=== PATIENT | male | born 1945 | race Caucasian/White ===

== ENCOUNTER 2019-12-03 20:48 | Inpatient (IN) | payer MEDICARE, OTHER, SELFPAY ==
--- NOTE | ~2019-12-03 | XR_ITS ---
EXAMINATION: XR chest 2V EXAM DATE: 12/03/2019 21:16 INDICATION: Shortness of breath, history of COPD. Productive cough. TECHNIQUE: Frontal and lateral projections of the chest obtained and reviewed. Comparison is made to prior examination from 09/10/2019. FINDINGS: Development of cardiomegaly, congestion and probably mild pulmonary edema given the indist inct reticulation. There are also small pleural effusions. No confluent consolidation or pneumothorax . Sternotomy wires are present without findings to suggest sternal dehiscence. There is a dual lead p acemaker/AICD seen with leads projecting over the expected locations of the right atrial appendage an d right ventricle. Cervical fusion hardware. Cardiac valve replacement. There is aortic arterial scle rosis. There are mild bony degenerative changes. IMPRESSION: 1. Findings consistent with developing CHF exacerbation. Reviewed, dictated and finalized at location A. [facility] [employer] AND [employer] PRESS TENDER
--- NOTE | 2019-12-03 20:56 | ECG_ITS ---
Measurements Intervals [place] Rate: 104 P: 79 OR: 189 QRS: -9 QRSD: 174 T: 133 QT: 371 QTc: 490 Interpretive Statements SINUS TACHYCARDIA LEFT BUNDLE BRANCH BLOCK BASELINE ARTIFACT- I, II, III, AVR, AVL, AVF, V5-V6 ABNORMAL ECG Electronically Signed On 12-04-2019 7:29:51 G[employer]RA[employer]ER by Shai Lima D.O.
[2019-12-03 20:57] VITALS: BP 195/103; PULSE 104; RESP 28; TEMP 36.8; O2SAT 87
[2019-12-03 21:12] LABS: Basophils Percent Auto 0.1 % (0.2-1.2); Hematocrit 35.3 % (42.0-52.0); Hemoglobin 12.2 g/dL (14.0-18.0); Immature Granulocyte Absolute 0.06 K/mm3 (0.00-0.031); Immature Granulocyte Percent A 0.4 % (0-0.5); Lymphocytes Absolute Auto 1.35 K/mm3 (0.9-3.2); Lymphocytes Percent Auto 9.9 % (18.3-44.2); Mean Corpuscular HGB Conc 34.6 g/dl (32-36); Mean Corpuscular Hemoglobin 28.5 pg (26-34); Mean Corpuscular Volume 82.5 fl (80-100); Mean Platelet Volume 10.5 fl (7.4-10.4); Monocytes Absolute Auto 0.6 K/mm3 (0.1-0.6); Monocytes Percent Auto 4.6 % (2.6-8.5); Neutrophils Absolute Auto 11.6 K/mm3 (1.3-6.7); Platelet Count Result 278 k/mm3 (150-375); Red Blood Count 4.28 M/mm3 (4.6-6.20); Red Cell Distribution Width 14.2 % (11.5-14.5); White Blood Count 13.6 K/mm3 (4.5-10.0)
--- NOTE | 2019-12-03 21:18 | ED.SOB ---
HPI - SOB/Dyspnea General Chief Complaint: Shortness of Breath/Dyspnea Stated Complaint: SOB Time Seen by Provider: 12/03/19 21:13 Source: patient, family ( at bedside) and RN notes reviewed Mode of arrival: ambulatory Limitations: no limitations History of Present Illness HPI Narrative: Pt is a 74 y/o male presenting to the ED c/o SOB. Pt reports he has been experiencing SOB for 1 week. Pt states he has a Hx of COPD and was recently prescribed Azithromycin and Prednisone. 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 Pt notes he has supplemental oxygen at night due to sleep apnea but is not on it during the day. Pt denies fever. Pt states he currently has a Pacemaker in place. Pertinent past history: COPD Onset (ago): week(s) (1) Associated symptoms: denies other symptoms Related Data Home Medications Medication Instructions Recorded Confirmed Ex-Lax (sennosides) 15 mg PO HS PRN 07/29/19 09/01/19 atorvastatin 20 mg PO DAILY 07/29/19 09/01/19 carvedilol [Coreg] 12.5 mg PO Q12H 07/29/19 09/01/19 clopidogrel 75 mg PO DAILY 07/29/19 09/01/19 ferrous sulfate 324 mg PO DAILY 07/29/19 09/01/19 hydrocodone-acetaminophen 1 tablet PO HS PRN 07/29/19 09/01/19 insulin lispro See Rx Instructions .ROUTE .COMPLEX 07/29/19 09/01/19 isosorbide mononitrate 60 mg PO DAILY 07/29/19 09/01/19 meclizine 25 mg PO TID PRN 07/29/19 09/01/19 nitroglycerin [Nitrostat] 0.4 mg SUBLINGUAL PRN PRN 07/29/19 09/01/19 ranolazine 1,000 mg PO Q12H 07/29/19 09/01/19 tiotropium bromide 1 cap INHALATION DAILY 07/29/19 09/01/19 linaclotide 72 mcg capsule See Rx Instructions .ROUTE .COMPLEX 08/11/19 09/01/19 Allergies Allergy/AdvReac Type Severity Reaction Status Date / Time Cephalosporins Allergy Mild VASCULAR TECHNICIAN Verified 12/03/19 21:06 HIVES bee venom protein (honey bee) Allergy Unknown unknown Verified 12/03/19 21:06 Penicillins Allergy Unknown unknown Verified 12/03/19 21:06 Review of Systems Review of Systems: All systems reviewed & are unremarkable except as noted in HPI and below Constitutional: Constitutional: Denies fever(s) Respiratory: Respiratory: Reports dyspnea PMFSH Past Medical History Medical History (Updated 12/03/19 @ 22:51 by Leonard Alvarez MD) CAD (coronary artery disease) CHF (congestive heart failure) CKD (chronic kidney disease) stage 3, GFR 30-59 ml/min COPD (chronic obstructive pulmonary disease) Pacemaker Paroxysmal atrial fibrillation Pneumonia Surgical History Surgical History History of aortic valve replacement with bioprosthetic valve Family History Family History Father Hypertension Family history of malignant neoplasm Family history of heart disease in male family member before age 55, Onset Age: 67 Acute myocardial infarction Malignant neoplasm of prostate Family history of congestive heart failure Mother Family history of kidney disease Sibling Family history of malignant neoplasm of breast in first degree relative Social History Social History Social History: pt stated has not smoked in 21 years. Smoking status: Former smoker Smoking end date: 09/29/95 Additional smoking assessment comments: [id number] Alcohol intake: current Last use: fadfa Additional living arrangements comments: ffffffff Additional occupation/education comments: [id number] Gender identity (if verbalized by the patient): Male Additional gender identity comments: [id number] Spiritual care concerns: No Exam Narrative: Exam Narrative: GENERAL: Well-appearing, well-nourished, and in no acute distress. HEAD: Normocephalic, atraumatic. EYES: PERRLA and EOMI. ENT: Nares clear, Mucous membranes moist. NECK: Supple. CHEST: No respiratory distress. has bilateral whee
[2019-12-03 21:38] LABS: Blood Urea Nitrogen 37 mg/dL (9-20); Calcium 8.8 mg/dL (8.4-10.2); Carbon Dioxide 22 mmol/L (22-30); Chloride 99 mmol/L (98-107); Estimated Glomerular Filt Rate > 60; Glucose 176 mg/dL (75-110); Potassium 4.7 mmol/L (3.4-5.0); Sodium 133 mmol/L (137-145)
[2019-12-03 22:03] VITALS: BP 166/73; PULSE 74; RESP 20; O2SAT 98
[2019-12-03] MEDS: IPRATROPIUM BR 0.02% INH SOLN 0.5 MG/2.5 ML VIAL INHALATION (22:07)
[2019-12-03 22:08] VITALS: PULSE 74; RESP 26
[2019-12-03] MEDS: ALBUTEROL SULFATE NEB 2.5 MG/0.5 ML INH 5 MG INHALATION (22:08)
[2019-12-03 22:17] VITALS: PULSE 80; RESP 26
[2019-12-03] MEDS: methylPREDNISolone SOD SUCC 125 MG VIAL 80 MG IV PUSH (23:25)
[2019-12-03 23:26] VITALS: BP 161/72; PULSE 73; RESP 20; O2SAT 97
[2019-12-03] MEDS: FUROSEMIDE INJ 40 MG/4 ML VIAL IV PUSH (23:26)
[2019-12-03 23:29] LABS: NT Pro B Type Natriuretic Pept 2670 PG/ML (5-100)
[2019-12-04] VITALS (28 sets, daily range): BP systolic 128–186; BP diastolic 49–86; PULSE 60–125; RESP 18–20; TEMP 36.3–36.8; O2SAT 94–99; BMI 33.2
--- NOTE | 2019-12-04 01:09 | ADMGEN ---
This patient, Ron Manuel, was admitted to 2 Medical Room 244-. Patient/family oriented to hospital policies and general routines including ID bracelet, bed and alarms, visiting hours, pain management, procedures, bathroom and other care routines, personal items, smoking policy, room service/diet, and visiting hours. Valuables list has been completed. Information on how to activate the Rapid Response Team has been discussed. Patient/Family are encouraged to report perceived risks to care and to ask questions if they do not understand what they are told or what they should do.
[2019-12-04] MEDS: methylPREDNISolone SOD SUCC 125 MG VIAL 60 MG IV PUSH ×4 (02:10→20:24)
[2019-12-04 02:36] LABS: Troponin I 0.106 ng/mL (0.000-0.034)
[2019-12-04] MEDS: IPRATROPIUM BR 0.02% INH SOLN 0.5 MG/2.5 ML VIAL INHALATION ×4 (02:38→19:13)
[2019-12-04] MEDS: ALBUTEROL SULFATE NEB 2.5 MG/0.5 ML INH 5 MG INHALATION ×4 (03:08→19:13)
[2019-12-04] MEDS: carvediloL 12.5 MG TABLET PO ×3 (03:15→20:23)
--- NOTE | 2019-12-04 04:26 | PM.IMHP ---
H&P: HPI History of Present Illness Chief complaint: Shortness of breath Narrative: oRn Manuel is a 74 year old male with a complex past medical history including COPD, diastolic congestive heart failure, chronic kidney disease stage 3, and type 2 diabetes mellitus who presented to the ER for 1 week. Patient evidently went to his primary care physician on November 30 due to increasing shortness of breath with sent home on prednisone and azithromycin after receiving a nebulizer treatment in the office. The patient reports that despite the steroids and antibiotics he became even more short of breath on the . He has had increased cough over the course of the week as occasionally productive. He denies any fevers or chills. He has been having increasing orthopnea but denies any increased lower extremity swelling. He has chronic right lower extremity swelling ever since he had a fem pop bypass several years ago. He did have a recent stent placed in the right lower extremity about a month ago. He denies any recent ill contacts. He has not been having any fevers or chills. He has noticed increased wheezing. He denies any chest pain or palpitations. However, just before I went into the patient's room he had an episode of a wide complex tachycardia with a heart rate of around 125 that lasted 2 minutes. He denied any symptoms of this at the time. [facility]. He has been having variable glucoses with his glucoses at home ranging anywhere from the 100s up to the upper 300s. He reports he has been taking his medications as directed. However he has not been using his home Spiriva and has been using his nebulizer. He denies any recent dysuria. He has had approximately 1.5 L of urine output since he received Lasix in the ER. He reports that his shortness of breath has improved. He has been compliant with his CPAP and uses it religiously. He reports that his feet always feel like there sleep due to his neuropathy. He does have issues with constipation but since he stopped his oral iron supplements and started taking MiraLax b.i.d. he has had more regular bowel movements. He denies any hematochezia or melena. Review of Systems Review of Systems: Narrative: Except as documented in the HPI, all other systems were reviewed and are negative. [facility] Past Medical History Medical History (Updated 12/04/19 @ 05:48 by Qian Tillman DO) Bacteremia Streptococcus bovis bacteremia June 2019. Transesophageal echocardiogram negative for vegetation July 2019 Bilateral carotid artery disease CAD (coronary artery disease) Status post stents and CABG. CHF (congestive heart failure) Echo October 05, 2018 demonstrated EF of 55% but difficult study prior echos had demonstrated mildly decreased left ventricular systolic function with hypokinetic segment of left ventricle including apical mid in peers septum apical septum and mid anterior septum, diastolic dysfunction noted on prior echoes CKD (chronic kidney disease) stage 3, GFR 30-59 ml/min COPD (chronic obstructive pulmonary disease) PFTs November 2017 demonstrated mild obstructive ventilatory defect with severe small airway disease with bronchodilator response moderately decreased DLCO Diabetic peripheral neuropathy GERD (gastroesophageal reflux disease) Hiatal hernia History of BPH Hyponatremia with decreased serum osmolality Obstructive sleep apnea on CPAP Polysomnogram June 2018 recommended CPAP with 19 cm of water Pacemaker Paroxysmal atrial fibrillation Peripheral artery disease With multiple bilateral lower extremity stents June 2019 Pneumonia Severe pulmonary arterial systolic hypertension Noted on echocardiogram from June 2017 with RVSP of 76 Type 2 diabetes mellitus treated with insulin Hemoglobin A1c 8.30 June 2019 Vertigo Surgical History Surgical History (Updated 12/04/19 @ 04:56 by Qian Tillman DO) H/O cervical spine surgery History of ao
[2019-12-04 05:37] LABS: Basophils Percent Auto 0.1 % (0.2-1.2); Hematocrit 33.5 % (42.0-52.0); Immature Granulocyte Absolute 0.02 K/mm3 (0.00-0.031); Immature Granulocyte Percent A 0.3 % (0-0.5); Lymphocytes Absolute Auto 0.75 K/mm3 (0.9-3.2); Lymphocytes Percent Auto 10.3 % (18.3-44.2); Mean Corpuscular HGB Conc 32.8 g/dl (32-36); Mean Corpuscular Hemoglobin 27.5 pg (26-34); Mean Corpuscular Volume 83.8 fl (80-100); Mean Platelet Volume 9.5 fl (7.4-10.4); Monocytes Absolute Auto 0.1 K/mm3 (0.1-0.6); Monocytes Percent Auto 1.5 % (2.6-8.5); Neutrophils Absolute Auto 6.4 K/mm3 (1.3-6.7); Neutrophils Percent Auto 87.8 % (45.5-73.1); Platelet Count Result 193 k/mm3 (150-375); Red Cell Distribution Width 13.9 % (11.5-14.5); White Blood Count 7.3 K/mm3 (4.5-10.0)
[2019-12-04 05:44] LABS: Blood Urea Nitrogen 39 mg/dL (9-20); Calcium 8.9 mg/dL (8.4-10.2); Carbon Dioxide 26 mmol/L (22-30); Chloride 99 mmol/L (98-107); Estimated CRCL calculation 52 ml/min; Estimated Glomerular Filt Rate 59; Glucose 304 mg/dL (75-110); Potassium 4.6 mmol/L (3.4-5.0); Sodium 133 mmol/L (137-145)
[2019-12-04 05:58] LABS: Magnesium 2.2 mg/dL (1.6-2.3)
[2019-12-04 06:00] LABS: Troponin I 0.094 ng/mL (0.000-0.034)
[2019-12-04] MEDS: polyethylene glycoL 3350 17 GM POWD.PACK PO ×2 (08:46→17:32)
[2019-12-04] MEDS: FUROSEMIDE INJ 40 MG/4 ML VIAL IV PUSH ×2 (08:47→20:23)
[2019-12-04] MEDS: ENOXAPARIN 40 MG/0.4 ML SYRINGE SUB-Q (08:47)
[2019-12-04] MEDS: lisinopriL 2.5 MG TABLET PO (08:48)
[2019-12-04] MEDS: ISOSORBIDE MONONITRATE 60 MG TAB.ER.24H PO (08:49)
[2019-12-04] MEDS: RANOLAZINE 500 MG TAB.ER.12H 1000 MG PO ×2 (08:49→20:24)
[2019-12-04] MEDS: CLOPIDOGREL BISULFATE 75 MG TABLET PO (08:49)
[2019-12-04] MEDS: FLUOXETINE HCL 20 MG CAP PO (08:49)
[2019-12-04] MEDS: ATORVASTATIN 20 MG TABLET PO (08:49)
[2019-12-04] MEDS: PANTOPRAZOLE 40 MG TABLET PO (08:50)
[2019-12-04] MEDS: INSULIN GLARGINE (*BKC) 100 UNITS/ML 38 UNITS SUB-Q ×2 (08:50→20:26)
[2019-12-04] MEDS: INSULIN ASPART (*BKC) 100 UNITS/ML SUB-Q ×3 (08:51→17:29)
[2019-12-04] MEDS: INSULIN ASPART (*BKC) 100 UNITS/ML 20 UNITS SUB-Q ×3 (08:52→17:31)
[2019-12-04 09:08] LABS: Glucose Point of Care 315 (65-105)
[2019-12-04 11:57] LABS: Glucose Point of Care 316 (65-105)
--- NOTE | 2019-12-04 13:47 | P.PNIM_ITS ---
Progress Note: A&P Assessment and Plan (1) Acute exacerbation of chronic obstructive airways disease: Code(s): J44.1 - Chronic obstructive pulmonary disease with (acute) exacerbation Status: Acute Assessment and Plan: * Continue steroids, bronchodilators (2) CHF exacerbation: Qualifiers: Heart failure type: diastolic Qualified Code(s): I50.33 - Acute on chronic diastolic (congestive) heart failure Code(s): I50.9 - Heart failure, unspecified Status: Acute Assessment and Plan: * Continue diuresis with IV furosemide (3) Elevated troponin: Code(s): R79.89 - Other specified abnormal findings of blood chemistry Status: Acute Assessment and Plan: * Chronic * No ACS (4) Tachyarrhythmia: Code(s): R00.0 - Tachycardia, unspecified Status: Acute Assessment and Plan: * Pacemaker mediated tachycardia * D/w Dr. Patterson * Interrogate pacer * F/u with Dr. Yo's office as outpatient (5) Type 2 diabetes mellitus treated with insulin: Code(s): E11.9 - Type 2 diabetes mellitus without complications; Z79.4 - [facility] (current) use of insulin Status: Acute Assessment and Plan: * Continue basal and premeal insulin * SSI added due to steroid induced hyperglycemia (6) Paroxysmal atrial fibrillation: Code(s): I48.0 - Paroxysmal atrial fibrillation Status: Acute Assessment and Plan: * This is in his hx but patient is not anticoagulated * He sees cardiology (7) CAD (coronary artery disease): Qualifiers: Coronary Disease-Associated Artery/Lesion type: [place] artery [place] vs. transplanted heart: [place] heart Associated angina: without angina Qualified Code(s): I25.10 - Atherosclerotic heart disease of [place] coronary artery without angina pectoris Code(s): I25.10 - Atherosclerotic heart disease of [place] coronary artery without angina pectoris Status: Acute Assessment and Plan: * Currently without sx's Subjective Date/time seen: 12/04/19 13:47 Interval history: Admitted 3/ with one week of gradually increasing CERVANTES and orthopnea. 3/6 had chest pressure and was unable to catch his breath. Doing much better 3/7 after diuresis, steroids, bronchodilators. Tolerating diet. Denied pain. Review of Systems Review of Systems: All systems reviewed & are unremarkable except as noted in HPI and below Exam Narrative: Exam Narrative: HEENT: EOMI, PERRL, pharyngeal mucosa pink and intact NECK: No JVD CHEST: Few bibasilar crackles and expiratory wheezes HEART: NL S1/S2, regular, no murmur ABDOMEN: BS+, soft, nontender, no mass, no bruits EXTREMITIES: Trace ankle edema on right NEUROLOGIC: CN intact and symmetric to inspection. MUSCULOSKELETAL: Tone and strength symmetric. PSYCH: Alert. Oriented to person, place, and time. Objective Data Vital Signs Vital Signs: Vital Signs - 24 hr 12/03/19 20:57 12/03/19 22:03 12/03/19 22:08 Temperature 98.3 F Pulse Rate 104 H 74 74 Respiratory Rate 28 H 20 26 H Blood Pressure 195/103 H 166/73 H Pulse Oximetry 87 L 98 12/03/19 22:17 12/03/19 23:26 12/04/19 00:29 Temperature Pulse Rate 80 73 72 Respiratory Rate 26 H 20 20 Blood Pressure 161/72 H 161/75 H Pulse Oximetry 97 99 12/04/19 00:45
--- NOTE | 2019-12-04 13:47 | PM.IMPN ---
Progress Note: A&P Assessment and Plan (1) Acute exacerbation of chronic obstructive airways disease: Code(s): J44.1 - Chronic obstructive pulmonary disease with (acute) exacerbation Status: Acute Assessment and Plan: Continue steroids, bronchodilators (2) CHF exacerbation: Qualifiers: Heart failure type: diastolic Qualified Code(s): I50.33 - Acute on chronic diastolic (congestive) heart failure Code(s): I50.9 - Heart failure, unspecified Status: Acute Assessment and Plan: Continue diuresis with IV furosemide (3) Elevated troponin: Code(s): R79.89 - Other specified abnormal findings of blood chemistry Status: Acute Assessment and Plan: Chronic No ACS (4) Tachyarrhythmia: Code(s): R00.0 - Tachycardia, unspecified Status: Acute Assessment and Plan: Pacemaker mediated tachycardia D/w Dr. Patterson Interrogate pacer F/u with Dr. Yo's office as outpatient (5) Type 2 diabetes mellitus treated with insulin: Code(s): E11.9 - Type 2 diabetes mellitus without complications; Z79.4 - director long term care (current) use of insulin Status: Acute Assessment and Plan: Continue basal and premeal insulin SSI added due to steroid induced hyperglycemia (6) Paroxysmal atrial fibrillation: Code(s): I48.0 - Paroxysmal atrial fibrillation Status: Acute Assessment and Plan: This is in his hx but patient is not anticoagulated He sees cardiology (7) CAD (coronary artery disease): Qualifiers: Coronary Disease-Associated Artery/Lesion type: [place] artery [place] vs. transplanted heart: [place] heart Associated angina: without angina Qualified Code(s): I25.10 - Atherosclerotic heart disease of [place] coronary artery without angina pectoris Code(s): I25.10 - Atherosclerotic heart disease of [place] coronary artery without angina pectoris Status: Acute Assessment and Plan: Currently without sx's Subjective Date/time seen: 12/04/19 13:47 Interval history: Admitted 3/6 with one week of gradually increasing CERVANTES and orthopnea. 3/6 had chest pressure and was unable to catch his breath. Doing much better 3/7 after diuresis, steroids, bronchodilators. Tolerating diet. Denied pain. Review of Systems Review of Systems: All systems reviewed & are unremarkable except as noted in HPI and below Exam Narrative: Exam Narrative: HEENT: EOMI, PERRL, pharyngeal mucosa pink and intact NECK: No JVD CHEST: Few bibasilar crackles and expiratory wheezes HEART: NL S1/S2, regular, no murmur ABDOMEN: BS+, soft, nontender, no mass, no bruits EXTREMITIES: Trace ankle edema on right NEUROLOGIC: CN intact and symmetric to inspection. MUSCULOSKELETAL: Tone and strength symmetric. PSYCH: Alert. Oriented to person, place, and time. Objective Data Vital Signs Vital Signs: Vital Signs - 24 hr 12/03/19 20:57 12/03/19 22:03 12/03/19 22:08 Temperature 98.3 F Pulse Rate 104 H 74 74 Respiratory Rate 28 H 20 26 H Blood Pressure 195/103 H 166/73 H Pulse Oximetry 87 L 98 12/03/19 22:17 12/03/19 23:26 12/04/19 00:29 Temperature Pulse Rate 80 73 72 Respiratory Rate 26 H 20 20 Blood Pressure 161/72 H 161/75 H Pulse Oximetry 97 99 12/04/19 00:45 12/04/19 00:57 12/04/19 02:35 Temperature 97.6 F Pulse Rate 73 72 Respiratory Rate 20 Blood Pressure 186/86 H Pulse Oximetry 99 98 12/04/19 02:38 12/04/19 02:48 12/04/19 02:50 Temperature Pulse Rate 70 75 75 Respiratory Rate 20 20 Blood Pressure Pulse Oximetry 98 12/04/19 03:15 12/04/19 04:00 12/04/19 05:16 Temperature 97.3 F L Pulse Rate 80 62 125 H Respiratory Rate 20 Blood Pressure 142/49 H Pulse Oximetry 98 12/04/19 08:00 12/04/19 08:19 12/04/19 08:27 Temperature Pulse Rate 76 66 68 Respiratory Rate 18 18 18 Blood Pressure Pulse Oximetry 98 97 12/04/19 09:14
[2019-12-04 17:09] LABS: Glucose Point of Care 208 (65-105)
[2019-12-04 20:37] LABS: Glucose Point of Care 249 (65-105)
[2019-12-05] VITALS (24 sets, daily range): BP systolic 120–151; BP diastolic 41–84; PULSE 60–78; RESP 16–20; TEMP 36.2–37.1; O2SAT 90–98
[2019-12-05] MEDS: ALBUTEROL SULFATE NEB 2.5 MG/0.5 ML INH 5 MG INHALATION ×4 (01:08→20:11)
[2019-12-05] MEDS: IPRATROPIUM BR 0.02% INH SOLN 0.5 MG/2.5 ML VIAL INHALATION ×4 (01:08→20:11)
[2019-12-05] MEDS: methylPREDNISolone SOD SUCC 125 MG VIAL 60 MG IV PUSH ×3 (05:35→21:35)
[2019-12-05 05:44] LABS: Hematocrit 33.4 % (42.0-52.0); Hemoglobin 11.2 g/dL (14.0-18.0); Mean Corpuscular HGB Conc 33.5 g/dl (32-36); Mean Corpuscular Hemoglobin 28.1 pg (26-34); Mean Corpuscular Volume 83.7 fl (80-100); Mean Platelet Volume 9.2 fl (7.4-10.4); Platelet Count Result 192 k/mm3 (150-375); Red Blood Count 3.99 M/mm3 (4.6-6.20); White Blood Count 7.9 K/mm3 (4.5-10.0)
[2019-12-05 06:00] LABS: Blood Urea Nitrogen 41 mg/dL (9-20); Calcium 8.7 mg/dL (8.4-10.2); Carbon Dioxide 27 mmol/L (22-30); Chloride 100 mmol/L (98-107); Estimated CRCL calculation 38 ml/min; Estimated Glomerular Filt Rate 50; Glucose 267 mg/dL (75-110); Potassium 4.1 mmol/L (3.4-5.0); Sodium 136 mmol/L (137-145)
[2019-12-05 08:26] LABS: Glucose Point of Care 283 (65-105)
[2019-12-05] MEDS: polyethylene glycoL 3350 17 GM POWD.PACK PO ×2 (09:38→18:11)
[2019-12-05] MEDS: FLUOXETINE HCL 20 MG CAP PO (09:39)
[2019-12-05] MEDS: BUMETANIDE 1 MG TABLET PO ×2 (09:39→18:12)
[2019-12-05] MEDS: PANTOPRAZOLE 40 MG TABLET PO (09:39)
[2019-12-05] MEDS: CLOPIDOGREL BISULFATE 75 MG TABLET PO (09:39)
[2019-12-05] MEDS: ISOSORBIDE MONONITRATE 60 MG TAB.ER.24H PO (09:39)
[2019-12-05] MEDS: ATORVASTATIN 20 MG TABLET PO (09:39)
[2019-12-05] MEDS: carvediloL 12.5 MG TABLET PO ×2 (09:39→21:34)
[2019-12-05] MEDS: RANOLAZINE 500 MG TAB.ER.12H 1000 MG PO ×2 (09:39→21:34)
[2019-12-05] MEDS: lisinopriL 2.5 MG TABLET PO (09:39)
[2019-12-05] MEDS: INSULIN GLARGINE (*BKC) 100 UNITS/ML 38 UNITS SUB-Q ×2 (09:42→21:34)
[2019-12-05] MEDS: INSULIN ASPART (*BKC) 100 UNITS/ML SUB-Q ×2 (09:43→12:57)
[2019-12-05] MEDS: INSULIN ASPART (*BKC) 100 UNITS/ML 20 UNITS SUB-Q ×2 (09:44→12:59)
[2019-12-05] MEDS: ENOXAPARIN 40 MG/0.4 ML SYRINGE SUB-Q (09:45)
[2019-12-05 13:20] LABS: Glucose Point of Care 237 (65-105)
--- NOTE | 2019-12-05 16:06 | P.PNIM_ITS ---
Progress Note: A&P Assessment and Plan (1) Acute exacerbation of chronic obstructive airways disease: Code(s): J44.1 - Chronic obstructive pulmonary disease with (acute) exacerbation Status: Acute Assessment and Plan: * Continue steroids, bronchodilators * Add expectorant (2) CHF exacerbation: Qualifiers: Heart failure type: diastolic Qualified Code(s): I50.33 - Acute on chronic diastolic (congestive) heart failure Code(s): I50.9 - Heart failure, unspecified Status: Acute Assessment and Plan: * PO Bumetanide (3) Elevated troponin: Code(s): R79.89 - Other specified abnormal findings of blood chemistry Status: Acute Assessment and Plan: * Chronic * No ACS (4) Tachyarrhythmia: Code(s): R00.0 - Tachycardia, unspecified Status: Acute Assessment and Plan: * Pacemaker mediated tachycardia * D/w Dr. Patterson * Interrogate pacer * F/u with Dr. Yo's office as outpatient (5) Type 2 diabetes mellitus treated with insulin: Code(s): E11.9 - Type 2 diabetes mellitus without complications; Z79.4 - [facility] (current) use of insulin Status: Acute Assessment and Plan: * Continue basal and premeal insulin * SSI added due to steroid induced hyperglycemia (6) Paroxysmal atrial fibrillation: Code(s): I48.0 - Paroxysmal atrial fibrillation Status: Acute Assessment and Plan: * This is in his hx but patient is not anticoagulated * He sees cardiology (7) CAD (coronary artery disease): Qualifiers: Coronary Disease-Associated Artery/Lesion type: [place] artery [place] vs. transplanted heart: [place] heart Associated angina: without angina Qualified Code(s): I25.10 - Atherosclerotic heart disease of [place] coronary artery without angina pectoris Code(s): I25.10 - Atherosclerotic heart disease of [place] coronary artery without angina pectoris Status: Acute Assessment and Plan: * Currently without sx's Subjective Date/time seen: 12/05/19 16:06 Interval history: Admitted 12/02 with one week of gradually increasing CERVANTES and orthopnea. 3/6 had chest pressure and was unable to catch his breath. Doing much better 3/7 after diuresis, steroids, bronchodilators. Tolerating diet. Denied pain. Still having cough, wheeze, thick white sputum. Slight pressure on right chest. Review of Systems Review of Systems: All systems reviewed & are unremarkable except as noted in HPI and below Exam Narrative: Exam Narrative: HEENT: EOMI, PERRL, pharyngeal mucosa pink and intact NECK: No JVD CHEST: Scattered rhonchi and expiratory wheezes HEART: NL S1/S2, regular, no murmur ABDOMEN: BS+, soft, nontender, no mass, no bruits EXTREMITIES: Trace ankle edema on right NEUROLOGIC: CN intact and symmetric to inspection. MUSCULOSKELETAL: Tone and strength symmetric. PSYCH: Alert. Oriented to person, place, and time. Objective Data Vital Signs Vital Signs: Vital Signs - 24 hr 12/04/19 16:00 12/04/19 18:00 12/04/19 19:13 Temperature 98.3 F Pulse Rate 70 76 76 Respiratory Rate 18 18 Blood Pressure 145/76 H Pulse Oximetry 97 12/04/19 19:17 12/04/19 19:20 12/04/19 20:00 Temperature Pulse Rate 78 79 Respiratory Rate 18 Blood Pressure Pulse Oximetry 94
--- NOTE | 2019-12-05 16:06 | PM.IMPN ---
Progress Note: A&P Assessment and Plan (1) Acute exacerbation of chronic obstructive airways disease: Code(s): J44.1 - Chronic obstructive pulmonary disease with (acute) exacerbation Status: Acute Assessment and Plan: Continue steroids, bronchodilators Add expectorant (2) CHF exacerbation: Qualifiers: Heart failure type: diastolic Qualified Code(s): I50.33 - Acute on chronic diastolic (congestive) heart failure Code(s): I50.9 - Heart failure, unspecified Status: Acute Assessment and Plan: PO Bumetanide (3) Elevated troponin: Code(s): R79.89 - Other specified abnormal findings of blood chemistry Status: Acute Assessment and Plan: Chronic No ACS (4) Tachyarrhythmia: Code(s): R00.0 - Tachycardia, unspecified Status: Acute Assessment and Plan: Pacemaker mediated tachycardia D/w Dr. Patterson Interrogate pacer F/u with Dr. Yo's office as outpatient (5) Type 2 diabetes mellitus treated with insulin: Code(s): E11.9 - Type 2 diabetes mellitus without complications; Z79.4 - custodial (current) use of insulin Status: Acute Assessment and Plan: Continue basal and premeal insulin SSI added due to steroid induced hyperglycemia (6) Paroxysmal atrial fibrillation: Code(s): I48.0 - Paroxysmal atrial fibrillation Status: Acute Assessment and Plan: This is in his hx but patient is not anticoagulated He sees cardiology (7) CAD (coronary artery disease): Qualifiers: Coronary Disease-Associated Artery/Lesion type: [place] artery [place] vs. transplanted heart: [place] heart Associated angina: without angina Qualified Code(s): I25.10 - Atherosclerotic heart disease of [place] coronary artery without angina pectoris Code(s): I25.10 - Atherosclerotic heart disease of [place] coronary artery without angina pectoris Status: Acute Assessment and Plan: Currently without sx's Subjective Date/time seen: 12/05/19 16:06 Interval history: Admitted 3/ with one week of gradually increasing CERVANTES and orthopnea. 3/6 had chest pressure and was unable to catch his breath. Doing much better 3/7 after diuresis, steroids, bronchodilators. Tolerating diet. Denied pain. Still having cough, wheeze, thick white sputum. Slight pressure on right chest. Review of Systems Review of Systems: All systems reviewed & are unremarkable except as noted in HPI and below Exam Narrative: Exam Narrative: HEENT: EOMI, PERRL, pharyngeal mucosa pink and intact NECK: No JVD CHEST: Scattered rhonchi and expiratory wheezes HEART: NL S1/S2, regular, no murmur ABDOMEN: BS+, soft, nontender, no mass, no bruits EXTREMITIES: Trace ankle edema on right NEUROLOGIC: CN intact and symmetric to inspection. MUSCULOSKELETAL: Tone and strength symmetric. PSYCH: Alert. Oriented to person, place, and time. Objective Data Vital Signs Vital Signs: Vital Signs - 24 hr 12/04/19 16:00 12/04/19 18:00 12/04/19 19:13 Temperature 98.3 F Pulse Rate 70 76 76 Respiratory Rate 18 18 Blood Pressure 145/76 H Pulse Oximetry 97 12/04/19 19:17 12/04/19 19:20 12/04/19 20:00 Temperature Pulse Rate 78 79 Respiratory Rate 18 Blood Pressure Pulse Oximetry 94 12/04/19 20:23 12/04/19 21:30 12/04/19 22:00 Temperature 97.7 F Pulse Rate 80 66 68 Respiratory Rate 20 Blood Pressure 128/51 L Pulse Oximetry 94 95 12/05/19 00:00 12/05/19 01:08 12/05/19 01:12 Temperature Pulse Rate 63 60 68 Respiratory Rate 16 Blood Pressure Pulse Oximetry 94 12/05/19 01:15 12/05/19 03:00 12/05/19 04:00 Temperature 97.1 F L Pulse Rate 64 61 62 Respiratory Rate 16 20 Blood Pressure 130/50 L Pulse Oximetry 96 12/05/19 05:29 12/05/19 08:00 12/05/19 09:36 Temperature 97.7 F Pulse Rate 60 78 66 Respiratory Rate 20 18 18 Blood Pressure 145/84 H Pulse Oximet
[2019-12-05 17:11] LABS: Glucose Point of Care 76 (65-105)
[2019-12-05] MEDS: GUAIFENESIN 200 MG/10 ML UDC PO ×2 (18:12→21:34)
[2019-12-05] MEDS: TAMSULOSIN HCL 0.4 MG CAPSULE PO (21:35)
[2019-12-05 22:56] LABS: Glucose Point of Care 233 (65-105)
[2019-12-06] VITALS (14 sets, daily range): BP systolic 118–164; BP diastolic 55–90; PULSE 60–70; RESP 16–18; TEMP 35.9–36.5; O2SAT 92–98
[2019-12-06] MEDS: IPRATROPIUM BR 0.02% INH SOLN 0.5 MG/2.5 ML VIAL INHALATION ×3 (02:34→14:26)
[2019-12-06] MEDS: ALBUTEROL SULFATE NEB 2.5 MG/0.5 ML INH 5 MG INHALATION ×3 (02:34→14:26)
[2019-12-06 06:20] LABS: Blood Urea Nitrogen 41 mg/dL (9-20); Calcium 8.4 mg/dL (8.4-10.2); Carbon Dioxide 32 mmol/L (22-30); Chloride 98 mmol/L (98-107); Estimated CRCL calculation 47 ml/min; Estimated Glomerular Filt Rate > 60; Glucose 164 mg/dL (75-110); Potassium 3.9 mmol/L (3.4-5.0); Sodium 137 mmol/L (137-145)
[2019-12-06] MEDS: SODIUM CHLOR 3% 15 ML NEB (RESPIRATORY THERAPY) 6 ML INHALATION (06:25)
--- NOTE | 2019-12-06 06:35 | PCRCNOTE ---
pt was unable to submit a sputum sample at this time; hypertonic saline was given to no avail
[2019-12-06] MEDS: methylPREDNISolone SOD SUCC 125 MG VIAL 60 MG IV PUSH (06:49)
[2019-12-06] MEDS: PANTOPRAZOLE 40 MG TABLET PO (08:15)
[2019-12-06] MEDS: RANOLAZINE 500 MG TAB.ER.12H 1000 MG PO (08:15)
[2019-12-06] MEDS: CLOPIDOGREL BISULFATE 75 MG TABLET PO (08:16)
[2019-12-06] MEDS: carvediloL 12.5 MG TABLET PO (08:16)
[2019-12-06] MEDS: ATORVASTATIN 20 MG TABLET PO (08:16)
[2019-12-06] MEDS: BUMETANIDE 1 MG TABLET PO (08:16)
[2019-12-06] MEDS: FLUOXETINE HCL 20 MG CAP PO (08:16)
[2019-12-06] MEDS: lisinopriL 2.5 MG TABLET PO (08:16)
[2019-12-06] MEDS: ISOSORBIDE MONONITRATE 60 MG TAB.ER.24H PO (08:16)
[2019-12-06] MEDS: GUAIFENESIN 200 MG/10 ML UDC PO ×2 (08:18→12:17)
[2019-12-06] MEDS: polyethylene glycoL 3350 17 GM POWD.PACK PO (08:19)
[2019-12-06] MEDS: ENOXAPARIN 40 MG/0.4 ML SYRINGE SUB-Q (08:19)
[2019-12-06] MEDS: INSULIN GLARGINE (*BKC) 100 UNITS/ML 38 UNITS SUB-Q (08:22)
[2019-12-06] MEDS: INSULIN ASPART (*BKC) 100 UNITS/ML 20 UNITS SUB-Q (08:25)
--- NOTE | 2019-12-06 09:13 | PCRCNOTE ---
Sputum induction done this AM, pt had strong productive cough. Sputum collected and sent to lab.
[2019-12-06 10:13] LABS: Glucose Point of Care 119 (65-105)
[2019-12-06] MEDS: GLUCOSE ORAL GEL 15 GM OF GLUCSE IN 37.5 GM TUBE PO (12:14)
[2019-12-06 12:48] LABS: Glucose Point of Care 140 (65-105)
[2019-12-06 12:52] LABS: Glucose Point of Care 52 (65-105)
--- NOTE | 2019-12-06 13:29 | P.DS_ITS ---
DS: Diagnosis Admitting Diagnosis Admitting Diagnosis: Chronic obstructive pulmonary disease with (acute) exacerba tion Discharge Diagnosis (1) Acute exacerbation of chronic obstructive airways disease: Code(s): J44.1 - Chronic obstructive pulmonary disease with (acute) exacerbation Status: Acute Assessment and Plan: * Continue steroids, bronchodilators * Added expectorant (2) CHF exacerbation: Qualifiers: Heart failure type: diastolic Qualified Code(s): I50.33 - Acute on chronic diastolic (congestive) heart failure Code(s): I50.9 - Heart failure, unspecified Status: Acute Assessment and Plan: * PO Bumetanide (3) Elevated troponin: Code(s): R79.89 - Other specified abnormal findings of blood chemistry Status: Acute Assessment and Plan: * Chronic * No ACS (4) Tachyarrhythmia: Code(s): R00.0 - Tachycardia, unspecified Status: Acute Assessment and Plan: * Pacemaker mediated tachycardia * D/w Dr. Patterson * Interrogate pacer * F/u with Dr. Yo's office as outpatient (5) Type 2 diabetes mellitus treated with insulin: Code(s): E11.9 - Type 2 diabetes mellitus without complications; Z79.4 - assisted (cu rrent) use of insulin Status: Acute Assessment and Plan: * Continue basal and premeal insulin * SSI added due to steroid induced hyperglycemia (6) Paroxysmal atrial fibrillation: Code(s): I48.0 - Paroxysmal atrial fibrillation Status: Acute Assessment and Plan: * This is in his hx but patient is not anticoagulated * He sees cardiology (7) CAD (coronary artery disease): Qualifiers: Coronary Disease-Associated Artery/Lesion type: [place] artery [place] vs. transplanted heart: [place] heart Associated angina: without angina Qualified Code(s): I25.10 - Atherosclerotic heart disease of [place] coronary artery without angina pectoris Code(s): I25.10 - Atherosclerotic heart disease of [place] coronary artery without angina pectoris Status: Acute Assessment and Plan: * Currently without sx's DS: Summary Hospital Course Reason for hospitalization: Dyspnea Hospital Course: Patient presented with cough dyspnea. Imaging was consistent with congestive heart failure. He was wheezing with rhonchi and tachypnea. He responded well to steroids bronchodilators oxygen and diuresis with IV furose mide. Creatinine bumped temporarily to 1.4 with reduction of high retic improved back to baseline 1.1. By day of discharge he was up about in his room without difficulty. He was tolerating diet. Alert oriented person place and time. Rated home. Prior discharge reviewed his insulin dosing and reviewed notes from his business account leader. They will resume his home regimen upon discharge. He did experience an episode of face May Lisa mediated tachycardia early in his admission. This was asymptomatic and did not recur. Time Spent with Patient Time attestation: Total time spent providing and/or coordinating discharge services: Exam Narrative: Exam Narrative: HEENT: EOMI, PERRL, pharyngeal mucosa pink and intact NECK: No JVD CHEST: incr apd, diminished and coarse BS HEART: NL S1/S2, regular, no murmur ABDOMEN: BS+, soft, nontender, no mass, no bruits EXTREMITIES: Trace ankle edema on right NEUROLOGIC: CN intact and symmetric to inspection. MUSCULOSKELETAL: Tone and strength symmetric. PSYCH: Alert. Oriented to person, place, and time. DS: Data Data Completed and Pendin
--- NOTE | 2019-12-06 13:29 | PM.DS ---
DS: Diagnosis Admitting Diagnosis Admitting Diagnosis: Chronic obstructive pulmonary disease with (acute) exacerbation Discharge Diagnosis (1) Acute exacerbation of chronic obstructive airways disease: Code(s): J44.1 - Chronic obstructive pulmonary disease with (acute) exacerbation Status: Acute Assessment and Plan: Continue steroids, bronchodilators Added expectorant (2) CHF exacerbation: Qualifiers: Heart failure type: diastolic Qualified Code(s): I50.33 - Acute on chronic diastolic (congestive) heart failure Code(s): I50.9 - Heart failure, unspecified Status: Acute Assessment and Plan: PO Bumetanide (3) Elevated troponin: Code(s): R79.89 - Other specified abnormal findings of blood chemistry Status: Acute Assessment and Plan: Chronic No ACS (4) Tachyarrhythmia: Code(s): R00.0 - Tachycardia, unspecified Status: Acute Assessment and Plan: Pacemaker mediated tachycardia D/w Dr. Patterson Interrogate pacer F/u with Dr. Yo's office as outpatient (5) Type 2 diabetes mellitus treated with insulin: Code(s): E11.9 - Type 2 diabetes mellitus without complications; Z79.4 - shelter (current) use of insulin Status: Acute Assessment and Plan: Continue basal and premeal insulin SSI added due to steroid induced hyperglycemia (6) Paroxysmal atrial fibrillation: Code(s): I48.0 - Paroxysmal atrial fibrillation Status: Acute Assessment and Plan: This is in his hx but patient is not anticoagulated He sees cardiology (7) CAD (coronary artery disease): Qualifiers: Coronary Disease-Associated Artery/Lesion type: [place] artery [place] vs. transplanted heart: [place] heart Associated angina: without angina Qualified Code(s): I25.10 - Atherosclerotic heart disease of [place] coronary artery without angina pectoris Code(s): I25.10 - Atherosclerotic heart disease of [place] coronary artery without angina pectoris Status: Acute Assessment and Plan: Currently without sx's DS: Summary Hospital Course Reason for hospitalization: Dyspnea Hospital Course: Patient presented with cough dyspnea. Imaging was consistent with congestive heart failure. He was wheezing with rhonchi and tachypnea. He responded well to steroids bronchodilators oxygen and diuresis with IV furosemide. Creatinine bumped temporarily to 1.4 with reduction of high retic improved back to baseline 1.1. By day of discharge he was up about in his room without difficulty. He was tolerating diet. Alert oriented person place and time. Rated home. Prior discharge reviewed his insulin dosing and reviewed notes from his communication engineer. They will resume his home regimen upon discharge. He did experience an episode of face May Lisa mediated tachycardia early in his admission. This was asymptomatic and did not recur. Time Spent with Patient Time attestation: Total time spent providing and/or coordinating discharge services: Exam Narrative: Exam Narrative: HEENT: EOMI, PERRL, pharyngeal mucosa pink and intact NECK: No JVD CHEST: incr apd, diminished and coarse BS HEART: NL S1/S2, regular, no murmur ABDOMEN: BS+, soft, nontender, no mass, no bruits EXTREMITIES: Trace ankle edema on right NEUROLOGIC: CN intact and symmetric to inspection. MUSCULOSKELETAL: Tone and strength symmetric. PSYCH: Alert. Oriented to person, place, and time. DS: Data Data Completed and Pending Labs on day of discharge: Labs from last 24 hours 12/06/19 12/06/19 12/06/19 12:43 12:07 07:57 Sodium Potassium Chloride Carbon Dioxide BUN Creatinine Estim Creat Clear Calc Estimated GFR Glucose POC Capillary Glucose 140 H 52 L* 119 H Calcium 12/06/19 12/05/19 12/05/19 05:17 21:32 16:44 Sodium 137 Potassium 3.9 Chloride 98 Carbon Dioxide 32 H BUN 41 H Cr
== END 2019-12-06 15:06 | disposition home or self-care (01) | DRG 190 ==
LOC: ANHED 22:57 → ANH2MED 12-04 00:21
PROVIDERS: Emergency Medicine; Admitting Provider Internal Medicine; Emergency Provider Family Medicine; PCP Emergency Medicine; Visit Provider Internal Medicine
DX: J44.1 Chronic obstructive pulmonary disease with (acute) exacerbation (principal); I50.33 Acute on chronic diastolic (congestive) heart failure; N18.3 Chronic kidney disease, stage 3 (moderate); E11.22 Type 2 diabetes mellitus with diabetic chronic kidney disease; Z95.820 Peripheral vascular angioplasty status with implants and grafts; E11.42 Type 2 diabetes mellitus with diabetic polyneuropathy; Z87.891 Personal history of nicotine dependence; I25.10 Atherosclerotic heart disease of native coronary artery without angina pectoris; K21.9 Gastro-esophageal reflux disease without esophagitis; K44.9 Diaphragmatic hernia without obstruction or gangrene; G47.33 Obstructive sleep apnea (adult) (pediatric); Z95.0 Presence of cardiac pacemaker; I48.0 Paroxysmal atrial fibrillation; E11.51 Type 2 diabetes mellitus with diabetic peripheral angiopathy without gangrene; I27.21 Secondary pulmonary arterial hypertension; E66.9 Obesity, unspecified; R00.0 Tachycardia, unspecified; Z79.4 Long term (current) use of insulin; E11.65 Type 2 diabetes mellitus with hyperglycemia; T38.0X5A Adverse effect of glucocorticoids and synthetic analogues, initial encounter; Z68.31 Body mass index [BMI] 31.0-31.9, adult
CPT/HCPCS: 36415; 71046; 80048; 83735; 83880; 84484; 85025; 85027; 85055; 93005; 94640; 96374; 96375; 96376; 99285; A9270; G0378; J1650; J1815; J1940; J2930

== ENCOUNTER 2020-02-21 17:46 | Emergency (ER) | payer MEDICARE, OTHER, SELFPAY ==
--- NOTE | ~2020-02-21 | XR_ITS ---
EXAMINATION: XR foot LT min 3V DATE: 02/21/2020 19:13 INDICATION: Swelling and wound of the plantar aspect of the foot TECHNIQUE: Dorsoplantar, lateral, and 2 oblique views of the left foot were obtained. COMPARISON: None. FINDINGS: There is no fracture, dislocation, or subluxation. Mild osteoarthritis is noted in the firs t metatarsophalangeal joint. Dorsal and plantar calcaneal enthesophytes are noted. There is plantar s oft tissue swelling of the foot without associated osseous abnormality. Calcified atherosclerosis is noted. IMPRESSION: 1. Plantar soft tissue swelling of the foot without acute osseous abnormality. Reviewed, dictated and finalized at location A.
[2020-02-21 18:02] VITALS: BP 126/48; PULSE 65; RESP 18; TEMP 36.7; O2SAT 97
[2020-02-21 20:24] LABS: Basophils Absolute Auto 0.1 K/mm3 (0.0-0.1); Basophils Percent Auto 0.6 % (0.2-1.2); Eosinophils Absolute Auto 0.3 K/mm3 (0-0.3); Eosinophils Percent Auto 3.3 % (0-4.4); Hemoglobin 12.2 g/dL (14.0-18.0); Immature Granulocyte Absolute 0.03 K/mm3 (0.00-0.031); Immature Granulocyte Percent A 0.4 % (0-0.5); Lymphocytes Absolute Auto 2.34 K/mm3 (0.9-3.2); Lymphocytes Percent Auto 28.7 % (18.3-44.2); Mean Corpuscular HGB Conc 33.9 g/dl (32-36); Mean Corpuscular Hemoglobin 28.2 pg (26-34); Mean Corpuscular Volume 83.1 fl (80-100); Mean Platelet Volume 8.8 fl (7.4-10.4); Monocytes Absolute Auto 0.8 K/mm3 (0.1-0.6); Monocytes Percent Auto 9.5 % (2.6-8.5); Neutrophils Absolute Auto 4.7 K/mm3 (1.3-6.7); Neutrophils Percent Auto 57.5 % (45.5-73.1); Platelet Count Result 163 k/mm3 (150-375); Red Blood Count 4.33 M/mm3 (4.6-6.20); Red Cell Distribution Width 13.2 % (11.5-14.5); White Blood Count 8.1 K/mm3 (4.5-10.0)
--- NOTE | 2020-02-21 20:32 | PC.NURSE ---
Blood sugar was 61 at 20:32
[2020-02-21 20:35] LABS: Glucose Point of Care 61 (65-105)
[2020-02-21 20:40] LABS: Blood Urea Nitrogen 24 mg/dL (9-20); CRP 1.6 mg/dL (<1.0); Calcium 8.8 mg/dL (8.4-10.2); Carbon Dioxide 29 mmol/L (22-30); Chloride 101 mmol/L (98-107); Estimated CRCL calculation 55 ml/min; Estimated Glomerular Filt Rate > 60; Glucose 62 mg/dL (75-110); Potassium 3.7 mmol/L (3.4-5.0); Sodium 138 mmol/L (137-145)
[2020-02-21 20:47] LABS: Erythrocyte Sedimentation Rate 43 mm/hr (0-20)
--- NOTE | 2020-02-21 21:42 | ED.LOWEXIN ---
HPI - Extremity Injury (Lower) General Chief Complaint: Extremity Injury, Lower Stated Complaint: left foot wound Time Seen by Provider: 02/21/20 18:55 Source: patient Mode of arrival: ambulatory Limitations: no limitations History of Present Illness HPI Narrative: This is a 74 year old male that presents to the ER for left foot wound. Reports it was noted 3 days ago. Reports has become increasingly red and swollen since onset. Reports is now draining. Denies fever. Related Data Home Medications Medication Instructions Recorded Confirmed Ex-Lax (sennosides) 15 mg PO HS PRN 07/29/19 12/04/19 atorvastatin 40 mg PO DAILY 07/29/19 12/04/19 carvedilol [Coreg] 12.5 mg PO Q12H 07/29/19 12/04/19 clopidogrel 75 mg PO DAILY 07/29/19 12/04/19 ferrous sulfate 324 mg PO DAILY 07/29/19 12/04/19 isosorbide mononitrate 60 mg PO DAILY 07/29/19 12/04/19 meclizine 25 mg PO TID PRN 07/29/19 12/04/19 nitroglycerin [Nitrostat] 0.4 mg SUBLINGUAL PRN PRN 07/29/19 12/04/19 ranolazine 1,000 mg PO Q12H 07/29/19 12/04/19 Lantus U-100 Insulin 38 units SUBCUT Q12HR 12/04/19 12/04/19 insulin lispro [Humalog U-100 20 unit SUBCUT TID 12/04/19 12/04/19 Insulin] polyethylene glycol 3350 [Miralax] 17 g PO BID 12/04/19 12/04/19 tamsulosin 0.4 mg PO HS 12/04/19 12/04/19 Allergies Allergy/AdvReac Type Severity Reaction Status Date / Time Cephalosporins Allergy Mild DOCUMENT PREPARER MICROFILMING Verified 12/03/19 21:06 HIVES bee venom protein (honey bee) Allergy Unknown unknown Verified 12/03/19 21:06 Penicillins Allergy Unknown unknown Verified 12/03/19 21:06 Review of Systems Review of Systems: Narrative: CONSTITUTIONAL: Denies fever SKIN: Reports erythema and edema All systems reviewed & are unremarkable except as noted in HPI and below PMFSH Past Medical History Medical History (Updated 02/21/20 @ 23:25 by Mariana Madrid PA-C) Bacteremia Streptococcus bovis bacteremia June 2019. Transesophageal echocardiogram negative for vegetation July 2019 Bilateral carotid artery disease CAD (coronary artery disease) Status post stents and CABG. CHF (congestive heart failure) Echo October 05, 2018 demonstrated EF of 55% but difficult study prior echos had demonstrated mildly decreased left ventricular systolic function with hypokinetic segment of left ventricle including apical mid in peers septum apical septum and mid anterior septum, diastolic dysfunction noted on prior echoes CKD (chronic kidney disease) stage 3, GFR 30-59 ml/min COPD (chronic obstructive pulmonary disease) PFTs November 2017 demonstrated mild obstructive ventilatory defect with severe small airway disease with bronchodilator response moderately decreased DLCO Diabetic peripheral neuropathy GERD (gastroesophageal reflux disease) Hiatal hernia History of BPH Hyponatremia with decreased serum osmolality Obstructive sleep apnea on CPAP Polysomnogram June 2018 recommended CPAP with 19 cm of water Pacemaker Paroxysmal atrial fibrillation Peripheral artery disease With multiple bilateral lower extremity stents June 2019 Pneumonia Severe pulmonary arterial systolic hypertension Noted on echocardiogram from June 2017 with RVSP of 76 Type 2 diabetes mellitus treated with insulin Hemoglobin A1c 8.30 June 2019 Vertigo Surgical History Surgical History (Updated 12/04/19 @ 04:56 by Qian Tillman DO) H/O cervical spine surgery History of aortic valve replacement with bioprosthetic valve History of appendectomy Due to perforated appendix when he was young History of bilateral carpal tunnel release History of bilateral cataract extraction History of repair of right rotator cuff Hx of CABG 3 vessel CABG Status post femoral-popliteal bypass surgery Right femoral bypass Social History Social History Social History: Primary care physician: Dr. Arjun Smith Code status: Full code Smoking status: Former smoker [employer]
[2020-02-21 22:30] VITALS: BP 142/76; PULSE 120; RESP 16; TEMP 36.9; O2SAT 99
[2020-02-21] MEDS: TETANUS,DIPHTHERIA,AC PERTUSSIS ADULT (0.5 ML) BOOSTRIX IM (22:57)
[2020-02-21 23:07] LABS: Hemoglobin A1C 8.9 % (<5.7)
--- NOTE | 2020-02-21 23:55 | PC.NURSE ---
Report given to Getachew CASAS
[2020-02-22 01:17] VITALS: BP 133/97; PULSE 80; RESP 19; TEMP 37.2; O2SAT 100
== END 2020-02-22 01:18 | disposition home or self-care (01) ==
PROVIDERS: Physician Assistant; Emergency Provider Emergency Medicine; PCP Emergency Medicine
DX: E11.621 Type 2 diabetes mellitus with foot ulcer (principal); L97.521 Non-pressure chronic ulcer of other part of left foot limited to breakdown of skin; L03.116 Cellulitis of left lower limb; I25.10 Atherosclerotic heart disease of native coronary artery without angina pectoris; Z95.5 Presence of coronary angioplasty implant and graft; Z95.1 Presence of aortocoronary bypass graft; I50.9 Heart failure, unspecified; J44.9 Chronic obstructive pulmonary disease, unspecified; E11.42 Type 2 diabetes mellitus with diabetic polyneuropathy; E11.22 Type 2 diabetes mellitus with diabetic chronic kidney disease; N18.3 Chronic kidney disease, stage 3 (moderate); Z79.4 Long term (current) use of insulin; N40.0 Benign prostatic hyperplasia without lower urinary tract symptoms; G47.33 Obstructive sleep apnea (adult) (pediatric); I48.0 Paroxysmal atrial fibrillation; E11.51 Type 2 diabetes mellitus with diabetic peripheral angiopathy without gangrene; Z87.891 Personal history of nicotine dependence; Z23 Encounter for immunization
CPT/HCPCS: 10060; 36415; 73630; 80048; 82948; 83036; 85025; 85652; 86140; 87040; 87070; 87077; 87147; 87186; 87205; 90471; 90715; 96365; 96375; 99284; J0743; J3370

== ENCOUNTER 2020-06-28 08:17 | Outpatient (CLI) | payer MEDICARE, OTHER, SELFPAY ==
[2020-06-28 09:21] LABS: Alanine Aminotransferase 28 U/L (4-50); Anion Gap 10 mmol/L (8-16); Aspartate Amino Transferase 31 U/L (17-59); Bilirubin,Total 0.8 mg/dL (0.2-1.3); Blood Urea Nitrogen 31 mg/dL (9-20); Calcium 9.4 mg/dL (8.4-10.2); Carbon Dioxide 28 mmol/L (22-30); Chloride 100 mmol/L (98-107); Estimated Glomerular Filt Rate 46; Glucose 268 mg/dL (75-110); Potassium 4.8 mmol/L (3.4-5.0); Sodium 138 mmol/L (137-145)
[2020-06-28 09:22] LABS: Albumin Level 4.2 g/dL (3.5-5.1); Alkaline Phosphatase 75 U/L (38-126); Cholesterol 125 mg/dL (0-200); HDL Direct 40 mg/dL; Triglycerides 80 mg/dL (<150)
[2020-06-28 09:32] LABS: LDL Cholesterol Direct 63 mg/dL
[2020-06-28 11:55] LABS: Hemoglobin A1C 8.1 % (<5.7)
== END 2020-06-28 08:18 | disposition home or self-care (01) ==
PROVIDERS: PCP Emergency Medicine; Visit Provider Emergency Medicine
DX: E78.5 Hyperlipidemia, unspecified (principal); E11.9 Type 2 diabetes mellitus without complications
CPT/HCPCS: 36415; 80053; 80061; 83036

== ENCOUNTER 2020-06-28 17:06 | Outpatient (CLI) | payer MEDICARE, OTHER, SELFPAY ==
--- NOTE | ~2020-06-28 | CT_ITS ---
EXAMINATION:CT chest wo con DATE: 06/28/2020 17:58 INDICATION: Solitary pulmonary nodule. TECHNIQUE: Computed tomography (CT) of the chest was performed without intravenous contrast. Automate d exposure control and iterative reconstruction technique were employed. The dose-length product (DLP ) was 184.05 mGy-cm. COMPARISON: Chest CT 05/03/2019 FINDINGS: There is mild atelectasis bilaterally. In the right lower lobe, there is a 15 mm part-solid nodule with 5 mm central solid component. There are small pleural effusions. The heart size is tory l. There are coronary artery calcifications. There are changes of heart valve replacement. There is a left chest wall pacer with leads in the right atrium and right ventricle. There are gallstones in th e gallbladder, which is normal in size. Partially visualized is a 4 mm stone in left kidney. Calcific ations in the liver and spleen are consistent with old granulomatous disease. There are old healed le ft rib fractures. There is mild thoracic spondylosis. IMPRESSION: 1. New 15 mm part-solid nodule with 5 mm solid component in right lung lower lobe suspicious for prim ivonne bronchogenic carcinoma. Noncontrast, low-dose chest CT is recommended in 3 months. 2. Small pleural effusions. Reviewed, dictated and finalized at location A. IMPRESSION: 1. New 15 mm part-solid nodule with 5 mm solid component in right lung lower lo be suspicious for primary bronchogenic carcinoma. Noncontrast, low-dose chest C T is recommended in 3 months. 2. Small pleural effusions.
== END 2020-06-28 17:07 | disposition home or self-care (01) ==
PROVIDERS: PCP Emergency Medicine; Visit Provider Emergency Medicine
DX: R91.1 Solitary pulmonary nodule (principal)
CPT/HCPCS: 36415; 71250; 80053; 80061; 83036

== ENCOUNTER 2020-08-03 15:41 | Inpatient (IN) | payer MEDICARE, OTHER, SELFPAY ==
[2020-08-03] VITALS (28 sets, daily range): BP systolic 115–174; BP diastolic 69–129; PULSE 87–155; RESP 16–39; TEMP 36.1–36.7; O2SAT 94–100; BMI 34.4
--- NOTE | ~2020-08-03 | XR_ITS ---
EXAMINATION: XR chest 1V portable EXAM DATE: 08/07/2020 06:25 INDICATION: Pneumonia. CHF. TECHNIQUE: Portable AP frontal chest x-ray was obtained. Comparison is made to prior examination from 08/03/2020. FINDINGS: Sternotomy wires are present without findings to suggest sternal dehiscence. There is a rosy l lead pacemaker/AICD seen with leads projecting over the expected locations of the right atrial appe ndage and right ventricle. Cervical fusion hardware. The cardiac silhouette is enlarged. There is pul monary vascular congestion. There is indistinct reticulation with a bibasal predominance which may in dicate pulmonary edema. Small pleural effusions. No pneumothorax. There is aortic arteriosclerosis. Cervical fusion hardware. IMPRESSION: 1. Cardiomegaly, congestion and probably pulmonary edema. Consider CHF. 2. Small pleural effusions. 3. Pneumonia not excludable. Reviewed, dictated and finalized at location A. UCTION CONTROL CLERK
--- NOTE | ~2020-08-03 | XR_ITS ---
EXAMINATION: XR chest 1V portable EXAM DATE: 08/03/2020 16:08 INDICATION: Shortness of breath. Generalized chest pain. TECHNIQUE: Portable AP frontal chest x-ray was obtained. Comparison is made to prior examination from 12/03/2019. FINDINGS: There is a dual lead pacemaker/AICD seen with leads projecting over the expected locations of the right atrial appendage and right ventricle. Sternotomy wires are present without findings to s uggest sternal dehiscence. Aortic valve replacement. Mild cardiomegaly and pulmonary vascular congest ion. Small bilateral pleural effusions. There is indistinct reticulation with a bibasal predominance which may indicate pulmonary edema. More confluent left basilar atelectasis or pneumonia. There is ao rtic arteriosclerosis. There are bony degenerative changes. IMPRESSION: 1. Findings consistent with CHF exacerbation. Small pleural effusions. 2. Segmental retrocardiac atelectasis or pneumonia. Reviewed, dictated and finalized at location [facility]. [facility]
--- NOTE | 2020-08-03 15:43 | ECG_ITS ---
Measurements Intervals [place] Rate: 122 P: 264 OK: 139 QRS: 8 QRSD: 161 T: 167 QT: 361 QTc: 515 Interpretive Statements ATRIAL FLUTTER/TACHYCARDIA WITH RAPID VENTRICULAR RESPONSE LEFT BUNDLE BRANCH BLOCK BASELINE ARTIFACT- II, III, AVL, AVF, V4-V5 ABNORMAL ECG Electronically Signed On 08-03-2020 18:51:39 PROFESSIONAL NURSING ASSISTANT by Shai Lima D.O.
[2020-08-03] MEDS: NITROGLYCERIN OINTMENT 1 INCH DOSE TRANSDERM ×2 (16:06→22:18)
[2020-08-03] MEDS: FUROSEMIDE INJ 40 MG/4 ML VIAL IV PUSH (16:06)
[2020-08-03] MEDS: MORPHINE SULFATE (*CRX) 4 MG/ML INJ 2 MG IV PUSH (16:06)
[2020-08-03 16:33] LABS: Alveolar/Arterial O2 Gradient 134.3 mmHg; Base Excess ABG -3.5 mEq/l (+/-2.0); Carboxyhemoglobin 0.8 % THb (0-2.0); Fractional Inspired Oxygen 50 %; HCO3 ABG 21.7 mEq/l (22.0-26.0); Methemoglobin ABG 0.5 %THb (0-1.5); Oxygen Content ABG 19.9 %vol (16.0-22.0); Oxygen Saturation ABG 99.2 % (95.0-100.0); Oxyhemoglobin 97.5 % THb (90.0-100.0); PCO2 ABG 39.7 mmHg (35.0-45.0); PO2 ABG 177.5 mmHg (80.0-100.0); PO2 FiO2 Ratio Arterial Blood 3.55 %; Reduced Hemoglobin 1.2 %THb (0-5.0); Site Drawn RIGHT BRACHIAL; Total Hemoglobin 14.3 g/dL (12.0-18.0); pH ABG 7.356 (7.350-7.450)
[2020-08-03 16:34] LABS: Device NON-INVASIVE VENT; Non-Invasive Expiratory Pressure 5 CMH2O; Non-Invasive Inspiratory Pressure 12 CMH2O; Non-Invasive Vent Rate 12 /MIN
[2020-08-03 16:40] LABS: Basophils Percent Auto 0.2 % (0.2-1.2); Hematocrit 41.5 % (42.0-52.0); Hemoglobin 13.7 g/dL (14.0-18.0); Immature Granulocyte Absolute 0.03 K/mm3 (0.00-0.031); Immature Granulocyte Percent A 0.3 % (0-0.5); Lymphocytes Absolute Auto 0.66 K/mm3 (0.9-3.2); Lymphocytes Percent Auto 6.5 % (18.3-44.2); Mean Corpuscular Hemoglobin 28.5 pg (26-34); Mean Corpuscular Volume 86.5 fl (80-100); Mean Platelet Volume 9.1 fl (7.4-10.4); Monocytes Absolute Auto 0.2 K/mm3 (0.1-0.6); Monocytes Percent Auto 1.9 % (2.6-8.5); Neutrophils Absolute Auto 9.3 K/mm3 (1.3-6.7); Neutrophils Percent Auto 91.1 % (45.5-73.1); Platelet Count Result 190 k/mm3 (150-375); Red Cell Distribution Width 14.3 % (11.5-14.5); White Blood Count 10.2 K/mm3 (4.5-10.0)
[2020-08-03] MEDS: METOPROLOL TARTRATE INJ 5 MG/5 ML VIAL (16:45)
[2020-08-03 16:52] LABS: Alanine Aminotransferase 66 U/L (4-50); Albumin Level 4.3 g/dL (3.5-5.1); Alkaline Phosphatase 72 U/L (38-126); Anion Gap 14 mmol/L (8-16); Aspartate Amino Transferase 75 U/L (17-59); Bilirubin,Total 0.6 mg/dL (0.2-1.3); Blood Urea Nitrogen 40 mg/dL (9-20); Calcium 9.3 mg/dL (8.4-10.2); Carbon Dioxide 23 mmol/L (22-30); Chloride 99 mmol/L (98-107); Estimated CRCL calculation 45 ml/min; Estimated Glomerular Filt Rate 46; Glucose 271 mg/dL (75-110); Potassium 5.2 mmol/L (3.4-5.0); Sodium 136 mmol/L (137-145)
[2020-08-03 17:09] LABS: NT Pro B Type Natriuretic Pept 3990 PG/ML (5-100); Troponin I 0.044 ng/mL (0.000-0.034)
--- NOTE | 2020-08-03 17:13 | ED.CHESTPAIN ---
HPI - Chest Pain General Chief Complaint: Chest Pain Stated Complaint: SOB/CP Source: patient and EMS Mode of arrival: EMS Limitations: clinical condition History of Present Illness HPI narrative: 74-year-old with a history of CAD, valvular heart disease, paroxysmal atrial fibrillation ,complete heart block, s/p pacemaker, aortic valve replacement here with complaints of chest pain started few hours ago. Patient states that he took 3 nitro with no relief. He also complains of shortness of breath which is progressively getting worse for past few days however worse this morning. He denies any fever or chills. Denies any Covid exposure. MD complaint: chest pain Pertinent past history: coronary artery disease, prior [place] and CABG Onset (ago): hour(s) (2) Timing of current episode: constant Onset: during rest Pain location: substernal Pain radiation: left arm and left shoulder Severity: severe Quality: tightness Relieving factors: nitroglycerin Exacerbating factors: nothing Associated symptoms: diaphoresis Risk Factors Coronary artery disease risk factors: hyperlipidemia and hypertension Thoracic aortic dissection risk factors: acortic valve defect (bicuspid aortic valve) Related Data Home Medications Medication Instructions Recorded Confirmed atorvastatin 40 mg PO DAILY 07/29/19 05/03/20 carvedilol [Coreg] 12.5 mg PO Q12H 07/29/19 05/03/20 clopidogrel 75 mg PO DAILY 07/29/19 05/03/20 isosorbide mononitrate 60 mg PO DAILY 07/29/19 05/03/20 nitroglycerin [Nitrostat] 0.4 mg SUBLINGUAL PRN PRN 07/29/19 05/03/20 ranolazine 1,000 mg PO Q12H 07/29/19 05/03/20 Lantus U-100 Insulin 38 units SUBCUT Q12HR 12/04/19 05/03/20 insulin lispro [Humalog U-100 20 unit SUBCUT TID 12/04/19 05/03/20 Insulin] polyethylene glycol 3350 [Miralax] 17 g PO BID 12/04/19 05/03/20 tamsulosin 0.4 mg PO HS 12/04/19 05/03/20 Allergies Allergy/AdvReac Type Severity Reaction Status Date / Time Cephalosporins Allergy Mild OFFICE SYSTEM ANALYST Verified 12/03/19 21:06 HIVES bee venom protein (honey bee) Allergy Unknown unknown Verified 12/03/19 21:06 Penicillins Allergy Unknown unknown Verified 12/03/19 21:06 Review of Systems Review of Systems: All systems reviewed & are unremarkable except as noted in HPI and below Constitutional: Constitutional: Reports no additional constitutional complaints Eyes: Eyes: Reports no additional eye complaints Cardiovascular: Cardiovascular: Reports no additional cardiovascular complaints Respiratory: Respiratory: Reports as per HPI Gastrointestinal: Gastrointestinal: Reports no additional gastrointestinal complaints Neurologic: Reports as per HPI Endocrine: Endocrine: Reports no additional endocrine complaints Allergic/Immunologic: Allergic/Immunologic: Reports no additional allergic/immunologic complaints [facility] Past Medical History Medical History (Updated 08/03/20 @ 17:30 by Leonard Alvarez MD) Acute exacerbation of chronic obstructive airways disease Bacteremia Streptococcus bovis bacteremia June 2019. Transesophageal echocardiogram negative for vegetation July 2019 Bilateral carotid artery disease CAD (coronary artery disease) Status post stents and CABG. CHF (congestive heart failure) Echo October 05, 2018 demonstrated EF of 55% but difficult study prior echos had demonstrated mildly decreased left ventricular systolic function with hypokinetic segment of left ventricle including apical mid in peers septum apical septum and mid anterior septum, diastolic dysfunction noted on prior echoes CKD (chronic kidney disease) stage 3, GFR 30-59 ml/min COPD (chronic obstructive pulmonary disease) PFTs November 2017 demonstrated mild obstructive ventilatory defect with severe small airway disease with bronchodilator response moderately decreased DLCO Diabetic peripheral neuropathy GERD (gastroesophageal reflux disease) Hiatal hernia History of BPH Hyponatremia with decreased serum osmolality Obstructive sleep apnea on CPA
--- NOTE | 2020-08-03 18:56 | PC.NURSE ---
This patient, Ron Manuel, was admitted to IMU Room 207-01. Patient/family oriented to hospital policies and general routines including ID bracelet, bed and alarms, visiting hours, pain management, procedures, bathroom and other care routines, personal items, smoking policy, room service/diet, and visiting hours. Information on how to activate the Rapid Response Team has been discussed. Patient/Family are encouraged to report perceived risks to care and to ask questions if they do not understand what they are told or what they should do.
[2020-08-03 21:24] LABS: Troponin I 0.255 ng/mL (0.000-0.034)
--- NOTE | 2020-08-03 23:17 | PM.IMHP ---
H&P: HPI History of Present Illness Date/Time: 08/03/20 23:17 Chief complaint: CHF Narrative: Ron Manuel is a 74 year old male who has a history of coronary artery disease and congestive heart failure. CPAP machine. His last admission was 12/04/2019 with chest pain and shortness of breath. Well as congestive heart failure. The patient stated that he takes Bumex at home and Lasix no longer works for him. The patient had elevated troponin back in November as well. Who is felt to be chronic elevated troponin and was not related to acute coronary syndrome. The patient started to have chest pain today that occurred just a few hours prior to coming to the emergency room. He took 3 nitro without any relief. He is also complaining of shortness of breath that has gotten worse over the last few days. He is taking his routine medication as prescribed. IV morphine, IV Lasix, nitro ointment, Lopressor and Lasix in the emergency room. The patient is currently on a BiPAP machine. Heart failure exacerbation segmental retrocardiac atelectasis or pneumonia.CT the chest back on 06/29/2020 he had a new 15 mm part solid nodule 5 mm solid component in the right lung lower base suspicious for primary bronchogenic carcinoma recommend a low-dose chest CT in 3 months. Small pleural effusions. Patient was admitted inpatient for chest pain CHF exacerbation and elevated troponins. flutter tachycardia with rapid ventricular response. Review of Systems Review of Systems: All systems reviewed & are unremarkable except as noted in HPI and below Constitutional: Constitutional: Reports as per HPI and Reports no additional constitutional complaints Eyes: Eyes: Reports as per HPI and Reports no additional eye complaints ENT: Reports system reviewed and no additional complaints, except as documented and Reports Normal hearing present Cardiovascular: Cardiovascular: Reports no additional cardiovascular complaints Respiratory: Respiratory: Reports no additional respiratory complaints and Reports no additional respiratory complaints Gastrointestinal: Gastrointestinal: Reports as per HPI and Reports no additional gastrointestinal complaints Musculoskeletal: Musculoskeletal: Reports no additional musculoskeletal complaints Integumentary/Breasts: Skin/Breast: Reports system reviewed and no additional complaints, except as docu and Reports as per HPI Neurologic: Reports system reviewed and no additional complaints, except as documented, Reports as per HPI and Reports Normal hearing present Psychiatric: Psychiatric: Reports no additional psychiatric complaints and Reports as per HPI Endocrine: Endocrine: Reports no additional endocrine complaints Hematologic/Lymphatic: Hematologic/Lymphatic: Reports no additional hematologic/lymphatic complaints Allergic/Immunologic: Allergic/Immunologic: Reports no additional allergic/immunologic complaints [facility] Past Medical History Medical History (Updated 08/04/20 @ 00:02 by Theodora Villagran NP) Acute exacerbation of chronic obstructive airways disease Bacteremia Streptococcus bovis bacteremia June 2019. Transesophageal echocardiogram negative for vegetation July 2019 Bilateral carotid artery disease BPH (benign prostatic hyperplasia) CAD (coronary artery disease) Status post stents and CABG. CHF (congestive heart failure) Echo October 05, 2018 demonstrated EF of 55% but difficult study prior echos had demonstrated mildly decreased left ventricular systolic function with hypokinetic segment of left ventricle including apical mid in peers septum apical septum and mid anterior septum, diastolic dysfunction noted on prior echoes CKD (chronic kidney disease) stage 3, GFR 30-59 ml/min COPD (chronic obstructive pulmonary disease) PFTs November 2017 demonstrated mild obstructive ventilatory defect with severe small airway disease with bronchodilator response moderately decreased DLCO Depression with anxiety Diabetic periphera
[2020-08-04] VITALS (28 sets, daily range): BP systolic 92–134; BP diastolic 57–72; PULSE 70–99; RESP 16–25; TEMP 35.9–36.5; O2SAT 96–100
--- NOTE | 2020-08-04 | ECHO_ITS ---
Patient Info Name: Ron Manuel Age: 74 years : 1945 Gender: Male Ht: 66 in Wt: 213 lbs BSA: 2.16 m2 HR: 79 bpm BP: 123 / 69 mmHg Heart Rhythm: Paced Technical Quality: Good Exam Date: 08/04/2020 10:50 AM Exam Location: [facility] Patient Status: Inpatient Admit Date: 08/03/2020 Staff Ordering Physician: Theodora Villagran NP [facility] Hospitalist: Aniceto Earl RDCS, RT Attending Provider: Douglas Fitzgerald MD Referring Physician: Sparkle GARG; Exam Type: CA echo doppler color flow Study Info Indications I50.9 - Heart failure, unspecified Complete two-dimensional, color flow and Doppler transthoracic echocardiogram is performed with contrast to opacify the left ventricle and to improve the deliniation of the left ventricle endocardial borders. Strain analysis performed. Summary 1. Left ventricular chamber dimension is mildly enlarged. 2. There is moderately increased left ventricular wall thickness. 3. Left ventricular systolic function is severely reduced, estimated at 25-30%. 4. Left ventricular septal wall motion is abnormal with septal motion related to pacing. 5. The left ventricular diastolic function is abnormal. 6. Global longitudinal strain is abnormal at -4 %. 7. Right ventricular chamber dimension is mildly enlarged. 8. Right ventricular systolic function is reduced. 9. Left atrial chamber dimension is mildly enlarged. 10. There is mild regurgitation of the bioprosthetic aortic valve. 11. 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 12. There is moderate to severe mitral valve regurgitation. 13. There is moderate to severe tricuspid valve regurgitation. 14. Moderate pulmonary hypertension, estimated pulmonary arterial systolic pressure is 49 mmHg. 15. There is mild pulmonic regurgitation. Left Ventricle Left ventricular chamber dimension is mildly enlarged. Left ventricular systolic function is severely reduced, estimated at 25-30%. There is moderately increased left ventricular wall thickness. Left ventricular septal wall motion is abnormal with septal motion related to pacing. The left ventricular diastolic function is abnormal. Global longitudinal strain is abnormal at -4 %. Right Ventricle Right ventricular chamber dimension is mildly enlarged. Right ventricular systolic function is reduced. Left Atria Left atrial chamber dimension is mildly enlarged. Right Atria Right atrial chamber dimension is normal. Atrial Septum Intact interatrial septum visualized by color flow imaging. 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 There is mild regurgitation of the bioprosthetic aortic valve. Pulmonic Valve The pulmonic valve is normal. There is no pulmonic valve stenosis. There is mild pulmonic regurgitation. Mitral Valve The mitral valve has thickened leaflets and calcified annulus. There is no mitral valve stenosis. There is moderate to severe mitral valve regurgitation. Tricuspid Valve The tricuspid valve leaflets are normal. There is no significant tricuspid valve stenosis. There is moderate to severe tricuspid valve regurgitation. Moderate pulmonary hypertension, estimated pulmonary arterial systolic pressure is 49 mmHg. Pericardium/Pleural The pericardium appears normal. There is no pericardial e
[2020-08-04 00:28] LABS: Troponin I 0.389 ng/mL (0.000-0.034)
[2020-08-04] MEDS: RANOLAZINE 500 MG TAB.ER.12H 1000 MG PO ×3 (00:30→20:40)
[2020-08-04] MEDS: polyethylene glycoL 3350 17 GM POWD.PACK PO ×2 (00:31→20:41)
[2020-08-04] MEDS: TAMSULOSIN HCL 0.4 MG CAPSULE PO ×2 (00:31→20:40)
[2020-08-04] MEDS: carvediloL 12.5 MG TABLET PO ×3 (00:31→20:40)
[2020-08-04] MEDS: TEMAZEPAM (*CRX) 15 MG CAPSULE PO (00:32)
[2020-08-04] MEDS: INSULIN GLARGINE (*BKC) 100 UNITS/ML 38 UNITS SUB-Q ×2 (00:35→20:41)
[2020-08-04 00:43] LABS: Glucose Point of Care 144 (65-105)
[2020-08-04] MEDS: LEVALBUTEROL NEB 1.25 MG/3 ML 0.63 MG INHALATION ×4 (02:04→20:25)
[2020-08-04] MEDS: IPRATROPIUM BR 0.02% INH SOLN 0.5 MG/2.5 ML VIAL INHALATION ×4 (02:04→20:25)
[2020-08-04] MEDS: NITROGLYCERIN OINTMENT 1 INCH DOSE TRANSDERM (04:41)
[2020-08-04 05:41] LABS: Alanine Aminotransferase 60 U/L (4-50); Albumin Level 3.8 g/dL (3.5-5.1); Alkaline Phosphatase 60 U/L (38-126); Anion Gap 7 mmol/L (8-16); Aspartate Amino Transferase 48 U/L (17-59); Bilirubin,Total 0.8 mg/dL (0.2-1.3); Blood Urea Nitrogen 41 mg/dL (9-20); CRP 0.6 mg/dL (<1.0); Calcium 9.3 mg/dL (8.4-10.2); Carbon Dioxide 29 mmol/L (22-30); Chloride 101 mmol/L (98-107); Estimated CRCL calculation 44 ml/min; Estimated Glomerular Filt Rate 50; Glucose 99 mg/dL (75-110); Magnesium 2.4 mg/dL (1.6-2.3); Potassium 4.2 mmol/L (3.4-5.0); Sodium 137 mmol/L (137-145)
--- NOTE | 2020-08-04 06:00 | ECG_ITS ---
Measurements Intervals [place] Rate: 82 P: ME: 0 QRS: 2 QRSD: 173 T: 145 QT: 453 QTc: 531 Interpretive Statements ATRIAL FLUTTER LEFT BUNDLE BRANCH BLOCK ABNORMAL ECG Electronically Signed On 08-04-2020 10:15:05 [employer] by Shai Lima D.O.
[2020-08-04 06:46] LABS: Thyroid Stimulating Hormone Reflex 0.962 uIU/mL (0.465-4.68)
[2020-08-04] MEDS: BUMETANIDE INJ 1 MG/4 ML VIAL IV PUSH ×2 (08:25→17:57)
[2020-08-04] MEDS: ENOXAPARIN 40 MG/0.4 ML SYRINGE SUB-Q (08:25)
[2020-08-04] MEDS: PANTOPRAZOLE 40 MG TABLET PO (08:25)
[2020-08-04] MEDS: predniSONE 10 MG TABLET PO (08:25)
[2020-08-04] MEDS: FLUoxetine HCL 20 MG CAPSULE 40 MG PO (08:25)
[2020-08-04] MEDS: lisinopriL 2.5 MG TABLET PO (08:25)
[2020-08-04] MEDS: CLOPIDOGREL BISULFATE 75 MG TABLET PO (08:25)
[2020-08-04] MEDS: ISOSORBIDE MONONITRATE 30 MG TAB.ER.24H 60 MG PO (08:25)
[2020-08-04] MEDS: ATORVASTATIN 40 MG TABLET PO (08:25)
[2020-08-04 08:43] LABS: Glucose Point of Care 56 (65-105)
[2020-08-04 08:55] LABS: Glucose Point of Care 96 (65-105)
[2020-08-04] MEDS: PERFLUTREN LIPID MICROSPHERES 1.5 ML VIAL DILUTED TO 10 ML TOTAL VOLUME IV PUSH (11:36)
[2020-08-04 12:20] LABS: Glucose Point of Care 100 (65-105)
--- NOTE | 2020-08-04 14:15 | PM.CNCAR ---
Assessment and Plan Additional Plan episode of decompensated congestive heart failure as well as some ischemic chest pain in this 74-year-old man unfortunately known to have multivessel coronary disease with really no reasonable opportunity for further revascularization. I did review his films again from 2017 this afternoon and I can't see any significant argument to bring this patient back to the cardiac catheterization lab. He is on appropriate medical regimen given the situation and there probably is not much else to add in the way of medication. He should be diuresed until his chest is free of pulmonary rales and I would imagine the next 48 hours or so if he stabilized he can be once again discharged to home. I do not believe he had an acute myocardial infarction his troponins are slightly elevated but they are flat and not indicative of an acute the closed vessel. I will try adding low-dose Xarelto to the regimen Arjun Yo MD [facility] History of Present Illness History of Present Illness Consult date/time: date of service:08/04/20 14:15 Consult reason: chest pain and shortness of breath Reason For Visit: CHF Narrative: This 74-year-old man with well known diffuse multivessel coronary artery disease being seen today at the request of the hospitalist after he was admitted last evening through the emergency department. The patient was in his usual state of health when about 5 or 6 days ago he began to notice gradual worsening of shortness of breath. He did really have any accumulating extremity edema and there was not much sustained weight gain. He yesterday then became severely short of breath along with some chest pain as well described as a retrosternal pressure-like sensation. He was significantly struggling to breathe and 911 was called an ambulance with came to the scene and brought him to the hospital. On route they actually declared STEMI because of ECG abnormalities. The patient is known to have a chronic left bundle branch block and the ECG in my opinion look no different than the patient's baseline. The patient appeared to be in acute pulmonary edema on arrival in the emergency room he was treated with IV diuretics and feels substantially better this afternoon. Troponin levels are very slightly elevated but are not consistent with significant acute NC. In this setting he is being seen in consultation. The patient had history of complex coronary artery and valvular heart disease dating back to 2015. The patient prior to that was found to have complete heart block and actually received a Biotronik dual-chamber pacemaker. In 2016 was found to have multivessel coronary disease as well as aortic valve stenosis and was referred for surgical revascularization and valve replacement which occurred over at [facility]. The patient had surgery consisting of FIGUEROA graft to the LAD and a saphenous vein graft to the RPDA with a sequential limb to the circumflex OM 2. He did have significant problems with ischemic chest pain postoperatively and had a follow-up coronary angiogram in June of 2017. I did review that study personally again before seeing him today. The patient is known to have extensive severely diffusely diseased arteries. His left anterior descending is totally closed after a small proximal segment and the FIGUEROA graft fills that LAD down to the apex fairly well but it is a very small diffusely attenuated vessel. His [place] circumflex consists of a small AV groove trunk portion of the circumflex with no significant patent marginal branches and severe diffuse disease as well. With a saphenous vein graft that is grafted to the distal RCA. That graft fills a very small diffusely diseased distal right coronary artery the limb that was grafted to the 2nd marginal is known to be totally closed. It was my opinion at that time that the patient really does not have any further opportunity to provide mechanical revasculariza
--- NOTE | 2020-08-04 14:49 | PM.IMPN ---
Progress Note: A&P Assessment and Plan (1) Chest pain: Code(s): R07.9 - Chest pain, unspecified Status: Acute Assessment and Plan: Trop raise likely secondary to CHF excerbation, Pt seen by cardiology today. Continue with iv diuresis in hospital. Also from admission history pt has history of having a 3 vessel CABG as well as 1 cardiac stent. The patient is also had a valve replacement which is bioprosthetic and is not on any anticoagulation. (2) Elevated troponin: Code(s): R79.89 - Other specified abnormal findings of blood chemistry Status: Acute Assessment and Plan: Could be related to his CHF. (3) CHF exacerbation: Qualifiers: Heart failure type: diastolic Qualified Code(s): I50.33 - Acute on chronic diastolic (congestive) heart failure Code(s): I50.9 - Heart failure, unspecified Status: Acute Assessment and Plan: continue to diuresis with iv bumex. continue with coreg. continue with lisinopril. continue with isosorbide. echo shows - Left ventricular systolic function is severely reduced, estimated at 25-30%. 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 last a1c 8.1 . Continue with long-acting insulin (5) COPD (chronic obstructive pulmonary disease): Qualifiers: COPD type: emphysema Emphysema type: panlobular Qualified Code(s): J43.1 - Panlobular emphysema Code(s): J44.9 - Chronic obstructive pulmonary disease, unspecified Status: Acute Assessment and Plan: Continue with prednisone and inhalers and nebulizers (6) Obstructive sleep apnea on CPAP: Code(s): G47.33 - Obstructive sleep apnea (adult) (pediatric); Z99.89 - Dependence on other enabling machines and devices Status: Acute Assessment and Plan: Pt is on CPAP with his home settings. (7) Depression with anxiety: Code(s): F41.8 - Other specified anxiety disorders Status: Chronic Assessment and Plan: Continue with fluoxetine. (8) BPH (benign prostatic hyperplasia): Code(s): N40.0 - Benign prostatic hyperplasia without lower urinary tract symptoms Status: Chronic Assessment and Plan: Continue with Flomax Subjective Date/time seen: 08/04/20 14:49 Interval history: 74 year old male who has a history of coronary artery disease and congestive heart failure. CPAP machine. His last admission was 12/04/2019 with chest pain and shortness of breath. Well as congestive heart failure. Pt is feeling better today less SOB today. Pt is known to Cardiology team here. Doing well on iv diuresis continue to diuresis in the hospital. Review of Systems Review of Systems: All systems reviewed & are unremarkable except as noted in HPI and below Exam Const: General: cooperative and healthy appearing; No in distress Nutritional Appearance: overweight Orientation/consciousness: oriented to person HENMT: Head: normal to inspection Resp: Effort & Inspection: no respiratory distress Auscultation: crackles Cardio: Rate: regular rate Rhythm: regular rhythm GI: Inspection: normal to inspection GI Palp: No abdominal tenderness, No Guarding due to palpation present (GI) and No Hepatomegaly present Auscultation: normal bowel sounds Neuro: General: oriented to person Objective Data Vital Signs Vital Signs: Vital Signs - 24 hr 08/03/20 15:39 08/03/20 15:53 08/03/20 15:55 Temperature 36.7 C Pulse Rate 145 H 155 H 123 H Respiratory Rate 39 H 28 H Blood Pressure 174/129 H Pulse Oximetry 96 99 08/03/20 16:25 08/03/20 16:29 08/03/20 16:30 Temperature Pulse Rate Respiratory Rate Blood Pressure Pulse Oximetry 98 96 99 08/03/20 16:31 08/03/20 16:45 08/03/20 16:46 Temperature Pulse Rate
[2020-08-04 16:35] LABS: Glucose Point of Care 194 (65-105)
[2020-08-04 20:21] LABS: Glucose Point of Care 309 (65-105)
[2020-08-04] MEDS: RIVAROXABAN 2.5 MG TABLET PO (20:40)
[2020-08-05] VITALS (23 sets, daily range): BP systolic 99–125; BP diastolic 65–82; PULSE 81–112; RESP 16–22; TEMP 36.1–36.9; O2SAT 90–97
[2020-08-05] MEDS: IPRATROPIUM BR 0.02% INH SOLN 0.5 MG/2.5 ML VIAL INHALATION ×4 (02:47→22:28)
[2020-08-05] MEDS: LEVALBUTEROL NEB 1.25 MG/3 ML 0.63 MG INHALATION ×4 (02:47→22:29)
[2020-08-05 07:44] LABS: Glucose Point of Care 83 (65-105)
[2020-08-05 08:19] LABS: Anion Gap 9 mmol/L (8-16); Blood Urea Nitrogen 43 mg/dL (9-20); Carbon Dioxide 30 mmol/L (22-30); Chloride 96 mmol/L (98-107); Estimated CRCL calculation 42 ml/min; Estimated Glomerular Filt Rate 46; Glucose 87 mg/dL (75-110); Potassium 4.6 mmol/L (3.4-5.0); Sodium 135 mmol/L (137-145)
[2020-08-05] MEDS: lisinopriL 2.5 MG TABLET PO (08:32)
[2020-08-05] MEDS: RANOLAZINE 500 MG TAB.ER.12H 1000 MG PO ×2 (08:32→21:19)
[2020-08-05] MEDS: FLUoxetine HCL 20 MG CAPSULE 40 MG PO (08:32)
[2020-08-05] MEDS: ISOSORBIDE MONONITRATE 30 MG TAB.ER.24H 60 MG PO (08:33)
[2020-08-05] MEDS: predniSONE 10 MG TABLET PO (08:33)
[2020-08-05] MEDS: carvediloL 12.5 MG TABLET PO ×2 (08:33→21:18)
[2020-08-05] MEDS: RIVAROXABAN 2.5 MG TABLET PO ×2 (08:33→21:19)
[2020-08-05] MEDS: ATORVASTATIN 40 MG TABLET PO (08:33)
[2020-08-05] MEDS: PANTOPRAZOLE 40 MG TABLET PO (08:33)
[2020-08-05] MEDS: BUMETANIDE INJ 1 MG/4 ML VIAL IV PUSH ×2 (08:34→18:12)
--- NOTE | 2020-08-05 11:02 | PM.PNCARD ---
Progress Note: A&P Assessment and Plan (1) CAD (coronary artery disease): Qualifiers: Associated angina: without angina Coronary Disease-Associated Artery/Lesion type: [place] artery [place] vs. transplanted heart: [place] heart Qualified Code(s): I25.10 - Atherosclerotic heart disease of [place] coronary artery without angina pectoris Code(s): I25.10 - Atherosclerotic heart disease of [place] coronary artery without angina pectoris Status: Acute Assessment and Plan: Intermittent chest pain not necessarily associated activity. Dr. Yo evaluated anatomy severe, diffuse and not amenable to intervention. Optimization of medical therapy, antianginals as tolerated. Heart failure management. Limited options. (2) CHF exacerbation: Qualifiers: Heart failure type: diastolic Qualified Code(s): I50.33 - Acute on chronic diastolic (congestive) heart failure Code(s): I50.9 - Heart failure, unspecified Status: Acute Assessment and Plan: Increase Bumex to 2 mg in a.m. 1 mg in afternoon. Monitor urine output, BP, renal function, and electrolytes closely. (3) Cardiomyopathy: Code(s): I42.9 - Cardiomyopathy, unspecified Status: Acute Assessment and Plan: Severe LV dysfunction EF 25-30% by echo. Optimize medical therapy. Discussed Entresto as well as Jardiance. Will need washout of ZACH-inhibitor. Discontinued but last dose this morning. Begin Entresto Friday morning 24/26 mg b.i.d.. Jardiance would be favorable as well. (4) Paroxysmal atrial fibrillation: Code(s): I48.0 - Paroxysmal atrial fibrillation Status: Acute Assessment and Plan: On EKG 08/04/2020. LBBB systemic anticoagulation Xarelto 2.5 [address] initiated by Dr. Yo last night unsure of dosing rationale. (5) Type 2 diabetes mellitus treated with insulin: Code(s): E11.9 - Type 2 diabetes mellitus without complications; Z79.4 - group home (current) use of insulin Status: Chronic Assessment and Plan: Per primary service. Subjective Date/time seen: Date of service: 08/05/20 11:02 Follow-up for CHF, cardiomyopathy, CAD Patient complains of intermittent chest pressure at rest no clear association with activity. States he feels much better since admission but still notes exertional dyspnea, orthopnea and fatigue. Denies significant edema, abdomen less full but still rather tight. No nausea or vomiting. Review of Systems Constitutional: Constitutional: Reports lethargy Eyes: Eyes: Reports no additional eye complaints ENT: Reports system reviewed and no additional complaints, except as documented Cardiovascular: Cardiovascular: Reports as per HPI Respiratory: Respiratory: Reports as per HPI Gastrointestinal: Gastrointestinal: Reports no additional gastrointestinal complaints Musculoskeletal: Musculoskeletal: Reports arthralgias and Reports stiffness Integumentary/Breasts: Skin/Breast: Reports system reviewed and no additional complaints, except as docu Neurologic: Reports system reviewed and no additional complaints, except as documented Endocrine: Endocrine: Reports no additional endocrine complaints Hematologic/Lymphatic: Hematologic/Lymphatic: Reports no additional hematologic/lymphatic complaints Allergic/Immunologic: Allergic/Immunologic: Reports no additional allergic/immunologic complaints Exam Const: Other: Pleasant elderly obese white male appears to be comfortable this afternoon in no significant distress Eyes: Sclera: sclerae normal Pupils: Equal, round and reactive pupils present Neck: Thyroid: thyroid normal Carotids: normal carotid upstroke Other: no audible carotid bruits Resp: Effort & Inspection: normal respiratory effort Auscultation: rales ( bibasilar rales audible) and bronchovesicular breath sounds Cardio: Jugular venous distension: no JVD Rate: regular rate Rhythm: regular rhythm Other: PMI is difficult
[2020-08-05 11:42] LABS: Glucose Point of Care 182 (65-105)
--- NOTE | 2020-08-05 14:36 | PM.IMPN ---
Progress Note: A&P Assessment and Plan (1) Chest pain: Code(s): R07.9 - Chest pain, unspecified Status: Acute Assessment and Plan: Trop raise likely secondary to CHF excerbation, Pt seen by cardiology today. Continue with iv diuresis in hospital. change to 1 mg bumex Also from admission history pt has history of having a 3 vessel CABG as well as 1 cardiac stent. The patient is also had a valve replacement which is bioprosthetic and is not on any anticoagulation. (2) Elevated troponin: Code(s): R79.89 - Other specified abnormal findings of blood chemistry Status: Acute Assessment and Plan: Could be related to his CHF. (3) CHF exacerbation: Qualifiers: Heart failure type: diastolic Qualified Code(s): I50.33 - Acute on chronic diastolic (congestive) heart failure Code(s): I50.9 - Heart failure, unspecified Status: Acute Assessment and Plan: continue to diuresis with iv bumex. continue with coreg. continue with lisinopril. continue with isosorbide. echo shows - Left ventricular systolic function is severely reduced, estimated at 25-30%. 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 last a1c 8.1 . Continue with long-acting insulin (5) COPD (chronic obstructive pulmonary disease): Qualifiers: COPD type: emphysema Emphysema type: panlobular Qualified Code(s): J43.1 - Panlobular emphysema Code(s): J44.9 - Chronic obstructive pulmonary disease, unspecified Status: Acute Assessment and Plan: Continue with prednisone and inhalers and nebulizers (6) Obstructive sleep apnea on CPAP: Code(s): G47.33 - Obstructive sleep apnea (adult) (pediatric); Z99.89 - Dependence on other enabling machines and devices Status: Acute Assessment and Plan: Pt is on CPAP with his home settings. (7) Depression with anxiety: Code(s): F41.8 - Other specified anxiety disorders Status: Chronic Assessment and Plan: Continue with fluoxetine. (8) BPH (benign prostatic hyperplasia): Code(s): N40.0 - Benign prostatic hyperplasia without lower urinary tract symptoms Status: Chronic Assessment and Plan: Continue with Flomax Subjective Date/time seen: 08/05/20 14:36 Interval history: 74 year old male who has a history of coronary artery disease and congestive heart failure. CPAP machine. His last admission was 12/04/2019 with chest pain and shortness of breath. Well as congestive heart failure. Pt is feeling better today less SOB today. Pt is known to Cardiology team here. Doing well on iv diuresis continue to diuresis in the hospital with bumex, heart rate slightly high tele showing paced rhythm with lbbb Review of Systems Review of Systems: All systems reviewed & are unremarkable except as noted in HPI and below Exam Const: General: no acute distress, alert, awake and Physically active Orientation/consciousness: oriented to person, oriented to place, oriented to time and patient oriented x3 HENMT: Ears: hearing grossly impaired Resp: Effort & Inspection: no respiratory distress Auscultation: crackles Cardio: Palpation: normal PMI Rate: regular rate and tachycardic Rhythm: regular rhythm Heart sounds: S1 normal heart sound present and S2 normal heart sound present GI: Inspection: normal to inspection Auscultation: normal bowel sounds Skin: Hair: normal Nails: normal Neuro: General: oriented to person, oriented to place, oriented to time and patient oriented x3 Cranial nerves: Yes Equal, round and reactive pupils present and Yes hard of hearing Cognition (Neuro): normal cognition Speech: normal speech Sensory Exam: normal sensation Extrem: General: normal to inspection Right upper extremity
[2020-08-05 17:04] LABS: Glucose Point of Care 189 (65-105)
[2020-08-05 20:40] LABS: Glucose Point of Care 376 (65-105)
[2020-08-05] MEDS: INSULIN GLARGINE (*BKC) 100 UNITS/ML 38 UNITS SUB-Q (21:18)
[2020-08-05] MEDS: polyethylene glycoL 3350 17 GM POWD.PACK PO (21:19)
[2020-08-05] MEDS: TAMSULOSIN HCL 0.4 MG CAPSULE PO (21:20)
[2020-08-06] VITALS (26 sets, daily range): BP systolic 101–140; BP diastolic 58–73; PULSE 82–105; RESP 18–21; TEMP 36.3–37; O2SAT 91–96
--- NOTE | 2020-08-06 05:44 | PCRCNOTE ---
Window of time for administration has passed. See next scheduled administration.
[2020-08-06 05:56] LABS: Anion Gap 10 mmol/L (8-16); Blood Urea Nitrogen 45 mg/dL (9-20); Calcium 8.7 mg/dL (8.4-10.2); Carbon Dioxide 29 mmol/L (22-30); Chloride 95 mmol/L (98-107); Estimated CRCL calculation 39 ml/min; Estimated Glomerular Filt Rate 42; Glucose 119 mg/dL (75-110); Magnesium 2.1 mg/dL (1.6-2.3); Sodium 134 mmol/L (137-145)
[2020-08-06 07:54] LABS: Glucose Point of Care 106 (65-105)
--- NOTE | 2020-08-06 08:05 | PM.IMPN ---
Progress Note: A&P Assessment and Plan (1) Chest pain: Code(s): R07.9 - Chest pain, unspecified Status: Acute Assessment and Plan: Trop raise likely secondary to CHF excerbation, Pt seen by cardiology. Continue with iv diuresis in hospital. change to 1 mg bumex Pt with multivessel disease not amenable to further revascularization, patient was started on low dose rivaroxaban for cardiovascular event risk reduction. Continue medical treatment, on ranolazine and isosorbide mononitrate, patient denies chest pain this morning. (2) Elevated troponin: Code(s): R79.89 - Other specified abnormal findings of blood chemistry Status: Acute Assessment and Plan: Could be related to his CHF. (3) CHF exacerbation: Qualifiers: Heart failure type: diastolic Qualified Code(s): I50.33 - Acute on chronic diastolic (congestive) heart failure Code(s): I50.9 - Heart failure, unspecified Status: Acute Assessment and Plan: Continue to diuresis with iv bumex. continue with coreg, cardiology planning to switch to Entresto tomorrow and also considering Jardiance. Echo shows - Left ventricular systolic function is severely reduced, estimated at 25-30%. Repeat chest x ray tomorrow. 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 last a1c 8.1 . Continue with long-acting insulin, monitor for hypoglycemia and adjust dose if needed. (5) COPD (chronic obstructive pulmonary disease): Qualifiers: COPD type: emphysema Emphysema type: panlobular Qualified Code(s): J43.1 - Panlobular emphysema Code(s): J44.9 - Chronic obstructive pulmonary disease, unspecified Status: Acute Assessment and Plan: I don't think he has a COPD exacerbation at this time. Stop prednisone as it may worsen the CHF. (6) Obstructive sleep apnea on CPAP: Code(s): G47.33 - Obstructive sleep apnea (adult) (pediatric); Z99.89 - Dependence on other enabling machines and devices Status: Acute Assessment and Plan: Pt is on CPAP with his home settings. (7) Depression with anxiety: Code(s): F41.8 - Other specified anxiety disorders Status: Chronic Assessment and Plan: Continue with fluoxetine. (8) BPH (benign prostatic hyperplasia): Code(s): N40.0 - Benign prostatic hyperplasia without lower urinary tract symptoms Status: Chronic Assessment and Plan: Continue with Flomax Subjective Date/time seen: Pt states that he feels better but still having some orthopnea, this morning he was sitting at the edge of the bed with no signs of respiratory distress. 08/06/20 08:05 Review of Systems Review of Systems: All systems reviewed & are unremarkable except as noted in HPI and below Exam Const: General: cooperative, alert and awake Neck: Neck: supple and no JVD Resp: Effort & Inspection: able to speak in complete sentences Auscultation: rales and diminished lung sounds Other: Mild rales at the bases, no wheezing. Cardio: Rate: regular rate Rhythm: regular rhythm Heart sounds: S1 normal heart sound present and S2 normal heart sound present GI: GI Palp: Yes Soft to palpation Auscultation: normal bowel sounds Other: Non tender, non distended. Skin: General skin exam: no rashes or lesions noted Neuro: General: patient oriented x3, moves all extremities and no focal motor deficits Extrem: Other: Trace edema mor on the left lower extremity, no cyanosis. Objective Data Vital Signs Vital Signs: Vital Signs - 24 hr 08/05/20 08:33 08/05/20 10:00 08/05/20 12:00 Temperature 97.1 F L Pulse Rate 103 H 102 H 102 H Respiratory Rate 18 Blood Pressure 114/66 Pulse Oximetry 93
[2020-08-06] MEDS: LEVALBUTEROL NEB 1.25 MG/3 ML 0.63 MG INHALATION ×2 (09:26→21:36)
[2020-08-06] MEDS: IPRATROPIUM BR 0.02% INH SOLN 0.5 MG/2.5 ML VIAL INHALATION ×2 (09:26→21:37)
[2020-08-06] MEDS: FLUoxetine HCL 20 MG CAPSULE 40 MG PO (09:54)
[2020-08-06] MEDS: PANTOPRAZOLE 40 MG TABLET PO (09:54)
[2020-08-06] MEDS: RIVAROXABAN 2.5 MG TABLET PO ×2 (09:54→20:42)
[2020-08-06] MEDS: carvediloL 12.5 MG TABLET PO ×2 (09:54→20:41)
[2020-08-06] MEDS: ISOSORBIDE MONONITRATE 30 MG TAB.ER.24H 60 MG PO (09:54)
[2020-08-06] MEDS: ATORVASTATIN 40 MG TABLET PO (09:55)
[2020-08-06] MEDS: RANOLAZINE 500 MG TAB.ER.12H 1000 MG PO ×2 (09:55→20:42)
[2020-08-06 10:06] LABS: Anion Gap 8 mmol/L (8-16); Blood Urea Nitrogen 47 mg/dL (9-20); Calcium 8.7 mg/dL (8.4-10.2); Carbon Dioxide 30 mmol/L (22-30); Chloride 93 mmol/L (98-107); Estimated CRCL calculation 39 ml/min; Estimated Glomerular Filt Rate 42; Glucose 192 mg/dL (75-110); Potassium 4.1 mmol/L (3.4-5.0); Sodium 131 mmol/L (137-145)
[2020-08-06] MEDS: BUMETANIDE INJ 2.5 MG/10 ML VIAL 2 MG IV PUSH (10:36)
[2020-08-06 11:59] LABS: Glucose Point of Care 170 (65-105)
--- NOTE | 2020-08-06 13:17 | PM.PNCARD ---
Progress Note: A&P Assessment and Plan (1) CAD (coronary artery disease): Qualifiers: Associated angina: without angina Coronary Disease-Associated Artery/Lesion type: [place] artery [place] vs. transplanted heart: [place] heart Qualified Code(s): I25.10 - Atherosclerotic heart disease of [place] coronary artery without angina pectoris Code(s): I25.10 - Atherosclerotic heart disease of [place] coronary artery without angina pectoris Status: Acute Assessment and Plan: Chest pain resolved. Flat indeterminate elevated troponin. Intermittent chest pain not necessarily associated activity. Dr. Yo evaluated anatomy severe, diffuse and not amenable to intervention. Optimization of medical therapy, antianginals as tolerated. Heart failure management. Limited options. (2) CHF exacerbation: Qualifiers: Heart failure type: diastolic Qualified Code(s): I50.33 - Acute on chronic diastolic (congestive) heart failure Code(s): I50.9 - Heart failure, unspecified Status: Acute Assessment and Plan: Increased Bumex to 2 mg in a.m. 1 mg in afternoon. Monitor urine output, BP, renal function, and electrolytes closely. Will observe response. (3) Cardiomyopathy: Code(s): I42.9 - Cardiomyopathy, unspecified Status: Acute Assessment and Plan: Severe LV dysfunction EF 25-30% by echo. Optimize medical therapy. Entresto as well as Jardiance to optimize therapy. Will need washout of ZACH-inhibitor. Begin Entresto Friday morning 24/26 mg b.i.d.. if renal function permits. Jardiance would be favorable as well. Discuss with Dr. Yo with whom he follows routinely (4) Paroxysmal atrial fibrillation: Code(s): I48.0 - Paroxysmal atrial fibrillation Status: Acute Assessment and Plan: On EKG 08/04/2020. LBBB systemic anticoagulation Xarelto 2.5 mg b.i.d. initiated by Dr. Yo last night unsure of dosing rationale. (5) Type 2 diabetes mellitus treated with insulin: Code(s): E11.9 - Type 2 diabetes mellitus without complications; Z79.4 - [facility] (current) use of insulin Status: Chronic Assessment and Plan: Per primary service. Subjective Date/time seen: date of service:08/06/20 13:17 Follow-up for CHF, CAD, atrial fibrillation states he feels a little better this morning. More wheezy, coughing at times. Nebulizers cause him to cough occasionally productive. No fevers, chills. Chest pain resolved without recurrence overnight. Review of Systems Constitutional: Constitutional: Reports lethargy Eyes: Eyes: Reports no additional eye complaints ENT: Reports system reviewed and no additional complaints, except as documented Cardiovascular: Cardiovascular: Reports as per HPI Respiratory: Respiratory: Reports as per HPI Gastrointestinal: Gastrointestinal: Reports no additional gastrointestinal complaints Musculoskeletal: Musculoskeletal: Reports arthralgias and Reports stiffness Integumentary/Breasts: Skin/Breast: Reports system reviewed and no additional complaints, except as docu Neurologic: Reports system reviewed and no additional complaints, except as documented Endocrine: Endocrine: Reports no additional endocrine complaints Hematologic/Lymphatic: Hematologic/Lymphatic: Reports no additional hematologic/lymphatic complaints Allergic/Immunologic: Allergic/Immunologic: Reports no additional allergic/immunologic complaints Exam Const: Other: Pleasant elderly obese white male appears to be comfortable in no significant distress, but intermittently coughing Eyes: Sclera: sclerae normal Pupils: Equal, round and reactive pupils present Neck: Thyroid: thyroid normal Carotids: normal carotid upstroke Other: no audible carotid bruits Resp: Effort & Inspection: abnormal respiratory effort Auscultation: rales ( bibasilar rales ), wheezes, diminished lung sounds and bronchovesicular breath sounds Cardio:
[2020-08-06 16:36] LABS: Glucose Point of Care 275 (65-105)
[2020-08-06] MEDS: INSULIN ASPART (*BKC) 100 UNITS/ML SUB-Q (17:08)
[2020-08-06] MEDS: BUMETANIDE INJ 1 MG/4 ML VIAL IV PUSH (17:09)
[2020-08-06 19:58] LABS: Glucose Point of Care 288 (65-105)
[2020-08-06] MEDS: polyethylene glycoL 3350 17 GM POWD.PACK PO (20:41)
[2020-08-06] MEDS: INSULIN GLARGINE (*BKC) 100 UNITS/ML 38 UNITS SUB-Q (20:42)
[2020-08-06] MEDS: TAMSULOSIN HCL 0.4 MG CAPSULE PO (20:42)
[2020-08-07] VITALS (22 sets, daily range): BP systolic 107–152; BP diastolic 74–87; PULSE 82–109; RESP 14–24; TEMP 35.9–36.6; O2SAT 91–97
[2020-08-07] MEDS: LEVALBUTEROL NEB 1.25 MG/3 ML 0.63 MG INHALATION ×4 (02:30→21:47)
[2020-08-07] MEDS: IPRATROPIUM BR 0.02% INH SOLN 0.5 MG/2.5 ML VIAL INHALATION ×4 (02:30→21:48)
[2020-08-07 07:19] LABS: Anion Gap 9 mmol/L (8-16); Blood Urea Nitrogen 45 mg/dL (9-20); Calcium 8.7 mg/dL (8.4-10.2); Carbon Dioxide 30 mmol/L (22-30); Chloride 94 mmol/L (98-107); Estimated CRCL calculation 37 ml/min; Estimated Glomerular Filt Rate 40; Glucose 114 mg/dL (75-110); Potassium 4.1 mmol/L (3.4-5.0); Sodium 133 mmol/L (137-145)
[2020-08-07 07:29] LABS: Glucose Point of Care 126 (65-105)
[2020-08-07 09:43] LABS: Hematocrit 40.1 % (42.0-52.0); Hemoglobin 13.4 g/dL (14.0-18.0)
[2020-08-07] MEDS: FLUoxetine HCL 20 MG CAPSULE 40 MG PO (10:04)
[2020-08-07] MEDS: BUMETANIDE INJ 2.5 MG/10 ML VIAL 2 MG IV PUSH (10:04)
[2020-08-07] MEDS: RIVAROXABAN 2.5 MG TABLET PO ×2 (10:04→21:27)
[2020-08-07] MEDS: ATORVASTATIN 40 MG TABLET PO (10:04)
[2020-08-07] MEDS: ISOSORBIDE MONONITRATE 30 MG TAB.ER.24H 60 MG PO (10:04)
[2020-08-07] MEDS: PANTOPRAZOLE 40 MG TABLET PO (10:05)
[2020-08-07] MEDS: RANOLAZINE 500 MG TAB.ER.12H 1000 MG PO ×2 (10:05→21:27)
[2020-08-07] MEDS: carvediloL 12.5 MG TABLET PO ×2 (10:05→21:27)
[2020-08-07] MEDS: BENZOCAINE/MENTHOL (*BKC) 18 EA LOZENGE 1 LOZENGE PO ×2 (11:04→18:07)
[2020-08-07] MEDS: predniSONE 20 MG TABLET 40 MG PO (11:05)
[2020-08-07] MEDS: guaiFENesin 12 HR 600 MG TABCR PO ×2 (11:06→21:27)
[2020-08-07 11:39] LABS: Glucose Point of Care 308 (65-105)
[2020-08-07] MEDS: INSULIN ASPART (*BKC) 100 UNITS/ML SUB-Q (12:15)
--- NOTE | 2020-08-07 12:48 | PM.PNCARD ---
Progress Note: A&P Additional Plan follow-up visit in this 74-year-old man with severe ischemic cardiomyopathy, severe diffuse coronary artery disease no longer amenable to revascularization. Patient's ejection fraction has further declined because of this to the vicinity of 25%. He will be started on Entresto today in place of lisinopril. I would keep the IV Bumex going for at least another day or so and then tomorrow shift him back over to an oral regimen for that. Had a long discussion with the patient about the echocardiographic findings which he understands well Arjun Yo MD [facility] Subjective Date/time seen: date of service:08/07/20 12:48 Interval history: 74 year old male who has a history of coronary artery disease and congestive heart failure. CPAP machine. His last admission was 12/04/2019 with chest pain and shortness of breath. Well as congestive heart failure. Pt is feeling better today less SOB today. Pt is known to Cardiology team here. Doing well on iv diuresis continue to diuresis in the hospital with bumex, heart rate slightly high tele showing paced rhythm with lbbb Patient is relatively comfortable seated in the chair watching television states he is no longer significantly short of breath Exam Const: Other: Pleasant elderly obese white male appears to be comfortable in no significant distress, but intermittently coughing Eyes: Sclera: sclerae normal Pupils: Equal, round and reactive pupils present Neck: Thyroid: thyroid normal Carotids: normal carotid upstroke Other: no audible carotid bruits Resp: Effort & Inspection: abnormal respiratory effort Auscultation: rales ( bibasilar rales ), wheezes, diminished lung sounds and bronchovesicular breath sounds Cardio: Jugular venous distension: no JVD Rate: regular rate Rhythm: regular rhythm Other: periodic S4, soft systolic murmur GI: Inspection: distended Auscultation: normal bowel sounds Neuro: Cranial nerves: Yes Equal, round and reactive pupils present Cognition (Neuro): normal cognition Extrem: Other: no significant peripheral edema distal pulses are diminished and both lower extremities Objective Data Vital Signs Vital Signs: Vital Signs - 24 hr 08/06/20 14:00 08/06/20 15:55 08/06/20 16:00 Temperature 36.9 C Pulse Rate 89 91 89 Respiratory Rate 18 Blood Pressure 126/69 Pulse Oximetry 93 08/06/20 18:00 08/06/20 19:27 08/06/20 20:00 Temperature 36.8 C Pulse Rate 97 99 93 Respiratory Rate 20 Blood Pressure 129/58 L Pulse Oximetry 94 08/06/20 20:41 08/06/20 21:39 08/06/20 21:41 Temperature Pulse Rate 97 101 H Respiratory Rate 18 Blood Pressure Pulse Oximetry 91 08/06/20 21:53 08/06/20 21:54 08/06/20 22:00 Temperature Pulse Rate 99 99 91 Respiratory Rate 18 21 H Blood Pressure Pulse Oximetry 91 08/06/20 23:54 08/07/20 00:00 08/07/20 02:00 Temperature 36.3 C L Pulse Rate 92 86 86 Respiratory Rate 20 Blood Pressure 114/73 Pulse Oximetry 96 08/07/20 02:34 08/07/20 02:35 08/07/20 04:00 Temperature 36.2 C L Pulse Rate 82 82 88 Respiratory Rate 19 19 18 Blood Pressure 115/75 Pulse Oximetry 91 97 08/07/20 06:00 08/07/20 08:00 08/07/20 08:04 Temperature 36.6 C Pulse Rate 92 89 92 Respiratory Rate 20 Blood Pressure 107/85 Pulse Oximetry 97 08/07/20 09:05 08/07/20 09:18 08/07/20 10:05 Temperature Pulse Rate 103 H 92 99 Respiratory Rate 22 H 20 Blood Pressure Pulse Oximetry 95 08/07/20 11:53 08/07/20 12:00 Temperature 35.9 C L Pulse Rate 97 103 H Respiratory Rate 21 H Blood Pressure 136/79 Pulse Oximetry 96 Intake/Output Intake/Output: Intake & Output 08/04/20 08/05/20 08/06/20 08/07/20 23:59 23:59 23:59 23:59 Intake Total 1480 2420 1620 540 Output Total 1630 1015 4642 830 [facility] -150 1405 -[phone] -340 Meds/Results Medications: Active Medications Generic Name Dose Route Start La
--- NOTE | 2020-08-07 12:49 | P.PNIM_ITS ---
Progress Note: A&P Assessment and Plan (1) Chest pain: Code(s): R07.9 - Chest pain, unspecified Status: Acute Assessment and Plan: * Trop raise likely secondary to CHF excerbation, Pt seen by cardiology. Continu e with iv diuresis in hospital. * Pt with multivessel disease not amenable to further revascularization, patient was started on low dose rivaroxaban for cardiovascular event risk reduction. * Continue medical treatment, on ranolazine and isosorbide mononitrate, patient denies chest pain this morning. (2) CHF exacerbation: Qualifiers: Heart failure type: diastolic Qualified Code(s): I50.33 - Acute on chronic diastolic (congestive) heart failure Code(s): I50.9 - Heart failure, unspecified Status: Acute Assessment and Plan: * Continue to diuresis with iv Bumex. continue with Coreg, cardiology planning to switch from ZACH inhibitor to Entresto and also considering Jardiance. * Monitor renal function, creatinine is slowly going up, he probably has some underlying CKD. * Echo shows - Left ventricular systolic function is severely reduced, estimated at 25-30%. * Chest x ray shows pulmonary edema and a possible infiltrate. (3) COPD (chronic obstructive pulmonary disease): Qualifiers: COPD type: emphysema Emphysema type: panlobular Qualified Code(s): J43.1 - Panlobular emphysema Code(s): J44.9 - Chronic obstructive pulmonary disease, unspecified Status: Acute Assessment and Plan: * He is wheezing today and having increase amount of sputum. * We will start ceftriaxone and doxycycline and resume steroids since he seems to be going into an exacerbation of COPD. * Avoid levofloxacin given prolonged Qtc on EKG. (4) Elevated troponin: Code(s): R79.89 - Other specified abnormal findings of blood chemistry Status: Acute Assessment and Plan: * Could be related to his CHF exacerbation. (5) Type 2 diabetes mellitus treated with insulin: Code(s): E11.9 - Type 2 diabetes mellitus without complications; Z79.4 - halfway (current) use of insulin Status: Chronic Assessment and Plan: * Last a1c 8.1 . * Having episodes of hypoglycemia we will change his Lantus dose from 38 units BID to 38 units daily. (6) Obstructive sleep apnea on CPAP: Code(s): G47.33 - Obstructive sleep apnea (adult) (pediatric); Z99.89 - Dependence on other enabling machines and devices Status: Acute Assessment and Plan: * Pt is on CPAP with his home settings. (7) Depression with anxiety: Code(s): F41.8 - Other specified anxiety disorders Status: Chronic Assessment and Plan: * Continue with fluoxetine. (8) BPH (benign prostatic hyperplasia): Code(s): N40.0 - Benign prostatic hyperplasia without lower urinary tract symptoms Status: Chronic Assessment and Plan: * Continue with Flomax Subjective Date/time seen: Complaining of worsening cough with sputum production, he states he saw blood on the sputum, when asked about the amount it seems that might be only a small amount. 08/07/20 12:49 Review of Systems Review of Systems: All systems reviewed & are unremarkable except as noted in HPI and below Exam Const: General: cooperative, alert and awake Orientation/consciousness: patient oriented x3 Neck: Neck: supple and no JVD Resp: Effort & Inspec
--- NOTE | 2020-08-07 12:49 | PM.IMPN ---
Progress Note: A&P Assessment and Plan (1) Chest pain: Code(s): R07.9 - Chest pain, unspecified Status: Acute Assessment and Plan: Trop raise likely secondary to CHF excerbation, Pt seen by cardiology. Continue with iv diuresis in hospital. Pt with multivessel disease not amenable to further revascularization, patient was started on low dose rivaroxaban for cardiovascular event risk reduction. Continue medical treatment, on ranolazine and isosorbide mononitrate, patient denies chest pain this morning. (2) CHF exacerbation: Qualifiers: Heart failure type: diastolic Qualified Code(s): I50.33 - Acute on chronic diastolic (congestive) heart failure Code(s): I50.9 - Heart failure, unspecified Status: Acute Assessment and Plan: Continue to diuresis with iv Bumex. continue with Coreg, cardiology planning to switch from ZACH inhibitor to Entresto and also considering Jardiance. Monitor renal function, creatinine is slowly going up, he probably has some underlying CKD. Echo shows - Left ventricular systolic function is severely reduced, estimated at 25-30%. Chest x ray shows pulmonary edema and a possible infiltrate. (3) COPD (chronic obstructive pulmonary disease): Qualifiers: COPD type: emphysema Emphysema type: panlobular Qualified Code(s): J43.1 - Panlobular emphysema Code(s): J44.9 - Chronic obstructive pulmonary disease, unspecified Status: Acute Assessment and Plan: He is wheezing today and having increase amount of sputum. We will start ceftriaxone and doxycycline and resume steroids since he seems to be going into an exacerbation of COPD. Avoid levofloxacin given prolonged Qtc on EKG. (4) Elevated troponin: Code(s): R79.89 - Other specified abnormal findings of blood chemistry Status: Acute Assessment and Plan: Could be related to his CHF exacerbation. 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 Having episodes of hypoglycemia we will change his Lantus dose from 38 units BID to 38 units daily. (6) Obstructive sleep apnea on CPAP: Code(s): G47.33 - Obstructive sleep apnea (adult) (pediatric); Z99.89 - Dependence on other enabling machines and devices Status: Acute Assessment and Plan: Pt is on CPAP with his home settings. (7) Depression with anxiety: Code(s): F41.8 - Other specified anxiety disorders Status: Chronic Assessment and Plan: Continue with fluoxetine. (8) BPH (benign prostatic hyperplasia): Code(s): N40.0 - Benign prostatic hyperplasia without lower urinary tract symptoms Status: Chronic Assessment and Plan: Continue with Flomax Subjective Date/time seen: Complaining of worsening cough with sputum production, he states he saw blood on the sputum, when asked about the amount it seems that might be only a small amount. 08/07/20 12:49 Review of Systems Review of Systems: All systems reviewed & are unremarkable except as noted in HPI and below Exam Const: General: cooperative, alert and awake Orientation/consciousness: patient oriented x3 Neck: Neck: supple and no JVD Resp: Effort & Inspection: able to speak in complete sentences Auscultation: diminished lung sounds Other: Diffuse wheezing and rhonchi bilaterally. Cardio: Rate: regular rate Rhythm: regular rhythm Heart sounds: S1 normal heart sound present and S2 normal heart sound present GI: Auscultation: normal bowel sounds Other: Non tender, non distended. Skin: General skin exam: no rashes or lesions noted Neuro: General: patient oriented x3, moves all extremities and no focal motor deficits Extrem: Other: Trace edema mor on the left
--- NOTE | 2020-08-07 14:18 | PC.NURSE ---
This patient, Ron Manuel, was transferred to [facility] on 08/07/20 at 1415. Personal belongings sent with patient. Report given to Eliza CASAS. Appropriate documentation sent with patient.
--- NOTE | 2020-08-07 14:25 | PC.NURSE ---
Transfer patient received from IMU per wheelchair. Report received from YESSENIA Ward.
[2020-08-07 16:45] LABS: Glucose Point of Care 192 (65-105)
[2020-08-07] MEDS: BUMETANIDE INJ 1 MG/4 ML VIAL IV PUSH (18:07)
[2020-08-07] MEDS: SACUBITRIL/VALSARTAN 24-26 MG TABLET 1 TAB PO (21:27)
[2020-08-07] MEDS: TAMSULOSIN HCL 0.4 MG CAPSULE PO (21:27)
[2020-08-07] MEDS: polyethylene glycoL 3350 17 GM POWD.PACK PO (21:28)
[2020-08-07] MEDS: INSULIN GLARGINE (*BKC) 100 UNITS/ML 38 UNITS SUB-Q (21:33)
[2020-08-07] MEDS: TEMAZEPAM (*CRX) 15 MG CAPSULE PO (21:39)
[2020-08-07 22:02] LABS: Glucose Point of Care 317 (65-105)
[2020-08-08] VITALS (18 sets, daily range): BP systolic 104–134; BP diastolic 62–71; PULSE 60–99; RESP 14–24; TEMP 35.5–36.3; O2SAT 90–97
[2020-08-08] MEDS: LEVALBUTEROL NEB 1.25 MG/3 ML 0.63 MG INHALATION ×4 (03:20→19:56)
[2020-08-08] MEDS: IPRATROPIUM BR 0.02% INH SOLN 0.5 MG/2.5 ML VIAL INHALATION ×4 (03:20→19:56)
[2020-08-08 05:54] LABS: Basophils Percent Auto 0.1 % (0.2-1.2); Eosinophils Percent Auto 0.1 % (0-4.4); Hematocrit 36.8 % (42.0-52.0); Hemoglobin 12.5 g/dL (14.0-18.0); Immature Granulocyte Absolute 0.03 K/mm3 (0.00-0.031); Immature Granulocyte Percent A 0.4 % (0-0.5); Lymphocytes Percent Auto 14.2 % (18.3-44.2); Mean Corpuscular Hemoglobin 28.2 pg (26-34); Mean Corpuscular Volume 82.9 fl (80-100); Mean Platelet Volume 9.1 fl (7.4-10.4); Monocytes Absolute Auto 0.5 K/mm3 (0.1-0.6); Monocytes Percent Auto 5.4 % (2.6-8.5); Neutrophils Absolute Auto 6.7 K/mm3 (1.3-6.7); Neutrophils Percent Auto 79.8 % (45.5-73.1); Platelet Count Result 156 k/mm3 (150-375); Red Blood Count 4.44 M/mm3 (4.6-6.20); Red Cell Distribution Width 13.6 % (11.5-14.5); White Blood Count 8.5 K/mm3 (4.5-10.0)
[2020-08-08 06:25] LABS: Anion Gap 7 mmol/L (8-16); Blood Urea Nitrogen 45 mg/dL (9-20); Calcium 8.7 mg/dL (8.4-10.2); Carbon Dioxide 29 mmol/L (22-30); Chloride 94 mmol/L (98-107); Estimated CRCL calculation 42 ml/min; Estimated Glomerular Filt Rate 46; Glucose 217 mg/dL (75-110); Potassium 4.4 mmol/L (3.4-5.0); Sodium 130 mmol/L (137-145)
--- NOTE | 2020-08-08 07:39 | PM.IMPN ---
Progress Note: A&P Assessment and Plan (1) Cardiomyopathy: Qualifiers: Cardiomyopathy type: ischemic Qualified Code(s): I25.5 - Ischemic cardiomyopathy Code(s): I42.9 - Cardiomyopathy, unspecified Status: Acute Assessment and Plan: -EF 20% to 30% , ischemic diffuse cardiac disease not amenable to intervention -appreciate cardiology input -started Entresto yesterday, continue Coreg - continue regimen of Bumex IV 2 mg a.m., 1 mg p.m., will switch to p.o. in a.m. - d/c telemetry - continue home atorvastatin (2) Depression with anxiety: Code(s): F41.8 - Other specified anxiety disorders Status: Chronic Assessment and Plan: continue home fluoxetine (3) Chest pain: Qualifiers: Chest pain type: unspecified Qualified Code(s): R07.9 - Chest pain, unspecified Code(s): R07.9 - Chest pain, unspecified Status: Acute Assessment and Plan: continue Ranexa and Imdur for angina. nitroglycerin and morphine for p.r.n. chest pain however chest pain has resolved with the diuresis. (4) BPH (benign prostatic hyperplasia): Qualifiers: Lower urinary tract symptom presence: symptoms absent Qualified Code(s): N40.0 - Benign prostatic hyperplasia without lower urinary tract symptoms Code(s): N40.0 - Benign prostatic hyperplasia without lower urinary tract symptoms Status: Chronic Assessment and Plan: continue home Flomax (5) Atrial fibrillation with rapid ventricular response: Code(s): I48.91 - Unspecified atrial fibrillation Status: Acute Assessment and Plan: continue anticoagulation with Xarelto and rate control with Coreg (6) Non-ST elevation DC (NSTEMI): Code(s): I21.4 - Non-ST elevation (NSTEMI) myocardial infarction Status: Acute (7) Acute respiratory distress: Code(s): R06.03 - Acute respiratory distress Status: Acute (8) CHF (congestive heart failure): Qualifiers: Heart failure type: systolic Heart failure chronicity: acute on chronic Qualified Code(s): I50.23 - Acute on chronic systolic (congestive) heart failure Code(s): I50.9 - Heart failure, unspecified Status: Acute Assessment and Plan: see above in cardiomyopathy (9) Obstructive sleep apnea on CPAP: Code(s): G47.33 - Obstructive sleep apnea (adult) (pediatric); Z99.89 - Dependence on other enabling machines and devices Status: Acute Assessment and Plan: continue home CPAP (10) COPD (chronic obstructive pulmonary disease): Qualifiers: COPD type: emphysema Emphysema type: panlobular Qualified Code(s): J43.1 - Panlobular emphysema Code(s): J44.9 - Chronic obstructive pulmonary disease, unspecified Status: Acute Assessment and Plan: For COPD exacerbation patient has been started on prednisone 40 mg daily, doxycycline, Rocephin, guaifenesin. breathing treatments with levalbuterol nebs q6hr (11) Type 2 diabetes mellitus treated with insulin: Code(s): E11.9 - Type 2 diabetes mellitus without complications; Z79.4 - USP (current) use of insulin Status: Chronic Assessment and Plan: continue glargine 38 units q.h.s., moderate dose sliding scale insulin aspart, hypoglycemia protocol Additional Plan Diet: Heart healthy DVTppx: on Xarelto Code status: Full code Disposition: Medical floor, home soon Subjective Date/time seen: 08/08/20 07:39 Patient examined bedside. He complains of new swelling in his wrists and feet even though the swelling is quite minimal. He otherwise feels well. He does not have any more chest pain/pressure feelings and is responding to the IV diuresis. Patient's CAD has severe anatomy with diffuse disease and not amenable to intervention. Entrestor has been started but goals from cardiology will be to optimize heart failure medical management. Plan will be to transition to PO bumex tomorrow. EF
[2020-08-08] MEDS: BUMETANIDE INJ 2.5 MG/10 ML VIAL 2 MG IV PUSH (08:07)
[2020-08-08] MEDS: ISOSORBIDE MONONITRATE 30 MG TAB.ER.24H 60 MG PO (08:08)
[2020-08-08] MEDS: RIVAROXABAN 2.5 MG TABLET PO ×2 (08:08→21:27)
[2020-08-08] MEDS: guaiFENesin 12 HR 600 MG TABCR PO ×2 (08:09→21:26)
[2020-08-08] MEDS: RANOLAZINE 500 MG TAB.ER.12H 1000 MG PO ×2 (08:09→21:27)
[2020-08-08] MEDS: FLUoxetine HCL 20 MG CAPSULE 40 MG PO (08:09)
[2020-08-08] MEDS: predniSONE 20 MG TABLET 40 MG PO (08:09)
[2020-08-08] MEDS: carvediloL 12.5 MG TABLET PO ×2 (08:09→21:25)
[2020-08-08] MEDS: PANTOPRAZOLE 40 MG TABLET PO (08:10)
[2020-08-08] MEDS: ATORVASTATIN 40 MG TABLET PO (08:10)
[2020-08-08] MEDS: SACUBITRIL/VALSARTAN 24-26 MG TABLET 1 TAB PO ×2 (08:11→21:27)
[2020-08-08] MEDS: INSULIN ASPART (*BKC) 100 UNITS/ML SUB-Q ×2 (11:55→16:25)
[2020-08-08 12:13] LABS: Glucose Point of Care 214 (65-105)
--- NOTE | 2020-08-08 12:45 | PM.PNCARD ---
Progress Note: A&P Assessment and Plan (1) CAD (coronary artery disease): Qualifiers: Associated angina: without angina Coronary Disease-Associated Artery/Lesion type: [place] artery [place] vs. transplanted heart: [place] heart Qualified Code(s): I25.10 - Atherosclerotic heart disease of [place] coronary artery without angina pectoris Code(s): I25.10 - Atherosclerotic heart disease of [place] coronary artery without angina pectoris Status: Acute Assessment and Plan: Chest pain resolved. Flat indeterminate elevated troponin. Intermittent chest pain not necessarily associated activity. Dr. Yo evaluated anatomy severe, diffuse and not amenable to intervention. Optimization of medical therapy, antianginals as tolerated. Heart failure management. Entresto has been started. (2) CHF exacerbation: Qualifiers: Heart failure type: diastolic Qualified Code(s): I50.33 - Acute on chronic diastolic (congestive) heart failure Code(s): I50.9 - Heart failure, unspecified Status: Acute Assessment and Plan: Transition to p.o. Bumex tomorrow. Clinically improved. (3) Cardiomyopathy: Code(s): I42.9 - Cardiomyopathy, unspecified Status: Acute Assessment and Plan: Severe LV dysfunction EF 25-30% by echo. Entresto has been started. Will continue to monitor renal function. (4) Paroxysmal atrial fibrillation: Code(s): I48.0 - Paroxysmal atrial fibrillation Status: Acute Assessment and Plan: On EKG 08/04/2020. LBBB systemic anticoagulation Xarelto 2.5 [address] b.i.d. initiated by Dr. Yo. 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 Additional Plan DC telemetry. Plan discussed with Dr Patterson [id number] 08/08/2020 Subjective Date/time seen: 08/08/20 12:45 Interval history: Follow-up for: coronary artery disease and congestive heart failure. Date of service: 08/08/2020 Subjective: Denied chest discomfort or shortness of breath. States slept well last night. No palpitations. Lightheaded if he gets up too quickly. Review of Systems Constitutional: Constitutional: Denies body ache(s), Denies chills and Denies difficulty sleeping Eyes: Eyes: Denies blind spots ENT: Reports dizziness ( If gets up quickly) and Reports hearing loss ( left ear better than right) Cardiovascular: Cardiovascular: Denies chest pain, Denies rapid heart rate, Reports pedal edema ( left), Denies palpitations, Denies orthopnea and Denies paroxysmal nocturnal dyspnea Respiratory: Respiratory: Denies chest congestion, Denies cough and Denies dyspnea Gastrointestinal: Gastrointestinal: Denies abdominal pain and Denies bloating Genitourinary: Genitourinary: Denies hematuria Musculoskeletal: Musculoskeletal: Reports arthralgias and Reports stiffness Integumentary/Breasts: Skin/Breast: Denies erythema and Denies rash Neurologic: Reports dizziness ( if gets up quickly) Psychiatric: Psychiatric: Denies anxiety and Denies depression Endocrine: Endocrine: Denies fatigue and Denies flushing Hematologic/Lymphatic: Hematologic/Lymphatic: Denies easy bleeding and Reports easy bruising Allergic/Immunologic: Allergic/Immunologic: Denies throat swelling and Denies tongue swelling Exam Const: Other: Sitting up in chair. Denied shortness of breath or chest discomfort. Eyes: Sclera: sclerae normal Pupils: Equal, round and reactive pupils present Neck: Neck: full ROM Resp: Effort & Inspection: normal respiratory effort and able to speak in complete sentences Auscultation: no wheezes, diminished lung sounds and bronchovesicular
[2020-08-08 16:24] LABS: Glucose Point of Care 341 (65-105)
[2020-08-08] MEDS: BUMETANIDE INJ 1 MG/4 ML VIAL IV PUSH (18:17)
[2020-08-08 21:22] LABS: Glucose Point of Care 186 (65-105)
[2020-08-08] MEDS: polyethylene glycoL 3350 17 GM POWD.PACK PO (21:26)
[2020-08-08] MEDS: TEMAZEPAM (*CRX) 15 MG CAPSULE PO (21:28)
[2020-08-08] MEDS: TAMSULOSIN HCL 0.4 MG CAPSULE PO (21:28)
[2020-08-08] MEDS: INSULIN GLARGINE (*BKC) 100 UNITS/ML 38 UNITS SUB-Q (21:31)
[2020-08-08 21:32] LABS: Glucose Point of Care 265 (65-105)
[2020-08-09] VITALS (7 sets, daily range): BP systolic 114–125; BP diastolic 61–65; PULSE 77–87; RESP 16–24; TEMP 36.9; O2SAT 92–96
[2020-08-09] MEDS: IPRATROPIUM BR 0.02% INH SOLN 0.5 MG/2.5 ML VIAL INHALATION ×2 (02:30→09:41)
[2020-08-09] MEDS: LEVALBUTEROL NEB 1.25 MG/3 ML 0.63 MG INHALATION ×2 (02:30→09:41)
[2020-08-09 06:23] LABS: Basophils Percent Auto 0.2 % (0.2-1.2); Eosinophils Percent Auto 0.3 % (0-4.4); Hematocrit 39.3 % (42.0-52.0); Hemoglobin 13.1 g/dL (14.0-18.0); Immature Granulocyte Absolute 0.06 K/mm3 (0.00-0.031); Immature Granulocyte Percent A 0.6 % (0-0.5); Lymphocytes Absolute Auto 1.95 K/mm3 (0.9-3.2); Lymphocytes Percent Auto 18.3 % (18.3-44.2); Mean Corpuscular HGB Conc 33.3 g/dl (32-36); Mean Corpuscular Hemoglobin 27.5 pg (26-34); Mean Corpuscular Volume 82.6 fl (80-100); Monocytes Absolute Auto 0.6 K/mm3 (0.1-0.6); Monocytes Percent Auto 5.2 % (2.6-8.5); Neutrophils Absolute Auto 8.1 K/mm3 (1.3-6.7); Neutrophils Percent Auto 75.4 % (45.5-73.1); Platelet Count Result 187 k/mm3 (150-375); Red Blood Count 4.76 M/mm3 (4.6-6.20); Red Cell Distribution Width 13.8 % (11.5-14.5); White Blood Count 10.7 K/mm3 (4.5-10.0)
[2020-08-09 06:44] LABS: Anion Gap 7 mmol/L (8-16); Blood Urea Nitrogen 42 mg/dL (9-20); Calcium 8.9 mg/dL (8.4-10.2); Carbon Dioxide 33 mmol/L (22-30); Chloride 95 mmol/L (98-107); Estimated CRCL calculation 45 ml/min; Estimated Glomerular Filt Rate 50; Glucose 141 mg/dL (75-110); Potassium 4.1 mmol/L (3.4-5.0); Sodium 135 mmol/L (137-145)
[2020-08-09 07:44] LABS: Glucose Point of Care 125 (65-105)
[2020-08-09] MEDS: RANOLAZINE 500 MG TAB.ER.12H 1000 MG PO (08:10)
[2020-08-09] MEDS: BUMETANIDE INJ 2.5 MG/10 ML VIAL 2 MG IV PUSH (08:10)
[2020-08-09] MEDS: ATORVASTATIN 40 MG TABLET PO (08:10)
[2020-08-09] MEDS: predniSONE 20 MG TABLET 40 MG PO (08:10)
[2020-08-09] MEDS: guaiFENesin 12 HR 600 MG TABCR PO (08:10)
[2020-08-09] MEDS: FLUoxetine HCL 20 MG CAPSULE 40 MG PO (08:10)
[2020-08-09] MEDS: SACUBITRIL/VALSARTAN 24-26 MG TABLET 1 TAB PO (08:12)
[2020-08-09] MEDS: carvediloL 12.5 MG TABLET PO (08:12)
[2020-08-09] MEDS: PANTOPRAZOLE 40 MG TABLET PO (08:12)
[2020-08-09] MEDS: ISOSORBIDE MONONITRATE 30 MG TAB.ER.24H 60 MG PO (08:12)
[2020-08-09] MEDS: RIVAROXABAN 2.5 MG TABLET PO (08:12)
--- NOTE | 2020-08-09 09:44 | PM.DS ---
DS: Admitting Diagnosis Admitting Diagnosis Admitting Diagnosis: CHF exacerbation, COPD DS: Discharge Diagnosis Discharge Diagnosis (1) Cardiomyopathy: Qualifiers: Cardiomyopathy type: ischemic Qualified Code(s): I25.5 - Ischemic cardiomyopathy Code(s): I42.9 - Cardiomyopathy, unspecified Status: Acute Assessment and Plan: - EF 20% to 30% , ischemic diffuse cardiac disease not amenable to intervention - continue Entresto yesterday, continue Coreg, stopped lisinopril - will continue bumex PO 2mg AM and 1 mg PM - continue home atorvastatin - Xarelto started and plavix stopped as per cardiology (2) Depression with anxiety: Code(s): F41.8 - Other specified anxiety disorders Status: Chronic Assessment and Plan: continue home fluoxetine (3) Chest pain: Qualifiers: Chest pain type: unspecified Qualified Code(s): R07.9 - Chest pain, unspecified Code(s): R07.9 - Chest pain, unspecified Status: Acute Assessment and Plan: continue Ranexa and Imdur for angina. nitroglycerin and morphine for p.r.n. chest pain however chest pain has resolved with the diuresis. (4) BPH (benign prostatic hyperplasia): Qualifiers: Lower urinary tract symptom presence: symptoms absent Qualified Code(s): N40.0 - Benign prostatic hyperplasia without lower urinary tract symptoms Code(s): N40.0 - Benign prostatic hyperplasia without lower urinary tract symptoms Status: Chronic Assessment and Plan: continue home Flomax (5) Atrial fibrillation with rapid ventricular response: Code(s): I48.91 - Unspecified atrial fibrillation Status: Acute Assessment and Plan: continue anticoagulation with Xarelto and rate control with Coreg (6) Acute respiratory distress: Code(s): R06.03 - Acute respiratory distress Status: Acute (7) CHF (congestive heart failure): Qualifiers: Heart failure chronicity: acute on chronic Heart failure type: systolic Qualified Code(s): I50.23 - Acute on chronic systolic (congestive) heart failure Code(s): I50.9 - Heart failure, unspecified Status: Acute Assessment and Plan: see above in cardiomyopathy (8) Obstructive sleep apnea on CPAP: Code(s): G47.33 - Obstructive sleep apnea (adult) (pediatric); Z99.89 - Dependence on other enabling machines and devices Status: Acute Assessment and Plan: continue home CPAP (9) COPD (chronic obstructive pulmonary disease): Qualifiers: COPD type: emphysema Emphysema type: panlobular Qualified Code(s): J43.1 - Panlobular emphysema Code(s): J44.9 - Chronic obstructive pulmonary disease, unspecified Status: Acute Assessment and Plan: I do not believe he had a COPD Exacerbation. His dyspnea is likely secondary to his fluid overload congestive heart failure. He likely has chronic wounds from his COPD history. He had no sputum production and no fevers no sign of acute infection. Stopping all antibiotics and steroids. 06/29/2020 CT chest he had a new 15 mm part solid nodule 5 mm solid component in the right lung lower base suspicious for primary bronchogenic carcinoma recommend a low-dose chest CT in 3 months, pt will need follow up CT scan in 2 months. 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 He was thought to be in COPD exacebation outpatient and was given azithromycin and prednisone. Once inpatient, he was given rocephin and azithromycin
--- NOTE | 2020-08-09 09:54 | PM.PNCARD ---
Progress Note: A&P Additional Plan relatively severe ischemic cardiomyopathy in this 74-year-old man with previous bypass surgery also with complete heart block and normally functioning dual-chamber pacemaker. He has been diuresed in transition from ZACH-inhibitor therapy to Entresto. Seems to be benefiting from advancement in his medications and appears to be a reasonable candidate for discharge at this time. he is still receiving intravenous antibiotics according to what I see in the orders. The patient does not require any additional medication adjustments at this time for his CHF. He has follow-up scheduled with me in the office next month. Subjective Date/time seen: Date of service:08/09/20 09:54 Interval history: Follow-up visit in this 74-year-old man with ischemic heart disease and advanced ischemic cardiomyopathy. Patient has diffuse multivessel coronary disease that is no longer amenable to revascularization. CHF exacerbation upon admission which is doing better now with advancement in his medical regimen and appears to be clinically euvolemic. Patient is feeling relatively well now denies any dyspnea is on room air. Exam Const: General: comfortable and no acute distress HENMT: Mouth: Yes moist mucous membranes Eyes: Sclera: sclerae normal Pupils: Equal, round and reactive pupils present Neck: Neck: supple and no JVD Thyroid: thyroid normal Resp: Effort & Inspection: normal respiratory effort Other: Scant basilar crackles noted good aeration bilaterally no wheezes no rhonchi Cardio: Rate: regular rate Rhythm: regular rhythm Other: PMI difficult to palpate. GI: GI Palp: Yes Soft to palpation Auscultation: normal bowel sounds Skin: General skin exam: normal color Neuro: Cognition (Neuro): normal cognition Extrem: General: normal to inspection Other: No peripheral edema adequate arterial perfusion Objective Data Vital Signs Vital Signs: Vital Signs - 24 hr 08/08/20 10:19 08/08/20 10:27 08/08/20 12:00 Temperature 35.8 C L Pulse Rate 78 84 87 Respiratory Rate 18 18 16 Blood Pressure 109/64 Pulse Oximetry 94 96 08/08/20 14:42 08/08/20 15:07 08/08/20 15:15 Temperature 35.6 C L Pulse Rate 83 76 80 Respiratory Rate 16 18 18 Blood Pressure 104/66 Pulse Oximetry 95 08/08/20 19:57 08/08/20 20:08 08/08/20 20:21 Temperature 36.3 C L Pulse Rate 76 77 87 Respiratory Rate 18 18 16 Blood Pressure 134/71 Pulse Oximetry 97 08/08/20 21:25 08/09/20 02:31 08/09/20 02:32 Temperature Pulse Rate 96 87 87 Respiratory Rate 24 H 24 H Blood Pressure Pulse Oximetry 92 08/09/20 02:39 08/09/20 06:10 08/09/20 08:07 Temperature 36.9 C Pulse Rate 82 83 Respiratory Rate 20 18 Blood Pressure 114/65 125/61 Pulse Oximetry 96 08/09/20 08:12 08/09/20 09:42 Temperature Pulse Rate 78 77 Respiratory Rate 16 Blood Pressure Pulse Oximetry Intake/Output Intake/Output: Intake & Output 08/06/20 08/07/20 08/08/20 08/09/20 23:59 23:59 23:59 23:59 Intake Total 1620 1270 1820 1100 Output Total 3375 2460 3310 3000 Balance -1305 -1190 -1490 -1900 Meds/Results Medications: Active Medications Generic Name Dose Route Start Last Admin Trade Name Freq PRN Reason Stop Dose Admin Acetaminophen 650 mg 08/03/20 17:31 Acetaminophen 325 Mg Tablet PO Q4H PRN Mild Pain (1-3) or Fever Atorvastatin Calcium 40 mg 08/04/20 09:00 08/09/20 08:10 Atorvastatin 40 Mg Tablet PO 40 mg DAILY [facility] Administration Benzocaine 1 lozenge 08/07/20 10:15 08/07/20 18:07 Benzocaine/Menthol (*Bkc) 18 Ea Lozenge PO 1 lozenge PRN PRN Administration Sore Throat Bumetanide 1 mg 08/09/20 17:00 Bumetanide 1 Mg Tablet PO DAILY@1700 [facility] Bumetanide 2 mg 08/10/20 09:00 Bumetanide 1 Mg Tablet PO DAILY [facility] Carvedilol 12.5 mg 08/03/20 23:40 08/09/20 08:12 Carvedilol 12.5 Mg Tablet PO 12.5 mg Q12HR [facility]
[2020-08-09 11:40] LABS: Glucose Point of Care 166 (65-105)
== END 2020-08-09 15:30 | disposition home or self-care (01) | DRG 293 ==
LOC: ANHED 17:38 → ANHIMU 21:44 → ANH3MED 08-07 23:52 → ANHIMU 08-15 17:59
PROVIDERS: Family Medicine; Hospitalist; Nurse Practitioner; Admitting Provider Internal Medicine; Emergency Provider Family Medicine; PCP Emergency Medicine; Visit Provider Student in an Organized Health Care Education/Training Program
DX: I50.43 Acute on chronic combined systolic (congestive) and diastolic (congestive) heart failure (principal); I25.5 Ischemic cardiomyopathy; F41.8 Other specified anxiety disorders; N40.0 Benign prostatic hyperplasia without lower urinary tract symptoms; G47.33 Obstructive sleep apnea (adult) (pediatric); E11.22 Type 2 diabetes mellitus with diabetic chronic kidney disease; N18.30 Chronic kidney disease, stage 3 unspecified; I48.0 Paroxysmal atrial fibrillation; J44.9 Chronic obstructive pulmonary disease, unspecified; E11.42 Type 2 diabetes mellitus with diabetic polyneuropathy; E11.9 Type 2 diabetes mellitus without complications; K44.9 Diaphragmatic hernia without obstruction or gangrene; R06.03 Acute respiratory distress; I25.10 Atherosclerotic heart disease of native coronary artery without angina pectoris; K21.9 Gastro-esophageal reflux disease without esophagitis; E11.51 Type 2 diabetes mellitus with diabetic peripheral angiopathy without gangrene; Z79.4 Long term (current) use of insulin; Z95.5 Presence of coronary angioplasty implant and graft; Z95.1 Presence of aortocoronary bypass graft; Z95.2 Presence of prosthetic heart valve; Z95.0 Presence of cardiac pacemaker; Z98.41 Cataract extraction status, right eye; Z98.42 Cataract extraction status, left eye; Z87.891 Personal history of nicotine dependence; I25.2 Old myocardial infarction
CPT/HCPCS: 36415; 36600; 71045; 80048; 80053; 82375; 82805; 83050; 83735; 83880; 84443; 84484; 85014; 85018; 85025; 86140; 87040; 93005; 93306; 94002; 94640; 96374; 96375; 97110; 97161; 97165; 99291; A9270; J0696; J1650; J1815; J1940; J2270; J7512; Q9957

== ENCOUNTER 2020-08-18 09:37 | Outpatient (CLI) | payer MEDICARE, OTHER, SELFPAY ==
[2020-08-18 09:52] LABS: Hematocrit 41.5 % (42.0-52.0); Hemoglobin 13.5 g/dL (14.0-18.0); Mean Corpuscular HGB Conc 32.5 g/dl (32-36); Mean Corpuscular Hemoglobin 27.7 pg (26-34); Mean Platelet Volume 8.6 fl (7.4-10.4); Platelet Count Result 135 k/mm3 (150-375); Red Blood Count 4.88 M/mm3 (4.6-6.20); White Blood Count 5.7 K/mm3 (4.5-10.0)
== END 2020-08-18 09:38 | disposition home or self-care (01) ==
LOC: ANHLAB 09:39
PROVIDERS: PCP Emergency Medicine; Visit Provider Nurse Practitioner Adult Health
DX: N18.30 Chronic kidney disease, stage 3 unspecified (principal); I25.10 Atherosclerotic heart disease of native coronary artery without angina pectoris; I42.9 Cardiomyopathy, unspecified
CPT/HCPCS: 36415; 83735; 85027

== ENCOUNTER 2020-08-28 09:36 | Outpatient (CLI) | payer MEDICARE, OTHER, SELFPAY ==
[2020-08-28 10:44] LABS: Anion Gap 9 mmol/L (8-16); Blood Urea Nitrogen 64 mg/dL (9-20); Calcium 9.8 mg/dL (8.4-10.2); Carbon Dioxide 37 mmol/L (22-30); Chloride 86 mmol/L (98-107); Estimated Glomerular Filt Rate 25; Glucose 143 mg/dL (75-110); Potassium 3.9 mmol/L (3.4-5.0); Sodium 132 mmol/L (137-145)
== END 2020-08-28 09:37 | disposition home or self-care (01) ==
LOC: ANHLAB 09:40
PROVIDERS: PCP Emergency Medicine; Visit Provider Internal Medicine Cardiovascular Disease
DX: I50.9 Heart failure, unspecified (principal)
CPT/HCPCS: 36415; 80048

== ENCOUNTER 2020-09-07 12:19 | Outpatient (CLI) | payer MEDICARE, OTHER, SELFPAY ==
[2020-09-07 12:49] LABS: Hematocrit 43.9 % (42.0-52.0); Hemoglobin 15.6 g/dL (14.0-18.0); Mean Corpuscular HGB Conc 35.5 g/dl (32-36); Mean Corpuscular Hemoglobin 28.5 pg (26-34); Mean Corpuscular Volume 80.1 fl (80-100); Mean Platelet Volume 9.1 fl (7.4-10.4); Platelet Count Result 163 k/mm3 (150-375); Red Blood Count 5.48 M/mm3 (4.6-6.20); Red Cell Distribution Width 13.5 % (11.5-14.5)
[2020-09-07 13:02] LABS: Anion Gap 8 mmol/L (8-16); Blood Urea Nitrogen 85 mg/dL (9-20); Calcium 9.2 mg/dL (8.4-10.2); Carbon Dioxide 39 mmol/L (22-30); Chloride 80 mmol/L (98-107); Estimated Glomerular Filt Rate 39; Glucose 333 mg/dL (75-110); Potassium 3.1 mmol/L (3.4-5.0); Sodium 127 mmol/L (137-145)
== END 2020-09-07 12:20 | disposition home or self-care (01) ==
PROVIDERS: PCP Emergency Medicine; Visit Provider Nurse Practitioner Adult Health
DX: I50.22 Chronic systolic (congestive) heart failure (principal)
CPT/HCPCS: 36415; 80048; 85027

== ENCOUNTER 2020-09-14 08:16 | Outpatient (CLI) | payer MEDICARE, OTHER, SELFPAY ==
[2020-09-14 09:02] LABS: Anion Gap 7 mmol/L (8-16); Blood Urea Nitrogen 60 mg/dL (9-20); Carbon Dioxide 38 mmol/L (22-30); Chloride 88 mmol/L (98-107); Estimated Glomerular Filt Rate 37; Glucose 129 mg/dL (75-110); Potassium 3.6 mmol/L (3.4-5.0); Sodium 133 mmol/L (137-145)
== END 2020-09-14 08:17 | disposition home or self-care (01) ==
PROVIDERS: PCP Emergency Medicine; Visit Provider Specialist
DX: E87.6 Hypokalemia (principal)
CPT/HCPCS: 36415; 80048

== ENCOUNTER 2020-11-22 10:42 | Outpatient (CLI) | payer MEDICARE, OTHER, SELFPAY ==
--- NOTE | ~2020-11-22 | CT_ITS ---
EXAMINATION: CT diagnostic chest wo con DATE: 11/22/2020 11:00 INDICATION: Solitary pulmonary nodule TECHNIQUE: Computed tomography (CT) of the chest was performed without intravenous contrast. Automate d exposure control and iterative reconstruction technique were employed. Exam dose: 189.23 mGy-cm to osmin exam DLP. COMPARISON: 08/07/[address] diagnostic chest FINDINGS: There is interval complete resolution of previously reported 15 mm port-solid nodule with 5 mm solid component in right lower lobe noted on 06/28/2020 CT thorax examination. Stable part solid nodule in the left upper lobe (series 4 image 48), stable since 06/28/2020. There is mild early dependent bilateral lower lobe atelectasis and/or infiltrate. There are small dominik ateral pleural effusions. Status post sternotomy and aortic valve replacement. Extensive coronary artery calcification. Left-sided pacemaker device with leads in right atrium and right ventricle. There is thoracic aortic and great vessel calcification. No thoracic aortic aneurysm. Small sliding hiatal hernia. Cholelithiasis At least 2 nonobstructing small upper pole left renal calculi are noted. There is extensive calcifica tion of the celiac, splenic and hepatic as well as superior mesenteric arteries in addition to the ab dominal aorta. No adrenal mass lesion. Status post lower anterior cervical spine surgical fusion. Diffuse idiopathic skeletal hyperostosis of the thoracic spine.. IMPRESSION: Complete resolution of 15 mm part solid nodule of right lower lobe since 06/28/2020 Stable 8 mm part solid nodule of left upper lobe Bilateral dependent lower lobe infiltrate and/atelectasis and small bilateral pleural effusions Cardiomegaly; status post aortic valve replacement Cholelithiasis Small sliding hiatal hernia Left nephrolithiasis Reviewed, dictated and finalized at [facility]. Reviewed, dictated and finalized at [facility]. E GRINDER IMPRESSION: Complete resolution of 15 mm part solid nodule of right lower lobe since 06/28/2020 Stable 8 mm part solid nodule of left upper lobe Bilateral dependent lower lobe infiltrate and/atelectasis and small bilateral p leural effusions Cardiomegaly; status post aortic valve replacement Cholelithiasis Small sliding hiatal hernia Left nephrolithiasis
== END 2020-11-22 10:43 | disposition home or self-care (01) ==
PROVIDERS: PCP Emergency Medicine; Visit Provider Internal Medicine Pulmonary Disease
DX: J44.9 Chronic obstructive pulmonary disease, unspecified (principal); K44.9 Diaphragmatic hernia without obstruction or gangrene; R91.1 Solitary pulmonary nodule; N20.0 Calculus of kidney; M48.14 Ankylosing hyperostosis [Forestier], thoracic region; I35.1 Nonrheumatic aortic (valve) insufficiency; I25.10 Atherosclerotic heart disease of native coronary artery without angina pectoris; I51.7 Cardiomegaly; K80.20 Calculus of gallbladder without cholecystitis without obstruction
CPT/HCPCS: 71250

== ENCOUNTER 2020-12-05 11:00 | Inpatient (IN) | payer MEDICARE, OTHER, SELFPAY ==
[2020-12-05] VITALS (60 sets, daily range): BP systolic 93–133; BP diastolic 41–105; PULSE 96–126; RESP 17–41; TEMP 36.3–36.4; O2SAT 92–100
--- NOTE | ~2020-12-05 | US_ITS ---
EXAMINATION: US arterial duplex LE EXAM DATE: 12/05/2020 13:54 INDICATION: decreased peripheral pulse, swelling. Left-sided Stent placed 11/30/2020. Right-sided femor al popliteal bypass. TECHNIQUE: Multiple grayscale and Doppler images of the left lower extremity arteries were obtained ( by a technologist who performed the scan) and subsequently reviewed. There is no prior study for roberta acevedo. FINDINGS: There is scattered arterial sclerosis demonstrated. Left lower extremity velocities are reported in centimeters per second. Common femoral artery: 57 Profunda: 17 Superficial femoral proximally: 96 Mid aspect: 69 Distal aspect: 75 Popliteal: 81 Popliteal distally: 54 Posterior tibial: 53, 65 Peroneal: 33, 19, 26 Anterior tibial: 38 Dorsalis pedis: 68 IMPRESSION: 1. Patent left lower extremity arteries with velocities reported above in cm/s. Reviewed, dictated and finalized at location [facility]. 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 Patent left lower extremity arteries with velocities reported above in cm/s .
--- NOTE | ~2020-12-05 | XR_ITS ---
EXAMINATION: XR chest 1V portable EXAM DATE: 12/06/2020 08:25 INDICATION: CHF. TECHNIQUE: Portable AP frontal chest x-ray was obtained. Comparison is made to prior examination from 12/05/2020. FINDINGS: Sternotomy wires are present without findings to suggest sternal dehiscence. There is a rosy l lead pacemaker/AICD seen with leads projecting over the expected locations of the right atrial appe ndage and right ventricle. There is cardiomegaly and pulmonary vascular congestion. Lower cervical fusion hardware. There is bee n progression in diffuse abnormal basilar reticulation, appearance most consistent with pulmonary gabbie ma. There are small pleural effusions. No confluent consolidation or pneumothorax. IMPRESSION: Findings consistent with developing CHF exacerbation. Reviewed, dictated and finalized at location [facility]. WASHER
--- NOTE | ~2020-12-05 | US_ITS ---
EXAMINATION:US venous doppler LE BI INDICATION:Located d-dimer TECHNIQUE: Multiple grayscale, color flow and Doppler images of the bilateral lower extremity deep ve nous systems were obtained and reviewed. COMPARISON:No prior studies for comparison. FINDINGS: The common femoral, superficial femoral and popliteal veins demonstrate normal respiratory variation, augmentation and compressibility. Color flow is also seen within the posterior tibial, pe roneal, greater saphenous and profunda veins. IMPRESSION: 1: No lower extremity deep venous thrombosis. Reviewed, dictated and finalized at location [facility]. SORTER
--- NOTE | ~2020-12-05 | XR_ITS ---
EXAMINATION: XR chest 2V EXAM DATE: 12/05/2020 11:56 INDICATION: Shortness of breath, heart failure. TECHNIQUE: Frontal and lateral projections of the chest obtained and reviewed. Comparison is made to prior examination from 08/07/2020. FINDINGS: Sternotomy wires are present without findings to suggest sternal dehiscence. There is a du al lead pacemaker/AICD seen with leads projecting over the expected locations of the right atrial milagros endage and right ventricle. Aortic valve replacement. Lower cervical hardware. No confluent consolidation or pneumothorax suspected. There is aortic arteriosclerosis. There are bon y degenerative changes. IMPRESSION: Small bilateral pleural effusions. Reviewed, dictated and finalized at location [facility]. 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
--- NOTE | 2020-12-05 11:33 | ECG_ITS ---
Measurements Intervals [place] Rate: 115 P: CA: 0 QRS: 14 QRSD: 156 T: 142 QT: 363 QTc: 503 Interpretive Statements ATRIAL FIBRILLATION WITH RAPID VENTRICULAR RESPONSE LEFT BUNDLE BRANCH BLOCK BASELINE ARTIFACT- I, II, III, AVR, AVL, AVF, V4-V5 ABNORMAL ECG Electronically Signed On 12-05-2020 12:02:26 RIPENING ROOM ATTENDANT by Shai Lima D.O.
[2020-12-05 11:55] LABS: Basophils Percent Auto 0.5 % (0.2-1.2); Eosinophils Absolute Auto 0.2 K/mm3 (0-0.3); Eosinophils Percent Auto 2.1 % (0-4.4); Hematocrit 37.8 % (42.0-52.0); Hemoglobin 12.2 g/dL (14.0-18.0); Immature Granulocyte Absolute 0.03 K/mm3 (0.00-0.031); Immature Granulocyte Percent A 0.4 % (0-0.5); Lymphocytes Percent Auto 13.7 % (18.3-44.2); Mean Corpuscular HGB Conc 32.3 g/dl (32-36); Mean Corpuscular Hemoglobin 26.7 pg (26-34); Mean Corpuscular Volume 82.7 fl (80-100); Mean Platelet Volume 8.8 fl (7.4-10.4); Monocytes Absolute Auto 0.6 K/mm3 (0.1-0.6); Monocytes Percent Auto 8.6 % (2.6-8.5); Neutrophils Absolute Auto 5.4 K/mm3 (1.3-6.7); Neutrophils Percent Auto 74.7 % (45.5-73.1); Platelet Count Result 218 k/mm3 (150-375); Red Blood Count 4.57 M/mm3 (4.6-6.20); Red Cell Distribution Width 15.5 % (11.5-14.5); White Blood Count 7.3 K/mm3 (4.5-10.0)
[2020-12-05 12:06] LABS: Anion Gap 9 mmol/L (8-16); Blood Urea Nitrogen 58 mg/dL (9-20); Calcium 8.6 mg/dL (8.4-10.2); Carbon Dioxide 29 mmol/L (22-30); Chloride 96 mmol/L (98-107); Estimated CRCL calculation 26 ml/min; Estimated Glomerular Filt Rate 27; Glucose 91 mg/dL (75-110); Potassium 4.2 mmol/L (3.4-5.0); Sodium 134 mmol/L (137-145)
--- NOTE | 2020-12-05 12:09 | PC.NURSE ---
THELMA Peña at bedside.
[2020-12-05 12:22] LABS: Alveolar/Arterial O2 Gradient 65.8 mmHg; Base Excess ABG 0.6 mEq/l (+/-2.0); Carboxyhemoglobin 0.8 % THb (0-2.0); Fractional Inspired Oxygen 21 %; Methemoglobin ABG 0.2 %THb (0-1.5); Oxygen Content ABG 12.3 %vol (16.0-22.0); Oxyhemoglobin 67.6 % THb (90.0-100.0); PCO2 ABG 39.3 mmHg (35.0-45.0); PO2 FiO2 Ratio Arterial Blood 1.76 %; Reduced Hemoglobin 31.4 %THb (0-5.0); pH ABG 7.421 (7.350-7.450)
--- NOTE | 2020-12-05 12:32 | ED.SOB ---
HPI - SOB/Dyspnea General Chief Complaint: Shortness of Breath/Dyspnea <Mariana Madrid PA-C - Last Filed: 12/05/20 17:31> Stated Complaint: sob/cp <Mariana Madrid PA-C - Last Filed: 12/05/20 17:31> Time Seen by Provider: 12/05/20 12:04 <Mariana Madrid PA-C - Last Filed: 12/05/20 17:31> Source: patient <YVES Garzon Last Filed: 12/05/20 17:31> Mode of arrival: wheelchair <YVES Garzon Last Filed: 12/05/20 17:31> Limitations: no limitations <Mariana Madrid PA-C - Last Filed: 12/05/20 17:31> History of Present Illness HPI Narrative: This is a 75 year old male that presents to the ER for shortness of breath. Reports worsening over the last couple of weeks. Reports history of CHF and COPD. Reports he did have an episode of chest pain this morning as well. Reports he had been walking around the house and started to feel short of breath. Reports he had a substernal chest pressure that lasted about 5 minutes. Was relieved with rest. He did not take any medications for this. Does report a mild cough. No concerning sputum production. Reports he had an arterial stent in the left leg about a week ago. Reports he has had swelling in the leg since. No pain, warmth or redness. Denies fever. <Mariana Madrid PA-C - Last Filed: 12/05/20 17:31> Related Data Home Medications: Home Medications Medication Instructions Recorded Confirmed atorvastatin 40 mg PO DAILY 07/29/19 08/03/20 carvedilol [Coreg] 12.5 mg PO Q12H 07/29/19 08/03/20 isosorbide mononitrate 60 mg PO DAILY 07/29/19 08/03/20 nitroglycerin [Nitrostat] 0.4 mg SUBLINGUAL Q5MIN PRN 07/29/19 08/03/20 ranolazine 1,000 mg PO Q12H 07/29/19 08/03/20 Lantus U-100 Insulin 38 units SUBCUT Q12HR 12/04/19 08/03/20 insulin lispro [Humalog U-100 See Rx Instructions .ROUTE .COMPLEX 12/04/19 08/03/20 Insulin] polyethylene glycol 3350 [Miralax] 17 g PO HS 12/04/19 08/03/20 tamsulosin 0.4 mg PO HS 12/04/19 08/03/20 ipratropium bromide 2.5 ml INHALATION QID 08/03/20 08/03/20 levalbuterol HCl 0.63 mg INHALATION Q6H 08/03/20 08/03/20 pantoprazole 40 mg PO DAILY 08/03/20 08/03/20 rivaroxaban 2.5 mg tablet 2.5 mg PO .12hr tablet 11/08/20 <Mariana Madrid PA-C - Last Filed: 12/05/20 17:31> Allergies/Adverse Reactions: Allergies Allergy/AdvReac Type Severity Reaction Status Date / Time Cephalosporins Allergy Mild EPIC 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 RESPIRATORY: Reports cough and dyspnea. <Mariana Mdarid PA-C - Last Filed: 12/05/20 17:31> All systems reviewed & are unremarkable except as noted in HPI and below <Mariana Madrid PA-C - Last Filed: 12/05/20 17:31> [facility] Past Medical History Medical History: Medical History Acute exacerbation of chronic obstructive airways disease Bacteremia Streptococcus bovis bacteremia June 2019. Transesophageal echocardiogram negative for vegetation July 2019 Bilateral carotid artery disease BPH (benign prostatic hyperplasia) CAD (coronary artery disease) Status post stents and CABG. CHF (congestive heart failure) Echo October 05, 2018 demonstrated EF of 55% but difficult study prior echos had demonstrated mildly decreased left ventricular systolic function with hypokinetic segment of left ventricle including apical mid in peers septum apical septum and mid anterior septum, diastolic dysfunction noted on prior echoes CKD (chronic kidney disease) stage 3, GFR 30-59 ml/min COPD (chronic obstructive pulmonary disease) PFTs November 2017 demonstrated mild obstructive ventilatory defect with s
[2020-12-05] MEDS: IPRATROPIUM BR 0.02% INH SOLN 0.5 MG/2.5 ML VIAL INHALATION ×3 (12:37→21:48)
[2020-12-05 12:38] LABS: NT Pro B Type Natriuretic Pept 4770 PG/ML (5-100)
[2020-12-05 12:45] LABS: Glucose Point of Care 59 (65-105)
--- NOTE | 2020-12-05 12:45 | PC.NURSE ---
Pt noting bs to be low on his home monitor, poc glucose shows glucose 59, pa ramila informed verbal order given for 1 am dextrose 50% ivp stat.
[2020-12-05] MEDS: BUMETANIDE INJ 1 MG/4 ML VIAL IV PUSH (12:49)
[2020-12-05] MEDS: DEXTROSE 50% 25 GM/50 ML SYRINGE IV PUSH (12:50)
[2020-12-05 12:54] LABS: INR 1.6; Prothrombin Time 19.4 Seconds (11.1-14.7)
[2020-12-05 12:54] LABS: Oxygen Saturation ABG 71.7 % (95.0-100.0); PO2 ABG 36.9 mmHg (80.0-100.0)
[2020-12-05 12:55] LABS: Partial Thromboplastin Time 41.8 SECONDS (22.3-36.8)
[2020-12-05 12:56] LABS: Device ROOM AIR; Modified Allen's Test Pass; Site Drawn LEFT RADIAL
[2020-12-05 13:03] LABS: Troponin I 0.108 ng/mL (0.000-0.034)
--- NOTE | 2020-12-05 13:19 | PC.NURSE ---
Pt in ultrasound at this time.
--- NOTE | 2020-12-05 13:40 | PC.NURSE ---
Pt still in ultrasound at this time.
[2020-12-05 13:52] LABS: Glucose Point of Care 84 (65-105)
--- NOTE | 2020-12-05 14:00 | PC.NURSE ---
Pt blood glucose noted to be 89, pt given soda and pretzels, currently eating.
[2020-12-05 14:33] LABS: D Dimer 0.68 ug/mL (<0.48)
[2020-12-05] MEDS: METOPROLOL TARTRATE INJ 5 MG/5 ML VIAL IV PUSH (14:45)
[2020-12-05] MEDS: methylPREDNISolone SOD SUCC 125 MG VIAL IV PUSH (14:45)
--- NOTE | 2020-12-05 15:01 | PC.NURSE ---
nick mcgrath at bedside.
--- NOTE | 2020-12-05 15:41 | PC.NURSE ---
Ultrasound at bedside.
[2020-12-05 15:57] LABS: Troponin I 0.109 ng/mL (0.000-0.034)
[2020-12-05] MEDS: levoFLOXacin 500 MG/D5W 100 ML 500 MG/100 ML BAG 100 MG IVPB (16:31)
--- NOTE | 2020-12-05 17:09 | PC.NURSE ---
blood glucose was 215 at 1709
[2020-12-05 17:10] LABS: Glucose Point of Care 215 (65-105)
[2020-12-05] MEDS: carvediloL 12.5 MG TABLET PO (18:40)
--- NOTE | 2020-12-05 19:00 | PM.IMHP ---
H&P: HPI History of Present Illness Date/Time: 12/05/20 19:00 Chief Complaint: Shortness of breath and chest pain. Narrative: This is a pleasant 75-year-old male with multiple medical problems including coronary artery disease, congestive heart failure, chronic kidney disease, pulmonary hypertension, COPD, type 2 diabetes mellitus, sleep apnea, and several other comorbidities who presented to the emergency department earlier today with complaints of shortness of breath and chest pain. Over the past 2 weeks he has had progressive dyspnea on lesser and lesser exertion to the point where his nebulizers have not provided him with lasting benefit. It is now to the point where he has to stop and rest for maybe 4 to 5 minutes when walking from the bedroom to the kitchen, although he admits that he has very poor exercise tolerance at baseline and does get somewhat short of breath when walking about the home but nothing to this extent. Today he had feelings of racing heart and had an episode of substernal chest pressure and fleeting sharp chest pain that lasted approximately 5 minutes without intervention. He had nausea and dry heaves the day before but that has since resolved. With further questioning he does mention a mild cough that is occasionally productive of clear sputum however that is not unusual for him. He has also been wheezing quite a bit and has had sinus congestion but it sounds as though that is also a chronic thing for him.No known exposure to those positive for COVID-19 and he denies sick contacts. No fever, chills, or sweats. He denies anosmia and dysgeusia. He is not currently having any chest pain. He has mild swelling in his legs, a little bit more on the left but does mention having a recent stent to his left lower extremity within the past 1 week. Of note, he was off of his anticoagulation for couple of days before that surgery. Review of Systems Review of Systems: Narrative: Twelve systems were reviewed with pertinent positives and negatives as per HPI. No fever, chills, or sweats. Reports mild orthopnea. No calf pain or tenderness. He believes that his diabetes is reasonably well controlled. No blurry vision, polydipsia, or polyuria. States compliance with home medication. Except as documented, all other systems were reviewed and are negative. [facility] Past Medical History Medical History (Updated 12/05/20 @ 23:15 by Iesha Mcdonnell PA-C) Bacteremia (~06/2019) Streptococcus bovis bacteremia June 2019. Transesophageal echocardiogram negative for vegetation July 2019. Benign prostatic hyperplasia Bilateral carotid artery disease Chronic kidney disease Chronic obstructive pulmonary disease PFTs in November of 2017 demonstrated mild obstructive ventilatory defect with severe small airway disease with bronchodilator response moderately decreased DLCO. Complete heart block Status post dual chamber pacemaker. Congestive heart failure Echo in 09/2018 demonstrated EF of 55% but difficult study prior echos had demonstrated mildly decreased left ventricular systolic function with hypokinetic segment of left ventricle including apical mid in peers septum apical septum and mid anterior septum, diastolic dysfunction noted on prior echoes. Coronary artery disease Status post stents and CABG. Patient of Dr. Arjun Yo. Depression with anxiety Diabetic peripheral neuropathy Gastroesophageal reflux disease Hiatal hernia History of pacemaker Hyponatremia with decreased serum osmolality Obstructive sleep apnea on CPAP Polysomnogram June 2018 recommended CPAP with 19 cm of water. Paroxysmal atrial fibrillation Peripheral artery disease With multiple bilateral lower extremity stents June 2019. 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 Smoked 100 pack years. Pneumonia Severe pulmonary arterial systolic hypertension Noted on echocardiogram from June 2017 with RVSP of 76. Type 2 diabete
--- NOTE | 2020-12-05 19:14 | PC.NURSE ---
Pt report given to YESSENIA powers he has assumed pt care.
[2020-12-05 19:30] LABS: Troponin I 0.077 ng/mL (0.000-0.034)
--- NOTE | 2020-12-05 19:54 | PC.NURSE ---
This patient, Ron Manuel, was admitted to IMU Room 214-01. Patient/family oriented to hospital policies and general routines including ID bracelet, bed and alarms, visiting hours, pain management, procedures, bathroom and other care routines, personal items, smoking policy, room service/diet, and visiting hours. Information on how to activate the Rapid Response Team has been discussed. Patient/Family are encouraged to report perceived risks to care and to ask questions if they do not understand what they are told or what they should do.
[2020-12-05 21:19] LABS: Glucose Point of Care 402 (65-105)
[2020-12-06] VITALS (24 sets, daily range): BP systolic 100–122; BP diastolic 53–70; PULSE 80–111; RESP 12–24; TEMP 35.7–36.8; O2SAT 93–96
[2020-12-06] MEDS: INSULIN GLARGINE (*BKC) 100 UNITS/ML 28 UNITS SUB-Q ×2 (00:37→20:20)
[2020-12-06] MEDS: RANOLAZINE 500 MG TAB.ER.12H 1000 MG PO ×3 (00:38→20:20)
[2020-12-06] MEDS: SACUBITRIL/VALSARTAN 24-26 MG TABLET 1 TAB PO ×2 (00:38→08:59)
[2020-12-06] MEDS: methylPREDNISolone SOD SUCC 40 MG VIAL IV PUSH ×2 (00:39→05:03)
[2020-12-06 01:48] LABS: SARS-CoV-2 RNA PCR Negative
[2020-12-06] MEDS: IPRATROPIUM BR 0.02% INH SOLN 0.5 MG/2.5 ML VIAL INHALATION ×4 (02:26→20:51)
[2020-12-06] MEDS: RIVAROXABAN 2.5 MG TABLET PO ×3 (05:02→20:19)
[2020-12-06] MEDS: TAMSULOSIN HCL 0.4 MG CAPSULE PO ×2 (05:03→20:20)
[2020-12-06 07:56] LABS: Glucose Point of Care 303 (65-105)
[2020-12-06 08:01] LABS: Hematocrit 37.1 % (42.0-52.0); Hemoglobin 12.1 g/dL (14.0-18.0); Immature Granulocyte Absolute 0.01 K/mm3 (0.00-0.031); Immature Granulocyte Percent A 0.2 % (0-0.5); Lymphocytes Absolute Auto 0.49 K/mm3 (0.9-3.2); Lymphocytes Percent Auto 10.3 % (18.3-44.2); Mean Corpuscular HGB Conc 32.6 g/dl (32-36); Mean Corpuscular Hemoglobin 26.9 pg (26-34); Mean Corpuscular Volume 82.6 fl (80-100); Mean Platelet Volume 8.9 fl (7.4-10.4); Monocytes Absolute Auto 0.1 K/mm3 (0.1-0.6); Monocytes Percent Auto 1.7 % (2.6-8.5); Neutrophils Absolute Auto 4.2 K/mm3 (1.3-6.7); Neutrophils Percent Auto 87.8 % (45.5-73.1); Platelet Count Result 218 k/mm3 (150-375); Red Blood Count 4.49 M/mm3 (4.6-6.20); Red Cell Distribution Width 15.4 % (11.5-14.5); White Blood Count 4.7 K/mm3 (4.5-10.0)
[2020-12-06 08:13] LABS: Alanine Aminotransferase 31 U/L (4-50); Albumin Level 3.7 g/dL (3.5-5.1); Alkaline Phosphatase 72 U/L (38-126); Anion Gap 11 mmol/L (8-16); Aspartate Amino Transferase 29 U/L (17-59); Bilirubin,Total 0.6 mg/dL (0.2-1.3); Blood Urea Nitrogen 60 mg/dL (9-20); Carbon Dioxide 23 mmol/L (22-30); Chloride 100 mmol/L (98-107); Estimated CRCL calculation 28 ml/min; Estimated Glomerular Filt Rate 29; Glucose 315 mg/dL (75-110); Magnesium 2.1 mg/dL (1.6-2.3); Potassium 4.5 mmol/L (3.4-5.0); Sodium 134 mmol/L (137-145)
[2020-12-06] MEDS: ATORVASTATIN 40 MG TABLET PO (08:59)
[2020-12-06] MEDS: PANTOPRAZOLE 40 MG TABLET PO (08:59)
[2020-12-06] MEDS: ISOSORBIDE MONONITRATE 60 MG TAB.ER.24H PO (08:59)
[2020-12-06] MEDS: carvediloL 12.5 MG TABLET PO ×2 (08:59→16:46)
[2020-12-06] MEDS: BUMETANIDE INJ 1 MG/4 ML VIAL IV PUSH ×2 (08:59→16:45)
[2020-12-06] MEDS: FLUoxetine HCL 20 MG CAPSULE 40 MG PO (08:59)
[2020-12-06] MEDS: INSULIN ASPART (*BKC) 100 UNITS/ML SUB-Q ×3 (09:00→16:47)
[2020-12-06 09:42] LABS: Influenza Control Positive
--- NOTE | 2020-12-06 09:55 | PM.CNPUL ---
Assessment and Plan Assessment and plan (1) COPD exacerbation: Code(s): J44.1 - Chronic obstructive pulmonary disease with (acute) exacerbation Status: Acute Assessment and Plan: Patient with worsening shortness of breath, dyspnea on exertion with an elevated BNP weight gain and peripheral edema. Patient also has wheezing but no change in phlegm production. Patient may have a COPD exacerbation. Patient is SARS-CoV-2 negative and flu swab negative. Patient has a positive D-dimer with negative lower extremity Dopplers and he is on xarelto for his AFib. he has an elevated creatinine and I will not pursue a CT angiogram of the chest at this point. I will continue treatment with ipratropium and leave albuterol nebulizers Q 6 hours, I will change his Solu-Medrol to prednisone 50 p.o. q.day, I will continue empiric treatment of a tracheal bronchitis with Levaquin 750 mg p.o. q.day. (2) Acute exacerbation of CHF (congestive heart failure): Qualifiers: Heart failure type: unspecified Qualified Code(s): I50.9 - Heart failure, unspecified Code(s): I50.9 - Heart failure, unspecified Status: Acute Assessment and Plan: Patient with increased swelling, weight gain, dyspnea on exertion with an elevated BNP. Suspect patient has an acute exacerbation of his CHF and he is receiving diuresis per the hospitalist team and Cardiology as tolerated by his renal function. (3) Obstructive sleep apnea on CPAP: Code(s): G47.33 - Obstructive sleep apnea (adult) (pediatric); Z99.89 - Dependence on other enabling machines and devices Status: Acute Assessment and Plan: Patient had a download exam and on his CPAP 19 and his compliance was 75.6 with AHI of 5.2 and [place] of 12. Duncan stated that VAuto mode was not working for him last night and will place on CPAP 19 tonight if he can brong in his home machine will use that. Spoke with hospitalist. Will follow with you. History of Present Illness History of Present Illness Consult date: 12/06/20 Requesting physician: Iesha Mcdonnell PA-C Reason for consult: COPD Chief complaint: COPD exacerbation, CHF exacerbation, afib with RVR Narrative: This is a 75-year-old man with a history of COPD, obstructive sleep apnea on CPAP 19 who is followed in our clinic in last seen on 11/08/2020, Afib on xarelto and CHF. At that time patient was stable on his nebulized ipratropium and leave albuterol twice a day. 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 Patient had a download exam and on his CPAP 19 and his compliance was 75.6 with a HI of 5.2 and [place] of 12. Patient had a CT scan on 06/28/2020 which demonstrated a new 15 mm part solid nodule in the right lower lobe and and patient had a repeat CT scan on 11/22/2020 with complete resolution of this right lower lobe nodule and a stable 8 mm part solid nodule in the left upper lobe. Patient states that over the last 2 weeks he has gained approximately 11 lb with swelling in his hands legs and belly. He also has worsening dyspnea on exertion so that now he can only walk 10 ft. Patient presented to the emergency room on 12/05 with dyspnea on exertion, intermittent chest pain, wheezing. Patient denied any fever, chills, shakes, phlegm production, or hemoptysis. In the emergency room patient was found to be in AFib RVR. patient was found to have a creatinine of 2.4, a BNP of 4770, a D-dimer of 0.68 and a room air blood gas of 7.42/39/37, when I spoke to the ER team they thought this was a mixed sample. Patient was treated for his AFib RVR with a beta-eleuterio, given a diuretic for his fluid overload and treated for a COPD exacerbation with Solu-Medrol 40 Q 6 Levaquin 750 p.o. q.day Xopenex and ipratropium nebs q.6. 12/06 Patient wore a hospital auto PAP overnight but said that this machine was not providing him enough air. Patient states that he has 20% better an
--- NOTE | 2020-12-06 10:33 | ECG_ITS ---
Measurements Intervals [place] Rate: 106 P: -8 SC: 270 QRS: -22 QRSD: 181 T: 142 QT: 394 QTc: 524 Interpretive Statements ATRIAL FLUTTER/TACHYCARDIA WITH RAPID VENTRICULAR RESPONSE LEFT BUNDLE BRANCH BLOCK BASELINE ARTIFACT- I, II, III, AVR, AVL, AVF, V5-V6 ABNORMAL ECG Electronically Signed On 12-06-2020 12:01:03 LABEL REMOVER by Shai Lima D.O.
[2020-12-06 11:35] LABS: Glucose Point of Care 363 (65-105)
--- NOTE | 2020-12-06 11:45 | P.PNIM_ITS ---
Progress Note: A&P Assessment and Plan (1) Atrial fibrillation with rapid ventricular response: Code(s): I48.91 - Unspecified atrial fibrillation Status: Acute Assessment and Plan: * Management per cardiology - appreciate recommendations. * He has dual-chamber pacemaker since 2016 and remains on oral carvedilol. (2) Chest pain: Qualifiers: Chest pain type: unspecified Qualified Code(s): R07.9 - Chest pain, unspecified Code(s): R07.9 - Chest pain, unspecified Status: Acute Assessment and Plan: * Somewhat atypical chest pain with mildly elevated troponins. 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 * No further chest pain today. He remains on his home isosorbid and Ranexa.e (3) Elevated troponin: Code(s): R77.8 - Other specified abnormalities of plasma proteins Status: Acute Assessment and Plan: * See above. (4) Congestive heart failure: Code(s): I50.9 - Heart failure, unspecified Status: Chronic Assessment and Plan: * Patient is known to have advanced ischemic cardiomyopathy, presents with wo rsening SOB with minimal exertion, weight gain. * Today he remains on IV bumex and Entresto. Noted Dr Yo's recommendations to continue IV bumex and increase Entresto. * Monitor I&O, daily weights. (5) COPD exacerbation: Code(s): J44.1 - Chronic obstructive pulmonary disease with (acute) exacerbation Status: Acute Assessment and Plan: * Discussed case with pulmonology, Dr Ho, who recently saw patient in clinic late October. Noted his plan to transition from IV solu-medrol to oral prednisone and continue nebulized bronchodilator therapy, Levoquin. We suspect his shortness of breath is multifactorial and A fib, CHF are likely contributing to his symptoms. (6) Type 2 diabetes mellitus treated with insulin: Code(s): E11.9 - Type 2 diabetes mellitus without complications; Z79.4 - long-term (current) use of insulin Status: Chronic Assessment and Plan: * Continue his basal-bolus insulin regimen. Continue to monitor with accu-cheks and adjust treatment as needed, cover with SSI. * Added scheduled mealtime Novolog, will increase this due to hyperglycemia today in 300s to low 400s. (7) Person under investigation for COVID-19: Code(s): Z20.822 - Contact with and (suspected) exposure to COVID-19 Status: Ruled-out Assessment and Plan: * Ruled out by negative PCR. (8) Obstructive sleep apnea on CPAP: Code(s): G47.33 - Obstructive sleep apnea (adult) (pediatric); Z99.89 - Dependence on other enabling machines and devices Status: Chronic Assessment and Plan: * CPAP at night. (9) Chronic kidney disease: Code(s): N18.9 - Chronic kidney disease, unspecified Status: Chronic Assessment and Plan: * Creatinine fluctuates 1.7 to 2.5 over the last 1 year. * Cr 2.2 today. Monitor renal function and avoid nephrotoxic agents when possible, monitor urine output. Subjective Date/time seen: 12/06/20 11:15 Interval history: Mr. Manuel is a 75yo M with multi
--- NOTE | 2020-12-06 11:45 | PM.IMPN ---
Progress Note: A&P Assessment and Plan (1) Atrial fibrillation with rapid ventricular response: Code(s): I48.91 - Unspecified atrial fibrillation Status: Acute Assessment and Plan: Management per cardiology - appreciate recommendations. He has dual-chamber pacemaker since 2016 and remains on oral carvedilol. (2) Chest pain: Qualifiers: Chest pain type: unspecified Qualified Code(s): R07.9 - Chest pain, unspecified Code(s): R07.9 - Chest pain, unspecified Status: Acute Assessment and Plan: Somewhat atypical chest pain with mildly elevated troponins. 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 No further chest pain today. He remains on his home isosorbid and Ranexa.e (3) Elevated troponin: Code(s): R77.8 - Other specified abnormalities of plasma proteins Status: Acute Assessment and Plan: See above. (4) Congestive heart failure: Code(s): I50.9 - Heart failure, unspecified Status: Chronic Assessment and Plan: Patient is known to have advanced ischemic cardiomyopathy, presents with worsening SOB with minimal exertion, weight gain. Today he remains on IV bumex and Entresto. Noted Dr Yo's recommendations to continue IV bumex and increase Entresto. Monitor I&O, daily weights. (5) COPD exacerbation: Code(s): J44.1 - Chronic obstructive pulmonary disease with (acute) exacerbation Status: Acute Assessment and Plan: Discussed case with pulmonology, Dr Ho, who recently saw patient in clinic late October. Noted his plan to transition from IV solu-medrol to oral prednisone and continue nebulized bronchodilator therapy, Levoquin. We suspect his shortness of breath is multifactorial and A fib, CHF are likely contributing to his symptoms. (6) Type 2 diabetes mellitus treated with insulin: Code(s): E11.9 - Type 2 diabetes mellitus without complications; Z79.4 - jail (current) use of insulin Status: Chronic Assessment and Plan: Continue his basal-bolus insulin regimen. Continue to monitor with accu-cheks and adjust treatment as needed, cover with SSI. Added scheduled mealtime Novolog, will increase this due to hyperglycemia today in 300s to low 400s. (7) Person under investigation for COVID-19: Code(s): Z20.822 - Contact with and (suspected) exposure to COVID-19 Status: Ruled-out Assessment and Plan: Ruled out by negative PCR. (8) Obstructive sleep apnea on CPAP: Code(s): G47.33 - Obstructive sleep apnea (adult) (pediatric); Z99.89 - Dependence on other enabling machines and devices Status: Chronic Assessment and Plan: CPAP at night. (9) Chronic kidney disease: Code(s): N18.9 - Chronic kidney disease, unspecified Status: Chronic Assessment and Plan: Creatinine fluctuates 1.7 to 2.5 over the last 1 year. Cr 2.2 today. Monitor renal function and avoid nephrotoxic agents when possible, monitor urine output. Subjective Date/time seen: 12/06/20 11:15 Interval history: Mr. Manuel is a 75yo M with multiple comorbidities admitted for increased shortness of breath and chest pain. He described chest pain occurred last evening, resolved and has not recurred since. He describes chronic SOB but he has noted in the last several days progressive SOB with lesser and lesser exertion, acutely worsening overnight. Denies nausea, vomiting or abdominal pain. He tells me he feels better this morning over
[2020-12-06] MEDS: predniSONE 40 MG, predniSONE 10 MG 50 MG PO (12:09)
[2020-12-06] MEDS: INSULIN ASPART (*BKC) 100 UNITS/ML 6 UNITS SUB-Q ×2 (12:09→16:46)
--- NOTE | 2020-12-06 12:41 | PM.CNCAR ---
Assessment and Plan Additional Plan 75-year-old man with advanced ischemic cardiomyopathy coming in the hospital with some weight gain and increasing shortness of breath from his baseline. His chest x-ray in my opinion does not look particularly congested but he is a little bit volume overloaded peripherally. He also we must remember has significant chronic lung disease with previous 100 pack year history of smoking. I have going to recommend continuing his IV Bumex at least for another 24 hours. I will advance the dose of his Entresto to 49/51 mg as he is not hypotensive. I will review his pacemaker checks when I get down to the office. Thank you again for asking me to see this man in consultation and participate in this challenging case Arjun Yo MD [facility] History of Present Illness History of Present Illness Consult date/time: 12/06/20 12:41 Consult reason: congestive heart failure Reason For Visit: COPD exacerbation, CHF exacerbation, afib with RVR Narrative: This is a very pleasant 75-year-old man who is well known to me with a long history of coronary artery disease who now has a severe ischemic cardiomyopathy and is admitted to the hospital yesterday with increasing exertional shortness of breath with minimal activity. The patient states that his in his usual state of health at home and over the last 1-2 weeks has noticed that [id number] exertional shortness of breath has slowly become more severe with activity such is as simple as walking across while 1 room in the house. He had some intermittent chest pain off and on but nothing regarded as particularly severe. He has not had any orthopnea he has noticed some increasing lower extremity edema over the same period of time. In the emergency room yesterday he was found to have a relatively clear looking chest x-ray the radiologist interpreted as very small pleural effusions. I do not really see much in the way of pulmonary congestion. He was given some intravenous bumetanide instead of his oral Bumex and in that setting am seeing him in consultation. This man is well known to have severe coronary artery disease with previous bypass grafting, multivessel disease and a history of bioprosthetic aortic valve replacement in 2016 at the same time of his as his operation. Unfortunately after this he developed relatively advanced LV systolic dysfunction and catheterization did not show any evidence of any opportunity to provide any further revascularization. I just reviewed those films a couple of months ago when this man was last in the hospital. In addition to all this he has a history of complete heart block and has a dual-chamber Biotronik pacemaker device that was placed in 2016. He states his pacemaker device was just checked recently in the office as an outpatient. His current medical regimen consists of atorvastatin, Bumex, carvedilol, clopidogrel, isosorbide, Ranexa and Bumex. He was placed on low-dose Xarelto the last time he was in the hospital as well. The patient has electrocardiograms that demonstrate sinus tachycardia with a sensing and V pacing at times there are some tracings that look consistent with atrial flutter. Review of Systems Constitutional: Constitutional: Reports fatigue and Reports lethargy Eyes: Eyes: Reports no additional eye complaints ENT: Reports system reviewed and no additional complaints, except as documented Cardiovascular: Cardiovascular: Reports as per HPI Respiratory: Respiratory: Reports dyspnea and Reports dyspnea on exertion Gastrointestinal: Gastrointestinal: Reports no additional gastrointestinal complaints Musculoskeletal: Musculoskeletal: Reports stiffness Integumentary/Breasts: Skin/Breast: Reports system reviewed and no additional complaints, except as docu Neurologic: Reports system reviewed and no additional complaints, except as documented Endocrine: Endocrine: Reports no additional endocrine complaints Hematologic/Lym
[2020-12-06 15:53] LABS: Glucose Point of Care 333 (65-105)
[2020-12-06] MEDS: SACUBITRIL/VALSARTAN 49-51 MG TABLET 1 TABLET PO (20:19)
[2020-12-06] MEDS: polyethylene glycoL 3350 17 GM POWD.PACK PO (20:20)
[2020-12-06 20:23] LABS: Glucose Point of Care 411 (65-105)
[2020-12-07] VITALS (24 sets, daily range): BP systolic 106–121; BP diastolic 45–77; PULSE 77–111; RESP 18–20; TEMP 35.8–36.7; O2SAT 94–99
[2020-12-07] MEDS: IPRATROPIUM BR 0.02% INH SOLN 0.5 MG/2.5 ML VIAL INHALATION ×4 (02:53→21:27)
[2020-12-07 04:51] LABS: Basophils Percent Auto 0.1 % (0.2-1.2); Hematocrit 34.1 % (42.0-52.0); Immature Granulocyte Absolute 0.06 K/mm3 (0.00-0.031); Immature Granulocyte Percent A 0.5 % (0-0.5); Lymphocytes Absolute Auto 0.68 K/mm3 (0.9-3.2); Lymphocytes Percent Auto 5.6 % (18.3-44.2); Mean Corpuscular HGB Conc 32.3 g/dl (32-36); Mean Corpuscular Hemoglobin 26.5 pg (26-34); Mean Corpuscular Volume 82.2 fl (80-100); Mean Platelet Volume 9.2 fl (7.4-10.4); Monocytes Absolute Auto 0.4 K/mm3 (0.1-0.6); Monocytes Percent Auto 3.4 % (2.6-8.5); Neutrophils Percent Auto 90.4 % (45.5-73.1); Platelet Count Result 219 k/mm3 (150-375); Red Blood Count 4.15 M/mm3 (4.6-6.20); Red Cell Distribution Width 15.3 % (11.5-14.5); White Blood Count 12.1 K/mm3 (4.5-10.0)
[2020-12-07 05:11] LABS: Alanine Aminotransferase 25 U/L (4-50); Albumin Level 3.4 g/dL (3.5-5.1); Alkaline Phosphatase 57 U/L (38-126); Anion Gap 10 mmol/L (8-16); Aspartate Amino Transferase 24 U/L (17-59); Bilirubin,Total 0.6 mg/dL (0.2-1.3); Blood Urea Nitrogen 65 mg/dL (9-20); Calcium 9.1 mg/dL (8.4-10.2); Carbon Dioxide 25 mmol/L (22-30); Chloride 99 mmol/L (98-107); Estimated CRCL calculation 30 ml/min; Estimated Glomerular Filt Rate 31; Glucose 204 mg/dL (75-110); Magnesium 2.3 mg/dL (1.6-2.3); Potassium 4.9 mmol/L (3.4-5.0); Sodium 134 mmol/L (137-145)
--- NOTE | 2020-12-07 07:33 | P.CDI_ITS ---
CDI Query Clarification Request -CHF exacerbation has been documented -Documentation that echo from 08/04/20 with EF 25-30%, left ventricuular diastolic function is abnormal Please further clarify type of CHF that is exacerbated: * Systolic * Diastolic * Both systolic and diastolic * Unable to determine
[2020-12-07 08:57] LABS: Glucose Point of Care 200 (65-105)
[2020-12-07] MEDS: ATORVASTATIN 40 MG TABLET PO (09:28)
[2020-12-07] MEDS: carvediloL 12.5 MG TABLET PO ×2 (09:28→17:11)
[2020-12-07] MEDS: predniSONE 40 MG, predniSONE 10 MG 50 MG PO (09:28)
[2020-12-07] MEDS: PANTOPRAZOLE 40 MG TABLET PO (09:29)
[2020-12-07] MEDS: RIVAROXABAN 2.5 MG TABLET PO ×2 (09:29→19:53)
[2020-12-07] MEDS: RANOLAZINE 500 MG TAB.ER.12H 1000 MG PO ×2 (09:29→19:52)
[2020-12-07] MEDS: FLUoxetine HCL 20 MG CAPSULE 40 MG PO (09:29)
[2020-12-07] MEDS: BUMETANIDE INJ 1 MG/4 ML VIAL IV PUSH ×2 (09:29→17:11)
[2020-12-07] MEDS: ISOSORBIDE MONONITRATE 60 MG TAB.ER.24H PO (09:29)
[2020-12-07] MEDS: SACUBITRIL/VALSARTAN 49-51 MG TABLET 1 TABLET PO ×2 (09:29→19:53)
[2020-12-07] MEDS: INSULIN GLARGINE (*BKC) 100 UNITS/ML 28 UNITS SUB-Q ×2 (09:30→17:12)
[2020-12-07] MEDS: INSULIN ASPART (*BKC) 100 UNITS/ML 10 UNITS SUB-Q ×3 (09:30→17:13)
--- NOTE | 2020-12-07 09:38 | PM.PNPUL ---
Progress Note: A&P Assessment and Plan (1) COPD exacerbation: Code(s): J44.1 - Chronic obstructive pulmonary disease with (acute) exacerbation Status: Acute Assessment and Plan: 12/06 Patient with worsening shortness of breath, dyspnea on exertion with an elevated BNP weight gain and peripheral edema. Patient also has wheezing but no change in phlegm production. Patient may have a COPD exacerbation. Patient is SARS-CoV-2 negative and flu swab negative. Patient has a positive D-dimer with negative lower extremity Dopplers and he is on xarelto for his AFib. he has an elevated creatinine and I will not pursue a CT angiogram of the chest at this point. I will continue treatment with ipratropium and leave albuterol nebulizers Q 6 hours, I will change his Solu-Medrol to prednisone 50 p.o. q.day, I will continue empiric treatment of a tracheal bronchitis with Levaquin 750 mg IV q.day. 12/07 No wheezes, improved breathing. 50% normal. Continue ipratropium and levalbuterol nebulizers Q 6 hours, prednisone 50 p.o. q.day, Levaquin 750 mg IV. q.day (day 3). (2) Acute exacerbation of CHF (congestive heart failure): Qualifiers: Heart failure type: unspecified Qualified Code(s): I50.9 - Heart failure, unspecified Code(s): I50.9 - Heart failure, unspecified Status: Acute Assessment and Plan: 12/06 Patient with increased swelling, weight gain, dyspnea on exertion with an elevated BNP. AFIB/RVR. Suspect patient has an acute exacerbation of his CHF and he is receiving diuresis per the hospitalist team and Cardiology as tolerated by his renal function. Minus 750. 12/07 minus 750 since midnight. (3) Obstructive sleep apnea on CPAP: Code(s): G47.33 - Obstructive sleep apnea (adult) (pediatric); Z99.89 - Dependence on other enabling machines and devices Status: Chronic Assessment and Plan: 12/06 Patient had a download exam and on his CPAP 19 and his compliance was 75.6 with AHI of 5.2 and [place] of 12. Duncan stated that VAuto mode was not working for him last night and will place on CPAP 19 tonight if he can brong in his home machine will use that. 12/07 Patient wore home CPAP 19 on RA last night and per patient worked well. Sats 96% on home unit. Will check apnea link for overnight oximery tonight. Spoke with hospitalist. Will follow with you. Subjective Date/time seen: 12/07/20 09:38 Interval history: 12/06 Narrative: This is a 75-year-old man with a history of COPD, obstructive sleep apnea on CPAP 19 who is followed in our clinic in last seen on 11/08/2020, Afib on xarelto and CHF. At that time patient was stable on his nebulized ipratropium and leave albuterol twice a day. 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 Patient had a download exam and on his CPAP 19 and his compliance was 75.6 with a HI of 5.2 and [place] of 12. Patient had a CT scan on 06/28/2020 which demonstrated a new 15 mm part solid nodule in the right lower lobe and and patient had a repeat CT scan on 11/22/2020 with complete resolution of this right lower lobe nodule and a stable 8 mm part solid nodule in the left upper lobe. Patient states that over the last 2 weeks he has gained approximately 11 lb with swelling in his hands legs and belly. He also has worsening dyspnea on exertion so that now he can only walk 10 ft. Patient presented to the emergency room on 12/05 with dyspnea on exertion, intermittent chest pain, wheezing. Patient denied any fever, chills, shakes, phlegm production, or hemoptysis. In the emergency room patient was found to be in AFib RVR. patient was found to have a creatinine of 2.4, a BNP of 4770, a D-dimer of 0.68 and a room air blood gas of 7.42/39/37, when I spoke to the ER team they thought this was a mixed sample. Patient was treated for his AFib RVR with a beta-eleuterio, given a diuretic for his fluid overload and treated for a COPD ex
--- NOTE | 2020-12-07 10:30 | PM.IMPN ---
Progress Note: A&P Assessment and Plan (1) Atrial fibrillation with rapid ventricular response: Code(s): I48.91 - Unspecified atrial fibrillation Status: Acute Assessment and Plan: Management per cardiology - appreciate recommendations. He has dual-chamber pacemaker since 2016 and remains on oral carvedilol. HRs in 90s this morning. (2) Chest pain: Qualifiers: Chest pain type: unspecified Qualified Code(s): R07.9 - Chest pain, unspecified Code(s): R07.9 - Chest pain, unspecified Status: Acute Assessment and Plan: Somewhat atypical chest pain with mildly elevated troponins. 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 No further episdoes of chest pain. He remains on his home isosorbide and Ranexa. (3) Elevated troponin: Code(s): R77.8 - Other specified abnormalities of plasma proteins Status: Acute Assessment and Plan: See above. (4) Congestive heart failure: Qualifiers: Heart failure type: combined systolic and diastolic Heart failure chronicity: acute on chronic Qualified Code(s): I50.43 - Acute on chronic combined systolic (congestive) and diastolic (congestive) heart failure Code(s): I50.9 - Heart failure, unspecified Status: Chronic Assessment and Plan: Acute on chronic systolic and diastolic CHF. Patient is known to have advanced ischemic cardiomyopathy, presents with worsening SOB with minimal exertion, weight gain. Today he remains on IV bumex and Entresto. Noted Dr Yo's recommendations to increase Entresto. Monitor I&O, daily weights. (5) COPD exacerbation: Code(s): J44.1 - Chronic obstructive pulmonary disease with (acute) exacerbation Status: Acute Assessment and Plan: Discussed case with pulmonology, Dr Ho, who recently saw patient in clinic late October. Noted his plan to continue oral prednisone and continue nebulized bronchodilator therapy, Levaquin (day 3). We suspect his shortness of breath is multifactorial and A fib, CHF are likely contributing to his symptoms too. (6) Type 2 diabetes mellitus treated with insulin: Code(s): E11.9 - Type 2 diabetes mellitus without complications; Z79.4 - glass blower (current) use of insulin Status: Chronic Assessment and Plan: Continue his basal-bolus insulin regimen. Blood sugars are improved so far this morning with additional insulin. Continue to monitor with accu-cheks and adjust treatment as needed, cover with SSI. Can increase mealtime insulin if sugars continue to rise. Steroids may be contributing to hyperglycemia. (7) Obstructive sleep apnea on CPAP: Code(s): G47.33 - Obstructive sleep apnea (adult) (pediatric); Z99.89 - Dependence on other enabling machines and devices Status: Chronic Assessment and Plan: CPAP at night. (8) Chronic kidney disease: Qualifiers: Chronic kidney disease stage: unspecified stage Qualified Code(s): N18.9 - Chronic kidney disease, unspecified Code(s): N18.9 - Chronic kidney disease, unspecified Status: Chronic Assessment and Plan: Creatinine fluctuates 1.7 to 2.5 over the last 1 year. Cr 2.1 today. Monitor renal function and avoid nephrotoxic agents when possible, monitor urine output. Subjective Date/time seen: 12/07/20 10:30 Interval history: Mr. Manuel is a 75yo M with multiple comorbidities admitted for increased shortness of breath and chest pain. He has had no further chest pain after the initial episode on arrival.
[2020-12-07 12:26] LABS: Glucose Point of Care 208 (65-105)
--- NOTE | 2020-12-07 13:18 | PM.PNCARD ---
Progress Note: A&P Assessment and Plan (1) Cardiomyopathy: Qualifiers: Cardiomyopathy type: ischemic Qualified Code(s): I25.5 - Ischemic cardiomyopathy Code(s): I42.9 - Cardiomyopathy, unspecified Status: Acute Assessment and Plan: Continue current regimen including IV Bumex. Feeling better. Follow electrolytes (2) CAD (coronary artery disease): Qualifiers: Coronary Disease-Associated Artery/Lesion type: [place] artery [place] vs. transplanted heart: [place] heart Associated angina: without angina Qualified Code(s): I25.10 - Atherosclerotic heart disease of [place] coronary artery without angina pectoris Code(s): I25.10 - Atherosclerotic heart disease of [place] coronary artery without angina pectoris Status: Acute Assessment and Plan: Chest pain-free at this point (3) Elevated troponin: Code(s): R79.89 - Other specified abnormal findings of blood chemistry Status: Acute Assessment and Plan: Unlikely related to acute plaque rupture (4) PAF (paroxysmal atrial fibrillation): Code(s): I48.0 - Paroxysmal atrial fibrillation Status: Acute Assessment and Plan: Will repeat an EKG now Subjective Date/time seen: 12/07/20 13:18 Interval history: Mr. Manuel is a 75yo M with multiple comorbidities admitted for increased shortness of breath and chest pain. Date of service 12/07/2020: Feels much better. Less short of breath. No chest pain. Still has some swelling Review of Systems Constitutional: Constitutional: Reports fatigue and Reports lethargy Eyes: Eyes: Reports no additional eye complaints ENT: Reports system reviewed and no additional complaints, except as documented Cardiovascular: Cardiovascular: Reports as per HPI, Reports dyspnea and Reports dyspnea on exertion Respiratory: Respiratory: Reports dyspnea and Reports dyspnea on exertion Gastrointestinal: Gastrointestinal: Reports no additional gastrointestinal complaints Musculoskeletal: Musculoskeletal: Reports stiffness Integumentary/Breasts: Skin/Breast: Reports system reviewed and no additional complaints, except as docu Neurologic: Reports system reviewed and no additional complaints, except as documented Endocrine: Endocrine: Reports no additional endocrine complaints and Reports fatigue Hematologic/Lymphatic: Hematologic/Lymphatic: Reports no additional hematologic/lymphatic complaints Allergic/Immunologic: Allergic/Immunologic: Reports no additional allergic/immunologic complaints Exam Const: General: comfortable and no acute distress Other: Elderly white male appearing his stated age seated in the chair eating his lunch when I entered the room to see him says he feels less short of breath and when he was admitted yesterday although he is obviously not ambulating at this moment HENMT: Mouth: Yes dry mucous membranes Eyes: Sclera: sclerae normal Pupils: Equal, round and reactive pupils present Neck: Neck: supple Carotids: bruit Other: very difficult to assess JVD given his body habitus rather thick neck Resp: Effort & Inspection: normal respiratory effort Other: appears to have scant rales at the bases bilateral Cardio: Rate: regular rate Rhythm: regular rhythm Other: PMI not palpable GI: Auscultation: normal bowel sounds Skin: General skin exam: normal color Neuro: Cranial nerves: Yes Equal, round and reactive pupils present Cognition (Neuro): normal cognition Extrem: Other: patient has mild pitting edema in the lower extremities bilaterally Objective Data Vital Signs Vital Signs: Vital Signs - 24 hr 12/06/20 14:00 12/06/20 15:05 12/06/20 16:00 Temperature 36.6 C Pulse Rate 104 H 103 H 110 H Respiratory Rate 20 18 Blood Pressure 121/55 L Pulse Oximetry 93 12/06/20 16:46 12/06/20 18:00 12/06/20 18:50 Temperature 35.7 C L Pulse Rate 108 H 105 H 106 H Respiratory Rate 24 H Blood Pressure 100
--- NOTE | 2020-12-07 13:23 | ECG_ITS ---
Measurements Intervals [place] Rate: 94 P: [place]: 0 QRS: 1 QRSD: 178 T: 161 QT: 409 QTc: 513 Interpretive Statements ATRIAL FLUTTER/TACHYCARDIA LEFT BUNDLE BRANCH BLOCK ABNORMAL ECG Electronically Signed On 12-07-2020 14:26:29 NUTRITION SERVICES MANAGER by Shai Lima D.O.
[2020-12-07] MEDS: INSULIN ASPART (*BKC) 100 UNITS/ML SUB-Q (13:25)
--- NOTE | 2020-12-07 13:40 | PCOTNOTE ---
pt. receiving EKG at time of attempt. Will continue therapy frequency.
[2020-12-07 17:08] LABS: Glucose Point of Care 187 (65-105)
[2020-12-07] MEDS: polyethylene glycoL 3350 17 GM POWD.PACK PO (19:52)
[2020-12-07] MEDS: TAMSULOSIN HCL 0.4 MG CAPSULE PO (19:52)
[2020-12-07] MEDS: TEMAZEPAM (*CRX) 15 MG CAPSULE PO (19:54)
[2020-12-07 20:10] LABS: Glucose Point of Care 230 (65-105)
[2020-12-08] VITALS (21 sets, daily range): BP systolic 90–113; BP diastolic 52–64; PULSE 56–111; RESP 16–22; TEMP 33.8–36.6; O2SAT 95–99
--- NOTE | 2020-12-08 02:54 | PCRCNOTE ---
neb tx was omitted due to apnea study
[2020-12-08 06:22] LABS: Basophils Percent Auto 0.1 % (0.2-1.2); Hematocrit 33.1 % (42.0-52.0); Hemoglobin 10.6 g/dL (14.0-18.0); Immature Granulocyte Absolute 0.05 K/mm3 (0.00-0.031); Immature Granulocyte Percent A 0.4 % (0-0.5); Lymphocytes Percent Auto 7.6 % (18.3-44.2); Mean Corpuscular Hemoglobin 26.2 pg (26-34); Mean Corpuscular Volume 81.9 fl (80-100); Monocytes Absolute Auto 0.5 K/mm3 (0.1-0.6); Monocytes Percent Auto 4.4 % (2.6-8.5); Neutrophils Absolute Auto 10.4 K/mm3 (1.3-6.7); Neutrophils Percent Auto 87.5 % (45.5-73.1); Platelet Count Result 212 k/mm3 (150-375); Red Blood Count 4.04 M/mm3 (4.6-6.20); Red Cell Distribution Width 15.5 % (11.5-14.5); White Blood Count 11.9 K/mm3 (4.5-10.0)
[2020-12-08 06:38] LABS: Anion Gap 6 mmol/L (8-16); Blood Urea Nitrogen 68 mg/dL (9-20); Carbon Dioxide 28 mmol/L (22-30); Chloride 100 mmol/L (98-107); Estimated CRCL calculation 33 ml/min; Estimated Glomerular Filt Rate 35; Glucose 144 mg/dL (75-110); Magnesium 2.3 mg/dL (1.6-2.3); Potassium 4.5 mmol/L (3.4-5.0); Sodium 134 mmol/L (137-145)
[2020-12-08 07:47] LABS: Glucose Point of Care 149 (65-105)
[2020-12-08] MEDS: IPRATROPIUM BR 0.02% INH SOLN 0.5 MG/2.5 ML VIAL INHALATION ×3 (08:04→21:36)
[2020-12-08] MEDS: FLUoxetine HCL 20 MG CAPSULE 40 MG PO (08:53)
[2020-12-08] MEDS: ATORVASTATIN 40 MG TABLET PO (08:53)
[2020-12-08] MEDS: carvediloL 12.5 MG TABLET PO ×2 (08:53→17:01)
[2020-12-08] MEDS: predniSONE 40 MG, predniSONE 10 MG 50 MG PO (08:53)
[2020-12-08] MEDS: PANTOPRAZOLE 40 MG TABLET PO (08:54)
[2020-12-08] MEDS: RANOLAZINE 500 MG TAB.ER.12H 1000 MG PO ×2 (08:54→21:13)
[2020-12-08] MEDS: SACUBITRIL/VALSARTAN 49-51 MG TABLET 1 TABLET PO ×2 (08:54→21:13)
[2020-12-08] MEDS: BUMETANIDE INJ 1 MG/4 ML VIAL IV PUSH ×3 (08:54→17:06)
[2020-12-08] MEDS: RIVAROXABAN 2.5 MG TABLET PO ×2 (08:54→21:14)
[2020-12-08] MEDS: ISOSORBIDE MONONITRATE 60 MG TAB.ER.24H PO (08:54)
[2020-12-08] MEDS: INSULIN ASPART (*BKC) 100 UNITS/ML 10 UNITS SUB-Q ×2 (08:57→12:59)
[2020-12-08] MEDS: INSULIN GLARGINE (*BKC) 100 UNITS/ML 28 UNITS SUB-Q (08:57)
--- NOTE | 2020-12-08 11:20 | PM.IMPN ---
Progress Note: A&P Assessment and Plan (1) Atrial fibrillation with rapid ventricular response: Code(s): I48.91 - Unspecified atrial fibrillation Status: Acute Assessment and Plan: Management per cardiology - appreciate recommendations. He has dual-chamber pacemaker since 2016 and remains on oral carvedilol. HRs in 90s this morning. (2) Chest pain: Qualifiers: Chest pain type: unspecified Qualified Code(s): R07.9 - Chest pain, unspecified Code(s): R07.9 - Chest pain, unspecified Status: Acute Assessment and Plan: Somewhat atypical chest pain with mildly elevated troponins. 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 No further episdoes of chest pain. He remains on his home isosorbide and Ranexa. (3) Elevated troponin: Code(s): R77.8 - Other specified abnormalities of plasma proteins Status: Acute Assessment and Plan: See above. (4) Congestive heart failure: Qualifiers: Heart failure chronicity: acute on chronic Heart failure type: combined systolic and diastolic Qualified Code(s): I50.43 - Acute on chronic combined systolic (congestive) and diastolic (congestive) heart failure Code(s): I50.9 - Heart failure, unspecified Status: Chronic Assessment and Plan: Acute on chronic systolic and diastolic CHF. Patient is known to have advanced ischemic cardiomyopathy, presents with worsening SOB with minimal exertion, weight gain. Today he remains on IV bumex and Entresto. Cardiology increased Entresto; noted plan for additional dose of IV Bumex today. Monitor I&O, daily weights. (5) COPD exacerbation: Code(s): J44.1 - Chronic obstructive pulmonary disease with (acute) exacerbation Status: Acute Assessment and Plan: Pt follows with Dr Ho who recently saw patient in clinic late October. Noted his plan to continue oral prednisone and continue nebulized bronchodilator therapy, Levaquin (day 4). We suspect his shortness of breath is multifactorial and A fib, CHF are likely contributing to his symptoms too. His (6) Type 2 diabetes mellitus treated with insulin: Code(s): E11.9 - Type 2 diabetes mellitus without complications; Z79.4 - intermediate frame tender (current) use of insulin Status: Chronic Assessment and Plan: Continue his basal-bolus insulin regimen. Blood sugars are improved now with additional insulin. Continue to monitor with accu-cheks and adjust treatment as needed, cover with SSI. (7) Obstructive sleep apnea on CPAP: Code(s): G47.33 - Obstructive sleep apnea (adult) (pediatric); Z99.89 - Dependence on other enabling machines and devices Status: Chronic Assessment and Plan: CPAP at night. (8) Chronic kidney disease: Qualifiers: Chronic kidney disease stage: unspecified stage Qualified Code(s): N18.9 - Chronic kidney disease, unspecified Code(s): N18.9 - Chronic kidney disease, unspecified Status: Chronic Assessment and Plan: Creatinine fluctuates 1.7 to 2.5 over the last 1 year. Cr 1.9 today. Monitor renal function and avoid nephrotoxic agents when possible, monitor urine output. Subjective Date/time seen: 12/08/20 11:00 Interval history: Mr. Manuel is a 75yo M with multiple comorbidities admitted for increased shortness of breath and chest pain. He still has had no further chest pain after the initial episode on arrival. Doing a little better. Swelling improved. He has chronic shortness of breath. He has tolerated breakfa
--- NOTE | 2020-12-08 11:48 | PM.PNCARD ---
Progress Note: A&P Assessment and Plan (1) Cardiomyopathy: Qualifiers: Cardiomyopathy type: ischemic Qualified Code(s): I25.5 - Ischemic cardiomyopathy Code(s): I42.9 - Cardiomyopathy, unspecified Status: Acute Assessment and Plan: Continue current regimen including IV Bumex. Feeling better. Follow electrolytes (2) CAD (coronary artery disease): Qualifiers: Coronary Disease-Associated Artery/Lesion type: [place] artery [place] vs. transplanted heart: [place] heart Associated angina: without angina Qualified Code(s): I25.10 - Atherosclerotic heart disease of [place] coronary artery without angina pectoris Code(s): I25.10 - Atherosclerotic heart disease of [place] coronary artery without angina pectoris Status: Acute Assessment and Plan: Chest pain-free at this point (3) Elevated troponin: Code(s): R79.89 - Other specified abnormal findings of blood chemistry Status: Acute Assessment and Plan: Unlikely related to acute plaque rupture (4) PAF (paroxysmal atrial fibrillation): Code(s): I48.0 - Paroxysmal atrial fibrillation Status: Acute (5) Acute exacerbation of CHF (congestive heart failure): Qualifiers: Heart failure type: unspecified Qualified Code(s): I50.9 - Heart failure, unspecified Code(s): I50.9 - Heart failure, unspecified Status: Acute Assessment and Plan: Acute on chronic systolic congestive heart failure. Continue IV Bumex. Follow electrolytes. Will actually and additional 1 mg IV dose of Bumex today Subjective Date/time seen: 12/08/20 11:48 Interval history: Mr. Manuel is a 75yo M with multiple comorbidities admitted for increased shortness of breath and chest pain. Date of service 12/08/2020: Overall he feels better. He is less swollen but he is still short of breath. No chest pain Review of Systems Constitutional: Constitutional: Reports fatigue and Reports lethargy Eyes: Eyes: Reports no additional eye complaints ENT: Reports system reviewed and no additional complaints, except as documented Cardiovascular: Cardiovascular: Reports as per HPI, Reports dyspnea and Reports dyspnea on exertion Respiratory: Respiratory: Reports dyspnea and Reports dyspnea on exertion Gastrointestinal: Gastrointestinal: Reports no additional gastrointestinal complaints Musculoskeletal: Musculoskeletal: Reports stiffness Integumentary/Breasts: Skin/Breast: Reports system reviewed and no additional complaints, except as docu Neurologic: Reports system reviewed and no additional complaints, except as documented Endocrine: Endocrine: Reports no additional endocrine complaints and Reports fatigue Hematologic/Lymphatic: Hematologic/Lymphatic: Reports no additional hematologic/lymphatic complaints Allergic/Immunologic: Allergic/Immunologic: Reports no additional allergic/immunologic complaints Exam Const: General: comfortable and no acute distress Other: Elderly white male appearing his stated age seated in the chair eating his lunch when I entered the room to see him says he feels less short of breath and when he was admitted yesterday although he is obviously not ambulating at this moment HENMT: Mouth: Yes dry mucous membranes Eyes: Sclera: sclerae normal Pupils: Equal, round and reactive pupils present Neck: Neck: supple Carotids: bruit Other: very difficult to assess JVD given his body habitus rather thick neck Resp: Effort & Inspection: normal respiratory effort Other: appears to have scant rales at the bases bilateral Cardio: Rate: regular rate Rhythm: regular rhythm Other: PMI not palpable GI: Auscultation: normal bowel sounds Skin: General skin exam: normal color Neuro: Cranial nerves: Yes Equal, round and reactive pupils present Cognition (Neuro): normal cognition Extrem: Other: patient has mild pitting edema in the lower extremities bilaterally. Legs
[2020-12-08 12:19] LABS: Glucose Point of Care 113 (65-105)
--- NOTE | 2020-12-08 12:46 | PM.PNPUL ---
Progress Note: A&P Assessment and Plan (1) COPD exacerbation: Code(s): J44.1 - Chronic obstructive pulmonary disease with (acute) exacerbation Status: Acute Assessment and Plan: 12/06 Patient with worsening shortness of breath, dyspnea on exertion with an elevated BNP weight gain and peripheral edema. Patient also has wheezing but no change in phlegm production. Patient may have a COPD exacerbation. Patient is SARS-CoV-2 negative and flu swab negative. Patient has a positive D-dimer with negative lower extremity Dopplers and he is on xarelto for his AFib. he has an elevated creatinine and I will not pursue a CT angiogram of the chest at this point. I will continue treatment with ipratropium and leave albuterol nebulizers Q 6 hours, I will change his Solu-Medrol to prednisone 50 p.o. q.day, I will continue empiric treatment of a tracheal bronchitis with Levaquin 750 mg IV q.day. 12/07 No wheezes, improved breathing. 50% normal. Continue ipratropium and levalbuterol nebulizers Q 6 hours, prednisone 50 p.o. q.day, Levaquin 750 mg IV. q.day (day 3). 12/08 Improving, 55% normal today, Continue ipratropium and levalbuterol nebulizers Q 6 hours, prednisone 50 p.o. q.day, Levaquin 750 mg IV. q.day (day 4) (2) Acute exacerbation of CHF (congestive heart failure): Qualifiers: Heart failure type: unspecified Qualified Code(s): I50.9 - Heart failure, unspecified Code(s): I50.9 - Heart failure, unspecified Status: Acute Assessment and Plan: 12/06 Patient with increased swelling, weight gain, dyspnea on exertion with an elevated BNP. AFIB/RVR. Suspect patient has an acute exacerbation of his CHF and he is receiving diuresis per the hospitalist team and Cardiology as tolerated by his renal function. Minus 750. 12/07 minus 640. Cr 2.10 3.12 plus 210 since midnight, Cr 1.9 (3) Obstructive sleep apnea on CPAP: Code(s): G47.33 - Obstructive sleep apnea (adult) (pediatric); Z99.89 - Dependence on other enabling machines and devices Status: Chronic Assessment and Plan: 12/06 Patient had a download exam and on his CPAP 19 and his compliance was 75.6 with AHI of 5.2 and [place] of 12. Duncan stated that VAuto mode was not working for him last night and will place on CPAP 19 tonight if he can brong in his home machine will use that. 12/07 Patient wore home CPAP 19 on RA last night and per patient worked well. Sats 96% on home unit. Will check apnea link for overnight oximery tonight. 12/08 Continue home CPAP 19, Overnight oximetry on room air demonstrating an average saturation of 95%. Lowest saturation 81%. Time with saturations less than or equal to 88% was 5 minutes or 1% of the time. AHI was 4.2. In the desaturation events were very brief 6 different spikes adding up to 5 minutes. Will not need oxygen at night. Will follow with you. Subjective Date/time seen: 12/08/20 12:46 Interval history: 12/06 Narrative: This is a 75-year-old man with a history of COPD, obstructive sleep apnea on CPAP 19 who is followed in our clinic in last seen on 11/08/2020, Afib on xarelto and CHF. At that time patient was stable on his nebulized ipratropium and leave albuterol twice a day. He had had no recent exacerbations and his diuretics were managed by his senior project manager. Patient had a download exam and on his CPAP 19 and his compliance was 75.6 with a HI of 5.2 and [place] of 12. Patient had a CT scan on 06/28/2020 which demonstrated a new 15 mm part solid nodule in the right lower lobe and and patient had a repeat CT scan on 11/22/2020 with complete resolution of this right lower lobe nodule and a stable 8 mm part solid nodule in the left upper lobe. Patient states that over the last 2 weeks he has gained approximately 11 lb with swelling in his hands legs and belly. He also has worsening dyspnea on exertion so that now he can only walk 10 ft. Patient presented to the emergency room on 12/05 with
[2020-12-08 18:12] LABS: Glucose Point of Care 84 (65-105)
[2020-12-08 20:44] LABS: Glucose Point of Care 319 (65-105)
[2020-12-08] MEDS: INSULIN GLARGINE (*BKC) 100 UNITS/ML 10 UNITS SUB-Q (21:12)
[2020-12-08] MEDS: polyethylene glycoL 3350 17 GM POWD.PACK PO (21:12)
[2020-12-08] MEDS: TAMSULOSIN HCL 0.4 MG CAPSULE PO (21:14)
[2020-12-08] MEDS: TEMAZEPAM (*CRX) 15 MG CAPSULE PO (21:20)
[2020-12-09] VITALS (22 sets, daily range): BP systolic 100–125; BP diastolic 58–71; PULSE 67–107; RESP 16–22; TEMP 36–36.7; O2SAT 91–99
[2020-12-09] MEDS: IPRATROPIUM BR 0.02% INH SOLN 0.5 MG/2.5 ML VIAL INHALATION ×3 (02:40→19:38)
[2020-12-09 05:17] LABS: Basophils Percent Auto 0.1 % (0.2-1.2); Hematocrit 34.9 % (42.0-52.0); Hemoglobin 11.3 g/dL (14.0-18.0); Immature Granulocyte Absolute 0.06 K/mm3 (0.00-0.031); Immature Granulocyte Percent A 0.6 % (0-0.5); Lymphocytes Absolute Auto 1.08 K/mm3 (0.9-3.2); Lymphocytes Percent Auto 10.3 % (18.3-44.2); Mean Corpuscular HGB Conc 32.4 g/dl (32-36); Mean Corpuscular Hemoglobin 26.8 pg (26-34); Mean Corpuscular Volume 82.7 fl (80-100); Mean Platelet Volume 8.8 fl (7.4-10.4); Monocytes Absolute Auto 0.5 K/mm3 (0.1-0.6); Monocytes Percent Auto 5.1 % (2.6-8.5); Neutrophils Absolute Auto 8.8 K/mm3 (1.3-6.7); Neutrophils Percent Auto 83.9 % (45.5-73.1); Platelet Count Result 196 k/mm3 (150-375); Red Blood Count 4.22 M/mm3 (4.6-6.20); Red Cell Distribution Width 15.6 % (11.5-14.5); White Blood Count 10.5 K/mm3 (4.5-10.0)
[2020-12-09 05:30] LABS: Anion Gap 5 mmol/L (8-16); Blood Urea Nitrogen 64 mg/dL (9-20); Calcium 8.7 mg/dL (8.4-10.2); Carbon Dioxide 28 mmol/L (22-30); Chloride 98 mmol/L (98-107); Estimated CRCL calculation 35 ml/min; Estimated Glomerular Filt Rate 37; Glucose 146 mg/dL (75-110); Magnesium 2.1 mg/dL (1.6-2.3); Potassium 4.3 mmol/L (3.4-5.0); Sodium 131 mmol/L (137-145)
[2020-12-09 07:50] LABS: Glucose Point of Care 145 (65-105)
[2020-12-09] MEDS: ISOSORBIDE MONONITRATE 60 MG TAB.ER.24H PO (08:14)
[2020-12-09] MEDS: carvediloL 12.5 MG TABLET PO ×2 (08:14→17:02)
[2020-12-09] MEDS: predniSONE 40 MG, predniSONE 10 MG 50 MG PO (08:15)
[2020-12-09] MEDS: RANOLAZINE 500 MG TAB.ER.12H 1000 MG PO ×2 (08:15→20:24)
[2020-12-09] MEDS: PANTOPRAZOLE 40 MG TABLET PO (08:15)
[2020-12-09] MEDS: ATORVASTATIN 40 MG TABLET PO (08:15)
[2020-12-09] MEDS: FLUoxetine HCL 20 MG CAPSULE 40 MG PO (08:15)
[2020-12-09] MEDS: SACUBITRIL/VALSARTAN 49-51 MG TABLET 1 TABLET PO ×2 (08:15→20:24)
[2020-12-09] MEDS: BUMETANIDE INJ 1 MG/4 ML VIAL IV PUSH ×3 (08:16→17:02)
[2020-12-09] MEDS: RIVAROXABAN 2.5 MG TABLET PO ×2 (08:16→20:23)
[2020-12-09] MEDS: INSULIN ASPART (*BKC) 100 UNITS/ML 10 UNITS SUB-Q ×3 (08:24→17:05)
[2020-12-09] MEDS: INSULIN GLARGINE (*BKC) 100 UNITS/ML 10 UNITS SUB-Q ×2 (08:24→20:28)
--- NOTE | 2020-12-09 10:22 | PM.IMPN ---
Progress Note: A&P Assessment and Plan (1) Atrial fibrillation with rapid ventricular response: Code(s): I48.91 - Unspecified atrial fibrillation Status: Acute Assessment and Plan: He has dual-chamber pacemaker since 2016 and remains on oral carvedilol. HRs in 80s this morning. Had tachycardia on arrival and some tracings that looked consistent with a flutter per cardiology. (2) Chest pain: Qualifiers: Chest pain type: unspecified Qualified Code(s): R07.9 - Chest pain, unspecified Code(s): R07.9 - Chest pain, unspecified Status: Acute Assessment and Plan: Somewhat atypical chest pain with mildly elevated troponins. 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 No further episodes of chest pain. He remains on his home isosorbide and Ranexa. (3) Elevated troponin: Code(s): R77.8 - Other specified abnormalities of plasma proteins Status: Acute Assessment and Plan: See above. (4) Congestive heart failure: Qualifiers: Heart failure chronicity: acute on chronic Heart failure type: combined systolic and diastolic Qualified Code(s): I50.43 - Acute on chronic combined systolic (congestive) and diastolic (congestive) heart failure Code(s): I50.9 - Heart failure, unspecified Status: Chronic Assessment and Plan: Acute on chronic systolic and diastolic CHF. Patient is known to have advanced ischemic cardiomyopathy, presents with worsening SOB with minimal exertion, weight gain. Today he remains on IV bumex and Entresto. Cardiology increased Entresto. Monitor I&O, daily weights. (5) COPD exacerbation: Code(s): J44.1 - Chronic obstructive pulmonary disease with (acute) exacerbation Status: Acute Assessment and Plan: Pt follows with Dr Ho who recently saw patient in clinic late October. Noted his plan to continue oral prednisone and continue nebulized bronchodilator therapy, Levaquin (day 5). We suspect his shortness of breath is multifactorial and A fib, CHF are likely contributing to his symptoms too. (6) Type 2 diabetes mellitus treated with insulin: Code(s): E11.9 - Type 2 diabetes mellitus without complications; Z79.4 - medical terminologist (current) use of insulin Status: Chronic Assessment and Plan: Continue his basal-bolus insulin regimen. Blood sugars are improved now, down to 80s yesterday cut back on insulin, sugars appropriate this morning. Continue to monitor with accu-cheks and adjust treatment as needed, cover with SSI. (7) Obstructive sleep apnea on CPAP: Code(s): G47.33 - Obstructive sleep apnea (adult) (pediatric); Z99.89 - Dependence on other enabling machines and devices Status: Chronic Assessment and Plan: CPAP at night. (8) Chronic kidney disease: Qualifiers: Chronic kidney disease stage: unspecified stage Qualified Code(s): N18.9 - Chronic kidney disease, unspecified Code(s): N18.9 - Chronic kidney disease, unspecified Status: Chronic Assessment and Plan: Creatinine fluctuates 1.7 to 2.5 over the last 1 year. Cr 1.8 today. Monitor renal function and avoid nephrotoxic agents when possible, monitor urine output. Subjective Date/time seen: 12/09/20 0945 Interval history: Mr. Manuel is a 75yo M with multiple comorbidities admitted for increased shortness of breath and chest pain. He still has had no further chest pain after the initial episode on arrival. Doing a little better. Swelling improved. He has chronic shortn
[2020-12-09 11:44] LABS: Glucose Point of Care 170 (65-105)
--- NOTE | 2020-12-09 14:10 | PCRCNOTE ---
PT WAS WITH THERAPY AND EATING WAS UNAVAILABLE FOR BREATHING TREATMENT
--- NOTE | 2020-12-09 16:13 | PM.PNCARD ---
Progress Note: A&P Assessment and Plan (1) Cardiomyopathy: Qualifiers: Cardiomyopathy type: ischemic Qualified Code(s): I25.5 - Ischemic cardiomyopathy Code(s): I42.9 - Cardiomyopathy, unspecified Status: Acute Assessment and Plan: Continue IV Bumex b.i.d.. Follow electrolytes continue medical therapy. Accurate input and output, daily weight. Still decompensated and volume overloaded. (2) CAD (coronary artery disease): Qualifiers: Coronary Disease-Associated Artery/Lesion type: [place] artery [place] vs. transplanted heart: [place] heart Associated angina: without angina Qualified Code(s): I25.10 - Atherosclerotic heart disease of [place] coronary artery without angina pectoris Code(s): I25.10 - Atherosclerotic heart disease of [place] coronary artery without angina pectoris Status: Acute Assessment and Plan: Stable, no angina. Continue medical therapy. (3) Elevated troponin: Code(s): R79.89 - Other specified abnormal findings of blood chemistry Status: Acute Assessment and Plan: Unlikely related to acute plaque rupture type 2 infarct, not ACS. (4) PAF (paroxysmal atrial fibrillation): Code(s): I48.0 - Paroxysmal atrial fibrillation Status: Acute (5) Acute exacerbation of CHF (congestive heart failure): Qualifiers: Heart failure type: unspecified Qualified Code(s): I50.9 - Heart failure, unspecified Code(s): I50.9 - Heart failure, unspecified Status: Acute Assessment and Plan: Acute on chronic systolic congestive heart failure. Continue IV Bumex. Follow electrolytes. Give additional mg IV Bumex. Continue b.i.d.. Monitor renal function closely. Subjective Date/time seen: Date of service: 12/09/20 16:13 Interval history: Mr. Manuel is a 75yo M with multiple comorbidities admitted for increased shortness of breath and chest pain. Overall he feels better with states he is more short of breath this afternoon, more difficulty walking. He is less swollen but he is still short of breath. No chest pain Review of Systems Constitutional: Constitutional: Reports fatigue and Reports lethargy Eyes: Eyes: Reports no additional eye complaints ENT: Reports system reviewed and no additional complaints, except as documented Cardiovascular: Cardiovascular: Reports as per HPI, Reports dyspnea and Reports dyspnea on exertion Respiratory: Respiratory: Reports dyspnea and Reports dyspnea on exertion Gastrointestinal: Gastrointestinal: Reports no additional gastrointestinal complaints Musculoskeletal: Musculoskeletal: Reports stiffness Integumentary/Breasts: Skin/Breast: Reports system reviewed and no additional complaints, except as docu Neurologic: Reports system reviewed and no additional complaints, except as documented Endocrine: Endocrine: Reports no additional endocrine complaints and Reports fatigue Hematologic/Lymphatic: Hematologic/Lymphatic: Reports no additional hematologic/lymphatic complaints Allergic/Immunologic: Allergic/Immunologic: Reports no additional allergic/immunologic complaints Exam Const: General: comfortable and no acute distress Other: Elderly white male appearing his stated age seated in the chair eating his lunch when I entered the room to see him says he feels less short of breath and when he was admitted yesterday although he is obviously not ambulating at this moment HENMT: Mouth: Yes dry mucous membranes Eyes: Sclera: sclerae normal Pupils: Equal, round and reactive pupils present Neck: Neck: supple Carotids: bruit Other: very difficult to assess JVD given his body habitus rather thick neck Resp: Effort & Inspection: normal respiratory effort Other: appears to have scant rales at the bases bilateral Cardio: Rate: regular rate Rhythm: regular rhythm Other: PMI not palpable GI: Auscultation: normal bowel sounds Skin: General skin exam: tory
[2020-12-09 16:40] LABS: Glucose Point of Care 169 (65-105)
--- NOTE | 2020-12-09 17:35 | PC.NURSE ---
This patient, Ron Manuel, was transferred to [[facility] ] on 12/09/20 at 1725. Personal belongings sent with patient. Report given to [Casi ]. Appropriate documentation sent with patient.
--- NOTE | 2020-12-09 17:45 | PC.NURSE ---
This patient, Ron Manuel, was received from IMU on 12/09/20 at 1745. Patient/family oriented to unit policies and routines
--- NOTE | 2020-12-09 18:27 | PM.PNPUL ---
Progress Note: A&P Assessment and Plan (1) COPD exacerbation: Code(s): J44.1 - Chronic obstructive pulmonary disease with (acute) exacerbation Status: Acute Assessment and Plan: 12/06 Patient with worsening shortness of breath, dyspnea on exertion with an elevated BNP weight gain and peripheral edema. Patient also has wheezing but no change in phlegm production. Patient may have a COPD exacerbation. Patient is SARS-CoV-2 negative and flu swab negative. Patient has a positive D-dimer with negative lower extremity Dopplers and he is on xarelto for his AFib. he has an elevated creatinine and I will not pursue a CT angiogram of the chest at this point. I will continue treatment with ipratropium and leave albuterol nebulizers Q 6 hours, I will change his Solu-Medrol to prednisone 50 p.o. q.day, I will continue empiric treatment of a tracheal bronchitis with Levaquin 750 mg IV q.day. 12/07 No wheezes, improved breathing. 50% normal. Continue ipratropium and levalbuterol nebulizers Q 6 hours, prednisone 50 p.o. q.day, Levaquin 750 mg IV. q.day (day 3). 12/08 Improving, 55% normal today, Continue ipratropium and levalbuterol nebulizers Q 6 hours, prednisone 50 p.o. q.day, Levaquin 750 mg IV. q.day (day 4) 12/09 Better, some coughing with tenacious secretions; try Cornet valve (2) Acute exacerbation of CHF (congestive heart failure): Qualifiers: Heart failure type: unspecified Qualified Code(s): I50.9 - Heart failure, unspecified Code(s): I50.9 - Heart failure, unspecified Status: Acute Assessment and Plan: 12/06 Patient with increased swelling, weight gain, dyspnea on exertion with an elevated BNP. AFIB/RVR. Suspect patient has an acute exacerbation of his CHF and he is receiving diuresis per the hospitalist team and Cardiology as tolerated by his renal function. Minus 750. 12/07 minus 640. Cr 2.10 3.12 plus 210 since midnight, Cr 1.9 (3) Obstructive sleep apnea on CPAP: Code(s): G47.33 - Obstructive sleep apnea (adult) (pediatric); Z99.89 - Dependence on other enabling machines and devices Status: Chronic Assessment and Plan: 12/06 Patient had a download exam and on his CPAP 19 and his compliance was 75.6 with AHI of 5.2 and [place] of 12. Duncan stated that VAuto mode was not working for him last night and will place on CPAP 19 tonight if he can brong in his home machine will use that. 12/07 Patient wore home CPAP 19 on RA last night and per patient worked well. Sats 96% on home unit. Will check apnea link for overnight oximery tonight. 12/08 Continue home CPAP 19, Overnight oximetry on room air demonstrating an average saturation of 95%. Lowest saturation 81%. Time with saturations less than or equal to 88% was 5 minutes or 1% of the time. AHI was 4.2. In the desaturation events were very brief 6 different spikes adding up to 5 minutes. Will not need oxygen at night. Subjective Date/time seen: 12/09/20 18:27 Ron Manuel is 75, has a COPD exacerbation, is still short of breath today, with less edema. is at the bedside. He had an ApneaLink with adequate saturation without supplemental O2. He is coughing with a bit of difficulty getting secretions expectorated. Will offer Cornet Valve to help with secretion removal. He is on room air. Review of Systems Review of Systems: All systems reviewed & are unremarkable except as noted in HPI and below Eyes: Eyes: Reports no additional eye complaints ENT: Reports system reviewed and no additional complaints, except as documented and Reports sinus pressure Cardiovascular: Cardiovascular: Reports no additional cardiovascular complaints Respiratory: Respiratory: Reports no additional respiratory complaints Gastrointestinal:
[2020-12-09] MEDS: polyethylene glycoL 3350 17 GM POWD.PACK PO (20:23)
[2020-12-09] MEDS: TAMSULOSIN HCL 0.4 MG CAPSULE PO (20:23)
[2020-12-09 20:40] LABS: Glucose Point of Care 180 (65-105)
[2020-12-10] VITALS (16 sets, daily range): BP systolic 106–124; BP diastolic 66–71; PULSE 80–105; RESP 16–18; TEMP 36.1–36.7; O2SAT 93–98
[2020-12-10] MEDS: IPRATROPIUM BR 0.02% INH SOLN 0.5 MG/2.5 ML VIAL INHALATION ×4 (03:04→20:13)
--- NOTE | 2020-12-10 04:28 | PC.NURSE ---
Daylight Savings Time For Daylight Savings Time Ending in the Fall - Clocks are moved back. For Daylight Savings Time Beginning in the Spring - Clocks are moved ahead. For [facility], the time of change occurs at 0200 hrs. Time is taken from the beverage server. This entry on the patient's chart recognizes the change in time reflected during documentation. Example: 2 entries for vital signs may be charted for 0200 hrs.
[2020-12-10 06:29] LABS: Anion Gap 5 mmol/L (8-16); Blood Urea Nitrogen 61 mg/dL (9-20); Calcium 8.8 mg/dL (8.4-10.2); Carbon Dioxide 27 mmol/L (22-30); Chloride 99 mmol/L (98-107); Estimated CRCL calculation 31 ml/min; Estimated Glomerular Filt Rate 33; Glucose 124 mg/dL (75-110); Magnesium 2.2 mg/dL (1.6-2.3); Potassium 4.2 mmol/L (3.4-5.0); Sodium 131 mmol/L (137-145)
[2020-12-10 08:20] LABS: Glucose Point of Care 102 (65-105)
[2020-12-10] MEDS: ATORVASTATIN 40 MG TABLET PO (08:21)
[2020-12-10] MEDS: predniSONE 40 MG, predniSONE 10 MG 50 MG PO (08:21)
[2020-12-10] MEDS: RANOLAZINE 500 MG TAB.ER.12H 1000 MG PO ×2 (08:21→20:29)
[2020-12-10] MEDS: ISOSORBIDE MONONITRATE 60 MG TAB.ER.24H PO (08:21)
[2020-12-10] MEDS: PANTOPRAZOLE 40 MG TABLET PO (08:22)
[2020-12-10] MEDS: FLUoxetine HCL 20 MG CAPSULE 40 MG PO (08:22)
[2020-12-10] MEDS: RIVAROXABAN 2.5 MG TABLET PO ×2 (08:22→20:32)
[2020-12-10] MEDS: carvediloL 12.5 MG TABLET PO ×2 (08:22→17:55)
[2020-12-10] MEDS: SACUBITRIL/VALSARTAN 49-51 MG TABLET 1 TABLET PO ×2 (08:22→20:32)
[2020-12-10] MEDS: BUMETANIDE INJ 1 MG/4 ML VIAL IV PUSH ×2 (08:24→18:22)
[2020-12-10] MEDS: INSULIN GLARGINE (*BKC) 100 UNITS/ML 10 UNITS SUB-Q ×2 (08:50→20:42)
[2020-12-10] MEDS: INSULIN ASPART (*BKC) 100 UNITS/ML 10 UNITS SUB-Q (08:52)
[2020-12-10 12:16] LABS: Glucose Point of Care 76 (65-105)
--- NOTE | 2020-12-10 12:30 | PM.IMPN ---
Progress Note: A&P Assessment and Plan (1) Congestive heart failure: Qualifiers: Heart failure type: combined systolic and diastolic Heart failure chronicity: acute on chronic Qualified Code(s): I50.43 - Acute on chronic combined systolic (congestive) and diastolic (congestive) heart failure Code(s): I50.9 - Heart failure, unspecified Status: Chronic Assessment and Plan: Acute on chronic systolic and diastolic CHF. Patient is known to have advanced ischemic cardiomyopathy, presents with worsening SOB with minimal exertion, weight gain. Appreciate cardiology recommendations. Today he remains on IV bumex and Entresto. Cardiology increased Entresto. Monitor I&O, daily weights. (2) Chest pain: Qualifiers: Chest pain type: unspecified Qualified Code(s): R07.9 - Chest pain, unspecified Code(s): R07.9 - Chest pain, unspecified Status: Acute Assessment and Plan: Somewhat atypical chest pain with mildly elevated troponins. 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 No further episodes of chest pain. He remains on his home isosorbide and Ranexa. (3) Elevated troponin: Code(s): R77.8 - Other specified abnormalities of plasma proteins Status: Acute Assessment and Plan: See above. (4) COPD exacerbation: Code(s): J44.1 - Chronic obstructive pulmonary disease with (acute) exacerbation Status: Acute Assessment and Plan: Pt follows with Dr Ho who recently saw patient in clinic late October. Noted his plan to continue oral prednisone and continue nebulized bronchodilator therapy, Levaquin (day 6 of 7). We suspect his shortness of breath is multifactorial and A fib, CHF are likely contributing to his symptoms too. (5) Atrial fibrillation with rapid ventricular response: Code(s): I48.91 - Unspecified atrial fibrillation Status: Acute Assessment and Plan: He has dual-chamber pacemaker since 2016 and remains on oral carvedilol. HRs in 90s this morning. Had tachycardia on arrival and some tracings that looked consistent with a flutter per cardiology. (6) Type 2 diabetes mellitus treated with insulin: Code(s): E11.9 - Type 2 diabetes mellitus without complications; Z79.4 - FDC (current) use of insulin Status: Chronic Assessment and Plan: Continue his basal-bolus insulin regimen. Blood sugars are improved now. Sugars below 100 this afternoon will cut back insulin again. His diet is likely more restrictive here than at home. Continue to monitor with accu-cheks and adjust treatment as needed, cover with SSI. (7) Obstructive sleep apnea on CPAP: Code(s): G47.33 - Obstructive sleep apnea (adult) (pediatric); Z99.89 - Dependence on other enabling machines and devices Status: Chronic Assessment and Plan: CPAP at night. (8) Chronic kidney disease: Qualifiers: Chronic kidney disease stage: unspecified stage Qualified Code(s): N18.9 - Chronic kidney disease, unspecified Code(s): N18.9 - Chronic kidney disease, unspecified Status: Chronic Assessment and Plan: Creatinine fluctuates 1.7 to 2.5 over the last 1 year. Cr 2.0 today. Monitor renal function and avoid nephrotoxic agents when possible, monitor urine output. Subjective Date/time seen: 12/10/20 1145 Interval history: Mr. Manuel is a 75yo M with multiple comorbidities admitted for increased shortness of breath and chest pain. Still no further chest pain since the episode on arrival. His leg sw
--- NOTE | 2020-12-10 15:26 | PM.PNCARD ---
Progress Note: A&P Assessment and Plan (1) Acute exacerbation of CHF (congestive heart failure): Qualifiers: Heart failure type: unspecified Qualified Code(s): I50.9 - Heart failure, unspecified Code(s): I50.9 - Heart failure, unspecified Status: Acute Assessment and Plan: Acute on chronic systolic congestive heart failure. On room air, exertional dyspnea improved, able to lie fairly flat. Edema persists but slowly improving. Change to p.o. Bumex 1 mg b.i.d. but need to monitor volume status very closely. Monitor renal function closely. BUN and Creatinine starting to rise. Accurate input and output, daily weight. Still decompensated and volume overloaded. (2) Cardiomyopathy: Qualifiers: Cardiomyopathy type: ischemic Qualified Code(s): I25.5 - Ischemic cardiomyopathy Code(s): I42.9 - Cardiomyopathy, unspecified Status: Acute Assessment and Plan: Continue supportive medical therapy with carvedilol 12.5 mg twice daily, Entresto 49/51 mg q.12 hours. (3) CAD (coronary artery disease): Qualifiers: Coronary Disease-Associated Artery/Lesion type: [place] artery [place] vs. transplanted heart: [place] heart Associated angina: without angina Qualified Code(s): I25.10 - Atherosclerotic heart disease of [place] coronary artery without angina pectoris Code(s): I25.10 - Atherosclerotic heart disease of [place] coronary artery without angina pectoris Status: Acute Assessment and Plan: Stable, no angina. Continue medical therapy. beta-eleuterio, statin. (4) Elevated troponin: Code(s): R79.89 - Other specified abnormal findings of blood chemistry Status: Acute Assessment and Plan: Unlikely related to acute plaque rupture type 2 infarct, not ACS. (5) Chronic kidney disease: Qualifiers: Chronic kidney disease stage: unspecified stage Qualified Code(s): N18.9 - Chronic kidney disease, unspecified Code(s): N18.9 - Chronic kidney disease, unspecified Status: Chronic Assessment and Plan: Monitor renal function. BUN and creatinine rising. (6) PAF (paroxysmal atrial fibrillation): Code(s): I48.0 - Paroxysmal atrial fibrillation Status: Acute Assessment and Plan: Stable, underlying atrial flutter with controlled ventricular response. patient remains on low-dose Xarelto 2.5 mg twice daily he was taking at home. Subjective Date/time seen: date of service: 12/10/20 15:26 Interval history: Mr. Manuel is a 75yo M with multiple comorbidities admitted for increased shortness of breath and chest pain. Feels better today. Less short of breath. Sleeping flat on his side without difficulty when I arrived in his room. States he was able to walk around the unit without a lot of difficulty which is much better than he would have done yesterday. No chest pain, palpitations. Notes occasional dizziness upon standing resolved quickly. Edema persists but states a little better overall. Review of Systems Constitutional: Constitutional: Reports fatigue and Reports lethargy Eyes: Eyes: Reports no additional eye complaints ENT: Reports system reviewed and no additional complaints, except as documented Cardiovascular: Cardiovascular: Reports as per HPI, Reports dyspnea and Reports dyspnea on exertion Respiratory: Respiratory: Reports dyspnea and Reports dyspnea on exertion Gastrointestinal: Gastrointestinal: Reports no additional gastrointestinal complaints Musculoskeletal: Musculoskeletal: Reports stiffness Integumentary/Breasts: Skin/Breast: Reports system reviewed and no additional complaints, except as docu Neurologic: Reports system reviewed and no additional complaints, except as documented Endocrine: Endocrine: Reports no additional endocrine complaints and Reports fatigue Hematologic/Lymphatic: Hematologic/Lymphatic: Reports no additional hematologic/lymphatic
[2020-12-10 17:10] LABS: Glucose Point of Care 182 (65-105)
[2020-12-10] MEDS: TAMSULOSIN HCL 0.4 MG CAPSULE PO (20:34)
[2020-12-10 20:48] LABS: Glucose Point of Care 275 (65-105)
[2020-12-10] MEDS: TEMAZEPAM (*CRX) 15 MG CAPSULE PO (20:48)
[2020-12-11] VITALS (14 sets, daily range): BP systolic 112; BP diastolic 55; PULSE 70–110; RESP 16–18; TEMP 36.5–36.7; O2SAT 93–98
[2020-12-11] MEDS: IPRATROPIUM BR 0.02% INH SOLN 0.5 MG/2.5 ML VIAL INHALATION ×2 (01:17→08:28)
[2020-12-11 05:45] LABS: Basophils Percent Auto 0.1 % (0.2-1.2); Hematocrit 39.3 % (42.0-52.0); Hemoglobin 12.7 g/dL (14.0-18.0); Immature Granulocyte Absolute 0.09 K/mm3 (0.00-0.031); Immature Granulocyte Percent A 0.9 % (0-0.5); Lymphocytes Absolute Auto 1.54 K/mm3 (0.9-3.2); Lymphocytes Percent Auto 15.5 % (18.3-44.2); Mean Corpuscular HGB Conc 32.3 g/dl (32-36); Mean Corpuscular Hemoglobin 26.5 pg (26-34); Mean Corpuscular Volume 81.9 fl (80-100); Mean Platelet Volume 8.9 fl (7.4-10.4); Monocytes Absolute Auto 0.6 K/mm3 (0.1-0.6); Monocytes Percent Auto 6.4 % (2.6-8.5); Neutrophils Absolute Auto 7.7 K/mm3 (1.3-6.7); Neutrophils Percent Auto 77.1 % (45.5-73.1); Platelet Count Result 199 k/mm3 (150-375); Red Cell Distribution Width 15.6 % (11.5-14.5); White Blood Count 9.9 K/mm3 (4.5-10.0)
[2020-12-11 05:57] LABS: Anion Gap 5 mmol/L (8-16); Blood Urea Nitrogen 59 mg/dL (9-20); Calcium 8.7 mg/dL (8.4-10.2); Carbon Dioxide 28 mmol/L (22-30); Chloride 97 mmol/L (98-107); Estimated CRCL calculation 35 ml/min; Estimated Glomerular Filt Rate 37; Glucose 198 mg/dL (75-110); Magnesium 2.2 mg/dL (1.6-2.3); Potassium 4.4 mmol/L (3.4-5.0); Sodium 130 mmol/L (137-145)
[2020-12-11 08:01] LABS: Glucose Point of Care 187 (65-105)
[2020-12-11] MEDS: carvediloL 12.5 MG TABLET PO (08:49)
[2020-12-11] MEDS: predniSONE 40 MG, predniSONE 10 MG 50 MG PO (08:50)
[2020-12-11] MEDS: PANTOPRAZOLE 40 MG TABLET PO (08:51)
[2020-12-11] MEDS: RANOLAZINE 500 MG TAB.ER.12H 1000 MG PO (08:51)
[2020-12-11] MEDS: SACUBITRIL/VALSARTAN 49-51 MG TABLET 1 TABLET PO (08:51)
[2020-12-11] MEDS: FLUoxetine HCL 20 MG CAPSULE 40 MG PO (08:51)
[2020-12-11] MEDS: ISOSORBIDE MONONITRATE 60 MG TAB.ER.24H PO (08:51)
[2020-12-11] MEDS: ATORVASTATIN 40 MG TABLET PO (08:51)
[2020-12-11] MEDS: BUMETANIDE INJ 1 MG/4 ML VIAL IV PUSH (08:51)
[2020-12-11] MEDS: RIVAROXABAN 2.5 MG TABLET PO (08:51)
--- NOTE | 2020-12-11 10:41 | PM.PNPUL ---
Progress Note: A&P Assessment and Plan (1) COPD exacerbation: Code(s): J44.1 - Chronic obstructive pulmonary disease with (acute) exacerbation Status: Acute Assessment and Plan: 12/06 Patient with worsening shortness of breath, dyspnea on exertion with an elevated BNP weight gain and peripheral edema. Patient also has wheezing but no change in phlegm production. Patient may have a COPD exacerbation. Patient is SARS-CoV-2 negative and flu swab negative. Patient has a positive D-dimer with negative lower extremity Dopplers and he is on xarelto for his AFib. he has an elevated creatinine and I will not pursue a CT angiogram of the chest at this point. I will continue treatment with ipratropium and levalbuterol nebulizers Q 6 hours, I will change his Solu-Medrol to prednisone 50 p.o. q.day, I will continue empiric treatment of a tracheal bronchitis with Levaquin 750 mg IV q.day. 12/07 No wheezes, improved breathing. 50% normal. Continue ipratropium and levalbuterol nebulizers Q 6 hours, prednisone 50 p.o. q.day, Levaquin 750 mg IV. q.day (day 3). 12/08 Improving, 55% normal today, Continue ipratropium and levalbuterol nebulizers Q 6 hours, prednisone 50 p.o. q.day, Levaquin 750 mg IV. q 48 (day 4) 12/09 Better, some coughing with tenacious secretions; try Cornet valve. 12/11 Improving, no wheezes, will DC predniosne today (s/p 6 days steroids), Continue ipratropium and levalbuterol nebulizers Q 6 hours. Last day of levaquin. Will start p atient on trelegy 1 puff Q day and change levalbuterol to rescue PRN. If continues to imp[rove, stable for DC home in AM from pulmonary perspective. (2) Acute exacerbation of CHF (congestive heart failure): Qualifiers: Heart failure type: unspecified Qualified Code(s): I50.9 - Heart failure, unspecified Code(s): I50.9 - Heart failure, unspecified Status: Acute Assessment and Plan: 12/06 Patient with increased swelling, weight gain, dyspnea on exertion with an elevated BNP. AFIB/RVR. Suspect patient has an acute exacerbation of his CHF and he is receiving diuresis per the hospitalist team and Cardiology as tolerated by his renal function. Minus 750. 12/07 minus 640. Cr 2.10 3.12 plus 210 since midnight, Cr 1.9. 12/11 minus 470 yesterday, Cr 1.80, Cumulative minus 4015. (3) Obstructive sleep apnea on CPAP: Code(s): G47.33 - Obstructive sleep apnea (adult) (pediatric); Z99.89 - Dependence on other enabling machines and devices Status: Chronic Assessment and Plan: 12/06 Patient had a download exam and on his CPAP 19 and his compliance was 75.6 with AHI of 5.2 and [place] of 12. Duncan stated that VAuto mode was not working for him last night and will place on CPAP 19 tonight if he can brong in his home machine will use that. 12/07 Patient wore home CPAP 19 on RA last night and per patient worked well. Sats 96% on home unit. Will check apnea link for overnight oximery tonight. 12/08 Continue home CPAP 19, Overnight oximetry on room air demonstrating an average saturation of 95%. Lowest saturation 81%. Time with saturations less than or equal to 88% was 5 minutes or 1% of the time. AHI was 4.2. In the desaturation events were very brief 6 different spikes adding up to 5 minutes. Will not need oxygen at night. Subjective Date/time seen: 12/11/20 10:41 Interval history: 12/06 Narrative: This is a 75-year-old man with a history of COPD, obstructive sleep apnea on CPAP 19 who is followed in our clinic in last seen on 11/08/2020, Afib on xarelto and CHF. At that time patient was stable on his nebulized ipratropium and leave albuterol twice a day. He had had no recent exacerbations and his diuretics were managed by his water pump operator. Patient had a download exam and on his CPAP 19 and
[2020-12-11 12:28] LABS: Glucose Point of Care 244 (65-105)
--- NOTE | 2020-12-11 12:56 | PM.PNCARD ---
Progress Note: A&P Additional Plan 75-year-old man with: Multivessel coronary artery disease admitted with mild episode of decompensated heart failure last week. Patient is largely compensated at this time. His Entresto dosage was advanced and he was given intravenous furosemide for several days. He is now appears to be back at baseline in my opinion. I believe he is stable enough from my perspective for discharge. I am going to have him see electrophysiology at [place] to consider upgrading his dual-chamber pacemaker to a Bi V ICD given his complete heart block and low ejection fraction at this time. I will arrange for that to be done as an outpatient. Follow up in my office regarding his heart failure we be arranged here at this office. Arjun Yo MD [facility] Subjective Date/time seen: Date of service: 12/11/20 12:56 Interval history: Mr. Manuel is a 75yo M with multiple comorbidities admitted for increased shortness of breath and chest pain. Patient is sitting comfortably in the bedside chair eating lunch states that he is no longer significantly shortness of breath at all he is a on room air. Has not very mild/minimal persistent lower extremity edema. Back on his oral dose of Bumex and advanced dose of Entresto. Exam Const: General: comfortable and no acute distress Other: Elderly white male appearing his stated age lying supine in bed sleeping initially but easily arousable. And O x3, no apparent distress pleasant and cooperative. HENMT: Mouth: Yes dry mucous membranes Eyes: Sclera: sclerae normal Pupils: Equal, round and reactive pupils present Neck: Neck: supple Carotids: bruit Other: very difficult to assess JVD given his body habitus rather thick neck Resp: Effort & Inspection: normal respiratory effort Other: Diminished breath sounds diffusely no obvious rales or wheezes noted. Cardio: Rate: regular rate Rhythm: regular rhythm Other: PMI not palpable GI: Inspection: Abdominal wall edema ( Subcutaneous edema palpable; soft but distended abdomen) and distended Auscultation: normal bowel sounds Skin: General skin exam: normal color Neuro: Cranial nerves: Yes Equal, round and reactive pupils present Cognition (Neuro): normal cognition Extrem: Left upper extremity: edema Other: Modest lower extremity persists Objective Data Vital Signs Vital Signs: Vital Signs - 24 hr 12/10/20 13:46 12/10/20 14:00 12/10/20 17:55 Temperature 36.7 C Pulse Rate 86 81 92 Respiratory Rate 18 18 Blood Pressure 106/71 Pulse Oximetry 98 12/10/20 20:15 12/10/20 20:20 12/10/20 20:25 Temperature Pulse Rate 105 H 87 98 Respiratory Rate 18 18 Blood Pressure Pulse Oximetry 12/10/20 21:55 12/10/20 22:00 12/11/20 01:19 Temperature 36.1 C L Pulse Rate 89 89 82 Respiratory Rate 16 18 Blood Pressure 124/66 Pulse Oximetry 96 97 12/11/20 01:20 12/11/20 01:27 12/11/20 06:00 Temperature 36.5 C Pulse Rate 82 84 77 Respiratory Rate 18 16 Blood Pressure 112/55 L Pulse Oximetry 95 96 12/11/20 08:30 12/11/20 08:40 12/11/20 08:49 Temperature Pulse Rate 83 83 84 Respiratory Rate 18 18 Blood Pressure Pulse Oximetry Intake/Output Intake/Output: Intake & Output 12/08/20 12/09/20 12/10/20 12/11/20 22:59 22:59 23:59 23:59 Intake Total 620 Output Total 1800 Balance -1180 Meds/Results Medications: Active Medications Generic Name Dose Route Start Last Admin Trade Name Freq PRN Reason Stop Dose Admin Acetaminophen 650 mg 12/05/20 22:50 Acetaminophen 325 Mg Tablet PO Q4H PRN Mild Pain (1-3) Or Fever Atorvastatin Calcium 40 mg 12/06/20 09:00 12/11/20 08:51 Atorvastatin 40 Mg Tablet PO 40 mg DAILY [facility] Administration Bumetanide 1 mg 12/11/20 17:00 Bumetanide 1 Mg Tablet PO BID MILLIE Carvedilol 12.5 mg 12/06/20 08:00 12/11/20 08:49 Carvedilol 12.5 Mg Tablet PO 12.5 mg BIDWM MILLIE Adm
[2020-12-11] MEDS: INSULIN ASPART (*BKC) 100 UNITS/ML SUB-Q (12:59)
--- NOTE | 2020-12-11 15:46 | PCRCNOTE ---
Home Oxygen Evaluation RC: Home Oxygen (O2) Evaluation Start: 12/11/20 15:07 Freq: ONCE Status: Active Protocol: RPE Activity Type Activity Date Activity User E-Sign Co-Sign Detail Recorded Client Recorded Date Recorded By Document 12/11/20 15:30 [facility] [email or web address] 12/11/20 15:46 [facility] Document 12/11/20 15:31 [facility] [email or web address] 12/11/20 15:46 [facility] Document 12/11/20 15:33 [place] [email or web address] 12/11/20 15:46 [facility] Document 12/11/20 15:34 [place] [email or web address] 12/11/20 15:46 [facility] Document 12/11/20 15:35 [place] [email or web address] 12/11/20 15:46 [facility] Document 12/11/20 15:36 TN [email or web address] 12/11/20 15:46 [facility] 12/11/20 12/11/20 12/11/20 15:30 15:31 15:33 Home O2 Evaluation Test Phase Resting Exercise Exercise Oxygen Delivery Room Air Room Air Room Air Pulse Oximetry (90-100 %) 94 94 93 Pulse Rate (60-100 beats/min) 77 91 110 H Activity Tolerance Good Good Good Rating of Perceived Dyspnea (PD) +1 Mild, +1 Mild, Noticeable to Noticeable to the Participant the Participant but Not to an but Not to an Observer Observer Ambulation Distance (feet) 50 100 Home Oxygen Evaluation Comments Treatment Charges O2 Evaluation - Inpatient 12/11/20 12/11/20 12/11/20 15:34 15:35 15:36 Home O2 Evaluation Test Phase Exercise Exercise Resting Oxygen Delivery Room Air Room Air Room Air Pulse Oximetry (90-100 %) 94 95 97 Pulse Rate (60-100 beats/min) 102 H 107 H 101 H Activity Tolerance Good Good Good Rating of Perceived Dyspnea (PD) +1 Mild, +2 Mild, Some +1 Mild, Noticeable to Difficulty, Noticeable to the Participant Noticeable to the Participant but Not to an the Observer but Not to an Observer Observer Ambulation Distance (feet) 120 140 150 Home Oxygen Evaluation Comments patient does not qualify for home oxygen Treatment Charges
--- NOTE | 2020-12-11 16:09 | PM.DS ---
DS: Admitting Diagnosis Admitting Diagnosis Admitting Diagnosis: CHF exacerbation DS: Discharge Diagnosis Discharge Diagnosis (1) Congestive heart failure: Qualifiers: Heart failure type: combined systolic and diastolic Heart failure chronicity: acute on chronic Qualified Code(s): I50.43 - Acute on chronic combined systolic (congestive) and diastolic (congestive) heart failure Code(s): I50.9 - Heart failure, unspecified Status: Chronic Assessment and Plan: Date of Admission 12/05/20 Date of Discharge 12/11/20 Mr. Manuel is a pleasant 75yo M with history of COPD, CHF, hypertension, CKD, obstructive sleep apnea, atrial fibrillation who presented to the ED for evaluation of shortness of breath and chest pain. He does have chronic shortness of breath but he described acute worsening of such, accompanied by chest pain. He had mildly elevated troponins with flat profile thus cardiology was consulted, he is a patient of Dr Yo's. Mr. Manuel was treated for acute on chronic CHF exacerbation (with shortness of breath and bilateral leg edema) with IV bumex. Dr Yo increased his dose of Entresto. He was also felt to have possibly a COPD exacerbation and additionally was seen by pulmonology; he is a patient of Dr Benjamin. He was treated with steroids and nebulized bronchodilator therapy. Patient continued to work with PT/OT and was ambulating well in the hallways without assistance. Home oxygen evaluation on day of discharge demonstrated he did not qualify for home oxygen. Overall he is improved after receiving the therapy outlined above and he is hemodynamically stable for discharge on 12/11/20 with instructions to follow up with Dr Yo, Dr oH, and PCP Dr Smith. Acute on chronic systolic and diastolic CHF. Patient is known to have advanced ischemic cardiomyopathy, presents with worsening SOB with minimal exertion, weight gain. Diuresed with IV bumex. Cardiology increased Entresto. (2) Chest pain: Qualifiers: Chest pain type: unspecified Qualified Code(s): R07.9 - Chest pain, unspecified Code(s): R07.9 - Chest pain, unspecified Status: Acute Assessment and Plan: Somewhat atypical chest pain with mildly elevated troponins. 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 No further episodes of chest pain since admission. He remains on his home isosorbide and Ranexa. (3) Elevated troponin: Code(s): R77.8 - Other specified abnormalities of plasma proteins Status: Acute Assessment and Plan: See above. (4) COPD exacerbation: Code(s): J44.1 - Chronic obstructive pulmonary disease with (acute) exacerbation Status: Acute Assessment and Plan: Pt follows with Dr Ho who recently saw patient in clinic late October. He was treated with steroids and a 7-day course of levofloxacin. We suspect his shortness of breath is multifactorial and A fib, CHF are likely contributing to his symptoms too. (5) Atrial fibrillation with rapid ventricular response: Code(s): I48.91 - Unspecified atrial fibrillation Status: Acute Assessment and Plan: He has dual-chamber pacemaker since 2016 and remains on oral carvedilol. Had tachycardia on arrival and some tracings that looked consistent with a flutter per cardiology. Heart rates stable now. (6) Type 2 diabetes mellitus treated with insulin: Code(s): E11.9 - Type 2 diabetes mellitus without complications; Z79.4 - residential (current) use of insulin Status: Chronic Assessment and Plan: Blood sugars elevated on arrival, improved after his home insul
== END 2020-12-11 17:15 | disposition home or self-care (01) | DRG 190 ==
LOC: ANHED 17:20 → ANHIMU 19:02 → ANH3MEDSUR 12-11 15:22 → ANHIMU 12-12 14:15
PROVIDERS: Internal Medicine Pulmonary Disease; Physician Assistant; Admitting Provider Family Medicine; Emergency Provider Emergency Medicine; PCP Emergency Medicine; Visit Provider Physician Assistant
DX: J44.1 Chronic obstructive pulmonary disease with (acute) exacerbation (principal); I50.23 Acute on chronic systolic (congestive) heart failure; E87.1 Hypo-osmolality and hyponatremia; E11.22 Type 2 diabetes mellitus with diabetic chronic kidney disease; N18.30 Chronic kidney disease, stage 3 unspecified; G47.33 Obstructive sleep apnea (adult) (pediatric); E11.42 Type 2 diabetes mellitus with diabetic polyneuropathy; I25.10 Atherosclerotic heart disease of native coronary artery without angina pectoris; I48.0 Paroxysmal atrial fibrillation; Z79.4 Long term (current) use of insulin; Z20.822 Contact with and (suspected) exposure to COVID-19; Z87.891 Personal history of nicotine dependence; I25.5 Ischemic cardiomyopathy; Z95.0 Presence of cardiac pacemaker; N40.0 Benign prostatic hyperplasia without lower urinary tract symptoms; K21.9 Gastro-esophageal reflux disease without esophagitis
CPT/HCPCS: 36415; 36600; 71045; 71046; 80048; 80053; 82375; 82805; 82948; 83050; 83735; 83880; 84484; 85025; 85380; 85610; 85730; 87804; 93005; 93926; 93970; 94618; 94640; 94667; 94762; 96365; 96375; 96376; 97110; 97116; 97161; 97165; 97530; 97535; 99291; A9270; C9803; G0378; J1815; J1956; J2920; J2930; J7512; U0003; U0005

== ENCOUNTER 2020-12-18 13:34 | Outpatient (CLI) | payer MEDICARE, OTHER, SELFPAY ==
[2020-12-18 14:21] LABS: Anion Gap 8 mmol/L (8-16); Blood Urea Nitrogen 49 mg/dL (9-20); Calcium 8.5 mg/dL (8.4-10.2); Carbon Dioxide 28 mmol/L (22-30); Chloride 98 mmol/L (98-107); Estimated Glomerular Filt Rate 31; Glucose 64 mg/dL (75-110); Potassium 4.6 mmol/L (3.4-5.0); Sodium 134 mmol/L (137-145)
== END 2020-12-18 13:35 | disposition home or self-care (01) ==
PROVIDERS: PCP Emergency Medicine; Visit Provider Physician Assistant
DX: I50.9 Heart failure, unspecified (principal)
CPT/HCPCS: 36415; 80048

== ENCOUNTER 2021-05-15 13:47 | Outpatient (CLI) | payer MEDICARE, OTHER, SELFPAY ==
[2021-05-15 14:22] LABS: Anion Gap 7 mmol/L (8-16); Blood Urea Nitrogen 50 mg/dL (9-20); Calcium 9.5 mg/dL (8.4-10.2); Carbon Dioxide 27 mmol/L (22-30); Chloride 101 mmol/L (98-107); Estimated Glomerular Filt Rate 33; Glucose 126 mg/dL (65-110); Potassium 5.1 mmol/L (3.4-5.0); Sodium 135 mmol/L (137-145)
== END 2021-05-15 13:48 | disposition home or self-care (01) ==
LOC: ANHLAB 13:52
PROVIDERS: PCP Emergency Medicine; Visit Provider Nurse Practitioner Adult Health
DX: Z86.39 Personal history of other endocrine, nutritional and metabolic disease (principal)
CPT/HCPCS: 36415; 80048

== ENCOUNTER 2021-05-23 15:24 | Outpatient (CLI) | payer MEDICARE, OTHER, SELFPAY ==
--- NOTE | ~2021-05-23 | XR_ITS ---
EXAMINATION: XR chest 2V DATE: 05/23/2021 16:01 INDICATION: 3 weeks post pacemaker placement TECHNIQUE: PA and lateral views of the chest were obtained. COMPARISON: Chest radiograph dated 12/06/2020 FINDINGS: The lungs are clear with no focal airspace opacities, pulmonary edema, pleural effusion or pneumothor ax. Borderline heart size. Median sternotomy wires and mediastinal surgical clips are seen, likely fr om prior coronary artery bypass grafting. Aortic valve replacement. Three lead pacemaker/AICD seen wi th leads projecting over the expected locations of the right atrial appendage, apex of the right vent ricle and overlying the left ventricle likely having traversed the coronary sinus. Plate and screw fi xation for lower cervical anterior spinal fusion. Distal right clavicle excision. IMPRESSION: 1. No acute cardiopulmonary disease. 2. Borderline heart size with change of prior coronary artery bypass grafting, aortic valve replaceme nt and new 3-lead cardiac pacemaker/AICD in expected position. Reviewed, dictated and finalized at location B. IMPRESSION: 1. No acute cardiopulmonary disease. 2. Borderline heart size with change of prior coronary artery bypass grafting, aortic valve replacement and new 3-lead cardiac pacemaker/AICD in expected posi tion.
== END 2021-05-23 15:25 | disposition home or self-care (01) ==
LOC: ANHIMG 15:31
PROVIDERS: PCP Emergency Medicine; Visit Provider Nurse Practitioner Family
DX: R09.89 Other specified symptoms and signs involving the circulatory and respiratory systems (principal); Z95.1 Presence of aortocoronary bypass graft; Z95.0 Presence of cardiac pacemaker
CPT/HCPCS: 71046

== ENCOUNTER 2021-06-08 09:35 | Outpatient (CLI) | payer MEDICARE, OTHER, SELFPAY ==
[2021-06-08 10:49] LABS: Anion Gap 8 mmol/L (8-16); Blood Urea Nitrogen 53 mg/dL (9-20); Calcium 9.4 mg/dL (8.4-10.2); Carbon Dioxide 28 mmol/L (22-30); Chloride 100 mmol/L (98-107); Estimated Glomerular Filt Rate 24; Glucose 107 mg/dL (65-110); Potassium 4.4 mmol/L (3.4-5.0); Sodium 136 mmol/L (137-145)
== END 2021-06-08 09:36 | disposition home or self-care (01) ==
PROVIDERS: PCP Emergency Medicine; Visit Provider Nurse Practitioner Adult Health
DX: E11.59 Type 2 diabetes mellitus with other circulatory complications (principal); I15.2 Hypertension secondary to endocrine disorders
CPT/HCPCS: 36415; 80048

== ENCOUNTER 2021-10-19 11:15 | Outpatient (CLI) | payer MEDICARE, OTHER, SELFPAY ==
[2021-10-19 12:00] LABS: Alanine Aminotransferase 50 U/L (4-50); Albumin Level 4.4 g/dL (3.5-5.1); Alkaline Phosphatase 75 U/L (38-126); Anion Gap 11 mmol/L (8-16); Aspartate Amino Transferase 48 U/L (17-59); Bilirubin,Total 0.8 mg/dL (0.2-1.3); Blood Urea Nitrogen 58 mg/dL (9-20); Calcium 9.1 mg/dL (8.4-10.2); Carbon Dioxide 28 mmol/L (22-30); Chloride 95 mmol/L (98-107); Cholesterol 115 mg/dL (0-200); Estimated Glomerular Filt Rate 26; Glucose 147 mg/dL (65-110); HDL Direct 45 mg/dL; Potassium 5.2 mmol/L (3.4-5.0); Sodium 134 mmol/L (137-145); Triglycerides 97 mg/dL (<150)
[2021-10-19 12:05] LABS: Hemoglobin A1C 6.2 % (<5.7)
[2021-10-19 12:10] LABS: LDL Cholesterol Direct 49 mg/dL
[2021-10-19 12:20] LABS: Creatinine Urine 74.6 mg/dL
[2021-10-19 12:24] LABS: MALB Creatinine Ratio 30.7 mg/g (0-30); Microalbumin Urine Random 22.9 mg/L (0-16.7)
== END 2021-10-19 11:16 | disposition home or self-care (01) ==
PROVIDERS: PCP Emergency Medicine; Referring Provider Internal Medicine Nephrology; Visit Provider Emergency Medicine
DX: N18.4 Chronic kidney disease, stage 4 (severe) (principal); E11.29 Type 2 diabetes mellitus with other diabetic kidney complication; R80.8 Other proteinuria
CPT/HCPCS: 36415; 80053; 80061; 82043; 83036

== ENCOUNTER 2021-10-22 13:03 | Outpatient (CLI) | payer MEDICARE, OTHER, SELFPAY ==
--- NOTE | ~2021-10-22 | US_ITS ---
US renal BI 10/22/2021 14:20 Procedure: Realtime transabdominal ultrasound of the kidneys and bladder. Indication: Chronic kidney disease Comparison: No prior studies for comparison. Findings: Renal echotexture is normal bilaterally without hydronephrosis, contour deforming mass or r enal calculus. The right kidney measures 12 cm and left kidney measures 10.7 cm. Bladder within norm al limits. Impression: 1: Unremarkable renal ultrasound. No stones, masses or hydronephrosis. Reviewed, dictated and finalized at location B. GE LEVER OPERATOR Impression: 1: Unremarkable renal ultrasound. No stones, masses or hydronephrosis.
== END 2021-10-22 13:04 | disposition home or self-care (01) ==
PROVIDERS: PCP Emergency Medicine; Visit Provider Internal Medicine Nephrology
DX: N18.4 Chronic kidney disease, stage 4 (severe) (principal)
CPT/HCPCS: 76775

== ENCOUNTER 2021-11-13 13:54 | Outpatient (CLI) | payer MEDICARE, OTHER, SELFPAY ==
[2021-11-13 15:05] LABS: Creatinine Urine 98.8 mg/dL; Total Protein Urine Random 12 mg/dL; Ur Ttl Prot Creatinine Ratio 0.12 mg/mg (0-0.20)
[2021-11-13 15:06] LABS: Sodium Urine Random 22 meq/L
[2021-11-13 15:10] LABS: Complement C3 95 mg/dL (88-165)
[2021-11-13 17:16] LABS: Eosinophil Urine None Seen % (None Seen)
[2021-11-13 19:54] LABS: Albumin Level 4.2 g/dL (3.5-5.1); Anion Gap 12 mmol/L (8-16); Blood Urea Nitrogen 58 mg/dL (9-20); Calcium 9.2 mg/dL (8.4-10.2); Carbon Dioxide 25 mmol/L (22-30); Chloride 100 mmol/L (98-107); Estimated Glomerular Filt Rate 28; Glucose 220 mg/dL (65-110); Potassium 4.5 mmol/L (3.4-5.0); Sodium 137 mmol/L (137-145)
[2021-11-13 20:13] LABS: Parathyroid Intact 122.6 pg/mL (7.5-53.5)
[2021-11-13 20:42] LABS: Vitamin D 25 Hydroxy 19.4 ng/mL
[2021-11-15 17:00] LABS: Albumin 3.8 g/dL (3.8-4.8); Alpha 1 Globulin 0.3 g/dL (0.2-0.3); Alpha 2 Globulin 0.7 g/dL (0.5-0.9); Beta 1 Globulin 0.5 g/dL (0.4-0.6); Gamma Globulin 0.8 g/dL (0.8-1.7); Protein, Total 6.4 g/dL (6.1-8.1)
[2021-11-15 18:16] LABS: Anti Glomerular Basement Memb <1.0 AI (<1.0)
[2021-11-16 23:12] LABS: ANCA Screen Negative (Negative)
[2021-11-19 14:43] LABS: Creatinine, Random Urine 85 mg/dL (20-320); Total Protein/Creatinine Ratio 106 mg/g creat (22-128)
== END 2021-11-13 13:55 | disposition home or self-care (01) ==
PROVIDERS: PCP Emergency Medicine; Visit Provider Specialist
DX: N18.4 Chronic kidney disease, stage 4 (severe) (principal); E11.29 Type 2 diabetes mellitus with other diabetic kidney complication; R80.8 Other proteinuria; I70.212 Atherosclerosis of native arteries of extremities with intermittent claudication, left leg
CPT/HCPCS: 36415; 80069; 82306; 82570; 83520; 83970; 84155; 84156; 84165; 84166; 84300; 85999; 86036; 86038; 86160; 86225

== ENCOUNTER 2021-11-21 13:17 | Outpatient (CLI) | payer MEDICARE, OTHER, SELFPAY ==
--- NOTE | ~2021-11-21 | CT_ITS ---
EXAMINATION:CT diagnostic chest wo con DATE: 11/21/2021 13:35 INDICATION: Solitary pulmonary nodule. TECHNIQUE: Computed tomography (CT) of the chest was performed without intravenous contrast. Automate d exposure control and iterative reconstruction technique were employed. The dose-length product (DLP ) was 175.75 mGy-cm. COMPARISON: Chest CT 11/22/2020, 06/28/2020, 05/03/2019 FINDINGS: There is mild emphysema. There is mild atelectasis bilaterally. There is an 11 mm part-ambrose d nodule in left upper lobe. There are a few scattered 2-3 mm nodules in the lungs. No pleural effusi on. The heart size is normal. There are coronary artery calcifications. There are changes of coronary artery bypass grafting. No pericardial effusion. There is a left chest pacer with leads in right atr ium, right ventricle, and coronary sinus. Calcifications in the liver and spleen are consistent with old granulomatous disease. There is bilateral gynecomastia. There is mild thoracic spondylosis. There are changes of anterior fusion procedure in cervical spine. IMPRESSION: 1. 10 mm part-solid nodule in left lung upper lobe, increased from 8 mm on 11/22/20, suspicious for p rimary bronchogenic carcinoma. CT-guided biopsy is recommended. Reviewed, dictated and finalized at location A. TRANSFER OPERATOR IMPRESSION: 1. 10 mm part-solid nodule in left lung upper lobe, increased from 8 mm on 10/31 01/17, suspicious for primary bronchogenic carcinoma. CT-guided biopsy is recomm ended.
== END 2021-11-21 13:18 | disposition home or self-care (01) ==
LOC: ANHIMG 13:20
PROVIDERS: PCP Emergency Medicine; Visit Provider Physician Assistant
DX: R91.1 Solitary pulmonary nodule (principal)
CPT/HCPCS: 71250

== ENCOUNTER 2021-12-08 14:43 | Inpatient (IN) | payer MEDICARE, OTHER, SELFPAY ==
[2021-12-08] VITALS (20 sets, daily range): BP systolic 91–119; BP diastolic 47–68; PULSE 73–101; RESP 15–27; TEMP 36.3–36.8; O2SAT 96–100; BMI 33.0
--- NOTE | ~2021-12-08 | XR_ITS ---
XR chest 2V 12/10/2021 08:53 Indication: Shortness of breath Procedure: 2 view chest Comparison: Comparison to multiple prior studies sequentially, with oldest reviewed study dated 05/2021. Findings: Status post median sternotomy for CABG. Cardiomegaly. There is a prosthetic heart valve. No focal air space disease, pulmonary edema, pleural effusion or suspected pneumothorax. No acute osseo us abnormality. Impression: 1: No acute cardiopulmonary disease. Reviewed, dictated and finalized at location B. Impression: 1: No acute cardiopulmonary disease.
--- NOTE | ~2021-12-08 | XR_ITS ---
EXAMINATION: XR chest 2V DATE: 12/08/2021 15:16 INDICATION: Midsternal chest pain and weakness TECHNIQUE: PA and lateral views of the chest were obtained. COMPARISON: Chest radiograph dated 05/23/[address] dated 11/21/2021 FINDINGS: Mild interstitial and airspace opacity right lower lung zone with bronchial wall thickening versus pe ribronchial cuffing which could represent pneumonia or asymmetric mild pulmonary edema. Small bilater al pleural effusions at the posterior sulci. No pneumothorax. Cardiomegaly. Median sternotomy wires a nd mediastinal surgical clips are seen, likely from prior coronary artery bypass grafting. Aortic jody ve repair. Three lead pacemaker/AICD seen with leads projecting over the expected locations of the ri ght atrial appendage, apex of the right ventricle and overlying the left ventricle likely having pablito ersed the coronary sinus. There is an extra presumably disconnected left ventricular lead. C6-C7 ante rior spinal fusion with anterior plate and screw fixation. Moderate degenerative skeletal changes in the spine and at both shoulders. Prior distal right clavicle resection. IMPRESSION: 1. Interstitial and mild airspace opacity right lower lung zone which could represent asymmetric mild pulmonary edema or pneumonia. 2. Small bilateral pleural effusions. 3. Cardiomegaly. Reviewed, dictated and finalized at location A. MACHINE OPERATOR PRODUCTION IMPRESSION: 1. Interstitial and mild airspace opacity right lower lung zone which could rep resent asymmetric mild pulmonary edema or pneumonia. 2. Small bilateral pleural effusions. 3. Cardiomegaly.
--- NOTE | ~2021-12-08 | US_ITS ---
EXAMINATION: US renal BI DATE: 12/10/2021 08:55 INDICATION: Acute on chronic renal failure. TECHNIQUE: Multiple ultrasound grayscale images of the kidneys were obtained. COMPARISON: Ultrasound kidneys 10/22/2021 FINDINGS: The right kidney measures 11.2 x 5.9 x 5.5 cm. The left kidney measures 10.7 x 5.1 x 4.8 cm. The kidn eys demonstrate normal parenchymal echogenicity. There is no hydronephrosis. The bladder is normal. IMPRESSION: 1. Normal kidney sizes. No hydronephrosis. Reviewed, dictated and finalized at location A.
--- NOTE | ~2021-12-08 | XR_ITS ---
SMALL BOWEL SERIES ONLY INDICATION: GI bleed. Evaluate for bowel leak. TECHNIQUE: Serial plain films and fluoroscopic spot films are performed following oral administration of water-soluble contrast. COMPARISON: None FINDINGS: Contrast was followed sequentially through the small bowel. The mucosal pattern is unremar kable. No evidence for stricture, polyp, diverticula or obstruction of flow of contrast. Transit amanda e to the colon is less than 30 minutes.. IMPRESSION: 1: Normal small bowel series. Reviewed, dictated and finalized at location A.
--- NOTE | ~2021-12-08 | XR_ITS ---
EXAMINATION: XR chest 1V portable DATE: 12/14/2021 11:37 INDICATION: Shortness of breath. Frontal wall chest pain. TECHNIQUE: frontal view of the chest was obtained. COMPARISON: Chest radiograph dated 12/10/2021 FINDINGS: Hazy opacities at the bilateral lower lung zones with blunting at the costophrenic angles consistent with small bilateral pleural effusions and associated basilar atelectasis and/or pneumonia. No pneumo thorax. Cardiomegaly. Median sternotomy wires and mediastinal surgical clips are seen, likely from pr ior coronary artery bypass grafting. Three lead pacemaker/AICD seen with leads projecting over the ex pected locations of the right atrial appendage, apex of the right ventricle and overlying the left ve ntricle likely having traversed the coronary sinus. There is residual fourth lead in the left ventric le from an earlier cardiac pacemaker. Plate-screw fixation for C6-C7 anterior spinal fusion. Severe l eft glenohumeral osteoarthritis. IMPRESSION: 1. Opacities in the bilateral lower lung zones consistent with small bilateral pleural effusions and associated basilar atelectasis and/or pneumonia, left greater than right. 2. Cardiomegaly. Reviewed, dictated and finalized at location A. IMPRESSION: 1. Opacities in the bilateral lower lung zones consistent with small bilateral pleural effusions and associated basilar atelectasis and/or pneumonia, left gre ater than right. 2. Cardiomegaly.
--- NOTE | 2021-12-08 14:44 | ECG_ITS ---
Measurements Intervals [place] Rate: 103 P: SD: 0 QRS: 18 QRSD: 166 T: 120 QT: 445 QTc: 583 Interpretive Statements UNCERTAIN REGULAR RHYTHM LEFT BUNDLE BRANCH BLOCK [120+ ms QRS DURATION, 80+ ms Q/S IN V1/V2, 85+ ms R IN I/aVL/V5/V6] CRITICAL TEST RESULT COMPARED TO ECG 12/07/2020 13:40:53 NO SIGNIFICANT CHANGES Electronically Signed On 12-08-2021 19:35:19 BELTING INSPECTOR by Patsy Arguelles M.D.
[2021-12-08] MEDS: ASPIRIN 81 MG CHEWABLE TABLET 324 MG PO (15:06)
[2021-12-08 15:20] LABS: INR 4.1; Prothrombin Time 38.2 Seconds (11.1-14.7)
[2021-12-08 15:21] LABS: Partial Thromboplastin Time 67.5 SECONDS (22.3-36.8)
[2021-12-08 15:22] LABS: Alanine Aminotransferase 22 U/L (4-50); Albumin Level 4.1 g/dL (3.5-5.1); Alkaline Phosphatase 69 U/L (38-126); Anion Gap 13 mmol/L (8-16); Aspartate Amino Transferase 35 U/L (17-59); Bilirubin,Total 1.4 mg/dL (0.2-1.3); Blood Urea Nitrogen 88 mg/dL (9-20); Calcium 8.5 mg/dL (8.4-10.2); Carbon Dioxide 25 mmol/L (22-30); Chloride 89 mmol/L (98-107); Estimated CRCL calculation 20 ml/min; Estimated Glomerular Filt Rate 20; Glucose 244 mg/dL (65-110); Lipase 40 U/L (23-300); Potassium 3.9 mmol/L (3.4-5.0); Sodium 127 mmol/L (137-145)
[2021-12-08 15:28] LABS: Basophils Percent Auto 0.4 % (0.2-1.2); Eosinophils Percent Auto 0.4 % (0-4.4); Hematocrit 31.3 % (42.0-52.0); Hemoglobin 10.3 g/dL (14.0-18.0); Immature Granulocyte Absolute 0.04 K/mm3 (0.00-0.031); Immature Granulocyte Percent A 0.5 % (0-0.5); Lymphocytes Absolute Auto 1.12 K/mm3 (0.9-3.2); Lymphocytes Percent Auto 13.7 % (18.3-44.2); Mean Corpuscular HGB Conc 32.9 g/dl (32-36); Mean Corpuscular Hemoglobin 29.5 pg (26-34); Mean Corpuscular Volume 89.7 fl (80-100); Mean Platelet Volume 9.5 fl (7.4-10.4); Monocytes Absolute Auto 0.9 K/mm3 (0.1-0.6); Monocytes Percent Auto 10.5 % (2.6-8.5); Neutrophils Absolute Auto 6.1 K/mm3 (1.3-6.7); Neutrophils Percent Auto 74.5 % (45.5-73.1); Platelet Count Result 176 k/mm3 (150-375); Red Blood Count 3.49 M/mm3 (4.6-6.20); Red Cell Distribution Width 13.9 % (11.5-14.5); White Blood Count 8.2 K/mm3 (4.5-10.0)
[2021-12-08 15:36] LABS: Troponin I 0.056 ng/mL (0.000-0.034)
[2021-12-08] MEDS: PANTOPRAZOLE SODIUM IV 40 MG VIAL IV PUSH (15:49)
[2021-12-08] MEDS: SODIUM CHLORIDE 0.9% IV 500 ML 999 ML IV CONT (15:49)
[2021-12-08 16:01] LABS: NT Pro B Type Natriuretic Pept 19400 pg/mL (5-100)
[2021-12-08 16:06] LABS: Glucose Point of Care 259 mg/dl (65-105)
--- NOTE | 2021-12-08 16:18 | ED.CHESTPAIN ---
HPI - Chest Pain General Chief Complaint: Chest Pain Stated Complaint: chest pain Time Seen by Provider: 12/08/21 15:08 History of Present Illness HPI narrative: Patient is a 76-year-old male who presents ER with chest pain. Sharp radiating to his left arm. Lasted for couple hours this morning and abated with nitroglycerin. Reports he has been getting dizzy when going from sitting to standing. No exertional component to his chest pain. Has history of cardiac stents and CABG. Follows with Dr. Yo. Patient reports she has been having some darker colored stools. He is anticoagulated with warfarin. Denies any new dyspnea. No new swelling in his legs. Related Data Home Medications Medication Instructions Recorded Confirmed atorvastatin 40 mg PO DAILY 07/29/19 11/07/21 carvedilol [Coreg] 12.5 mg PO Q12H 07/29/19 11/07/21 isosorbide mononitrate 60 mg PO DAILY 07/29/19 11/07/21 nitroglycerin [Nitrostat] 0.4 mg SUBLINGUAL Q5MIN PRN 07/29/19 11/07/21 ranolazine 1,000 mg PO Q12H 07/29/19 11/07/21 insulin lispro [Humalog U-100 See Rx Instructions .ROUTE .COMPLEX 12/04/19 11/07/21 Insulin] polyethylene glycol 3350 [Miralax] 17 g PO HS 12/04/19 11/07/21 tamsulosin 0.4 mg PO HS 12/04/19 11/07/21 pantoprazole 40 mg PO DAILY 08/03/20 11/07/21 rivaroxaban 2.5 mg tablet 2.5 mg PO .12hr tablet 11/08/20 11/07/21 Allergies Allergy/AdvReac Type Severity Reaction Status Date / Time bee venom protein (honey bee) Allergy Severe Anaphylaxis Verified 11/07/21 14:44 Cephalosporins Allergy Severe MORTGAGE LOAN CLOSER Verified 11/07/21 14:44 HIVES Penicillins Allergy Unknown unknown Verified 11/07/21 14:44 Review of Systems Review of Systems: All systems reviewed & are unremarkable except as noted in HPI and below Constitutional: Constitutional: Denies chills, Reports fatigue and Denies fever(s) ENT: Denies nasal congestion and Denies sore throat Cardiovascular: Cardiovascular: Reports chest pain, Denies rapid heart rate and Reports radiating jaw, neck or arm pain Respiratory: Respiratory: Denies cough, Denies dyspnea and Denies wheezing Gastrointestinal: Gastrointestinal: Denies abdominal pain, Denies diarrhea, Denies nausea and Denies vomiting Comments: Dark stools Genitourinary: Genitourinary: Denies dysuria and Denies urinary frequency Neurologic: Denies headache(s), Denies focal weakness and Denies numbness [facility] Past Medical History Medical History (Updated 12/08/21 @ 16:49 by Peña Cotter MD) Bacteremia (~06/2019) Streptococcus bovis bacteremia June 2019. Transesophageal echocardiogram negative for vegetation July 2019. Benign prostatic hyperplasia Bilateral carotid artery disease Chronic kidney disease Chronic obstructive pulmonary disease PFTs in November of 2017 demonstrated mild obstructive ventilatory defect with severe small airway disease with bronchodilator response moderately decreased DLCO. Complete heart block Status post dual chamber pacemaker. Congestive heart failure Echo in 09/2018 demonstrated EF of 55% but difficult study prior echos had demonstrated mildly decreased left ventricular systolic function with hypokinetic segment of left ventricle including apical mid in peers septum apical septum and mid anterior septum, diastolic dysfunction noted on prior echoes. Coronary artery disease Status post stents and CABG. Patient of Dr. Arjun Yo. Depression with anxiety Diabetic peripheral neuropathy Frequent falls Gastroesophageal reflux disease Hiatal hernia History of pacemaker Hyponatremia with decreased serum osmolality Obstructive sleep apnea on CPAP Polysomnogram June 2018 recommended CPAP with 19 cm of water. Paroxysmal atrial fibrillation Peripheral artery disease With multiple bilateral lower extremity stents June 2019. 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 Smoked 100 pack years. Pneumonia Severe pulmonary arterial systolic hypertension
[2021-12-08] MEDS: BUMETANIDE INJ 1 MG/4 ML VIAL IV PUSH (17:21)
--- NOTE | 2021-12-08 17:41 | ADMGEN ---
This patient, Ron Manuel, was admitted to IMU Room 231-01. Patient/family oriented to hospital policies and general routines including ID bracelet, bed and alarms, visiting hours, pain management, procedures, bathroom and other care routines, personal items, smoking policy, room service/diet, and visiting hours. Information on how to activate the Rapid Response Team has been discussed. Patient/Family are encouraged to report perceived risks to care and to ask questions if they do not understand what they are told or what they should do.
--- NOTE | 2021-12-08 18:34 | PM.IMHP ---
H&P: HPI History of Present Illness Date/Time: Patient was placed observation status for expected length of stay less than 23 hours for management, will plan to re-evaluate tomorrow for improvement. 12/08/21 18:34 Chief Complaint: Chest pain Narrative: Mr. Manuel is a 76-year-old gentleman who presented emergency with complaints of chest discomfort. Patient states that over the last few days he has been having chest heaviness, but last evening he started having midsternal chest discomfort that radiated down his right arm. Patient states he took 1 nitroglycerin and he did have some relief. Patient states today he began having this chest heaviness and is midsternal area again that radiated down his right arm and he had associated mild shortness of breath. Patient states he did take 3 nitroglycerin with some mild relief. Patient denies any associated nausea, vomiting, or diaphoresis. Patient states he has noted shortness of breath with activity, but he feels like this is a chronic problem at times. Patient states he was recently placed on Xarelto 15 mg b.i.d. patient states he has been taking all medications as ordered. Patient denies any weight gain or edema. Patient has a known history of atrial fibrillation, coronary artery disease status post CABG, peripheral arterial disease status post stent placement, diabetes mellitus, BPH, ischemic cardiomyopathy status post Bi V ICD, and COPD. Review of Systems Review of Systems: A 12 point review of systems was completed patient all pertinent positive and negative per HPI the remainder are unremarkable. ON LICENSE OF [facility] Past Medical History Medical History (Updated 12/08/21 @ 18:55 by Geraldine Triplett APRN) MONICA (acute kidney injury) Bacteremia (~06/2019) Streptococcus bovis bacteremia June 2019. Transesophageal echocardiogram negative for vegetation July 2019. Benign prostatic hyperplasia Bilateral carotid artery disease Chronic kidney disease Chronic obstructive pulmonary disease PFTs in November of 2017 demonstrated mild obstructive ventilatory defect with severe small airway disease with bronchodilator response moderately decreased DLCO. Complete heart block Status post dual chamber pacemaker. Congestive heart failure Echo in 09/2018 demonstrated EF of 55% but difficult study prior echos had demonstrated mildly decreased left ventricular systolic function with hypokinetic segment of left ventricle including apical mid in peers septum apical septum and mid anterior septum, diastolic dysfunction noted on prior echoes. Coronary artery disease Status post stents and CABG. Patient of Dr. Arjun Yo. Depression with anxiety Diabetic peripheral neuropathy Frequent falls Gastroesophageal reflux disease Hiatal hernia History of pacemaker Hyponatremia with decreased serum osmolality Obstructive sleep apnea on CPAP Polysomnogram June 2018 recommended CPAP with 19 cm of water. Paroxysmal atrial fibrillation Peripheral artery disease With multiple bilateral lower extremity stents June 2019. 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 Smoked 100 pack years. Pneumonia Severe pulmonary arterial systolic hypertension Noted on echocardiogram from June 2017 with RVSP of 76. Type 2 diabetes mellitus treated with insulin Hemoglobin A1c 8.1 in 05/2020. Surgical History Surgical History Biventricular cardiac pacemaker in situ Biotronik dual chamber pacemaker. History of aortic valve replacement with bioprosthetic valve (~2015) History of appendectomy Due to perforated appendix when he was young. History of bilateral carpal tunnel release History of bilateral cataract extraction History of cervical spinal surgery History of coronary artery bypass graft x 3 (~2015) At [facility] with FIGUEROA to LAD, saphenous graft to RPDA, and sequential limb to circumflex OM 2. History of repair of right
[2021-12-08 18:47] LABS: Troponin I 0.043 ng/mL (0.000-0.034)
[2021-12-09] VITALS (17 sets, daily range): BP systolic 90–112; BP diastolic 50–71; PULSE 74–105; RESP 17–22; TEMP 36.2–36.4; O2SAT 92–99
[2021-12-09] MEDS: RANOLAZINE 500 MG TAB.ER.12H 1000 MG PO ×3 (00:03→21:04)
[2021-12-09] MEDS: SACUBITRIL/VALSARTAN 49-51 MG TABLET 1 TABLET PO ×3 (00:03→21:04)
[2021-12-09] MEDS: TAMSULOSIN HCL 0.4 MG CAPSULE PO ×2 (00:03→21:04)
[2021-12-09] MEDS: carvediloL 12.5 MG TABLET PO ×2 (00:03→08:05)
[2021-12-09] MEDS: INSULIN GLARGINE (*BKC) 100 UNITS/ML 20 UNITS SUB-Q ×2 (00:04→20:25)
[2021-12-09 03:04] LABS: Glucose Point of Care 259 mg/dl (65-105)
--- NOTE | 2021-12-09 03:08 | PC.NURSE ---
Daylight Savings Time For Daylight Savings Time Ending in the Fall - Clocks are moved back. For Daylight Savings Time Beginning in the Spring - Clocks are moved ahead. For [facility], the time of change occurs at 0200 hrs. Time is taken from the gravity meter observer. This entry on the patient's chart recognizes the change in time reflected during documentation. Example: 2 entries for vital signs may be charted for 0200 hrs.
[2021-12-09 05:19] LABS: Basophils Percent Auto 0.5 % (0.2-1.2); Eosinophils Absolute Auto 0.1 K/mm3 (0-0.3); Eosinophils Percent Auto 1.5 % (0-4.4); Hematocrit 30.2 % (42.0-52.0); Hemoglobin 9.8 g/dL (14.0-18.0); Immature Granulocyte Absolute 0.03 K/mm3 (0.00-0.031); Immature Granulocyte Percent A 0.5 % (0-0.5); Lymphocytes Absolute Auto 0.91 K/mm3 (0.9-3.2); Mean Corpuscular HGB Conc 32.5 g/dl (32-36); Mean Corpuscular Hemoglobin 29.2 pg (26-34); Mean Corpuscular Volume 89.9 fl (80-100); Monocytes Absolute Auto 0.6 K/mm3 (0.1-0.6); Monocytes Percent Auto 8.8 % (2.6-8.5); Neutrophils Absolute Auto 4.9 K/mm3 (1.3-6.7); Neutrophils Percent Auto 74.7 % (45.5-73.1); Platelet Count Result 153 k/mm3 (150-375); Red Blood Count 3.36 M/mm3 (4.6-6.20); Red Cell Distribution Width 13.7 % (11.5-14.5); White Blood Count 6.5 K/mm3 (4.5-10.0)
[2021-12-09 05:27] LABS: INR 2.9; Prothrombin Time 29.4 Seconds (11.1-14.7)
[2021-12-09 05:45] LABS: Alanine Aminotransferase 20 U/L (4-50); Albumin Level 3.6 g/dL (3.5-5.1); Alkaline Phosphatase 59 U/L (38-126); Anion Gap 10 mmol/L (8-16); Aspartate Amino Transferase 31 U/L (17-59); Bilirubin,Total 1.1 mg/dL (0.2-1.3); Blood Urea Nitrogen 101 mg/dL (9-20); Calcium 7.8 mg/dL (8.4-10.2); Carbon Dioxide 26 mmol/L (22-30); Chloride 91 mmol/L (98-107); Estimated CRCL calculation 22 ml/min; Estimated Glomerular Filt Rate 22; Glucose 210 mg/dL (65-110); Potassium 3.7 mmol/L (3.4-5.0); Sodium 127 mmol/L (137-145)
[2021-12-09] MEDS: PANTOPRAZOLE 40 MG TABLET PO (08:01)
[2021-12-09] MEDS: FLUTICASONE PROPIONATE 0.05% NA SPR 16 GM BTL (*BKC) 2 SPRAY NASAL (08:02)
[2021-12-09] MEDS: BUMETANIDE INJ 1 MG/4 ML VIAL 2 MG IV PUSH (08:04)
[2021-12-09] MEDS: ATORVASTATIN 40 MG TABLET PO (08:04)
[2021-12-09] MEDS: FLUoxetine HCL 20 MG CAPSULE 40 MG PO (08:05)
[2021-12-09] MEDS: INSULIN ASPART (*BKC) 100 UNITS/ML SUB-Q ×3 (08:13→16:55)
[2021-12-09 08:27] LABS: Glucose Point of Care 201 mg/dl (65-105)
--- NOTE | 2021-12-09 11:14 | PM.CNCAR ---
Assessment and Plan Assessment and plan (1) Chest pain: Qualifiers: Chest pain type: unspecified Qualified Code(s): R07.9 - Chest pain, unspecified Code(s): R07.9 - Chest pain, unspecified Status: Acute Assessment and Plan: Patient has been having some chest pain recently occurring at rest. Some components of angina but also somewhat atypical all, although the patient is not a good historian. Troponins are flat. He does have chest wall tenderness. I do not think he has ACS or NSTEMI but musculoskeletal chest pain. I do not recommend any further cardiac evaluation. Continue usual cardiac medications. (2) Shortness of breath: Code(s): R06.02 - Shortness of breath Status: Acute Assessment and Plan: Increasing shortness of breath recently. Although the proBNP is elevated, the patient looks dry to me and I doubt this is CHF. Chest x-ray is not very impressive for significant CHF. He is getting Bumex 2 mg IV push b.i.d. --may need to go back to his usual p.o. dose soon. Will check a chest x-ray tomorrow to see if there is any change. Follow daily BMP. (3) CAD (coronary artery disease): Code(s): I25.10 - Atherosclerotic heart disease of [place] coronary artery without angina pectoris Status: Acute Assessment and Plan: Long history of CAD, [place] coronary circulation occluded, intact ORDOÑEZ to the Left anterior descending and saphenous vein graft to the PDA by catheterization in 2017. 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 Our office records show that he is taking Xarelto 2.5 mg b.i.d. Patient is confused about what dose he is really taking at home. Currently on hold due to melena. (5) Melena: Code(s): K92.1 - Melena Status: Acute Assessment and Plan: Patient reports blackish red stool. He is anemic. He was guaiac-positive in the emergency room. (6) Persistent atrial fibrillation: Code(s): I48.19 - Other persistent atrial fibrillation Status: Acute Assessment and Plan: Has persistent atrial fibrillation (7) Biventricular ICD (implantable cardioverter-defibrillator) in place: Code(s): Z95.810 - Presence of automatic (implantable) cardiac defibrillator Status: Acute Assessment and Plan: Bi V ICD is followed by Dr. Delacruz at [place]. (8) Acute kidney injury: Code(s): N17.9 - Acute kidney failure, unspecified Status: Acute Assessment and Plan: Patient's creatinine is higher than usual. His BUN is elevated as well, probably a combination of worsening kidney disease and melena. (9) Peripheral vascular disease: Code(s): I73.9 - Peripheral vascular disease, unspecified Status: Acute Assessment and Plan: Complains of sore legs, has peripheral vascular disease. Followed by Dr. Ramirez. Unable to dress with angiography due to the patient's kidney disease. History of Present Illness History of Present Illness Consult date/time: 12/09/21 11:14 Requesting physician: Peña Cotter MD Consult reason: chest pain Reason For Visit: CHF Exacerbation, Chest Pain, MONICA, HEME + Stool Narrative: Ron Manuel is a 76-year-old male whom we were asked to see at the request of Dr. Cotter for advice and opinion regarding his chest pain in consultation. He has CAD, chronic kidney disease, peripheral vascular disease. The patient is followed by Dr. Yo for is CAD and valvular heart disease. He had a CABG in 2015 and aortic valve replacement. Biotronik pacemaker implanted 03/2016, upgraded to a biventricular pacemaker 03/2021 Cardiac catheterization in 2017 showed severe small vessel disease with no lesions amenable to revascularization. (ORDOÑEZ to the Left anterior descending patent,
[2021-12-09 12:26] LABS: Glucose Point of Care 355 mg/dl (65-105)
[2021-12-09 12:26] LABS: Glucose Point of Care 347 mg/dl (65-105)
--- NOTE | 2021-12-09 13:06 | PM.IMPN ---
Progress Note: A&P Assessment and Plan (1) Anemia due to acute blood loss: Code(s): D62 - Acute posthemorrhagic anemia Status: Acute Assessment and Plan: Likely due to acute on chronic blood loss while on anticoagulation Probably a factor contributing to his worsened dyspnea and intermittent claudication Monitor H and H and transfuse as needed (2) Melena: Code(s): K92.1 - Melena Status: Acute Assessment and Plan: Hold anticoagulation and avoid antiplatelet drugs and NSAIDs Continue Protonix GI consultation (3) Chest pain: Qualifiers: Chest pain type: unspecified Qualified Code(s): R07.9 - Chest pain, unspecified Code(s): R07.9 - Chest pain, unspecified Status: Acute Assessment and Plan: Pain is somewhat atypical for angina given the random occurrence and the radiation to the right arm. However it did improve sometimes with nitroglycerin. He does have some right parasternal tenderness. (4) Elevated troponin: Code(s): R77.8 - Other specified abnormalities of plasma proteins Status: Acute Assessment and Plan: Most likely due to ischemic cardiomyopathy and chronic kidney disease. No acute coronary syndrome (5) Elevated INR: Code(s): R79.1 - Abnormal coagulation profile Status: Acute Assessment and Plan: Patient states he has been taking Xarelto 2.5 mg b.i.d.. Due to melena will hold anticoagulation and postpone substitution of anti-platelet agent (clopidogrel). (6) Acute kidney injury superimposed on chronic kidney disease: Code(s): N17.9 - Acute kidney failure, unspecified; N18.9 - Chronic kidney disease, unspecified Status: Acute Assessment and Plan: Possible due to low cardiac output, worsened anemia Improved with diuresis Continue home meds (7) CHF (congestive heart failure): Qualifiers: Heart failure type: systolic Heart failure chronicity: acute on chronic Qualified Code(s): I50.23 - Acute on chronic systolic (congestive) heart failure Code(s): I50.9 - Heart failure, unspecified Status: Acute Assessment and Plan: Does not appear acutely volume overloaded (8) Paroxysmal atrial fibrillation: Code(s): I48.0 - Paroxysmal atrial fibrillation Status: Acute Assessment and Plan: Holding anticoagulation due to melena. (9) Obstructive sleep apnea on CPAP: Code(s): G47.33 - Obstructive sleep apnea (adult) (pediatric); Z99.89 - Dependence on other enabling machines and devices Status: Chronic Assessment and Plan: CPAP while sleeping (10) Peripheral vascular disease: Code(s): I73.9 - Peripheral vascular disease, unspecified Status: Acute (11) Lung nodule: Code(s): R91.1 - Solitary pulmonary nodule Status: Acute Assessment and Plan: Pulmonology has arranged outpatient imaging and biopsy Subjective Date/time seen: 12/09/21 13:06 Interval history: Admitted December 08 with chest discomfort and shortness of breath. Known COPD, coronary artery disease, congestive heart failure, peripheral artery disease. December 08 visit. Describes shortness of breath as gradually increasing over several weeks to months. Seems to be worse with leg pain but over the last several days. Gets pain and weakness in his legs with ambulation. Similar to symptoms before revascularization procedure. Has been on Xarelto 2.5 mg twice daily. No antiplatelet therapy. Notes foul-smelling dark stools, most recently this morning. Review of Systems Review of Systems: All systems reviewed & are unremarkable except as noted in HPI and below Exam Narrative: Constitutional: Patient is well-nourished in no acute distress. Patient is alert and oriented x3 HEENT: Moist mucous membranes. No scleral icterus. No lymphadenopathy. Neck: No carotid bruits noted no JVD noted Lungs: Lung sounds are decreased to auscul
--- NOTE | 2021-12-09 14:25 | PC.NURSE ---
Received from [facility]/ via bed. Family at bedside.
--- NOTE | 2021-12-09 15:00 | PC.NURSE ---
This patient, Ron Manuel, was transferred to [[id number] ] on 12/09/21 at 1422. Personal belongings sent with patient. Report given to [ Jeanne]. Appropriate documentation sent with patient.
[2021-12-09 16:33] LABS: Glucose Point of Care 213 mg/dl (65-105)
[2021-12-09] MEDS: BUMETANIDE 1 MG TABLET PO (16:52)
[2021-12-09 19:25] LABS: Creatinine Urine 58.7 mg/dL
[2021-12-09 19:26] LABS: Creatinine Urine 59.2 mg/dL; Urea Random Urine 384 MG/DL
[2021-12-09 20:31] LABS: Glucose Point of Care 330 mg/dl (65-105)
[2021-12-09] MEDS: polyethylene glycoL 3350 17 GM POWD.PACK PO (21:03)
[2021-12-10] VITALS (7 sets, daily range): BP systolic 83–96; BP diastolic 36–48; PULSE 90–95; RESP 14–20; TEMP 36.2–36.4; O2SAT 94–100
--- NOTE | 2021-12-10 | ECHO_ITS ---
Patient Info Name: Ron Manuel Age: 76 years : 1945 Gender: Male Ht: 66 in Wt: 205 lbs BSA: 2.12 m2 HR: 90 bpm BP: 96 / 45 mmHg Heart Rhythm: Paced Technical Quality: Poor Exam Date: 12/10/2021 2:21 PM Exam Location: [facility] Pulmonary Exam Room: 256 Patient Status: Inpatient Admit Date: 12/09/2021 Staff Ordering Physician: Juan Sanon MD Cardiology Clinical Nurse Specialist: Monica Lopez RDCS Attending Provider: Luzmaria Pavon Referring Physician: Talita SCHWARTZ; Exam Type: CA echo doppler color flow Study Info Indications - chf ppm Complete two-dimensional, color flow and Doppler transthoracic echocardiogram is performed with contrast to opacify the left ventricle and to improve the deliniation of the left ventricle endocardial borders. Contrast/Agitated Saline Contrast/Ag. Saline: Definity Amount: 2.00 ml Administered By: Monica Lopez [facility] Existing IV Access: Yes IV Access Condition: patent with no signs of infiltration Reason for Poor Study: patient body habitus Summary 1. Left ventricular chamber dimension is mildly enlarged. 2. Left ventricular systolic function is moderately reduced, estimated at 35-40%. 3. Left ventricular septal wall motion is abnormal with septal motion related to pacing. 4. Left atrial chamber dimension is moderately enlarged. 5. There is mild not well visualized prosthetic aortic valve stenosis with a peak velocity of 237 cm/s, mean gradient of 13 mmHg, and aortic valve area of 1.5 cm2. 6. Normally functioning aortic bioprothesis. Left Ventricle Left ventricular chamber dimension is mildly enlarged. Left ventricular systolic function is moderately reduced, estimated at 35-40%. Left ventricular septal wall motion is abnormal with septal motion related to pacing. The left ventricular diastolic function is grade I diastolic dysfunction. Right Ventricle Right ventricular chamber dimension is normal. Left Atria Left atrial chamber dimension is moderately enlarged. Right Atria Right atrial chamber dimension is normal. Linear artifact in the right atrium suggestive of catheter(s), pacemaker lead(s), or ICD lead(s). 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 Normally functioning aortic bioprothesis. Pulmonic Valve The pulmonic valve is not well visualized. Mitral Valve The mitral valve has thickened leaflets. There is mild mitral valve regurgitation. Tricuspid Valve The tricuspid valve leaflets are not well visualized. Pericardium/Pleural The pericardium appears normal. Aorta The aortic root size at the sinus of Valsalva is normal. Left Ventricular Outflow Tract Name Value Normal LVOT 2D LVOT Diameter 2.1 cm LVOT Doppler LVOT Peak Gradient 4 mmHg LVOT Mean Gradient 3 mmHg LVOT VTI 21 cm LVOT VTI/AV VTI Ratio 0.4
[2021-12-10 05:35] LABS: Hematocrit 25.1 % (42.0-52.0); Hemoglobin 8.3 g/dL (14.0-18.0); Mean Corpuscular HGB Conc 33.1 g/dl (32-36); Mean Corpuscular Hemoglobin 28.6 pg (26-34); Mean Corpuscular Volume 86.6 fl (80-100); Mean Platelet Volume 9.2 fl (7.4-10.4); Platelet Count Result 170 k/mm3 (150-375); Red Cell Distribution Width 13.9 % (11.5-14.5); White Blood Count 6.3 K/mm3 (4.5-10.0)
[2021-12-10 05:46] LABS: INR 1.8; Prothrombin Time 20.5 Seconds (11.1-14.7)
[2021-12-10 05:59] LABS: Albumin Level 3.3 g/dL (3.5-5.1); Anion Gap 9 mmol/L (8-16); Blood Urea Nitrogen 112 mg/dL (9-20); Carbon Dioxide 26 mmol/L (22-30); Chloride 93 mmol/L (98-107); Estimated CRCL calculation 19 ml/min; Estimated Glomerular Filt Rate 19; Glucose 203 mg/dL (65-110); Phosphorus 5.5 mg/dL (2.5-4.5); Potassium 3.7 mmol/L (3.4-5.0); Sodium 128 mmol/L (137-145)
[2021-12-10 07:35] LABS: Glucose Point of Care 188 mg/dl (65-105)
[2021-12-10] MEDS: PANTOPRAZOLE 40 MG TABLET PO (09:00)
[2021-12-10] MEDS: FLUoxetine HCL 20 MG CAPSULE 40 MG PO (09:00)
[2021-12-10] MEDS: ATORVASTATIN 40 MG TABLET PO (09:00)
[2021-12-10] MEDS: carvediloL 12.5 MG TABLET PO ×2 (09:00→21:08)
[2021-12-10] MEDS: RANOLAZINE 500 MG TAB.ER.12H 1000 MG PO ×2 (09:01→21:07)
[2021-12-10] MEDS: BUMETANIDE 1 MG TABLET PO ×2 (09:01→17:53)
[2021-12-10] MEDS: SACUBITRIL/VALSARTAN 49-51 MG TABLET 1 TABLET PO ×2 (09:01→21:07)
[2021-12-10] MEDS: FLUTICASONE PROPIONATE 0.05% NA SPR 16 GM BTL (*BKC) 2 SPRAY NASAL (09:01)
[2021-12-10 11:43] LABS: Glucose Point of Care 274 mg/dl (65-105)
[2021-12-10] MEDS: INSULIN ASPART (*BKC) 100 UNITS/ML SUB-Q ×2 (11:46→17:53)
--- NOTE | 2021-12-10 11:52 | PM.IMPN ---
Progress Note: A&P Assessment and Plan (1) Anemia due to acute blood loss: Code(s): D62 - Acute posthemorrhagic anemia Status: Acute Assessment and Plan: Likely due to acute on chronic blood loss while on anticoagulation Probably a factor contributing to his worsened dyspnea and intermittent claudication Monitor H and H and transfuse as needed Hgb declined today to 8.3. (2) Melena: Code(s): K92.1 - Melena Status: Acute Assessment and Plan: Hold anticoagulation and avoid antiplatelet drugs and NSAIDs Continue Protonix GI consultation (3) Chest pain: Qualifiers: Chest pain type: unspecified Qualified Code(s): R07.9 - Chest pain, unspecified Code(s): R07.9 - Chest pain, unspecified Status: Acute Assessment and Plan: Pain is somewhat atypical for angina given the random occurrence and the radiation to the right arm. However it did improve sometimes with nitroglycerin. He does have some right parasternal tenderness. - No further cardiac workup necessary,. (4) Elevated troponin: Code(s): R77.8 - Other specified abnormalities of plasma proteins Status: Acute Assessment and Plan: Most likely due to ischemic cardiomyopathy and chronic kidney disease. No acute coronary syndrome (5) Elevated INR: Code(s): R79.1 - Abnormal coagulation profile Status: Acute Assessment and Plan: Patient states he has been taking Xarelto 2.5 mg b.i.d.. Due to melena will hold anticoagulation and postpone substitution of anti-platelet agent (clopidogrel). (6) Acute kidney injury superimposed on chronic kidney disease: Code(s): N17.9 - Acute kidney failure, unspecified; N18.9 - Chronic kidney disease, unspecified Status: Acute Assessment and Plan: Possible due to low cardiac output, worsened anemia Improved with diuresis Continue home meds (7) CHF (congestive heart failure): Qualifiers: Heart failure type: systolic Heart failure chronicity: acute on chronic Qualified Code(s): I50.23 - Acute on chronic systolic (congestive) heart failure Code(s): I50.9 - Heart failure, unspecified Status: Acute Assessment and Plan: Does not appear acutely volume overloaded (8) Paroxysmal atrial fibrillation: Code(s): I48.0 - Paroxysmal atrial fibrillation Status: Acute Assessment and Plan: Holding anticoagulation due to melena. (9) Obstructive sleep apnea on CPAP: Code(s): G47.33 - Obstructive sleep apnea (adult) (pediatric); Z99.89 - Dependence on other enabling machines and devices Status: Chronic Assessment and Plan: CPAP while sleeping (10) Peripheral vascular disease: Code(s): I73.9 - Peripheral vascular disease, unspecified Status: Acute (11) Lung nodule: Code(s): R91.1 - Solitary pulmonary nodule Status: Acute Assessment and Plan: Pulmonology has arranged outpatient imaging and biopsy Time Spent With Patient Time with patient: 15 - 25 minutes Subjective Date/time seen: 12/10/21 Pt. was seen at the bedside in interval assessment. There are no new complaints and there are no new symptoms. Chest pain is improving at this point. Cardiology has consulted and they have no new recommendations to report. In addition GI has been consulted and we are awaiting their assessment. Review of Systems Review of Systems: All systems reviewed and are otherwise negative with exception of what is noted. All systems reviewed & are unremarkable except as noted in HPI and below Exam Narrative: Constitutional: Patient is well-nourished in no acute distress. Patient is alert and oriented x3 HEENT: Moist mucous membranes. No scleral icterus. No lymphadenopathy. Neck: No carotid bruits noted no JVD noted Lungs: Lung sounds are decreased to auscultation bilaterally. No accessory muscle use. No rhonchi, rales, or wheezes noted.
--- NOTE | 2021-12-10 12:01 | WPDCDIQUERY2 ---
CDI Query Clarification Request -12/08 ER physician documented: Clinical Impression: CHF (congestive heart failure), Chest pain, MONICA (acute kidney injury), Occult GI bleeding -12/09 Cardiology documented: 5) Melena: K92.1 - Melena Assessment and Plan: Patient reports blackish red stool. He is anemic. He was guaiac-positive in the emergency room. Please clarify if GI Bleed is ruled in or ruled out or unable to determine Please specify source/site, if able to determine
[2021-12-10] MEDS: PERFLUTREN LIPID MICROSPHERES 1.5 ML VIAL DILUTED TO 10 ML TOTAL VOLUME IV PUSH (14:48)
--- NOTE | 2021-12-10 14:48 | IVDEFINITY ---
Prior to administration of IV Definity the patient was educated on the risks and benefits of the imaging enhancing agent including potential adverse side effects. The patient verbalized understanding. Allergies were verified. No exclusion criteria were identified and at least one of the following inclusion criteria were met: 1) physician request, 2) patient technically difficult to image (per the [place] [employer] guidelines of two or more segments not discernable within the apical view), or 3) questionable left ventricular function. ?
--- NOTE | 2021-12-10 15:01 | PM.CNNEP ---
Assessment and Plan Additional Plan 1. the patient has chronic kidney disease. This is felt to be due to diabetes. He had serology and immunofixation which are negative. 2. The patient has acute kidney injury. His creatinine baseline is around 2.4 and now his creatinine is above 3. He does not have any swelling and his lungs are clear. His chest x-ray is clear. His fractional excretion of urea is 18%, consistent with pre renal azotemia. the patient also has hypotension. This could also contribute to his elevated creatinine. I suspect that the patient has dehydration , which has led to his low blood pressure and both of them have made the creatinine rise. The Patient is getting a saline bolus now. He probably should get routine fluids as well. His sodium level is a little low. So we should use isotonic saline. 3. The patient has hyponatremia. This is chronic. Serum and urine osmolality are pending. Also check a serum cortisol and a TSH. There are several things that can cause this. dehydration of course can do this but his sodium has been chronically low so I doubt if he has chronically volume depleted. Cancer can do this. He had does not have a history of cancer. Pulmonary disease can do this. His chest x-ray was okay. He is also had CT of the chest which were okay. He does have a history of COPD and also a pulmonary nodule, which may contribute to the cause if he does not have a hormonal reason. PERINATAL INSTRUCTOR disease can do this. He has never had a stroke or history of any sort of brain lesion. CT brain in 2018 was negative while he was hyponatremic. Medicines can do this as well. He is on fluoxetine which can certainly cause hyponatremia. He is also on pantoprazole which can do this. He is also on Bumex which would be less likely a cause since it is so short acting. At this point will continue complete the workup for the hyponatremia. Sitter stopping the pantoprazole ( depending on how the GI bleed diagnosis goes) ,and or the fluoxetine and see if the sodium gets better. Some of this could be done as an outpatient of the sodium stays stable. 4. GI bleed. This is being evaluated. 5. Chest pain is felt to be noncardiac 6. history of congestive heart failure. This seems to be well compensated. He is on diuretics. 7. the patient has anemia from his bleeding. Last hemoglobin was 7.9. check irons and B12 History of Present Illness Reason for Consult Consult date: 12/10/21 Chief Complaint Chief complaint: CHF Exacerbation, Chest Pain, MONICA, HEME + Stool History of Present Illness Narrative: Ron is a very pleasant 76-year-old gentleman who has multiple medical problems including chronic kidney disease with a baseline creatinine of around 2.4, diabetes, coronary disease status post bypass several years ago, atrial fibrillation, BPH, ischemic cardio myopathy, COPD, GERD, hyponatremia, sleep apnea who uses a CPAP machine. The patient says that about 2 weeks ago he started having black stools. He did not think anything of it 1st. Then about 4 days ago he started having chest pains. These went on for a couple of days and then he went into the emergency room on Friday. He was evaluated in the emergency room and admitted. He started having bloody stools when he came into the hospital. Because of bright red blood per rectum, his blood thinners were held. The chest pains been have been evaluated are felt to be noncardiac. His creatinine was elevated on admission and they gave him some IV fluids but his creatinine did not improve. So renal consultation was requested. The patient has not been taking any nonsteroidal anti-inflammatory agents recently. He does take an occasional ibuprofen if he has a headache but has not taken 1 of these in the last couple of weeks. He has no bloody urine, foamy urine, kidney stones, or bladder infections. He has no swelling. Review of Systems Const
[2021-12-10 15:08] LABS: Hematocrit 24.2 % (42.0-52.0); Hemoglobin 7.9 g/dL (14.0-18.0)
[2021-12-10] MEDS: SODIUM CHLORIDE 0.9% IV 500 ML 250 ML IV CONT (15:24)
[2021-12-10 16:25] LABS: Glucose Point of Care 282 mg/dl (65-105)
[2021-12-10 16:45] LABS: Iron 35 ug/dL (49-181); Percent Iron Saturation 12 % (20-50)
--- NOTE | 2021-12-10 17:15 | WPDGICN ---
Assessment and Plan Assessment and plan (1) Anemia due to acute blood loss: Code(s): D62 - Acute posthemorrhagic anemia Status: Acute Assessment and Plan: hemoglobin trending down and had occult blood in stools and this is in setting of use of xarelto which had been discontinued (this also caused elevated inr) plan is to continue with protonix and will assess tomorrow with egd (report of some dark stools) and colonoscopy- never had one. 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 Status: Acute Assessment and Plan: on hold in setting of more anemia (4) Acute kidney injury superimposed on chronic kidney disease: Code(s): N17.9 - Acute kidney failure, unspecified; N18.9 - Chronic kidney disease, unspecified Status: Acute Assessment and Plan: by nephrology (5) Elevated INR: Code(s): R79.1 - Abnormal coagulation profile Status: Acute Assessment and Plan: xarelto on hold (6) Occult GI bleeding: Code(s): R19.5 - Other fecal abnormalities Status: Acute (7) Cardiomyopathy: Qualifiers: Cardiomyopathy type: ischemic Qualified Code(s): I25.5 - Ischemic cardiomyopathy Code(s): I42.9 - Cardiomyopathy, unspecified Status: Acute Assessment and Plan: cardiology on board (8) Diabetic peripheral neuropathy: Code(s): E11.42 - Type 2 diabetes mellitus with diabetic polyneuropathy Status: Acute (9) CAD (coronary artery disease): Code(s): I25.10 - Atherosclerotic heart disease of [place] coronary artery without angina pectoris Status: Acute GI Consult Note Consult date/time: 12/10/21 17:15 Reason for consult: acute on chronic blood loss anemia, FOBT + HPI: Ron Manuel is a 76 year old male with history of DM, GERD, CKD with creatinine ~ 2.3, CAD, s/p CABG in 2015 and aortic valve replacement, s/p pacemaker implanted 03/2016, upgraded to a biventricular pacemaker 03/2021, he is seeing cardiology because systolic heart failure and says that recently dose of his xarelto was increased. Admitted 2 days ago with worsening chest pain over the last few days described as chest heaviness with radiation down his right arm. Patient states he took 1 nitroglycerin and he did have some relief. Troponin mildly elevated but flat, cardiology on board. Also found to be more anemic and hb slowly trending down to 7.9 (baseline 11-12), creatinine 3.2. He says that had dark stools last few days and also was found to have occult blood in stools. He normally uses pantoprazole, thinks that had egd but probably over 40 years ago, never had colonoscopy. Review of Systems Constitutional: Constitutional: Denies chills Eyes: Eyes: Denies blurry vision ENT: Reports Normal hearing present Cardiovascular: Cardiovascular: Reports chest pain Respiratory: Respiratory: Denies cough Gastrointestinal: Gastrointestinal: Denies abdominal pain Genitourinary: Genitourinary: Denies dysuria Musculoskeletal: Musculoskeletal: Denies neck pain Integumentary/Breasts: Skin/Breast: Denies dry skin Neurologic: Denies headache(s) Psychiatric: Psychiatric: Denies behavioral changes [facility] Past Medical History Medical History (Updated 12/10/21 @ 17:23 by Melchor Cox MD) MONICA (acute kidney injury) Bacteremia (~06/2019) Streptococcus bovis bacteremia June 2019. Transesophageal echocardiogram negative for vegetation July 2019. Benign prostatic hyperplasia Bilateral carotid artery disease Chronic kidney disease Chronic obstructive pulmonary disease PFTs in November of 2017 demonstrated mild obstructive ventilatory defect with severe small
[2021-12-10] MEDS: SODIUM CHLORIDE 0.9% IV 1,000 ML 100 ML IV CONT (17:52)
[2021-12-10] MEDS: BISACODYL 5 MG TABLET EC 20 MG PO (17:53)
[2021-12-10] MEDS: polyethylene glycoL 3350 238 GM BOTTLE PO (18:25)
[2021-12-10 19:38] LABS: Hematocrit 25.8 % (42.0-52.0); Hemoglobin 8.3 g/dL (14.0-18.0)
[2021-12-10] MEDS: INSULIN GLARGINE (*BKC) 100 UNITS/ML 20 UNITS SUB-Q (20:59)
[2021-12-10] MEDS: polyethylene glycoL 3350 17 GM POWD.PACK PO (21:03)
[2021-12-10] MEDS: TAMSULOSIN HCL 0.4 MG CAPSULE PO (21:08)
[2021-12-10 22:17] LABS: Glucose Point of Care 353 mg/dl (65-105)
[2021-12-10 23:20] LABS: Hematocrit 26.4 % (42.0-52.0); Hemoglobin 8.4 g/dL (14.0-18.0)
[2021-12-11] VITALS (15 sets, daily range): BP systolic 89–113; BP diastolic 36–62; PULSE 71–102; RESP 18–24; TEMP 36.1–36.3; O2SAT 93–100
[2021-12-11] MEDS: MAGNESIUM CITRATE 300 ML BTL PO (02:05)
--- NOTE | 2021-12-11 03:36 | PCRCNOTE ---
Pt receiving bowel prep for a procedure tonight (12/10-12/11). Decided against wearing CPAP due to getting up and down to use the restroom.
[2021-12-11] MEDS: SODIUM CHLORIDE 0.9% IV 1,000 ML 100 ML IV CONT (04:07)
[2021-12-11 04:33] LABS: Hematocrit 22.6 % (42.0-52.0); Hemoglobin 7.4 g/dL (14.0-18.0)
[2021-12-11 07:25] LABS: Hematocrit 23.1 % (42.0-52.0); Hemoglobin 7.5 g/dL (14.0-18.0); Mean Corpuscular HGB Conc 32.5 g/dl (32-36); Mean Corpuscular Hemoglobin 29.3 pg (26-34); Mean Corpuscular Volume 90.2 fl (80-100); Mean Platelet Volume 9.2 fl (7.4-10.4); Platelet Count Result 165 k/mm3 (150-375); Red Blood Count 2.56 M/mm3 (4.6-6.20); White Blood Count 6.4 K/mm3 (4.5-10.0)
--- NOTE | 2021-12-11 07:36 | PM.PNNEP ---
Progress Note: A&P Additional Plan 1. the patient has chronic kidney disease. This is felt to be due to diabetes. He had serology and immunofixation which are negative. 2. The patient has acute kidney injury. His creatinine baseline is around 2.4 and now his creatinine is above 3. His renal ultrasound is unremarkable. His fractional excretion of urea is 18% consistent with pre renal azotemia. He does not have any swelling and his lungs are clear. He does have some wheezing and I asked the nurse to give him an inhaler. Will hold off on IV fluids for now. He received some overnight. the patient also has hypotension. This could also contribute to his elevated creatinine. I reduced the carvedilol and the Entresto. The valsartan component of the Entresto could be contributing to the high creatinine as well. Labs from today are pending. 3. The patient has hyponatremia. This is chronic. Serum and urine osmolality are pending. TSH is normal Cortisol level is a little bit low. Will check a Cortrosyn stim test. There are several things that can cause this. dehydration of course can do this but his sodium has been chronically low so I doubt if he has chronically volume depleted. Cancer can do this. He had does not have a history of cancer. Pulmonary disease can do this. His chest x-ray was okay. He is also had CT of the chest which were okay. He does have a history of COPD and also a pulmonary nodule, which may contribute to the cause if he does not have a hormonal reason. 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 He has never had a stroke or history of any sort of brain lesion. CT brain in 2018 was negative while he was hyponatremic. Medicines can do this as well. He is on fluoxetine which can certainly cause hyponatremia. He is also on pantoprazole which can do this. He is also on Bumex which would be less likely a cause since it is so short acting. Will check a Cortrosyn stim test. Will decrease the fluoxetine to10mg. 4. GI bleed. This is being evaluated. 5. anemia due to ckd and gi bleed. will start epo. T sat is only 12. B12 and folate are okay. Will give Venofer. 6. history of congestive heart failure. This seems to be well compensated. At this point he is a little dry. Will diuretics. Subjective Date/time seen: 12/11/21 07:36 Interval history: Patient is alert. He slept well. He gets short of breath with movement. Mostly wheezy. He says he is on albuterol nebulizers at home. Review of Systems Cardiovascular: Cardiovascular: Reports no additional cardiovascular complaints Respiratory: Respiratory: Reports no additional respiratory complaints Gastrointestinal: Gastrointestinal: Reports no additional gastrointestinal complaints Genitourinary: Genitourinary: Reports no additional male genitourinary complaints Exam Narrative: WDWN in NAD skin no rash head ncat lungs no crackles but he does have some wheezes. cor reg no rub abd BS+ nontender and soft ext no edema. Objective Data Vital Signs Vital Signs: Vital Signs - 24 hr 12/10/21 09:00 12/10/21 14:00 12/10/21 16:15 Temperature 36.4 C Pulse Rate 90 95 Respiratory Rate 20 Blood Pressure 83/36 L Pulse Oximetry 97 94 12/10/21 20:00 12/10/21 21:08 12/10/21 21:10 Temperature 36.4 C Pulse Rate 95 95 95 Respiratory Rate 18 18 Blood Pressure 91/48 L Pulse Oximetry 100 100 12/11/21 03:01 12/11/21 04:37 Temperature Pulse Rate 95 Respiratory Rate 18 Blood Pressure Pulse Oximetry 100 96 Intake/Output Intake/Output: Intake & Output 12/08/21 12/09/21 12/10/21 12/11/21 22:59 23:59 23:59 23:59 Intake Total 840 1050 Output Total 1200 Balance -360 1050 Meds/Results Medications: Active Medications Generic Name Dose Route Start Last Admin Trade Name Harleyq PRN Reason Stop Dose Admin Acetaminophen 650 mg 12/08/21 22:37 Acetaminophen 325 Mg Tablet PO Q4
[2021-12-11 07:37] LABS: Albumin Level 3.3 g/dL (3.5-5.1); Anion Gap 13 mmol/L (8-16); Blood Urea Nitrogen 110 mg/dL (9-20); Calcium 7.8 mg/dL (8.4-10.2); Carbon Dioxide 21 mmol/L (22-30); Chloride 95 mmol/L (98-107); Estimated CRCL calculation 17 ml/min; Estimated Glomerular Filt Rate 16; Glucose 252 mg/dL (65-110); Phosphorus 5.9 mg/dL (2.5-4.5); Potassium 4.1 mmol/L (3.4-5.0); Sodium 129 mmol/L (137-145)
[2021-12-11 07:50] LABS: Glucose Point of Care 260 mg/dl (65-105)
--- NOTE | 2021-12-11 07:56 | PC.NURSE ---
Report called to [facility] in GI lab and 0900 meds were reviewed.
[2021-12-11] MEDS: IPRATROPIUM BR 0.02% INH SOLN 0.5 MG/2.5 ML VIAL INHALATION (08:00)
[2021-12-11 08:11] LABS: INR 1.2; Prothrombin Time 15.1 Seconds (11.1-14.7)
[2021-12-11] MEDS: FLUTICASONE PROPIONATE 0.05% NA SPR 16 GM BTL (*BKC) 2 SPRAY NASAL (08:24)
[2021-12-11] MEDS: PANTOPRAZOLE SODIUM IV 40 MG VIAL IV PUSH ×2 (08:26→20:45)
[2021-12-11] MEDS: COSYNTROPIN 0.25 MG/ML VIAL IV PUSH (08:27)
[2021-12-11] MEDS: carvediloL 6.25 MG TABLET PO (08:29)
--- NOTE | 2021-12-11 08:42 | PM.PNCARD ---
Progress Note: A&P Assessment and Plan (1) Chest pain: Qualifiers: Chest pain type: unspecified Qualified Code(s): R07.9 - Chest pain, unspecified Code(s): R07.9 - Chest pain, unspecified Status: Acute Assessment and Plan: Patient has been having some chest pain recently occurring at rest. Some components of angina but also somewhat atypical. Continues to have chest wall tenderness. No further cardiac work up recommended at this time. (2) Shortness of breath: Code(s): R06.02 - Shortness of breath Status: Acute Assessment and Plan: Increasing shortness of breath recently. ? mild CHF exacerbation but looks euvolemic on exam. Could also be related to anemia -Hgb 7.4 this morning. Would probably benefit from blood transfusion. Will defer to hospitalist service. (3) CAD (coronary artery disease): Code(s): I25.10 - Atherosclerotic heart disease of [place] coronary artery without angina pectoris Status: Acute Assessment and Plan: Long history of CAD, [place] coronary circulation occluded, intact ORDOÑEZ to the Left anterior descending and saphenous vein graft to the PDA by catheterization in 2017. (4) Chronic anticoagulation: Code(s): Z79.01 - senior care (current) use of anticoagulants Status: Acute Assessment and Plan: Patient is chronically anticoagulated, I believe for his peripheral vascular disease. Our office records show that he is taking Xarelto 2.5 mg b.i.d. Patient is confused about what dose he is really taking at home. Currently on hold due to melena. (5) Melena: Code(s): K92.1 - Melena Status: Acute Assessment and Plan: Patient reports blackish red stool. He is anemic. He was guaiac-positive in the emergency room. Plan for EGD today. (6) Persistent atrial fibrillation: Code(s): I48.19 - Other persistent atrial fibrillation Status: Acute Assessment and Plan: Has persistent atrial fibrillation (7) Biventricular ICD (implantable cardioverter-defibrillator) in place: Code(s): Z95.810 - Presence of automatic (implantable) cardiac defibrillator Status: Acute Assessment and Plan: Bi V ICD is followed by Dr. Delacruz at [place]. (8) Acute kidney injury: Code(s): N17.9 - Acute kidney failure, unspecified Status: Acute Assessment and Plan: Patient's creatinine is higher than usual. His BUN is elevated as well, probably a combination of worsening kidney disease and melena. Entresto has been stopped at this point. Nephrology is following. Appreciate their recommendations. (9) Peripheral vascular disease: Code(s): I73.9 - Peripheral vascular disease, unspecified Status: Acute Assessment and Plan: Complains of sore legs, has peripheral vascular disease. Followed by Dr. Ramirez. Unable to dress with angiography due to the patient's kidney disease. Subjective Date/time seen: 12/11/21 08:42 Cardiology follow up for chest pain, CHF He is complaining of more shortness of breath today. States minimal activity causes shortness of breath and it takes him about 10 minutes of rest to recover. He does not have any chest pain this morning. Review of Systems Constitutional: Constitutional: Reports fatigue Eyes: Eyes: Reports no additional eye complaints ENT: Denies Normal hearing present Cardiovascular: Cardiovascular: Reports chest pain, Denies pedal edema, Denies leg edema, Reports lightheadedness, Denies palpitations, Reports dyspnea and Reports dyspnea on exertion Respiratory: Respiratory: Denies chest congestion, Denies cough, Reports dyspnea and Reports dyspnea on exertion Gastrointestinal: Gastrointestinal: Reports melena Genitourinary: Genitourinary: Denies dysuria Musculoskeletal: Musculoskeletal: Reports stiffness (Leg pain due to poor circulation) Integumentary/Breasts: Skin/Breast: Reports system reviewed and no addition
--- NOTE | 2021-12-11 09:02 | PM.IMPN ---
Progress Note: A&P Assessment and Plan (1) Hypotension: Code(s): I95.9 - Hypotension, unspecified Status: Acute Assessment and Plan: BP soft mostly starting yesterday. Related to the acute blood loss. IV fluids given. Will hold some of his medications. Transfuse as needed. Follow closely. Move to IMU after endoscopy. (2) Anemia due to acute blood loss: Code(s): D62 - Acute posthemorrhagic anemia Status: Acute Assessment and Plan: Baseline Hgb 10-12 range last year so suspect mild chronic anemia with now acute anemia from acute blood loss from GI bleed. Iron deficiency noted. Suspect may be contributing to his chest pain, worsened dyspnea and intermittent claudication. Hgb dropped to 7 range. IV iron ordered. Serial HH ordered. Transfuse as needed. (3) Melena: Code(s): K92.1 - Melena Status: Acute Assessment and Plan: Patient now having bright red blood per rectum with the bowel prep. Abdominal pain in the left lower quadrant. Anticoagulation stopped. Continue Protonix and change to Q12 dosing. GI consultation with plans for EGD and Colonoscopy today. (4) Acute kidney injury superimposed on chronic kidney disease: Code(s): N17.9 - Acute kidney failure, unspecified; N18.9 - Chronic kidney disease, unspecified Status: Acute Assessment and Plan: Possible due to worsened anemia and relative hypotension. Baseline creatinine about 2.3. Creatinine on admission was 3.1 and has ultimately climbed to 3.7 today. Renal ultrasound normal. Entresto dose has been decreased. Off diuretics at this time. IV fluids given for 2L. Will hold Entresto and Coreg. Nephrology has been consulted. Appreciate their input. (5) Chest pain: Qualifiers: Chest pain type: unspecified Qualified Code(s): R07.9 - Chest pain, unspecified Code(s): R07.9 - Chest pain, unspecified Status: Acute Assessment and Plan: Pain is somewhat atypical for angina given the random occurrence and the radiation to the right arm. However it did improve sometimes with nitroglycerin. He did have some right parasternal tenderness. Consider demand ischemia from his anemia. No further cardiac workup necessary. Cardiology following and appreciate their input. (6) Elevated troponin: Code(s): R77.8 - Other specified abnormalities of plasma proteins Status: Acute Assessment and Plan: Troponin to his high 0.11. Most likely due to ischemic cardiomyopathy, anemia, hypotension and chronic kidney disease. Troponin trending downward. No acute coronary syndrome. (7) Elevated INR: Code(s): R79.1 - Abnormal coagulation profile Status: Acute Assessment and Plan: Patient states he has been taking Xarelto 2.5 mg b.i.d.. INR 4.1 on admission. Xarelto was held due to elevated INR and due to GI bleed. INR is better today 1.2. Resolved. (8) CHF (congestive heart failure): Qualifiers: Heart failure chronicity: acute on chronic Heart failure type: systolic Qualified Code(s): I50.23 - Acute on chronic systolic (congestive) heart failure Code(s): I50.9 - Heart failure, unspecified Status: Acute Assessment and Plan: Patient with ischemic cardiomyopathy. Echo December 2020 showed EF 30-35%. Echo performed here showing slight improvement with EF of 35-40%. He has a normally functioning aortic bioprosthesis as well as grade 1 diastolic dysfunction. Does not appear acutely volume overloaded and chest x-ray is clear. Continue to follow clinically. (9) Paroxysmal atrial fibrillation: Code(s): I48.0 - Paroxysmal atrial fibrillation Status: Acute Assessment and Plan: Rate controlled. Patient with biventricular pacemaker and ICD in place. Holding anticoagulation due to melena. (10) Obstructive sleep apnea on CPAP: Code(s): G47.33 - Obstructive sleep apnea (adult) (pediatric); Z99
[2021-12-11 11:01] LABS: Hematocrit 22.9 % (42.0-52.0); Hemoglobin 7.4 g/dL (14.0-18.0)
[2021-12-11 11:49] LABS: Glucose Point of Care 292 mg/dl (65-105)
--- NOTE | 2021-12-11 13:15 | PC.NURSE ---
To GI Lab via stretcher. Voiding without difficulty.
--- NOTE | 2021-12-11 13:20 | PC.NURSE ---
Report called to [facility]. After EGD and Colonoscopy patient will be moved to IMU 205-01.Belongings transferred to room 205-01. Family aware.
[2021-12-11] MEDS: LACTATED RINGERS 1,000 ML 150 ML IV CONT (13:25)
[2021-12-11 13:29] LABS: Glucose Point of Care 310 mg/dl (65-105)
--- NOTE | 2021-12-11 13:49 | WPDANESEPPF ---
Anes - Initial Pre Proc Eval Procedure: Operation Date: 12/11/21 15:15 Proposed Procedures p Esophagogastroduodenoscopy & Colonoscopy - Melchor Cox MD Date/Time: 12/11/21 13:49 Surgeon: VIVIAN Garcia Pre Op Diagnosis: CHF Exacerbation, Chest Pain, MONICA, HEME + Stool Patient Data Age: 76 Gender: M Height: 1.68 m Weight: 93 kg Last Vital Signs Temp 97.0 F L 12/11/21 13:29 Pulse 92 12/11/21 13:29 Resp 22 H 12/11/21 13:29 BP 98/62 L 12/11/21 13:29 Pulse Ox 97 12/11/21 13:29 Allergies Allergy/AdvReac Type Severity Reaction Status Date / Time bee venom protein (honey bee) Allergy Severe Anaphylaxis Verified 11/07/21 14:44 Cephalosporins Allergy Severe 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 11/07/21 14:44 HIVES Penicillins Allergy Unknown unknown Verified 11/07/21 14:44 Home Medications Medication Instructions Recorded Confirmed Type atorvastatin 40 mg PO DAILY 07/29/19 12/08/21 History carvedilol [Coreg] 12.5 mg PO Q12H 07/29/19 12/08/21 History nitroglycerin [Nitrostat] 0.4 mg SUBLINGUAL Q5MIN PRN 07/29/19 12/08/21 History ranolazine 1,000 mg PO Q12H 07/29/19 12/08/21 History insulin lispro [Humalog U-100 See Rx Instructions .ROUTE .COMPLEX 12/04/19 12/08/21 History Insulin] polyethylene glycol 3350 [Miralax] 17 g PO HS 12/04/19 12/08/21 History tamsulosin 0.4 mg PO HS 12/04/19 12/08/21 History acetaminophen [Mapap 650 mg PO Q4H PRN #0 tablet 12/06/19 12/08/21 Rx (acetaminophen)] pantoprazole 40 mg PO DAILY 08/03/20 12/08/21 History bumetanide 1 mg PO BID #90 tablet 08/09/20 12/08/21 Rx Lantus U-100 Insulin 20 unit SUBCUT HS #0 ml 12/11/20 12/08/21 Rx sacubitril-valsartan [Entresto] 1 tablet PO Q12HR 30 Days #60 12/11/20 12/08/21 Rx tablet ipratropium bromide 0.02 % See Rx Instructions .ROUTE 08/30/21 12/08/21 Rx solution for inhalation .COMPLEX #360 ml fluoxetine 20 mg capsule 40 mg PO DAILY #180 cap 10/23/21 12/08/21 Rx temazepam 15 mg capsule 15 mg PO HS PRN #30 cap 10/23/21 12/08/21 Rx fluticasone propionate 50 2 spray INTRANASAL DAILY #16 g 11/07/21 12/08/21 Rx mcg/actuation nasal spray,suspension rivaroxaban [Xarelto DVT-PE Treat 15 ea PO BID 12/08/21 12/08/21 History 30d Start] Laboratory Tests 12/10/21 12/10/21 12/10/21 15:02 15:34 15:34 WBC RBC Hgb 7.9 g/dL L g/dL (14.0-18.0) Hct 24.2 % L % (42.0-52.0) MCV MCH MCHC RDW Plt Count MPV PT INR Sodium Potassium Chloride Carbon Dioxide Anion Gap BUN Creatinine Estim Creat Clear Calc Estimated GFR Glucose POC Capillary Glucose Calcium Phosphorus Iron 35 ug/dL L ug/dL (49-181) TIBC 295 ug/dL ug/dL (265-497) % Saturation 12 % L % (20-50) Ferritin 59.30 ng/mL ng/mL (11.1-264) Albumin Vitamin B12 931.0 pg/mL pg/mL (239-931) Folate 6.0 ng/mL ng/mL (2.76->20) TSH (Reflex) 2.400 uIU/mL uIU/mL (0.465-4.68) Random Cortisol Cortisol Baseline 12/10/21 12/10/21 12/10/21 15:34 16:18 19:34 WBC RBC Hgb 8.3 g/dL L g/dL (14.0-18.0) Hct 25.8 % L % (42.0-52.0) MCV MCH MCHC RDW Plt Count MPV PT INR Sodium Potassium Chloride Carbon Dioxide Anion Gap BUN Creatinine Estim Creat Clear Calc Estimated GFR Glucose POC Capillary Glucose 282 mg/dl H mg/dl (65-105) Calcium Phosphorus Iron
--- NOTE | 2021-12-11 14:01 | SUR.OPER ---
EGD ENDED AT 1356, COLONOSCOPY BEGAN AT 1402.
[2021-12-11 15:19] LABS: Glucose Point of Care 336 mg/dl (65-105)
--- NOTE | 2021-12-11 15:39 | PCOTNOTE ---
Attempted to see pt. for occupational therapy evaluation. Pt. has been away for esophagogastroduodenoscopy & colonoscopy, upon returning to room, pt. declined, and agreed to evaluation tomorrow
[2021-12-11 15:44] LABS: Hematocrit 24.5 % (42.0-52.0); Hemoglobin 7.9 g/dL (14.0-18.0)
[2021-12-11 16:39] LABS: Glucose Point of Care 338 mg/dl (65-105)
[2021-12-11] MEDS: IRON SUCROSE COMPLEX 200 MG in SODIUM CHLORIDE 0.9% IV 50 ML 120 MG IVPB (17:10)
[2021-12-11] MEDS: INSULIN ASPART (*BKC) 100 UNITS/ML SUB-Q (17:10)
[2021-12-11] MEDS: EPOETIN ALFA-EPBX 10,000 UNITS/ML VIAL 10000 UNITS SUB-Q (17:11)
[2021-12-11 20:33] LABS: Glucose Point of Care 349 mg/dl (65-105)
[2021-12-11] MEDS: INSULIN GLARGINE (*BKC) 100 UNITS/ML 20 UNITS SUB-Q (20:45)
[2021-12-11] MEDS: INSULIN ASPART (*BKC) 100 UNITS/ML 10 UNITS SUB-Q (21:01)
[2021-12-12] VITALS (17 sets, daily range): BP systolic 99–121; BP diastolic 51–74; PULSE 96–118; RESP 18–24; TEMP 36.4–36.9; O2SAT 96–100
[2021-12-12 07:43] LABS: Basophils Percent Auto 0.5 % (0.2-1.2); Eosinophils Absolute Auto 0.1 K/mm3 (0-0.3); Eosinophils Percent Auto 1.4 % (0-4.4); Hematocrit 25.2 % (42.0-52.0); Immature Granulocyte Absolute 0.06 K/mm3 (0.00-0.031); Immature Granulocyte Percent A 0.7 % (0-0.5); Lymphocytes Absolute Auto 1.45 K/mm3 (0.9-3.2); Lymphocytes Percent Auto 17.3 % (18.3-44.2); Mean Corpuscular HGB Conc 31.7 g/dl (32-36); Mean Corpuscular Hemoglobin 29.9 pg (26-34); Mean Platelet Volume 9.5 fl (7.4-10.4); Monocytes Absolute Auto 0.5 K/mm3 (0.1-0.6); Monocytes Percent Auto 6.5 % (2.6-8.5); Neutrophils Absolute Auto 6.2 K/mm3 (1.3-6.7); Neutrophils Percent Auto 73.6 % (45.5-73.1); Platelet Count Result 201 k/mm3 (150-375); Red Blood Count 2.68 M/mm3 (4.6-6.20); Red Cell Distribution Width 14.4 % (11.5-14.5); White Blood Count 8.4 K/mm3 (4.5-10.0)
[2021-12-12 07:58] LABS: Albumin Level 3.5 g/dL (3.5-5.1); Anion Gap 9 mmol/L (8-16); Blood Urea Nitrogen 107 mg/dL (9-20); Calcium 8.2 mg/dL (8.4-10.2); Carbon Dioxide 22 mmol/L (22-30); Chloride 97 mmol/L (98-107); Estimated CRCL calculation 22 ml/min; Estimated Glomerular Filt Rate 22; Glucose 164 mg/dL (65-110); Magnesium 3.1 mg/dL (1.6-2.3); Sodium 128 mmol/L (137-145)
[2021-12-12 08:06] LABS: Glucose Point of Care 155 mg/dl (65-105)
[2021-12-12] MEDS: FLUTICASONE PROPIONATE 0.05% NA SPR 16 GM BTL (*BKC) 2 SPRAY NASAL (09:35)
[2021-12-12] MEDS: ATORVASTATIN 40 MG TABLET PO (09:35)
[2021-12-12] MEDS: FLUoxetine HCL 10 MG CAPSULE PO (09:36)
[2021-12-12] MEDS: IRON SUCROSE COMPLEX 200 MG in SODIUM CHLORIDE 0.9% IV 50 ML 120 MG IVPB (09:36)
[2021-12-12] MEDS: PANTOPRAZOLE SODIUM IV 40 MG VIAL IV PUSH (09:36)
[2021-12-12] MEDS: IPRATROPIUM BR 0.02% INH SOLN 0.5 MG/2.5 ML VIAL INHALATION (10:03)
--- NOTE | 2021-12-12 10:48 | PM.PNCARD ---
Progress Note: A&P Additional Plan 76-year-old man with: Very complicated situation as detailed in every once notes. The patient is more symptomatic and his Entresto has been stopped earlier several days ago because of hypotension. The patient will do very poorly with his low ejection fraction without any Entresto on board. I am going to resume that at a lower dose of 24/26 mg daily. Start that this morning. This is not the cause of his renal insufficiency as mentioned in our notes as well as the refinery operator helper cracking unit's notes. It is a very important part of his heart failure regimen as we all conceive. Hopefully he will tolerate a lower dose without problematic hypotension. Arjun Yo MD [facility] Subjective Date/time seen: Date of service: 12/12/21 10:48 Interval history: Follow-up visit in this 76-year-old man with: Complicated problem with severe coronary disease, significant ischemic cardiomyopathy, chronic kidney disease and anemia. Patient reporting a bit more shortness of breath this morning than yesterday. Upper and lower endoscopy done yesterday did not show any apparent evidence of bleeding. Appears otherwise to be comfortable talking on the phone with his family when I enter the room to see him. Exam Narrative: Pleasant older male lying in bed in no distress Const: General: comfortable and no acute distress HENMT: General nose exam: no epistaxis Other: Hard of hearing Eyes: EOM: EOMs intact bilaterally Neck: Neck: supple Thyroid: abnormal thyroid Carotids: bruit (Bilateral carotid bruits) Lymphatic: lymphadenopathy not noted Chest: Other: The patient does have some chest wall tenderness of the left lower sternal area; he says this reproduces the pain he was having at home. Resp: Effort & Inspection: normal respiratory effort and able to speak in complete sentences Auscultation: crackles (mild crackles bilateral bases ) Cardio: Rate: regular rate Rhythm: regular rhythm Heart sounds: no murmurs GI: Inspection: non-distended Other: Patient reports some problems with mild fecal incontinence. The room smells of melena Skin: General skin exam: normal color and no rashes or lesions noted Neuro: Cranial nerves: No Normal hearing present Cognition (Neuro): normal cognition Speech: normal speech Extrem: General: no edema and no pedal edema Other: The right dorsalis pedis pulses diminished, other pedal pulses are absent Psych: Mental Status: mental status grossly normal Affect: normal affect Objective Data Vital Signs Vital Signs: Vital Signs - 24 hr 12/11/21 13:29 12/11/21 14:36 12/11/21 14:46 Temperature 36.1 C L Pulse Rate 92 84 87 Respiratory Rate 22 H 24 H 24 H Blood Pressure 98/62 L 89/36 L 113/44 L Pulse Oximetry 97 94 94 12/11/21 14:56 12/11/21 17:23 12/11/21 19:35 Temperature 36.3 C L Pulse Rate 93 95 98 Respiratory Rate 21 H 20 Blood Pressure 95/53 L 103/48 L Pulse Oximetry 99 98 97 12/11/21 20:00 12/11/21 22:00 12/11/21 22:51 Temperature 36.3 C L Pulse Rate 96 102 H Respiratory Rate 24 H 23 H Blood Pressure 101/55 L Pulse Oximetry 97 94 12/12/21 00:00 12/12/21 02:00 12/12/21 04:00 Temperature 36.4 C L 36.9 C Pulse Rate 104 H 106 H 104 H Respiratory Rate 24 H 20 Blood Pressure 99/51 L 111/62 Pulse Oximetry 97 97 12/12/21 06:00 12/12/21 07:30 12/12/21 09:50 Temperature 36.6 C Pulse Rate 99 112 H 117 H Respiratory Rate 18 20 Blood Pressure 115/57 L Pulse Oximetry 96 12/12/21 10:04 Temperature Pulse Rate 110 H Respiratory Rate 20 Blood Pressure Pulse Oximetry Intake/Output Intake/Output: Intake & Output 12/09/21 12/10/21 12/11/21 12/12/21 23:59 23:59 23:59 23:59 Intake Total 840 2710 300 Output Total 1200 850 500 Balance -360 1860 -200 Meds/Results Medications: Active Medications Generic Name Dose Route Start Last Admin Trade Name Freq PRN Reason Stop Dose Admin Acetaminophen 650 mg 12/08/21 22:3
--- NOTE | 2021-12-12 11:53 | PM.IMPN ---
Progress Note: A&P Assessment and Plan (1) Hypotension: Code(s): I95.9 - Hypotension, unspecified Status: Acute Assessment and Plan: BP soft related to the acute blood loss. IV fluids given. Some of his medications were held. Bleeding appears to have stopped. No clear source. BP more stable and medications being re-introduced. Monitor closely. (2) Anemia due to acute blood loss: Code(s): D62 - Acute posthemorrhagic anemia Status: Acute Assessment and Plan: Baseline Hgb 10-12 range last year so suspect mild chronic anemia with now acute anemia from acute blood loss from GI bleed. Iron deficiency noted. Suspect anemia may be contributing to his chest pain as demand ischemia given the low EF. Hgb dropped to 7 range but better at 8.0 today. Continue IV iron. Transfuse as needed. (3) Melena: Code(s): K92.1 - Melena Status: Acute Assessment and Plan: Patient was having bright red blood per rectum with the bowel prep. Mild abdominal pain in the left lower quadrant. Anticoagulation was stopped. EGD 12/11 showing gastritis but no ulcers. Colonoscopy 12/11 showing IH and colon polyps that were excised. Thus no signs of bleeding found. Continue Protonix for the gastritis. Will check SBFT but may need capsule study before he goes back on anticoagulation. Appreciate GI input. (4) Acute kidney injury superimposed on chronic kidney disease: Code(s): N17.9 - Acute kidney failure, unspecified; N18.9 - Chronic kidney disease, unspecified Status: Acute Assessment and Plan: Possible due to worsened anemia and relative hypotension. Baseline creatinine about 2.3. Creatinine on admission was 3.1 and climbed to 3.7. Renal ultrasound normal. Medications held. IV fluids given for 2L. Cr better today at 2.8. BUN >100 related tot he GI bleed. Nephrology consulted and appreciate their input. Resuming Entresto today. If he tolerates this well, will begin to resume some of his other home medications as renal function and blood pressure tolerate. (5) Chest pain: Qualifiers: Chest pain type: unspecified Qualified Code(s): R07.9 - Chest pain, unspecified Code(s): R07.9 - Chest pain, unspecified Status: Acute Assessment and Plan: Pain is somewhat atypical for angina given the random occurrence and the radiation to the right arm. However it did improve sometimes with nitroglycerin. He did have some right parasternal tenderness. Consider demand ischemia from his anemia. No further cardiac workup proposed at this time. Cardiology following and appreciate their input. (6) Elevated troponin: Code(s): R77.8 - Other specified abnormalities of plasma proteins Status: Acute Assessment and Plan: Troponin to his high 0.11. Most likely due to ischemic cardiomyopathy, anemia, hypotension and chronic kidney disease. Troponin trending downward. No acute coronary syndrome. (7) Elevated INR: Code(s): R79.1 - Abnormal coagulation profile Status: Acute Assessment and Plan: Patient states he has been taking Xarelto 2.5 mg b.i.d.. INR 4.1 on admission. Xarelto was held due to elevated INR and GI bleed. INR is better. Resolved. (8) CHF (congestive heart failure): Qualifiers: Heart failure type: systolic Heart failure chronicity: acute on chronic Qualified Code(s): I50.23 - Acute on chronic systolic (congestive) heart failure Code(s): I50.9 - Heart failure, unspecified Status: Acute Assessment and Plan: Patient with ischemic cardiomyopathy. Echo December 2020 showed EF 30-35%. Echo performed here showing slight improvement with EF of 35-40%. He has a normally functioning aortic bioprosthesis as well as grade 1 diastolic dysfunction. Does not appear acutely volume overloaded and chest x-ray is clear. Entresto to be resumed. As above. Continue to follow clinically. (9) Paroxysmal atrial
[2021-12-12 12:16] LABS: Glucose Point of Care 251 mg/dl (65-105)
[2021-12-12] MEDS: NITROGLYCERIN SL 0.4 MG TABLET SUBLINGUAL (12:28)
--- NOTE | 2021-12-12 12:30 | WPDGIPROGNO ---
Progress Note: A&P Assessment and Plan (1) Anemia due to acute blood loss: Code(s): D62 - Acute posthemorrhagic anemia Status: Acute Assessment and Plan: hb low but stable, scopes without signs of bleeding. 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 Status: Acute Assessment and Plan: keep on hold at least for 5 more days since I removed large colon polyps (4) Acute kidney injury superimposed on chronic kidney disease: Code(s): N17.9 - Acute kidney failure, unspecified; N18.9 - Chronic kidney disease, unspecified Status: Acute (5) Congestive heart failure: Code(s): I50.9 - Heart failure, unspecified Status: Chronic Assessment and Plan: BP running low, cardiology will resume entresto (6) Hypotension: Code(s): I95.9 - Hypotension, unspecified Status: Acute (7) Gastritis: Code(s): K29.70 - Gastritis, unspecified, without bleeding Status: Acute Assessment and Plan: on ppi, tolerating diet (8) Adenomatous colon polyp: Code(s): D12.6 - Benign neoplasm of colon, unspecified Status: Acute Assessment and Plan: colonoscopy in 1 year because polyps removed in piece-meal Subjective Date/time seen: 12/12/21 12:30 Interval history: egd with gastritis but no signs of bleeding, colonoscopy with several polyps removed. He still will have some shortness of breath. He is comfortable otherwise. Review of Systems Review of Systems: All systems reviewed & are unremarkable except as noted in HPI and below Exam Const: General: comfortable and no acute distress HENMT: General nose exam: Normal nares present Eyes: General: appearance normal, both eyes and all related structures Neck: Neck: no JVD Resp: Auscultation: clear to auscultation bilaterally Cardio: Rate: regular rate Rhythm: regular rhythm GI: Inspection: non-distended GI Palp: Yes Soft to palpation and No Guarding due to palpation present (GI) Auscultation: normal bowel sounds Skin: General skin exam: normal color Neuro: General: gait normal Speech: normal speech Extrem: General: normal to inspection Psych: Mental Status: mental status grossly normal Objective Data Vital Signs Vital Signs: Vital Signs - 24 hr 12/11/21 13:29 12/11/21 14:36 12/11/21 14:46 Temperature 97.0 F L Pulse Rate 92 84 87 Respiratory Rate 22 H 24 H 24 H Blood Pressure 98/62 L 89/36 L 113/44 L Pulse Oximetry 97 94 94 12/11/21 14:56 12/11/21 17:23 12/11/21 19:35 Temperature 97.3 F L Pulse Rate 93 95 98 Respiratory Rate 21 H 20 Blood Pressure 95/53 L 103/48 L Pulse Oximetry 99 98 97 12/11/21 20:00 12/11/21 22:00 12/11/21 22:51 Temperature 97.3 F L Pulse Rate 96 102 H Respiratory Rate 24 H 23 H Blood Pressure 101/55 L Pulse Oximetry 97 94 12/12/21 00:00 12/12/21 02:00 12/12/21 04:00 Temperature 97.5 F L 98.5 F Pulse Rate 104 H 106 H 104 H Respiratory Rate 24 H 20 Blood Pressure 99/51 L 111/62 Pulse Oximetry 97 97 12/12/21 06:00 12/12/21 07:30 12/12/21 09:50 Temperature 97.9 F Pulse Rate 99 112 H 117 H Respiratory Rate 18 20 Blood Pressure 115/57 L Pulse Oximetry 96 12/12/21 10:04 12/12/21 12:17 Temperature 98.2 F Pulse Rate 110 H 108 H Respiratory Rate 20 20 Blood Pressure 102/57 L Pulse Oximetry 97 Intake/Output Intake/Output: Intake & Output 12/09/21 12/10/21 12/11/21 12/12/21 23:59 23:59 23:59 23:59 Intake Total 840 2710 1090 Output Total 1200 850 900
[2021-12-12] MEDS: INSULIN ASPART (*BKC) 100 UNITS/ML SUB-Q ×2 (12:31→18:17)
[2021-12-12] MEDS: SACUBITRIL/VALSARTAN 24-26 MG TABLET 1 TAB PO ×2 (12:31→20:09)
--- NOTE | 2021-12-12 14:37 | PM.PNNEP ---
Progress Note: A&P Additional Plan 1. the patient has chronic kidney disease. This is felt to be due to diabetes. He had serology and immunofixation which are negative. 2. The patient has acute kidney injury. His creatinine baseline is around 2.4. it peaked at 3.7 but today it fell to 2.8. His renal ultrasound is unremarkable. His fractional excretion of urea is 18% consistent with pre renal azotemia. He does not have any swelling and his lungs are clear. off IVFs. BP is better today. continue on lower dose of carvedilol and entresto for another day then start increasing if creatinine keeps falling. 3. The patient has hyponatremia. This is chronic. Serum and urine osmolality are pending. TSH is normal Cortrosynstim test in process but initial chela was 16. 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 fluoxetine reduced to 10 already GI issue (gastritis) forces PPI to continue. we will work around this cortrosyn stim pending treating and evaluating lung issues 4. GI bleed. This is being evaluated. gastritis on EGD and polyp on colonoscopy 5. anemia due to ckd and gi bleed. will start epo. T sat is only 12. B12 and folate are okay. on Venofer. 6. history of congestive heart failure. This seems to be well compensated. holding diuretics due to MONICA Subjective Date/time seen: 12/12/21 14:37 Interval history: Patient is alert. He slept well. He gets short of breath with movement. this is his baseline he says. Exam Narrative: WDWN in NAD skin no rash or sq nodules head ncat lungs no crackles. no wheezes today. some inc in exp phase cor reg no rub or gallop abd BS+ nontender and soft ext no edema. Objective Data Vital Signs Vital Signs: Vital Signs - 24 hr 12/11/21 14:46 12/11/21 14:56 12/11/21 17:23 Temperature 36.3 C L Pulse Rate 87 93 95 Respiratory Rate 24 H 21 H 20 Blood Pressure 113/44 L 95/53 L 103/48 L Pulse Oximetry 94 99 98 12/11/21 19:35 12/11/21 20:00 12/11/21 22:00 Temperature 36.3 C L Pulse Rate 98 96 102 H Respiratory Rate 24 H Blood Pressure 101/55 L Pulse Oximetry 97 97 12/11/21 22:51 12/12/21 00:00 12/12/21 02:00 Temperature 36.4 C L Pulse Rate 104 H 106 H Respiratory Rate 23 H 24 H Blood Pressure 99/51 L Pulse Oximetry 94 97 12/12/21 04:00 12/12/21 06:00 12/12/21 07:30 Temperature 36.9 C 36.6 C Pulse Rate 104 H 99 112 H Respiratory Rate 20 18 Blood Pressure 111/62 115/57 L Pulse Oximetry 97 96 12/12/21 09:50 12/12/21 10:04 12/12/21 12:17 Temperature 36.8 C Pulse Rate 117 H 110 H 108 H Respiratory Rate 20 20 20 Blood Pressure 102/57 L Pulse Oximetry 97 12/12/21 12:47 Temperature Pulse Rate Respiratory Rate Blood Pressure 112/74 Pulse Oximetry 99 Intake/Output Intake/Output: Intake & Output 12/09/21 12/10/21 12/11/21 12/12/21 23:59 23:59 23:59 23:59 Intake Total 840 2710 1090 Output Total 1200 850 900 Balance -360 1860 190 Meds/Results Medications: Active Medications Generic Name Dose Route Start Last Admin Trade Name Freq PRN Reason Stop Dose Admin Acetaminophen 650 mg 12/08/21 22:37 Acetaminophen 325 Mg Tablet PO Q4H PRN Fever Acetaminophen 1,000 mg 12/09/21 13:38 Acetaminophen 500 Mg Tablet PO Q6H PRN mild to moderate pain Atorvastatin Calcium 40 mg 12/09/21 09:00 12/12/21 09:35 Atorvastatin 40 Mg Tablet PO 40 mg DAILY MILLIE Administration Carvedilol 6.25 mg 12/11/21 09:00 12/11/21 08:29 Carvedilol 6.25 Mg Tablet PO 6.25 mg Q12HR MLILIE Administration Dextrose 12.5 gm 12/08/21 22:44 Dextrose 50% 25 Gm/50 Ml Syringe IV PUSH PRN PRN Hypoglycemia Protocol Epoetin Jase-epbx 10,000 units 12/11
[2021-12-12] MEDS: FUROSEMIDE INJ 40 MG/4 ML VIAL IV PUSH (14:45)
--- NOTE | 2021-12-12 14:49 | PCPTNOTE ---
Attempted to see patient for physical therapy treatment, per RN HOLD for told. Patient has been very SOB so much so that he is unable to eat his lunch.
[2021-12-12 17:26] LABS: Glucose Point of Care 258 mg/dl (65-105)
[2021-12-12] MEDS: PANTOPRAZOLE 40 MG TABLET PO (20:09)
[2021-12-12] MEDS: guaiFENesin/CODEINE (*CRX) 200/20 MG 10 ML SYRUP PO (20:09)
[2021-12-12] MEDS: INSULIN GLARGINE (*BKC) 100 UNITS/ML 20 UNITS SUB-Q (20:09)
[2021-12-12 20:20] LABS: Glucose Point of Care 327 mg/dl (65-105)
[2021-12-13] VITALS (14 sets, daily range): BP systolic 95–126; BP diastolic 46–62; PULSE 92–122; RESP 18–24; TEMP 36.3–36.9; O2SAT 95–100
[2021-12-13 05:17] LABS: Osmolality, Urine 333 mOsm/kg (50-1200)
[2021-12-13 05:52] LABS: Basophils Absolute Auto 0.1 K/mm3 (0.0-0.1); Basophils Percent Auto 0.5 % (0.2-1.2); Eosinophils Absolute Auto 0.1 K/mm3 (0-0.3); Eosinophils Percent Auto 0.9 % (0-4.4); Hematocrit 24.4 % (42.0-52.0); Hemoglobin 7.8 g/dL (14.0-18.0); Immature Granulocyte Absolute 0.09 K/mm3 (0.00-0.031); Immature Granulocyte Percent A 0.9 % (0-0.5); Lymphocytes Absolute Auto 1.56 K/mm3 (0.9-3.2); Lymphocytes Percent Auto 15.6 % (18.3-44.2); Mean Corpuscular Hemoglobin 28.7 pg (26-34); Mean Corpuscular Volume 89.7 fl (80-100); Mean Platelet Volume 9.4 fl (7.4-10.4); Monocytes Absolute Auto 0.7 K/mm3 (0.1-0.6); Monocytes Percent Auto 6.5 % (2.6-8.5); Neutrophils Absolute Auto 7.6 K/mm3 (1.3-6.7); Neutrophils Percent Auto 75.6 % (45.5-73.1); Nucleated Red Blood Cells Perc 0.2 % (0.0-0.2); Platelet Count Result 251 k/mm3 (150-375); Red Blood Count 2.72 M/mm3 (4.6-6.20); Red Cell Distribution Width 14.4 % (11.5-14.5)
[2021-12-13 06:15] LABS: Alanine Aminotransferase 49 U/L (4-50); Albumin Level 3.6 g/dL (3.5-5.1); Alkaline Phosphatase 70 U/L (38-126); Anion Gap 9 mmol/L (8-16); Aspartate Amino Transferase 60 U/L (17-59); Bilirubin,Total 0.9 mg/dL (0.2-1.3); Blood Urea Nitrogen 93 mg/dL (9-20); Calcium 8.2 mg/dL (8.4-10.2); Carbon Dioxide 25 mmol/L (22-30); Chloride 95 mmol/L (98-107); Estimated CRCL calculation 28 ml/min; Estimated Glomerular Filt Rate 29; Glucose 221 mg/dL (65-110); Magnesium 3.1 mg/dL (1.6-2.3); Phosphorus 3.6 mg/dL (2.5-4.5); Potassium 4.1 mmol/L (3.4-5.0); Sodium 129 mmol/L (137-145)
[2021-12-13] MEDS: FLUoxetine HCL 10 MG CAPSULE PO (08:12)
[2021-12-13] MEDS: SACUBITRIL/VALSARTAN 24-26 MG TABLET 1 TAB PO ×2 (08:12→20:31)
[2021-12-13] MEDS: PANTOPRAZOLE 40 MG TABLET PO ×2 (08:12→20:31)
[2021-12-13] MEDS: ATORVASTATIN 40 MG TABLET PO (08:12)
[2021-12-13] MEDS: FLUTICASONE PROPIONATE 0.05% NA SPR 16 GM BTL (*BKC) 2 SPRAY NASAL (08:13)
[2021-12-13] MEDS: INSULIN ASPART (*BKC) 100 UNITS/ML SUB-Q ×3 (08:16→16:35)
[2021-12-13 08:22] LABS: Glucose Point of Care 214 mg/dl (65-105)
[2021-12-13] MEDS: IRON SUCROSE COMPLEX 200 MG in SODIUM CHLORIDE 0.9% IV 50 ML 120 MG IVPB (08:28)
--- NOTE | 2021-12-13 10:15 | PM.PNNEP ---
Progress Note: A&P Additional Plan 1. the patient has chronic kidney disease. chronic baseline is around 2.2. This is felt to be due to diabetes. He had serology and immunofixation which are negative. 2. The patient has acute kidney injury. His creatinine baseline is around 2.4. it peaked at 3.7 but today it fell to 2.2. this is his baseline. His renal ultrasound is unremarkable. His fractional excretion of urea is 18% consistent with pre renal azotemia. BP is 95 to 126. carvedilol held due to the low bp. still on entresto. with his sob, will give him some diuretics. he had a dose yesterday afternoon as well. 3. The patient has hyponatremia. This is chronic. Serum and urine osmolality are pending. TSH is normal Cortrosynstim test in process but initial chela was 16. I don't think he is adrenally insufficient. 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 fluoxetine reduced to 10 already GI issue (gastritis) forces PPI to continue. we will work around this, treating and evaluating lung issues 4. GI bleed. This is being evaluated. gastritis on EGD and polyp on colonoscopy 5. anemia due to ckd and gi bleed. will start epo. T sat is only 12. B12 and folate are okay. getting Venofer. 6. history of congestive heart failure. This seems to be well compensated. holding diuretics due to MONICA Subjective Date/time seen: 12/13/21 10:15 Interval history: Patient is alert. He slept well. He gets short of breath with any activity, today it was occupational therapy Exam Narrative: WDWN in NAD skin no rash or sq nodules head ncat lungs crackles at bases, also has inc exp phase and some wheezes. cor reg no rub or gallop abd BS+ nontender and soft ext no edema. Objective Data Vital Signs Vital Signs: Vital Signs - 24 hr 12/12/21 12:00 12/12/21 12:17 12/12/21 12:47 Temperature 36.8 C Pulse Rate 109 H 108 H Respiratory Rate 20 Blood Pressure 102/57 L 112/74 Pulse Oximetry 97 99 12/12/21 14:00 12/12/21 16:00 12/12/21 18:00 Temperature 36.8 C Pulse Rate 116 H 118 H 117 H Respiratory Rate 20 Blood Pressure 121/64 Pulse Oximetry 99 12/12/21 20:00 12/12/21 22:00 12/13/21 00:00 Temperature 36.8 C 36.9 C Pulse Rate 116 H 113 H 114 H Respiratory Rate 24 H 20 Blood Pressure 113/57 L 95/54 L Pulse Oximetry 100 99 12/13/21 02:00 12/13/21 04:00 12/13/21 05:45 Temperature 36.4 C Pulse Rate 118 H 117 H 116 H Respiratory Rate 20 Blood Pressure 104/46 L Pulse Oximetry 98 12/13/21 08:00 Temperature 36.6 C Pulse Rate 120 H Respiratory Rate 24 H Blood Pressure 126/62 Pulse Oximetry 100 Intake/Output Intake/Output: Intake & Output 12/10/21 12/11/21 12/12/21 12/13/21 23:59 23:59 23:59 23:59 Intake Total 840 2710 1510 415 Output Total 2188 416 2069 850 Balance -360 1860 360 -435 Meds/Results Medications: Active Medications Generic Name Dose Route Start Last Admin Trade Name Freq PRN Reason Stop Dose Admin Acetaminophen 650 mg 12/08/21 22:37 Acetaminophen 325 Mg Tablet PO Q4H PRN Fever Acetaminophen 1,000 mg 12/09/21 13:38 Acetaminophen 500 Mg Tablet PO Q6H PRN mild to moderate pain Atorvastatin Calcium 40 mg 12/09/21 09:00 12/13/21 08:12 Atorvastatin 40 Mg Tablet PO 40 mg DAILY [facility] Administration Dextrose 12.5 gm 12/08/21 22:44 Dextrose 50% 25 Gm/50 Ml Syringe IV PUSH PRN PRN Hypoglycemia Protocol Epoetin Jase-epbx 10,000 units 12/11/21 09:00 12/11/21 17:11 Epoetin Jase-Epbx 10,000 Units/Ml Vial SUB-Q 10,000 units TuThSa@0900 [facility] Administration Fluoxetine HCl 10 mg 12/11/21 09:00 12/13/21 08:12 Fluoxetine Hcl 10 Mg Capsule PO 10 mg DAILY [facility] Admin
[2021-12-13] MEDS: EPOETIN ALFA-EPBX 10,000 UNITS/ML VIAL 10000 UNITS SUB-Q (10:20)
--- NOTE | 2021-12-13 10:45 | PCCCNOTE ---
On 12/13/21, the student, [Penny Brandt], provided care and completed [facility] documentation on this patient. I have reviewed the student's documentation and agree with the findings.
--- NOTE | 2021-12-13 11:44 | PM.IMPN ---
Progress Note: A&P Assessment and Plan (1) Hypotension: Code(s): I95.9 - Hypotension, unspecified Status: Acute Assessment and Plan: BP soft related to the acute blood loss. IV fluids given. Some of his medications were held. Bleeding appears to have stopped. No clear source. BP more stable and medications being re-introduced. Monitor closely. (2) Anemia due to acute blood loss: Code(s): D62 - Acute posthemorrhagic anemia Status: Acute Assessment and Plan: Baseline Hgb 10-12 range last year so suspect mild chronic anemia with now acute anemia from acute blood loss from GI bleed. Iron deficiency noted. Suspect anemia may be contributing to his chest pain as demand ischemia given the low EF. Hgb dropped to 7.4 but has been stable now in the 7-8 range. Continue IV iron. Transfuse as needed. (3) Melena: Code(s): K92.1 - Melena Status: Acute Assessment and Plan: Patient was having bright red blood per rectum with the bowel prep. Mild abdominal pain in the left lower quadrant. Anticoagulation was stopped. EGD 12/11 showing gastritis but no ulcers. Colonoscopy 12/11 showing IH and colon polyps that were excised. Pathology benign. Thus no signs of bleeding found. Continue Protonix for the gastritis. SBFT ordered but may need capsule study before he goes back on anticoagulation. Appreciate GI input. (4) Acute kidney injury superimposed on chronic kidney disease: Code(s): N17.9 - Acute kidney failure, unspecified; N18.9 - Chronic kidney disease, unspecified Status: Acute Assessment and Plan: Possibly due to worsened anemia and relative hypotension. Baseline creatinine about 2.3. Creatinine on admission was 3.1 and climbed to 3.7. Renal ultrasound normal. Medications held. IV fluids given for 2L. More SOB yesterday and lasix IV once given. Cr better today at 2.2. BUN < 100 now and felt related to the GI bleed. Nephrology consulted and appreciate their input. Entresto resumed yesterday. BP stable so will add back Coreg. Contineu to add back medication as he toelrates. Given Bumex x 1 today. (5) Chest pain: Qualifiers: Chest pain type: unspecified Qualified Code(s): R07.9 - Chest pain, unspecified Code(s): R07.9 - Chest pain, unspecified Status: Acute Assessment and Plan: Pain is somewhat atypical for angina given the random occurrence and the radiation to the right arm. However it did improve sometimes with nitroglycerin. He did have some right parasternal tenderness. Consider demand ischemia from his anemia. No further cardiac workup proposed at this time. Cardiology following and appreciate their input. (6) Elevated troponin: Code(s): R77.8 - Other specified abnormalities of plasma proteins Status: Acute Assessment and Plan: Troponin to his high 0.11. Most likely due to ischemic cardiomyopathy, anemia, hypotension and chronic kidney disease. Troponin trending downward. No acute coronary syndrome. (7) Elevated INR: Code(s): R79.1 - Abnormal coagulation profile Status: Acute Assessment and Plan: Patient states he has been taking Xarelto 2.5 mg b.i.d.. INR 4.1 on admission. Xarelto was held due to elevated INR and GI bleed. INR is better. Resolved. (8) CHF (congestive heart failure): Qualifiers: Heart failure chronicity: acute on chronic Heart failure type: systolic Qualified Code(s): I50.23 - Acute on chronic systolic (congestive) heart failure Code(s): I50.9 - Heart failure, unspecified Status: Acute Assessment and Plan: Patient with ischemic cardiomyopathy. Echo December 2020 showed EF 30-35%. Echo performed here showing slight improvement with EF of 35-40%. He has a normally functioning aortic bioprosthesis as well as grade 1 diastolic dysfunction. Entresto resumed yesterday and Coreg planned today. Tolerated Lasix last night. As above. Continue
[2021-12-13 13:16] LABS: Glucose Point of Care 276 mg/dl (65-105)
[2021-12-13] MEDS: carvediloL 6.25 MG TABLET PO ×2 (13:47→20:31)
[2021-12-13] MEDS: BUMETANIDE INJ 2.5 MG/10 ML VIAL 2 MG IV PUSH (13:47)
[2021-12-13 16:34] LABS: Glucose Point of Care 255 mg/dl (65-105)
[2021-12-13] MEDS: ACETAMINOPHEN 500 MG TABLET 1000 MG PO (17:34)
[2021-12-13 19:55] LABS: Glucose Point of Care 266 mg/dl (65-105)
[2021-12-13] MEDS: polyethylene glycoL 3350 17 GM POWD.PACK PO (20:31)
[2021-12-13] MEDS: guaiFENesin/CODEINE (*CRX) 200/20 MG 10 ML SYRUP PO (20:33)
[2021-12-13] MEDS: INSULIN GLARGINE (*BKC) 100 UNITS/ML 30 UNITS SUB-Q (20:34)
[2021-12-14] VITALS (19 sets, daily range): BP systolic 98–123; BP diastolic 50–58; PULSE 91–118; RESP 16–26; TEMP 35.6–36.7; O2SAT 92–100
[2021-12-14 05:35] LABS: Hemoglobin 7.9 g/dL (14.0-18.0); Mean Corpuscular HGB Conc 31.6 g/dl (32-36); Mean Corpuscular Hemoglobin 29.7 pg (26-34); Mean Platelet Volume 9.5 fl (7.4-10.4); Platelet Count Result 234 k/mm3 (150-375); Red Blood Count 2.66 M/mm3 (4.6-6.20); Red Cell Distribution Width 14.7 % (11.5-14.5); White Blood Count 8.9 K/mm3 (4.5-10.0)
[2021-12-14 05:47] LABS: Alanine Aminotransferase 65 U/L (4-50); Albumin Level 3.5 g/dL (3.5-5.1); Alkaline Phosphatase 71 U/L (38-126); Anion Gap 7 mmol/L (8-16); Aspartate Amino Transferase 62 U/L (17-59); Bilirubin,Total 0.9 mg/dL (0.2-1.3); Blood Urea Nitrogen 97 mg/dL (9-20); Calcium 8.2 mg/dL (8.4-10.2); Carbon Dioxide 27 mmol/L (22-30); Chloride 95 mmol/L (98-107); Estimated CRCL calculation 28 ml/min; Estimated Glomerular Filt Rate 29; Glucose 221 mg/dL (65-110); Potassium 3.8 mmol/L (3.4-5.0); Sodium 129 mmol/L (137-145)
[2021-12-14 08:41] LABS: Glucose Point of Care 227 mg/dl (65-105)
--- NOTE | 2021-12-14 09:18 | PM.IMPN ---
Progress Note: A&P Assessment and Plan (1) Hypotension: Code(s): I95.9 - Hypotension, unspecified Status: Acute Assessment and Plan: BP was soft related to the acute blood loss. IV fluids given. Some of his medications were held. Bleeding appears to have stopped. Gi testing performed but no clear source of the blood loss. hgb low but stable. BP more stable and medications being re-introduced. Monitor closely. (2) Anemia due to acute blood loss: Code(s): D62 - Acute posthemorrhagic anemia Status: Acute Assessment and Plan: Baseline Hgb 10-12 range last year so suspect mild chronic anemia with now acute anemia from acute blood loss from GI bleed. Iron deficiency noted. Suspect anemia may be contributing to his chest pain as demand ischemia given the low EF. Hgb dropped to 7.4 but has been stable now in the 7-8 range. Continue IV iron. Epo added. Transfuse as needed. (3) Melena: Code(s): K92.1 - Melena Status: Acute Assessment and Plan: Patient was having melena and Guaiac positive stools in the ED. He was having bright red blood per rectum with the bowel prep. Mild abdominal pain in the left lower quadrant. Anticoagulation was stopped. On 12/11, EGD showing gastritis but no ulcers and Colonoscopy showing IH and colon polyps that were excised. Pathology benign. Thus no signs of bleeding found. Continue Protonix for the gastritis. SBFT ordered but may need capsule study before he goes back on anticoagulation. Appreciate GI input. (4) Acute kidney injury superimposed on chronic kidney disease: Code(s): N17.9 - Acute kidney failure, unspecified; N18.9 - Chronic kidney disease, unspecified Status: Acute Assessment and Plan: Possibly due to worsened anemia and relative hypotension. Baseline creatinine about 2.3. Creatinine on admission was 3.1 and climbed to 3.7. Renal ultrasound normal. Medications held. IV fluids given for 2L. Intermittent SOB treated with intermittent IV diuretics with good results. Cr better and now stable at 2.2. BUN < 100 now and felt related to the GI bleed. Nephrology consulted and appreciate their input. Entresto and Coreg added back at lower doses and tolerating. Advance Coreg today to home dose and continue to add back medications as he tolerates. (5) Chest pain: Qualifiers: Chest pain type: unspecified Qualified Code(s): R07.9 - Chest pain, unspecified Code(s): R07.9 - Chest pain, unspecified Status: Acute Assessment and Plan: Pain is somewhat atypical for angina given the random occurrence and the radiation to the right arm. However it did improve with nitroglycerin. He did have some right parasternal tenderness. Consider demand ischemia from his anemia. No further cardiac workup proposed at this time. Advancing medications as tolerated. Cardiology following and appreciate their input. (6) Elevated troponin: Code(s): R77.8 - Other specified abnormalities of plasma proteins Status: Acute Assessment and Plan: Troponin climbed to 0.11. Most likely due to ischemic cardiomyopathy, anemia, HoTN and chronic kidney disease. Troponin trending downward. No acute coronary syndrome. (7) Elevated INR: Code(s): R79.1 - Abnormal coagulation profile Status: Acute Assessment and Plan: Patient states he has been taking Xarelto 2.5 mg b.i.d.. INR 4.1 on admission. Xarelto was held due to elevated INR and GI bleed. INR is better. Resolved. (8) CHF (congestive heart failure): Qualifiers: Heart failure type: systolic Heart failure chronicity: acute on chronic Qualified Code(s): I50.23 - Acute on chronic systolic (congestive) heart failure Code(s): I50.9 - Heart failure, unspecified Status: Acute Assessment and Plan: Patient with ischemic cardiomyopathy. Echo December 2020 showed EF 30-35%. Echo performed here showing slight improvement w
[2021-12-14] MEDS: PANTOPRAZOLE 40 MG TABLET PO ×2 (09:31→20:04)
[2021-12-14] MEDS: ATORVASTATIN 40 MG TABLET PO (09:31)
[2021-12-14] MEDS: FLUTICASONE PROPIONATE 0.05% NA SPR 16 GM BTL (*BKC) 2 SPRAY NASAL (09:31)
[2021-12-14] MEDS: FLUoxetine HCL 10 MG CAPSULE PO (09:31)
[2021-12-14] MEDS: SACUBITRIL/VALSARTAN 24-26 MG TABLET 1 TAB PO ×2 (09:31→20:05)
[2021-12-14] MEDS: carvediloL 12.5 MG TABLET PO ×2 (09:32→20:04)
[2021-12-14] MEDS: EMPAGLIFLOZIN 25 MG TABLET PO (09:33)
[2021-12-14] MEDS: PSYLLIUM POWDER PACKET 1 PACKET PO (09:33)
[2021-12-14] MEDS: INSULIN ASPART (*BKC) 100 UNITS/ML SUB-Q ×3 (09:33→17:01)
[2021-12-14] MEDS: HYDROcodone/acetaminophen (*CRX) 5-325 MG TABLET 1 TAB PO (09:37)
[2021-12-14] MEDS: IRON SUCROSE COMPLEX 200 MG in SODIUM CHLORIDE 0.9% IV 50 ML 120 MG IVPB (09:37)
--- NOTE | 2021-12-14 10:08 | PM.PNCARD ---
Progress Note: A&P Assessment and Plan (1) Chest pain: Qualifiers: Chest pain type: unspecified Qualified Code(s): R07.9 - Chest pain, unspecified Code(s): R07.9 - Chest pain, unspecified Status: Acute Assessment and Plan: Patient has been having some chest pain recently occurring at rest. Some components of angina but also somewhat atypical. Continues to have chest wall tenderness. No further cardiac work up recommended at this time. (2) Shortness of breath: Code(s): R06.02 - Shortness of breath Status: Acute Assessment and Plan: Increasing shortness of breath recently. ? mild CHF exacerbation but looks euvolemic on exam. Check chest xray. Could also be related to anemia. (3) CAD (coronary artery disease): Code(s): I25.10 - Atherosclerotic heart disease of [place] coronary artery without angina pectoris Status: Acute Assessment and Plan: Long history of CAD, [place] coronary circulation occluded, intact ORDOÑEZ to the Left anterior descending and saphenous vein graft to the PDA by catheterization in 2017. (4) Cardiomyopathy: Code(s): I42.9 - Cardiomyopathy, unspecified Status: Acute Assessment and Plan: Ischemic heart disease with an EF or 35-40% by recent echo. He appears well compensated at this time. Continue medical therapy with coreg, Entresto. 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 Our office records show that he is taking Xarelto 2.5 mg b.i.d. Patient is confused about what dose he is really taking at home. Currently on hold due to melena. (6) Melena: Code(s): K92.1 - Melena Status: Acute Assessment and Plan: Patient reports blackish red stool. He is anemic. He was guaiac-positive in the emergency room. EGD earlier this week did not reveal any active bleeding. Iron infusions. (7) Persistent atrial fibrillation: Code(s): I48.19 - Other persistent atrial fibrillation Status: Acute Assessment and Plan: Has persistent atrial fibrillation (8) Biventricular ICD (implantable cardioverter-defibrillator) in place: Code(s): Z95.810 - Presence of automatic (implantable) cardiac defibrillator Status: Acute Assessment and Plan: Bi V ICD is followed by Dr. Delacruz at [place]. (9) Acute kidney injury: Code(s): N17.9 - Acute kidney failure, unspecified Status: Acute Assessment and Plan: Creatinine back to baseline at this point. Nephrology is following. (10) Peripheral vascular disease: Code(s): I73.9 - Peripheral vascular disease, unspecified Status: Acute Assessment and Plan: Complains of sore legs, has peripheral vascular disease. Followed by Dr. Ramirez. Unable to dress with angiography due to the patient's kidney disease. Subjective Date/time seen: 12/14/21 10:08 Cardiology follow up for chest pain, cardiomyopathy, shortness of breath Patient states he feels better overall today but feels more short of breath. Complains of chest discomfort which is chronic and unchanged. Receiving an iron infusion. Review of Systems Constitutional: Constitutional: Reports fatigue Eyes: Eyes: Reports no additional eye complaints ENT: Denies Normal hearing present Cardiovascular: Cardiovascular: Reports chest pain, Denies pedal edema, Denies leg edema, Reports lightheadedness, Denies palpitations, Reports dyspnea and Reports dyspnea on exertion Respiratory: Respiratory: Denies chest congestion, Denies cough, Reports dyspnea and Reports dyspnea on exertion Gastrointestinal: Gastrointestinal: Reports melena Genitourinary: Genitourinary: Denies dysuria Musculoskeletal: Musculoskeletal: Reports stiffness (Leg pain due to poor circulation) Integum
--- NOTE | 2021-12-14 10:30 | PM.PNNEP ---
Progress Note: A&P Additional Plan 1. the patient has chronic kidney disease. chronic baseline is around 2.2. This is felt to be due to diabetes. He had serology and immunofixation which are negative. 2. The patient has acute kidney injury. His creatinine baseline is around 2.4. it peaked at 3.7 but today it fell to 2.2. this is his baseline. His renal ultrasound is unremarkable. His fractional excretion of urea is 18% consistent with pre renal azotemia. 3. The patient has hyponatremia. This is chronic. Serum and urine osmolality are pending. TSH is normal Cortrosynstim test in process but initial chela was 16. I don't think he is adrenally insufficient. 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 fluoxetine reduced to 10 already. This can stop on discharge. GI issue (gastritis) forces PPI to continue. we will work around this, treating and evaluating lung issues . The lung issue is probably the major problem with the sodium. 4. GI bleed. This is being evaluated. gastritis on EGD and polyp on colonoscopy 5. anemia due to ckd and gi bleed. will start epo. T sat is only 12. B12 and folate are okay. getting Venofer. 6. history of congestive heart failure. This seems to be well compensated. holding diuretics due to MONICA Discussed with Tejal. His kidney function is back to baseline. His blood pressure is reasonable. I will let her and Dr. Yo decide about the proper doses of carvedilol and and Entrresto. Subjective Date/time seen: 12/14/21 10:30 Interval history: Patient is alert. He slept well. He says he feels a little more short of breath today. He was short of breath yesterday as well however improved by afternoon and evening. Exam Narrative: WDWN in NAD skin no rash or sq nodules head ncat lungs Clear. No wheezes. Some increase in expiratory phase. Much better air movement than yesterday. cor reg no rub or gallop abd BS+ nontender and soft ext no edema or cyanosis. Objective Data Vital Signs Vital Signs: Vital Signs - 24 hr 12/13/21 12:00 12/13/21 13:47 12/13/21 16:00 Temperature 36.6 C 36.3 C L Pulse Rate 114 H 117 H 122 H Respiratory Rate 20 18 Blood Pressure 108/55 L 117/55 L Pulse Oximetry 97 99 12/13/21 18:00 12/13/21 19:58 12/13/21 20:00 Temperature 36.4 C Pulse Rate 108 H 116 H 106 H Respiratory Rate 20 Blood Pressure 107/50 L Pulse Oximetry 95 95 12/13/21 20:31 12/13/21 22:00 12/14/21 00:00 Temperature 35.6 C L Pulse Rate 110 H 92 98 Respiratory Rate 20 Blood Pressure 98/57 L Pulse Oximetry 98 12/14/21 02:00 12/14/21 04:00 12/14/21 06:00 Temperature 35.7 C L Pulse Rate 93 102 H 102 H Respiratory Rate 20 Blood Pressure 102/58 L Pulse Oximetry 100 12/14/21 08:00 12/14/21 09:32 Temperature 36.5 C Pulse Rate 107 H 108 H Respiratory Rate 20 Blood Pressure 123/58 L Pulse Oximetry 98 Intake/Output Intake/Output: Intake & Output 12/11/21 12/12/21 12/13/21 12/14/21 23:59 23:59 23:59 23:59 Intake Total 2710 1510 955 350 Output Total 850 1150 2050 600 Balance 8716 601 -7624 -246 Meds/Results Medications: Active Medications Generic Name Dose Route Start Last Admin Trade Name Freq PRN Reason Stop Dose Admin Acetaminophen 650 mg 12/08/21 22:37 Acetaminophen 325 Mg Tablet PO Q4H PRN Fever Acetaminophen 1,000 mg 12/09/21 13:38 12/13/21 17:34 Acetaminophen 500 Mg Tablet PO 1,000 mg Q6H PRN Administration mild to moderate pain Hydrocodone Bitart/Acetaminophen 1 tab 12/13/21 18:04 12/14/21 09:37 Hydrocodone/Acetaminophen (*Crx) 5-325 Mg Tablet PO 1 tab Q6H PRN Administration Pain Rated 7-10 Albuterol 2 puff 12/13/21 14:37 Albuterol S
--- NOTE | 2021-12-14 11:31 | PC.NURSE ---
Documentation was done in error under previous nurse name. All documentation from 8 am on December 14, 2021 was performed by me, with the initials ALESSANDRO.
--- NOTE | 2021-12-14 11:45 | PCOTNOTE ---
Attempted to see patient this am, however patient refused secondary to waiting for lunch and wanting to eat first.
[2021-12-14 12:20] LABS: Glucose Point of Care 245 mg/dl (65-105)
[2021-12-14 16:33] LABS: Glucose Point of Care 264 mg/dl (65-105)
--- NOTE | 2021-12-14 17:04 | PC.NURSE ---
Patient's expressed that patient is unable to take Lasix and that he should only take Bumex as a diuretic. Rajni stated that she has already informed the technical inspector of the issue and that he is aware.
[2021-12-14] MEDS: RANOLAZINE 500 MG TAB.ER.12H 1000 MG PO (20:05)
[2021-12-14] MEDS: TAMSULOSIN HCL 0.4 MG CAPSULE PO (20:05)
[2021-12-14] MEDS: polyethylene glycoL 3350 17 GM POWD.PACK PO (20:05)
--- NOTE | 2021-12-14 20:15 | PC.NURSE ---
still in room when this RN went to see pt, she was waiting to talk to RN. She wanted to know why he was not getting the 3 breathing treatments that he does at home. RN explained that he has two listed that are from his medication list from the pharmacy and that they are PRN, so he is free to request them. RN called RT to be sure he would get them tonight. They are listed as PRN from the pharmacy as well. Pt's also unhappy that he has been getting lasix when he takes bumex at home. She is also not happy that pt was switched from [facility] since she feels Janumet does not work for him as well. She was also unhappy that pt was taken off oxygen. I explained that with COPD it could reduce his breathing drive, but she stated that she has copd and knows about oxygen. She would like to escalate her complaints as she feels like they have gone unaddressed. I told her that I would place a note on the chart for the hospitalist since I am not aware of the hospitalist schedule at this point. Pt seemed more calm when she left.
[2021-12-14] MEDS: IPRATROPIUM BR 0.02% INH SOLN 0.5 MG/2.5 ML VIAL INHALATION (20:30)
[2021-12-14] MEDS: ALBUTEROL SULFATE (*SP) AEROSOL 1 PUFF 2 PUFF INHALATION (20:30)
[2021-12-14 20:43] LABS: Glucose Point of Care 281 mg/dl (65-105)
[2021-12-14] MEDS: INSULIN GLARGINE (*BKC) 100 UNITS/ML 35 UNITS SUB-Q (20:49)
[2021-12-14] MEDS: ACETAMINOPHEN 325 MG TABLET 650 MG PO (20:50)
[2021-12-15] VITALS (13 sets, daily range): BP systolic 94–128; BP diastolic 56–80; PULSE 62–108; RESP 18–26; TEMP 35.6–36.6; O2SAT 97–100
[2021-12-15 05:08] LABS: Hematocrit 25.7 % (42.0-52.0); Mean Corpuscular HGB Conc 31.1 g/dl (32-36); Mean Corpuscular Volume 93.1 fl (80-100); Mean Platelet Volume 9.6 fl (7.4-10.4); Platelet Count Result 243 k/mm3 (150-375); Red Blood Count 2.76 M/mm3 (4.6-6.20); Red Cell Distribution Width 15.5 % (11.5-14.5); White Blood Count 8.7 K/mm3 (4.5-10.0)
[2021-12-15 05:23] LABS: Albumin Level 3.1 g/dL (3.5-5.1); Anion Gap 5 mmol/L (8-16); Blood Urea Nitrogen 92 mg/dL (9-20); Calcium 7.8 mg/dL (8.4-10.2); Carbon Dioxide 27 mmol/L (22-30); Chloride 96 mmol/L (98-107); Estimated CRCL calculation 27 ml/min; Estimated Glomerular Filt Rate 28; Glucose 247 mg/dL (65-110); Magnesium 3.1 mg/dL (1.6-2.3); Phosphorus 3.8 mg/dL (2.5-4.5); Potassium 4.2 mmol/L (3.4-5.0); Sodium 128 mmol/L (137-145)
[2021-12-15 08:14] LABS: Glucose Point of Care 216 mg/dl (65-105)
--- NOTE | 2021-12-15 10:39 | PM.PNNEP ---
Progress Note: A&P Additional Plan 1. the patient has chronic kidney disease. chronic baseline is around 2.2. This is felt to be due to diabetes. He had serology and immunofixation which are negative. 2. The patient has acute kidney injury. His creatinine baseline is around 2.4. it peaked at 3.7 and now is 2.2. He is at baseline. His renal ultrasound is unremarkable. His fractional excretion of urea is 18% consistent with pre renal azotemia. 3. The patient has hyponatremia. This is chronic. Serum and urine osmolality are Suggestive of SIADH. TSH is normal Cortrosynstim test in process but initial chela was 16. I don't think he is adrenally insufficient. 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 fluoxetine reduced to 10 already. This can stop on discharge. GI issue (gastritis) forces PPI to continue. we will work around this, treating and evaluating lung issues . The lung issue is probably the major problem with the sodium. 4. GI bleed. This is being evaluated. gastritis on EGD and polyp on colonoscopy 5. anemia due to ckd and gi bleed. 0n epo and Venofer. 6. history of congestive heart failure. This seems to be well compensated. holding diuretics due to MONICA Discussed with Tejal. His kidney function is back to baseline. His blood pressure is reasonable. I will let her and Dr. Yo decide about the proper doses of carvedilol and and Entrresto. Subjective Date/time seen: 12/15/21 10:39 Interval history: Patient is alert. He slept well. he had a good breakfast. Thing is pretty good. He is lying flat in bed Exam Narrative: WDWN in NAD skin no rash or sq nodules head ncat lungs Clear. No wheezes. Some increase in expiratory phase. cor reg no rub or gallop abd BS+ nontender and soft ext no edema. Objective Data Vital Signs Vital Signs: Vital Signs - 24 hr 12/14/21 12:00 12/14/21 16:00 12/14/21 16:36 Temperature 36.7 C 36.3 C L Pulse Rate 100 96 Respiratory Rate 20 26 H Blood Pressure 98/50 L 106/53 L Pulse Oximetry 100 100 97 12/14/21 18:00 12/14/21 19:52 12/14/21 20:00 Temperature 36.3 C L Pulse Rate 91 95 94 Respiratory Rate 16 Blood Pressure 100/57 L Pulse Oximetry 100 12/14/21 20:04 12/14/21 20:30 12/14/21 20:41 Temperature Pulse Rate 99 107 H 103 H Respiratory Rate 20 20 Blood Pressure Pulse Oximetry 12/14/21 21:14 12/14/21 22:00 12/14/21 23:19 Temperature 36.2 C L Pulse Rate 107 H 101 H 118 H Respiratory Rate 16 Blood Pressure 105/53 L Pulse Oximetry 98 94 12/14/21 23:53 12/15/21 00:00 12/15/21 02:00 Temperature Pulse Rate 102 H 98 Respiratory Rate Blood Pressure Pulse Oximetry 94 12/15/21 04:00 12/15/21 06:00 12/15/21 08:00 Temperature 36.4 C 36.6 C Pulse Rate 93 91 91 Respiratory Rate 18 24 H Blood Pressure 94/56 L 128/80 Pulse Oximetry 100 100 12/15/21 08:14 Temperature Pulse Rate 62 Respiratory Rate Blood Pressure Pulse Oximetry 97 Intake/Output Intake/Output: Intake & Output 12/12/21 12/13/21 12/14/21 12/15/21 23:59 23:59 23:59 23:59 Intake Total 3913 758 1945 780 Output Total 1150 2050 1700 950 Balance 360 -1095 -620 -170 Meds/Results Medications: Active Medications Generic Name Dose Route Start Last Admin Trade Name Harleyq PRN Reason Stop Dose Admin Acetaminophen 650 mg 12/08/21 22:37 12/14/21 20:50 Acetaminophen 325 Mg Tablet PO 650 mg Q4H PRN Administration Fever Acetaminophen 1,000 mg 12/09/21 13:38 12/13/21 17:34 Acetaminophen 500 Mg Tablet PO 1,000 mg Q6H PRN Administration mild to moderate pain Hydrocodone Bitart/Acetaminophen 1 tab 12/13/21 18:04 12/14/21 09:37 Hydrocodone/Acetaminophen (*Crx
[2021-12-15] MEDS: INSULIN ASPART (*BKC) 100 UNITS/ML SUB-Q ×3 (10:40→17:11)
[2021-12-15] MEDS: IRON SUCROSE COMPLEX 200 MG in SODIUM CHLORIDE 0.9% IV 50 ML 120 MG IVPB (10:40)
[2021-12-15] MEDS: BUMETANIDE INJ 1 MG/4 ML VIAL IV PUSH (10:41)
[2021-12-15] MEDS: PANTOPRAZOLE 40 MG TABLET PO ×2 (10:45→20:27)
[2021-12-15] MEDS: ATORVASTATIN 40 MG TABLET PO (10:45)
[2021-12-15] MEDS: RANOLAZINE 500 MG TAB.ER.12H 1000 MG PO ×2 (10:45→20:25)
[2021-12-15] MEDS: FLUTICASONE PROPIONATE 0.05% NA SPR 16 GM BTL (*BKC) 2 SPRAY NASAL (10:45)
[2021-12-15] MEDS: FLUoxetine HCL 10 MG CAPSULE PO (10:46)
[2021-12-15] MEDS: SACUBITRIL/VALSARTAN 24-26 MG TABLET 1 TAB PO ×2 (10:46→20:25)
[2021-12-15] MEDS: PSYLLIUM POWDER PACKET 1 PACKET PO (10:46)
[2021-12-15] MEDS: EPOETIN ALFA-EPBX 10,000 UNITS/ML VIAL 10000 UNITS SUB-Q (10:50)
[2021-12-15] MEDS: HYDROcodone/acetaminophen (*CRX) 5-325 MG TABLET 1 TAB PO (10:52)
--- NOTE | 2021-12-15 11:46 | PM.IMPN ---
Progress Note: A&P Assessment and Plan (1) Cardiomyopathy: Code(s): I42.9 - Cardiomyopathy, unspecified Status: Acute (2) Gastritis: Code(s): K29.70 - Gastritis, unspecified, without bleeding Status: Acute (3) Adenomatous colon polyp: Code(s): D12.6 - Benign neoplasm of colon, unspecified Status: Acute (4) Hypotension: Code(s): I95.9 - Hypotension, unspecified Status: Acute (5) Diabetic peripheral neuropathy: Code(s): E11.42 - Type 2 diabetes mellitus with diabetic polyneuropathy Status: Acute (6) Melena: Code(s): K92.1 - Melena Status: Acute (7) Peripheral vascular disease: Code(s): I73.9 - Peripheral vascular disease, unspecified Status: Acute (8) Anemia due to acute blood loss: Code(s): D62 - Acute posthemorrhagic anemia Status: Acute (9) Acute kidney injury: Code(s): N17.9 - Acute kidney failure, unspecified Status: Acute Additional Plan # acute hypoxic respiratory failure # congestive heart failure with reduced ejection fraction -currently on 1 L of oxygen by nasal cannula, wean as tolerated keep oxygen saturation greater 90% with activity -respiratory failure likely secondary to heart failure -continue Entresto 24-26 mg -will cut down Coreg dose to 6.25 mg q.12 hours to help prevent hypotension and bradycardia, currently heart rate is 60 and blood pressure stays in the 120s than occasionally will drop into the 90 systolic, this trend has been going on for last couple days. -echocardiogram 12/10/2021: Markedly reduced EF LVEF 35-40%, left ventricle septal wall motion abnormality related to pacing, aortic bioprosthesis -patient has congestion on lung exam crackles, does not use home oxygen therapy, currently on oxygen, likely secondary to fluid. Giving 1 mg Bumex x1 and will re-evaluate tomorrow -Zofran for nausea -some santana nitroglycerin p.r.n. for chest pain -p.r.n. [place], Tylenol for pain -Mucinex for cough -appreciate cardiology consult # acute kidney injury -patient has had episodes of hypotension blood pressure is going to the 90s systolic may be ATN insult to the kidneys -nephrology consulted -creatinine back to baseline 2.4 (creatinine today is 2.3) -appreciate nephrology consult -renal ultrasound is unremarkable -his fractional excretion of urea on admission was consistent with prerenal azotemia 18%. However now I believe patient may fluid overload with crackles on lung exam and dyspnea on exertion # hyponatremia -hypervolemic hyponatremia? -will give Bumex 1 mg dose and watch his sodium level as he appears clinically volume overloaded to me -sodium 128, chloride also low at 96 # anemia -secondary to acute blood loss anemia from GI bleed versus anemia of kidney disease -nephrology consulted giving Epogen Venofer -hemoglobin stable 8.0 # gastritis, GI bleed -EGD: Gastritis, biopsies pending. Colonoscopy: Multiple polyps removed otherwise no sign of bleeding, follow-up colonoscopy in 1 year because of large polyps -continue Protonix 40 mg q.12 hours, GI recommendation on EGD was once daily, will transition in a couple days if hemoglobin stable -small-bowel follow-through ordered -patient may need outpatient capsule endoscopy for further evaluation of GI bleed as EGD and colonoscopy did not find any source of bleeding -appreciate GI consult # atrial fibrillation status post biventricular ICD -persistent atrial fibrillation, rate controlled -holding anticoagulation for GI bleed, was on Xarelto at home -he follows Dr. Delacruz at [facility] # other chronic conditions -insomnia: Continue Restoril -BPH: Continue Flomax -angina, CAD, hyperlipidemia, PAD: Continue Ranexa, Lipitor -constipation: Continue MiraLax -COPD: Continue nebs p.r.n. -insulin-dependent type 2 diabetes: Continue glargine 35 units q.h.s., sliding scale insulin, Accu-Cheks a.c. HS, hypoglycemia protocol -anxiety/depression: Continue P
--- NOTE | 2021-12-15 12:15 | PM.PNCARD ---
Progress Note: A&P Assessment and Plan (1) Chest pain: Qualifiers: Chest pain type: unspecified Qualified Code(s): R07.9 - Chest pain, unspecified Code(s): R07.9 - Chest pain, unspecified Status: Acute Assessment and Plan: Patient has been having some chest pain recently occurring at rest. Some components of angina but also somewhat atypical. Continues to have chest wall tenderness. No further cardiac work up recommended at this time. (2) Shortness of breath: Code(s): R06.02 - Shortness of breath Status: Acute Assessment and Plan: Stable (3) CAD (coronary artery disease): Code(s): I25.10 - Atherosclerotic heart disease of pechanga coronary artery without angina pectoris Status: Acute Assessment and Plan: Long history of CAD, pechanga coronary circulation occluded, intact ORDOÑEZ to the Left anterior descending and saphenous vein graft to the PDA by catheterization in 2017. (4) Cardiomyopathy: Code(s): I42.9 - Cardiomyopathy, unspecified Status: Acute Assessment and Plan: Ischemic heart disease with an EF or 35-40% by recent echo. He appears well compensated at this time. Continue medical therapy with coreg, Entresto. (5) Chronic anticoagulation: Code(s): Z79.01 - USP (current) use of anticoagulants Status: Acute Assessment and Plan: Patient is chronically anticoagulated, I believe for his peripheral vascular disease. Our office records show that he is taking Xarelto 2.5 mg b.i.d. Patient is confused about what dose he is really taking at home. Currently on hold due to melena. (6) Melena: Code(s): K92.1 - Melena Status: Acute Assessment and Plan: Receiving iron (7) Persistent atrial fibrillation: Code(s): I48.19 - Other persistent atrial fibrillation Status: Acute Assessment and Plan: Has persistent atrial fibrillation (8) Biventricular ICD (implantable cardioverter-defibrillator) in place: Code(s): Z95.810 - Presence of automatic (implantable) cardiac defibrillator Status: Acute Assessment and Plan: Bi V ICD is followed by Dr. Delacruz at [place]. (9) Acute kidney injury: Code(s): N17.9 - Acute kidney failure, unspecified Status: Acute Assessment and Plan: Creatinine back to baseline at this point. Nephrology is following. (10) Peripheral vascular disease: Code(s): I73.9 - Peripheral vascular disease, unspecified Status: Acute Assessment and Plan: Complains of sore legs, has peripheral vascular disease. Followed by Dr. Ramirez. Unable to dress with angiography due to the patient's kidney disease. Subjective Date/time seen: 12/15/21 12:15 Interval history: Follow-up visit in this 76-year-old man with: Complicated problem with severe coronary disease, significant ischemic cardiomyopathy, chronic kidney disease and anemia. Date of service 12/15/2021: Feels about the same. Still short of breath. No chest pain. Resting comfortably in bed Review of Systems Constitutional: Constitutional: Reports fatigue Eyes: Eyes: Reports no additional eye complaints ENT: Denies Normal hearing present Cardiovascular: Cardiovascular: Reports chest pain, Denies pedal edema, Denies leg edema, Reports lightheadedness, Denies palpitations, Reports dyspnea and Reports dyspnea on exertion Respiratory: Respiratory: Denies chest congestion, Denies cough, Reports dyspnea and Reports dyspnea on exertion Gastrointestinal: Gastrointestinal: Reports melena Genitourinary: Genitourinary: Denies dysuria Musculoskeletal: Musculoskeletal: Reports stiffness (Leg pain due to poor circulation) Integumentary/Breasts: Skin/Breast: Reports system reviewed and no additional complaints, except as docu Neurologic: Reports system reviewed and no additional complaints, except as documented and Denies Normal hearing present Psychiatr
[2021-12-15 13:02] LABS: Glucose Point of Care 343 mg/dl (65-105)
--- NOTE | 2021-12-15 14:51 | PC.NURSE ---
This patient, Ron Manuel, was transferred to [facility] on 12/15/21 at 1440. Personal belongings sent with patient. Report given to Maren CASAS. Appropriate documentation sent with patient.
--- NOTE | 2021-12-15 14:58 | PC.NURSE ---
This patient, Ron Manuel, was received from IMU on 12/15/21 at 1440. Report received from YESSENIA Ward. Patient/family oriented to unit policies and routines
[2021-12-15 16:54] LABS: Glucose Point of Care 304 mg/dl (65-105)
[2021-12-15] MEDS: ALBUTEROL SULFATE (*SP) AEROSOL 1 PUFF 2 PUFF INHALATION (20:04)
[2021-12-15] MEDS: IPRATROPIUM BR 0.02% INH SOLN 0.5 MG/2.5 ML VIAL INHALATION (20:05)
--- NOTE | 2021-12-15 20:15 | PHAR ---
HOME MEDICATION VERIFIED BY PHARMACY: FARXIGA 10MG TABLET TAKE 1 TABLET PO EVERY MORNING [id number]
[2021-12-15] MEDS: INSULIN GLARGINE (*BKC) 100 UNITS/ML 35 UNITS SUB-Q (20:24)
[2021-12-15] MEDS: carvediloL 6.25 MG TABLET PO (20:26)
[2021-12-15] MEDS: polyethylene glycoL 3350 17 GM POWD.PACK PO (20:27)
[2021-12-15] MEDS: TAMSULOSIN HCL 0.4 MG CAPSULE PO (20:27)
[2021-12-15 20:37] LABS: Glucose Point of Care 233 mg/dl (65-105)
[2021-12-16] VITALS (16 sets, daily range): BP systolic 102–119; BP diastolic 53–71; PULSE 78–110; RESP 16–24; TEMP 36.1–36.6; O2SAT 94–100
[2021-12-16] MEDS: IPRATROPIUM BR 0.02% INH SOLN 0.5 MG/2.5 ML VIAL INHALATION ×3 (02:12→20:50)
[2021-12-16] MEDS: ALBUTEROL SULFATE (*SP) AEROSOL 1 PUFF 2 PUFF INHALATION ×2 (02:13→08:58)
[2021-12-16 06:10] LABS: Basophils Absolute Auto 0.1 K/mm3 (0.0-0.1); Basophils Percent Auto 0.5 % (0.2-1.2); Eosinophils Absolute Auto 0.1 K/mm3 (0-0.3); Eosinophils Percent Auto 1.2 % (0-4.4); Hematocrit 27.3 % (42.0-52.0); Hemoglobin 8.5 g/dL (14.0-18.0); Immature Granulocyte Absolute 0.11 K/mm3 (0.00-0.031); Immature Granulocyte Percent A 1.1 % (0-0.5); Lymphocytes Absolute Auto 1.27 K/mm3 (0.9-3.2); Lymphocytes Percent Auto 12.2 % (18.3-44.2); Mean Corpuscular HGB Conc 31.1 g/dl (32-36); Mean Corpuscular Hemoglobin 29.9 pg (26-34); Mean Corpuscular Volume 96.1 fl (80-100); Mean Platelet Volume 9.4 fl (7.4-10.4); Monocytes Absolute Auto 0.5 K/mm3 (0.1-0.6); Monocytes Percent Auto 5.1 % (2.6-8.5); Neutrophils Absolute Auto 8.3 K/mm3 (1.3-6.7); Neutrophils Percent Auto 79.9 % (45.5-73.1); Nucleated Red Blood Cells Perc 0.2 % (0.0-0.2); Platelet Count Result 256 k/mm3 (150-375); Red Blood Count 2.84 M/mm3 (4.6-6.20); Red Cell Distribution Width 16.7 % (11.5-14.5); White Blood Count 10.4 K/mm3 (4.5-10.0)
[2021-12-16 06:30] LABS: Albumin Level 3.4 g/dL (3.5-5.1); Anion Gap 8 mmol/L (8-16); Blood Urea Nitrogen 81 mg/dL (9-20); Calcium 8.1 mg/dL (8.4-10.2); Carbon Dioxide 28 mmol/L (22-30); Chloride 98 mmol/L (98-107); Estimated CRCL calculation 30 ml/min; Estimated Glomerular Filt Rate 33; Glucose 154 mg/dL (65-110); Phosphorus 3.5 mg/dL (2.5-4.5); Potassium 4.3 mmol/L (3.4-5.0); Sodium 134 mmol/L (137-145)
[2021-12-16] MEDS: carvediloL 6.25 MG TABLET PO (08:29)
[2021-12-16] MEDS: SACUBITRIL/VALSARTAN 24-26 MG TABLET 1 TAB PO ×2 (08:29→20:18)
[2021-12-16] MEDS: PSYLLIUM POWDER PACKET 1 PACKET PO (08:29)
[2021-12-16] MEDS: RANOLAZINE 500 MG TAB.ER.12H 1000 MG PO ×2 (08:29→20:18)
[2021-12-16] MEDS: FLUoxetine HCL 10 MG CAPSULE PO (08:29)
[2021-12-16] MEDS: PANTOPRAZOLE 40 MG TABLET PO ×2 (08:29→20:18)
[2021-12-16] MEDS: FLUTICASONE PROPIONATE 0.05% NA SPR 16 GM BTL (*BKC) 2 SPRAY NASAL (08:30)
[2021-12-16] MEDS: ATORVASTATIN 40 MG TABLET PO (08:30)
[2021-12-16 08:35] LABS: Glucose Point of Care 160 mg/dl (65-105)
--- NOTE | 2021-12-16 10:16 | PM.PNNEP ---
Progress Note: A&P Additional Plan 1. the patient has chronic kidney disease. chronic baseline is around 2.2. This is felt to be due to diabetes. He had serology and immunofixation which are negative. 2. The patient has acute kidney injury. his creatinine is even lower, at 2.0. Possibly because of being in the hospital and decreased creatine generation because he is in bed. His renal ultrasound is unremarkable. His fractional excretion of urea is 18% consistent with pre renal azotemia. 3. The patient has hyponatremia. This is chronic. Serum and urine osmolality are Suggestive of SIADH. TSH is normal Cortrosynstim test in process but initial chela was 16. I don't think he is adrenally insufficient. 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 fluoxetine reduced to 10 already. He has been it is 10 mg dose for a while. I think we can stop this. GI issue (gastritis) forces PPI to continue. we will work around this, treating and evaluating lung issues . The lung issue is probably the major problem with the sodium. 4. GI bleed. This is being evaluated. gastritis on EGD and polyp on colonoscopy Hemoglobin is up a little bit. 5. anemia due to ckd and gi bleed. 0n epo and Venofer. Getting a little response. 6. history of congestive heart failure. This seems to be well compensated. holding diuretics due to MONICA On moderate dose Entresto. Subjective Date/time seen: 12/16/21 10:16 Interval history: Patient is alert. He slept well. he had a good breakfast. Lying flat in bed it and breathing okay. Exam Narrative: WDWN in NAD skin no rash or sq nodules head ncat lungs Clear. cor reg no rub or gallop abd BS+ nontender and soft ext no edema Or cyanosis. Objective Data Vital Signs Vital Signs: Vital Signs - 24 hr 12/15/21 12:00 12/15/21 14:45 12/15/21 20:07 Temperature 36.3 C L 35.6 C L Pulse Rate 102 H 108 H Respiratory Rate 26 H 22 H Blood Pressure 124/72 102/65 Pulse Oximetry 98 100 99 12/15/21 20:09 12/15/21 20:20 12/15/21 20:26 Temperature Pulse Rate 84 83 98 Respiratory Rate 20 20 Blood Pressure Pulse Oximetry 12/15/21 22:00 12/16/21 02:15 12/16/21 02:23 Temperature 36.0 C L Pulse Rate 95 90 90 Respiratory Rate 20 20 20 Blood Pressure 112/67 Pulse Oximetry 100 12/16/21 06:00 12/16/21 08:00 12/16/21 08:29 Temperature 36.1 C L 36.1 C L Pulse Rate 99 107 H 90 Respiratory Rate 22 H 16 Blood Pressure 118/71 102/64 Pulse Oximetry 100 100 12/16/21 08:58 12/16/21 08:59 12/16/21 09:07 Temperature Pulse Rate 108 H 110 H Respiratory Rate 20 20 Blood Pressure Pulse Oximetry 99 Intake/Output Intake/Output: Intake & Output 12/13/21 12/14/21 12/15/21 12/16/21 23:59 23:59 23:59 23:59 Intake Total 955 1140 1660 630 Output Total 2050 1700 2050 [address] [facility], [place] -1095 [phone] -390 -370 Meds/Results Medications: Active Medications Generic Name Dose Route Start Last Admin Trade Name Freq PRN Reason Stop Dose Admin Acetaminophen 1,000 mg 12/09/21 13:38 12/13/21 17:34 Acetaminophen 500 Mg Tablet PO 1,000 mg Q6H PRN Administration mild to moderate pain Hydrocodone Bitart/Acetaminophen 1 tab 12/13/21 18:04 12/15/21 10:52 Hydrocodone/Acetaminophen (*Crx) 5-325 Mg Tablet PO 1 tab Q6H PRN Administration Pain Rated 7-10 Albuterol 2 puff 12/15/21 20:00 12/16/21 08:58 Albuterol Sulfate (*Sp) Aerosol 1 Puff INHALATION 2 puff Q6HRT MILLIE Administration Atorvastatin Calcium 40 mg 12/09/21 09:00 12/16/21 08:30 Atorvastatin 40 Mg Tablet PO 40 mg DAILY MILLIE Administration Carvedilol 6.25 mg 12/15/21 21:00 12/16/21 08:29 Carvedilol 6.25 Mg Tablet PO 6.25 mg Q12HR MILLIE
[2021-12-16 11:59] LABS: Glucose Point of Care 260 mg/dl (65-105)
[2021-12-16] MEDS: INSULIN ASPART (*BKC) 100 UNITS/ML SUB-Q ×2 (12:16→17:21)
--- NOTE | 2021-12-16 12:21 | PM.PNCARD ---
Progress Note: A&P Assessment and Plan (1) Chest pain: Qualifiers: Chest pain type: unspecified Qualified Code(s): R07.9 - Chest pain, unspecified Code(s): R07.9 - Chest pain, unspecified Status: Acute Assessment and Plan: Patient has been having some chest pain recently occurring at rest. Some components of angina but also somewhat atypical. Continues to have chest wall tenderness. No further cardiac work up recommended at this time. (2) Shortness of breath: Code(s): R06.02 - Shortness of breath Status: Acute Assessment and Plan: Stable (3) CAD (coronary artery disease): Code(s): I25.10 - Atherosclerotic heart disease of [place] coronary artery without angina pectoris Status: Acute Assessment and Plan: Long history of CAD, [place] coronary circulation occluded, intact ORDOÑEZ to the Left anterior descending and saphenous vein graft to the PDA by catheterization in 2017. (4) Cardiomyopathy: Code(s): I42.9 - Cardiomyopathy, unspecified Status: Acute Assessment and Plan: Ischemic heart disease with an EF or 35-40% by recent echo. He appears well compensated at this time. Continue medical therapy with coreg, Entresto. Will increase his carvedilol to 12.5 mg p.o. b.i.d. (5) Chronic anticoagulation: Code(s): Z79.01 - nursing home (current) use of anticoagulants Status: Acute Assessment and Plan: Patient is chronically anticoagulated, I believe for his peripheral vascular disease. According to patient's , Dr. Delacruz did put him on 15 mg daily of Xarelto. (6) Melena: Code(s): K92.1 - Melena Status: Acute Assessment and Plan: Receiving iron (7) Persistent atrial fibrillation: Code(s): I48.19 - Other persistent atrial fibrillation Status: Acute Assessment and Plan: Has persistent atrial fibrillation (8) Biventricular ICD (implantable cardioverter-defibrillator) in place: Code(s): Z95.810 - Presence of automatic (implantable) cardiac defibrillator Status: Acute Assessment and Plan: Bi V ICD is followed by Dr. Delacruz at [place]. (9) Acute kidney injury: Code(s): N17.9 - Acute kidney failure, unspecified Status: Acute Assessment and Plan: Creatinine back to baseline at this point. Nephrology is following. (10) Peripheral vascular disease: Code(s): I73.9 - Peripheral vascular disease, unspecified Status: Acute Assessment and Plan: Complains of sore legs, has peripheral vascular disease. Followed by Dr. Ramirez. Unable to dress with angiography due to the patient's kidney disease. Subjective Date/time seen: 12/16/21 12:21 Interval history: Follow-up visit in this 76-year-old man with: Complicated problem with severe coronary disease, significant ischemic cardiomyopathy, chronic kidney disease and anemia. Date of service 12/15/2021: Feels about the same. Still short of breath. No chest pain. Resting comfortably in bed Date of service 12/16/2021: Short of breath at rest. No chest pain. at bedside was clearly frustrated by several things during this hospitalization including issues about medications not being supplied by pharmacy, diet, IV fluids being given etc.. I did talk to her extensively and seem to calm her down. supervisor plate forming and charge nurse to also see her and patient Review of Systems Constitutional: Constitutional: Reports fatigue Eyes: Eyes: Reports no additional eye complaints ENT: Denies Normal hearing present Cardiovascular: Cardiovascular: Reports chest pain, Denies pedal edema, Denies leg edema, Reports lightheadedness, Denies palpitations, Reports dyspnea and Reports dyspnea on exertion Respiratory: Respiratory: Denies chest congestion, Denies cough, Reports dyspnea and Reports dyspnea on exertion Gastrointestinal: Gastrointestinal: Reports melena Genitourinary: Genitourinary: D
--- NOTE | 2021-12-16 14:33 | PM.IMPN ---
Progress Note: A&P Assessment and Plan (1) Cardiomyopathy: Code(s): I42.9 - Cardiomyopathy, unspecified Status: Acute (2) Gastritis: Code(s): K29.70 - Gastritis, unspecified, without bleeding Status: Acute (3) Hypotension: Code(s): I95.9 - Hypotension, unspecified Status: Acute (4) Diabetic peripheral neuropathy: Code(s): E11.42 - Type 2 diabetes mellitus with diabetic polyneuropathy Status: Acute (5) Anemia due to acute blood loss: Code(s): D62 - Acute posthemorrhagic anemia Status: Acute (6) Melena: Code(s): K92.1 - Melena Status: Acute (7) Peripheral vascular disease: Code(s): I73.9 - Peripheral vascular disease, unspecified Status: Acute Additional Plan # acute hypoxic respiratory failure # congestive heart failure with reduced ejection fraction -he has been weaned to room air -continue Entresto 24-26 mg -cardiology increase Coreg back to 12.5 mg dosing -echocardiogram 12/10/2021: Markedly reduced EF LVEF 35-40%, left ventricle septal wall motion abnormality related to pacing, aortic bioprosthesis -Zofran for nausea -p.r.n. [place], Tylenol for pain -appreciate cardiology consult -does not appear to require home oxygen therapy, however may patient to be on oxygen # acute kidney injury, resolved -patient has had episodes of hypotension blood pressure is going to the 90s systolic may be ATN insult to the kidneys -nephrology consulted -creatinine back to baseline 2.4 (creatinine today is 2.0) -appreciate nephrology consult -renal ultrasound is unremarkable # hyponatremia, resolved -hypervolemic hyponatremia, improved with diuretic -sodium stable 134 # anemia -secondary to acute blood loss anemia from GI bleed versus anemia of kidney disease -nephrology consulted giving Epogen Venofer -hemoglobin stable 8.0 # gastritis, GI bleed -EGD: Gastritis, biopsies pending. Colonoscopy: Multiple polyps removed otherwise no sign of bleeding, follow-up colonoscopy in 1 year because of large polyps -continue Protonix 40 mg q.12 hours, GI recommendation on EGD was once daily, will transition in a couple days if hemoglobin stable -small-bowel follow-through ordered -patient may need outpatient capsule endoscopy for further evaluation of GI bleed as EGD and colonoscopy did not find any source of bleeding -appreciate GI consult # atrial fibrillation status post biventricular ICD -persistent atrial fibrillation, rate controlled -holding anticoagulation for GI bleed, was on Xarelto at home -he follows Dr. Delacruz at [facility] # other chronic conditions -insomnia: Continue Restoril -BPH: Continue Flomax -angina, CAD, hyperlipidemia, PAD: Continue Ranexa, Lipitor -constipation: Continue MiraLax -COPD: Continue nebs p.r.n. -insulin-dependent type 2 diabetes: Continue glargine 35 units q.h.s., sliding scale insulin, Accu-Cheks a.c. HS, hypoglycemia protocol -anxiety/depression: Continue Prozac, plan to wean off? -aortic valve replacement: Will need to assess GI bleed before restarting anticoagulation. Echocardiogram shows normal functioning aortic bioprosthesis Diet: Heart healthy, diabetic diet with fluid restriction DVT prophylaxis: SCDs GI bleed concern (was on Xarelto at home) Code status: Full code Disposition: maybe home tomorrow, he is progressing back to baseline Social: updated 12/16/2021, she would like daily updates Time Spent With Patient Time with patient: 15 - 25 minutes Subjective Date/time seen: 12/16/21 14:33 Patient seen examined. He is doing well no new complaints, no overnight events. is very upset that patient was removed off oxygen despite being 100% SpO2. She was also upset about the fluid restriction despite having heart failure. Cardiology recommended continue monitoring patient, we will monitor patient for another 24 hours. He appears to be euvolemic. Home O2 evaluation today. Patient denies fever, chills, naus
[2021-12-16 16:55] LABS: Glucose Point of Care 228 mg/dl (65-105)
--- NOTE | 2021-12-16 17:00 | PC.NURSE ---
This nurse during rounds, discussed with current hospital stay. Per and patient, they would like oxygen applied at 1 LPM/NC at all times for comfort. Oxygen applied. Provider and respiratory made aware. concerned with nebulizer scheduling. Noted that nebulized medication are on a Q6H schedule. concerned with breakfast selections that have been brought on trays in the past. encouraged to pre-order meals to accommodate dietary preferences. noted has pre-ordered meals in advance. had no questions or concerns post discussion.
[2021-12-16 19:34] LABS: Glucose Point of Care 263 mg/dl (65-105)
[2021-12-16] MEDS: INSULIN GLARGINE (*BKC) 100 UNITS/ML 35 UNITS SUB-Q (20:16)
[2021-12-16] MEDS: TAMSULOSIN HCL 0.4 MG CAPSULE PO (20:18)
[2021-12-16] MEDS: carvediloL 12.5 MG TABLET PO (20:18)
[2021-12-16] MEDS: polyethylene glycoL 3350 17 GM POWD.PACK PO (20:19)
[2021-12-16] MEDS: ALBUTEROL SULFATE NEB 2.5 MG/0.5 ML INH INHALATION (20:40)
[2021-12-17] VITALS (17 sets, daily range): BP systolic 78–112; BP diastolic 46–62; PULSE 70–121; RESP 18–26; TEMP 35.8–37.7; O2SAT 85–100
[2021-12-17] MEDS: ALBUTEROL SULFATE NEB 2.5 MG/0.5 ML INH INHALATION ×4 (02:10→21:00)
[2021-12-17] MEDS: IPRATROPIUM BR 0.02% INH SOLN 0.5 MG/2.5 ML VIAL INHALATION ×4 (02:10→21:00)
[2021-12-17] MEDS: ONDANSETRON INJ 4 MG/2 ML VIAL IV PUSH (02:27)
[2021-12-17 05:56] LABS: Hematocrit 25.5 % (42.0-52.0); Hemoglobin 8.1 g/dL (14.0-18.0); Mean Corpuscular HGB Conc 31.8 g/dl (32-36); Mean Corpuscular Hemoglobin 30.1 pg (26-34); Mean Corpuscular Volume 94.8 fl (80-100); Mean Platelet Volume 9.4 fl (7.4-10.4); Platelet Count Result 243 k/mm3 (150-375); Red Blood Count 2.69 M/mm3 (4.6-6.20); Red Cell Distribution Width 17.6 % (11.5-14.5); White Blood Count 10.4 K/mm3 (4.5-10.0)
[2021-12-17 06:12] LABS: Albumin Level 3.6 g/dL (3.5-5.1); Anion Gap 7 mmol/L (8-16); Blood Urea Nitrogen 76 mg/dL (9-20); Calcium 8.3 mg/dL (8.4-10.2); Carbon Dioxide 28 mmol/L (22-30); Chloride 100 mmol/L (98-107); Estimated CRCL calculation 30 ml/min; Estimated Glomerular Filt Rate 33; Glucose 199 mg/dL (65-110); Phosphorus 3.4 mg/dL (2.5-4.5); Potassium 4.9 mmol/L (3.4-5.0); Sodium 135 mmol/L (137-145)
[2021-12-17 07:43] LABS: Glucose Point of Care 176 mg/dl (65-105)
--- NOTE | 2021-12-17 10:59 | PCRCNOTE ---
HOME O2 EVAL COMPLETED ON FRIDAY BY RT. PT DID NOT QUALIFY FOR HOME O2.
--- NOTE | 2021-12-17 11:16 | PM.IMPN ---
Progress Note: A&P Assessment and Plan (1) Hypotension: Code(s): I95.9 - Hypotension, unspecified Status: Acute Assessment and Plan: BP was soft related to the acute blood loss. IV fluids given. Some of his medications were held. Bleeding appears to have stopped. Gi testing performed but no clear source of the blood loss. Hgb low but stable. BP more stable and medications were re-introduced and advanced to home doses. Monitor closely. (2) Anemia due to acute blood loss: Code(s): D62 - Acute posthemorrhagic anemia Status: Acute Assessment and Plan: Baseline Hgb 10-12 range last year so suspect mild chronic anemia with now acute anemia from acute blood loss from GI bleed. Iron deficiency noted. Suspect anemia may be contributing to his chest pain as demand ischemia given the low EF. Hgb dropped to 7.4 but has been stable now in the 7-8 range. Continue IV iron. Continue EPO. Transfuse as needed. (3) Melena: Code(s): K92.1 - Melena Status: Acute Assessment and Plan: Patient was having melena and Guaiac positive stools in the ED. He was having bright red blood per rectum with the bowel prep per patient. Mild abdominal pain in the left lower quadrant. Anticoagulation was stopped. On 12/11, EGD showing gastritis but no ulcers and Colonoscopy showing IH and colon polyps that were excised. Pathology benign. Thus no signs of bleeding found. Continue Protonix for the gastritis. SBFT negative as well. Discussed with GI. Plan to resume anticoagulation on 12/18. He was agreeable with capsule study and will arrange for this as outpatient. Appreciate GI input. (4) Acute kidney injury superimposed on chronic kidney disease: Code(s): N17.9 - Acute kidney failure, unspecified; N18.9 - Chronic kidney disease, unspecified Status: Acute Assessment and Plan: Possibly due to worsened anemia and relative hypotension. Baseline creatinine about 2.3. Creatinine on admission was 3.1 and climbed to 3.7. Renal ultrasound normal. Medications held. IV fluids given for 2L. Intermittent SOB treated with intermittent IV diuretics with good results. Cr better and now stable at 2.0. BUN better at 76 and felt related to the GI bleed. Nephrology consulted and appreciate their input. Entresto and Coreg added back and toelrating as we advance his doses. (5) Chest pain: Qualifiers: Chest pain type: unspecified Qualified Code(s): R07.9 - Chest pain, unspecified Code(s): R07.9 - Chest pain, unspecified Status: Acute Assessment and Plan: Pain is somewhat atypical for angina given the random occurrence and the radiation to the right arm. However it did improve with nitroglycerin. He did have some right parasternal tenderness. Consider demand ischemia from his anemia. Also appers to have chronic angina as well. No further cardiac workup proposed at this time. Advancing medications as tolerated. Cardiology following and appreciate their input. He remains off his Imdur (6) Elevated troponin: Code(s): R77.8 - Other specified abnormalities of plasma proteins Status: Acute Assessment and Plan: Troponin climbed to 0.11. Most likely due to ischemic cardiomyopathy, anemia, HoTN and chronic kidney disease. Troponin trending downward. No acute coronary syndrome. (7) CHF (congestive heart failure): Qualifiers: Heart failure chronicity: acute on chronic Heart failure type: systolic Qualified Code(s): I50.23 - Acute on chronic systolic (congestive) heart failure Code(s): I50.9 - Heart failure, unspecified Status: Acute Assessment and Plan: Patient with ischemic cardiomyopathy. Echo December 2020 showed EF 30-35%. Echo performed here showing slight improvement with EF of 35-40%. He has a normally functioning aortic bioprosthesis as well as grade 1 diastolic dysfunction. Entresto then Coreg held initially but now resumed and incre
[2021-12-17 11:29] LABS: Glucose Point of Care 193 mg/dl (65-105)
[2021-12-17] MEDS: ATORVASTATIN 40 MG TABLET PO (12:07)
[2021-12-17] MEDS: FLUoxetine HCL 10 MG CAPSULE PO (12:08)
[2021-12-17] MEDS: RANOLAZINE 500 MG TAB.ER.12H 1000 MG PO ×2 (12:08→20:10)
[2021-12-17] MEDS: carvediloL 12.5 MG TABLET PO ×2 (12:09→20:10)
[2021-12-17] MEDS: FLUTICASONE PROPIONATE 0.05% NA SPR 16 GM BTL (*BKC) 2 SPRAY NASAL (12:09)
[2021-12-17] MEDS: PSYLLIUM POWDER PACKET 1 PACKET PO (12:10)
[2021-12-17] MEDS: PANTOPRAZOLE 40 MG TABLET PO ×2 (12:10→20:10)
[2021-12-17] MEDS: ASPIRIN 81 MG CHEWABLE TABLET PO (12:12)
--- NOTE | 2021-12-17 16:02 | PM.PNNEP ---
Progress Note: A&P Assessment and Plan (1) [place] (acute kidney injury): Code(s): N17.9 - Acute kidney failure, unspecified Status: Acute Assessment and Plan: resolved/resolving due to volume depletion/mild dehydration evaluation to date: unremarkable renal ultrasound urine electrolytes are pre-renal creatinine improved following IVFs diuretics on hold Entresto restarted follow repeat labs and UOP (2) CKD (chronic kidney disease): Code(s): N18.9 - Chronic kidney disease, unspecified Status: Chronic Assessment and Plan: secondary to his diabetes, cardiovascular disease (coronary artery disease, congestive heart failure, hyperlipidemia, and peripheral vascular disease) along with age-related change based on outpatient evaluation baseline creatinine runs ~ 1.8 - 2.4mg/dl fluctuates between CKD stage 3B and stage 4 (3) Anemia: Code(s): D64.9 - Anemia, unspecified Status: Acute Assessment and Plan: partly due to CKD however, concern was for acute blood loss history of melena, guaiac positive stools, as well as BRBPR s/p EGD showing gastritis but no ulcers and colonoscopy showing internal hemorrhoids - no acute bleeding noted Gastroenterology following follow trend of H/H (4) Hypotension: Code(s): I95.9 - Hypotension, unspecified Status: Acute Assessment and Plan: still running on the lowish side at times follow trend of hemodynamics (5) Diabetes: Code(s): E11.9 - Type 2 diabetes mellitus without complications Status: Chronic Assessment and Plan: follow accuchecks on SSI and Lantus Will continue to follow. Subjective Date/time seen: 12/17/21 16:02 Chart reviewed - assuming care from Dr. Romero; appears to be doing reasonably well at the time of my visit; at bedside and we discussed the situation; still reports shortness of breath but he states it his baseline shortness of breath; no issues/events overnight. Exam Narrative: General: WD/WN male in NAD Heart: normal S1 and S2; no rub Lungs: clear to auscultation Abdomen: soft, nontender, nondistended, positive bowel sounds Extremities: no cyanosis or clubbing; no edema Skin: warm and dry Objective Data Vital Signs Vital Signs: Vital Signs Temp Pulse Resp BP Pulse Ox 12/17/21 14:36 80 22 H 12/17/21 14:28 35.8 C L 99 18 96/57 L 99 12/17/21 14:00 37.7 C H 121 H 26 H 78/46 L 85 L 12/17/21 13:57 93/52 L 12/17/21 13:54 105/59 L 12/17/21 12:09 99 12/17/21 09:14 110 H 22 H 12/17/21 09:02 103 H 18 12/17/21 09:00 97 12/17/21 06:00 36.1 C L 100 20 112/57 L 97 12/17/21 02:12 81 20 12/16/21 23:37 78 20 94 12/16/21 22:00 36.6 C 107 H 24 H 107/57 L 100 12/16/21 21:02 96 12/16/21 20:50 92 20 12/16/21 20:40 79 20 12/16/21 20:18 109 H Intake/Output Intake/Output: Intake & Output 12/14/21 12/15/21 12/16/21 12/17/21 23:59 23:59 23:59 23:59 Intake Total 1140 1660 2070 1462 Output Total 1700 2050 2650 1000 Balance -560 -390 -580 462 Meds/Results Medications: Active Medications Generic Name Dose Route Start Last Admin Trade Name Freq PRN Reason Stop Dose Admin Acetaminophen 1,000 mg 12/09/21 13:38 12/13/21 17:34 Acetaminophen 500 Mg Tablet PO 1,000 mg Q6H PRN Administration mild to moderate pain Hydrocodone Bitart/Acetaminophen 1 tab 12/13/21 18:04 12/15/21 10:52 Hydrocodone/Acetaminophen (*Crx) 5-325 Mg Tablet PO 1 tab Q6H PRN Administration Pain Rated 7-10 Albuterol 2 puff 12/16/21 12:44 Albuterol Sulfate (*Sp) Aerosol 1 Puff INHALATION Q6HRT PRN Dyspnea Albuterol 2.5 mg 12/16/21 14:00 12/17/21 14:26 Albuterol Sulfate Neb 2.5 Mg/0.5 Ml Inh INHALATION 2.5 mg Q6HRT MILLIE Administration Aspirin 81 mg 12/17/21 11:35 12/17/21 12:12 Aspirin 81 Mg Chewable Tabl
--- NOTE | 2021-12-17 16:02 | P.PNNP_ITS ---
Progress Note: A&P Assessment and Plan (1) [place] (acute kidney injury): Code(s): N17.9 - Acute kidney failure, unspecified Status: Acute Assessment and Plan: * resolved/resolving * due to volume depletion/mild dehydration * evaluation to date: * unremarkable renal ultrasound * urine electrolytes are pre-renal * creatinine improved following IVFs * diuretics on hold * Entresto restarted * follow repeat labs and UOP (2) CKD (chronic kidney disease): Code(s): N18.9 - Chronic kidney disease, unspecified Status: Chronic Assessment and Plan: * secondary to his diabetes, cardiovascular disease (coronary artery disease, congestive heart failure, hyperlipidemia, and peripheral vascular disease) along with age-related change based on outpatient evaluation * baseline creatinine runs ~ 1.8 - 2.4mg/dl * fluctuates between CKD stage 3B and stage 4 (3) Anemia: Code(s): D64.9 - Anemia, unspecified Status: Acute Assessment and Plan: * partly due to CKD * however, concern was for acute blood loss * history of melena, guaiac positive stools, as well as BRBPR * s/p EGD showing gastritis but no ulcers and colonoscopy showing internal hemorrhoids - no acute bleeding noted * Gastroenterology following * follow trend of H/H (4) Hypotension: Code(s): I95.9 - Hypotension, unspecified Status: Acute Assessment and Plan: * still running on the lowish side at times * follow trend of hemodynamics (5) Diabetes: Code(s): E11.9 - Type 2 diabetes mellitus without complications Status: Chronic Assessment and Plan: * follow accuchecks * on SSI and Lantus Will continue to follow. Subjective Date/time seen: 12/17/21 16:02 Chart reviewed - assuming care from Dr. Romero; appears to be doing reasonably well at the time of my visit; at bedside and we discussed the situation; still reports shortness of breath but he states it his baseline shortness of breath; no issues/events overnight. Exam 2 Narrative: General: WD/WN male in NAD Heart: normal S1 and S2; no rub Lungs: clear to auscultation Abdomen: soft, nontender, nondistended, positive bowel sounds Extremities: no cyanosis or clubbing; no edema Skin: warm and dry Objective Data Vital Signs Vital Signs: Vital Signs Temp Pulse Resp BP Pulse Ox 03/21/22 14:36 80 22 H 12/17/21 14:28 35.8 C L 99 18 96/57 L 99 12/17/21 14:00 37.7 C H 121 H 26 H 78/46 L 85 L 12/17/21 13:57 93/52 L 12/17/21 13:54 105/59 L 12/17/21 12:09 99 12/17/21 09:14 110 H 22 H 12/17/21 09:02 103 H 18 12/17/21 09:00 97 12/17/21 06:00 36.1 C L 100 20 112/57 L 97 12/17/21 02:12 81 20 12/16/21 23:37 78 20 94 12/16/21 22:00 36.6 C 107 H 24 H 107/57 L 100 12/16/21 21:02 96 12/16/21 20:50 92 20 12/16/21 20:40 79 20 12/16/21 20:18 109 H Intake/Output Intake/Output: Intake & Output 12/14/21 12/15/21 12/16/21 12/17/21 23:59 23:59 23:59 23:59 Intake Total 1140 1660 2070 1462 Output Total 1700 2050 2650 1000 Balance -560 -832 -830 462 Meds/Results Medications: Active Medica
[2021-12-17 16:54] LABS: Glucose Point of Care 222 mg/dl (65-105)
[2021-12-17] MEDS: INSULIN ASPART (*BKC) 100 UNITS/ML SUB-Q (17:00)
[2021-12-17 20:03] LABS: Glucose Point of Care 229 mg/dl (65-105)
[2021-12-17] MEDS: TAMSULOSIN HCL 0.4 MG CAPSULE PO (20:10)
[2021-12-17] MEDS: SACUBITRIL/VALSARTAN 24-26 MG TABLET 1 TAB PO (20:10)
[2021-12-17] MEDS: polyethylene glycoL 3350 17 GM POWD.PACK PO (20:10)
[2021-12-17] MEDS: INSULIN GLARGINE (*BKC) 100 UNITS/ML 40 UNITS SUB-Q (20:11)
[2021-12-18] VITALS (12 sets, daily range): BP systolic 88–155; BP diastolic 51–83; PULSE 83–93; RESP 16–28; TEMP 35.5–36.1; O2SAT 93–100
[2021-12-18] MEDS: IPRATROPIUM BR 0.02% INH SOLN 0.5 MG/2.5 ML VIAL INHALATION ×3 (02:00→14:44)
[2021-12-18] MEDS: ALBUTEROL SULFATE NEB 2.5 MG/0.5 ML INH INHALATION ×3 (02:00→14:44)
[2021-12-18 06:36] LABS: Hematocrit 29.3 % (42.0-52.0); Hemoglobin 8.9 g/dL (14.0-18.0); Mean Corpuscular HGB Conc 30.4 g/dl (32-36); Mean Corpuscular Hemoglobin 30.1 pg (26-34); Mean Platelet Volume 9.5 fl (7.4-10.4); Platelet Count Result 240 k/mm3 (150-375); Red Blood Count 2.96 M/mm3 (4.6-6.20); Red Cell Distribution Width 19.3 % (11.5-14.5); White Blood Count 9.6 K/mm3 (4.5-10.0)
[2021-12-18 06:51] LABS: Anion Gap 9 mmol/L (8-16); Blood Urea Nitrogen 81 mg/dL (9-20); Calcium 8.5 mg/dL (8.4-10.2); Carbon Dioxide 27 mmol/L (22-30); Chloride 98 mmol/L (98-107); Estimated CRCL calculation 27 ml/min; Estimated Glomerular Filt Rate 28; Glucose 175 mg/dL (65-110); Sodium 134 mmol/L (137-145)
[2021-12-18 08:07] LABS: Glucose Point of Care 152 mg/dl (65-105)
[2021-12-18] MEDS: PSYLLIUM POWDER PACKET 1 PACKET PO (09:14)
[2021-12-18] MEDS: ASPIRIN 81 MG CHEWABLE TABLET PO (09:14)
[2021-12-18] MEDS: RANOLAZINE 500 MG TAB.ER.12H 1000 MG PO (09:14)
[2021-12-18] MEDS: SACUBITRIL/VALSARTAN 24-26 MG TABLET 1 TAB PO (09:15)
[2021-12-18] MEDS: PANTOPRAZOLE 40 MG TABLET PO (09:15)
[2021-12-18] MEDS: carvediloL 12.5 MG TABLET PO (09:16)
[2021-12-18] MEDS: FLUoxetine HCL 10 MG CAPSULE PO (09:16)
[2021-12-18] MEDS: ATORVASTATIN 40 MG TABLET PO (09:16)
[2021-12-18] MEDS: FLUTICASONE PROPIONATE 0.05% NA SPR 16 GM BTL (*BKC) 2 SPRAY NASAL (09:17)
[2021-12-18] MEDS: EPOETIN ALFA-EPBX 10,000 UNITS/ML VIAL 10000 UNITS SUB-Q (09:23)
--- NOTE | 2021-12-18 10:37 | PM.PNCARD ---
Progress Note: A&P Assessment and Plan (1) Chest pain: Qualifiers: Chest pain type: unspecified Qualified Code(s): R07.9 - Chest pain, unspecified Code(s): R07.9 - Chest pain, unspecified Status: Acute Assessment and Plan: Patient has been having some chest pain recently occurring at rest. Some components of angina but also somewhat atypical. Continues to have chest wall tenderness. No further cardiac work up recommended at this time. (2) Shortness of breath: Code(s): R06.02 - Shortness of breath Status: Acute Assessment and Plan: Chronic and stable at this point. (3) CAD (coronary artery disease): Code(s): I25.10 - Atherosclerotic heart disease of [place] coronary artery without angina pectoris Status: Acute Assessment and Plan: Long history of CAD, [place] coronary circulation occluded, intact ORDOÑEZ to the Left anterior descending and saphenous vein graft to the PDA by catheterization in 2017. (4) Cardiomyopathy: Code(s): I42.9 - Cardiomyopathy, unspecified Status: Acute Assessment and Plan: Ischemic heart disease with an EF or 35-40% by recent echo. He appears well compensated at this time. Continue medical therapy with coreg, Entresto. Restart Farxiga and Bumex at lower dose on discharge. (5) Chronic anticoagulation: Code(s): Z79.01 - [place] (current) use of anticoagulants Status: Acute Assessment and Plan: OK to restart Xarelto 2.5mg b.i.d at this point (PAD dosing) (6) Melena: Code(s): K92.1 - Melena Status: Acute Assessment and Plan: Receiving iron (7) Persistent atrial fibrillation: Code(s): I48.19 - Other persistent atrial fibrillation Status: Acute Assessment and Plan: Has persistent atrial fibrillation (8) Biventricular ICD (implantable cardioverter-defibrillator) in place: Code(s): Z95.810 - Presence of automatic (implantable) cardiac defibrillator Status: Acute Assessment and Plan: Bi V ICD is followed by Dr. Delacruz at [place]. (9) Acute kidney injury: Code(s): N17.9 - Acute kidney failure, unspecified Status: Acute Assessment and Plan: Creatinine back to baseline at this point. Nephrology is following. (10) Peripheral vascular disease: Code(s): I73.9 - Peripheral vascular disease, unspecified Status: Acute Assessment and Plan: Complains of sore legs, has peripheral vascular disease. Followed by Dr. Ramirez. Unable to dress with angiography due to the patient's kidney disease. Subjective Date/time seen: 12/18/21 10:37 Interval history: Follow-up visit in this 76-year-old man with: Complicated problem with severe coronary disease, significant ischemic cardiomyopathy, chronic kidney disease and anemia. Date of service 12/15/2021: Feels about the same. Still short of breath. No chest pain. Resting comfortably in bed Date of service 12/16/2021: Short of breath at rest. No chest pain. at bedside was clearly frustrated by several things during this hospitalization including issues about medications not being supplied by pharmacy, diet, IV fluids being given etc.. I did talk to her extensively and seem to calm her down. lubrication supervisor and charge nurse to also see her and patient Date of service 12/18/2021: Feels ok today. He is not short of breath at rest today but does have significant dyspnea with minimal activity. Denies any bloody/melenic stools. He denies any chest pain. Review of Systems Constitutional: Constitutional: Reports fatigue Eyes: Eyes: Reports no additional eye complaints ENT: Denies Normal hearing present Cardiovascular: Cardiovascular: Reports chest pain, Denies pedal edema, Denies leg edema, Reports lightheadedness, Denies palpitations, Reports dyspnea and Reports dyspnea on exertion Respiratory: Respiratory: Denies chest congestion, Denies cough,
--- NOTE | 2021-12-18 12:06 | P.PNNP_ITS ---
Progress Note: A&P Assessment and Plan (1) MONICA (acute kidney injury): Code(s): N17.9 - Acute kidney failure, unspecified Status: Acute Assessment and Plan: * resolved/resolving * due to volume depletion/mild dehydration * evaluation to date: * unremarkable renal ultrasound * urine electrolytes are pre-renal * creatinine improved following IVFs * diuretics on hold * Entresto restarted * follow repeat labs and UOP (2) CKD (chronic kidney disease): Code(s): N18.9 - Chronic kidney disease, unspecified Status: Chronic Assessment and Plan: * secondary to his diabetes, cardiovascular disease (coronary artery disease, congestive heart failure, hyperlipidemia, and peripheral vascular disease) along with age-related change based on outpatient evaluation * baseline creatinine runs ~ 1.8 - 2.4mg/dl * fluctuates between CKD stage 3B and stage 4 (3) Anemia: Code(s): D64.9 - Anemia, unspecified Status: Acute Assessment and Plan: * partly due to CKD * however, concern was for acute blood loss * history of melena, guaiac positive stools, as well as BRBPR noted on admission * s/p EGD showing gastritis but no ulcers and colonoscopy showing internal hemorrhoids - no acute bleeding noted * Gastroenterology following * follow trend of H/H (4) Hypotension: Code(s): I95.9 - Hypotension, unspecified Status: Acute Assessment and Plan: * appears to be doing a bit better at this time * follow trend of hemodynamics (5) Diabetes: Code(s): E11.9 - Type 2 diabetes mellitus without complications Status: Chronic Assessment and Plan: * follow accuchecks * on SSI and Lantus Will continue to follow. Subjective Date/time seen: 12/18/21 12:06 No new issues or problems to report at this time; still has shortness of breath with activity but this is chronic issue that he has at baseline; no other events overnight or earlier this AM. Exam Narrative: General: WD/WN male in NAD Heart: normal S1 and S2; no rub Lungs: clear to auscultation Abdomen: soft, nontender, nondistended, positive bowel sounds Extremities: no cyanosis or clubbing; no edema Skin: warm and intact Objective Data Vital Signs Vital Signs: Vital Signs Temp Pulse Resp BP Pulse Ox 12/18/21 09:40 88 18 96 12/18/21 09:31 90 18 96 12/18/21 09:16 93 12/18/21 08:00 35.5 C L 93 19 155/83 H 96 12/18/21 06:00 36.1 C L 92 18 100/56 L 96 12/18/21 02:10 85 16 93 12/18/21 02:01 85 16 12/17/21 22:00 35.9 C L 99 20 110/62 100 12/17/21 21:55 97 18 95 12/17/21 21:44 97 12/17/21 21:15 92 20 12/17/21 21:00 97 20 12/17/21 20:10 70 12/17/21 14:36 80 22 H 12/17/21 14:28 35.8 C L 99 18 96/57 L 99 12/17/21 14:00 37.7 C H 121 H 26 H 78/46 L 85 L 12/17/21 13:57 93/52 L 12/17/21 13:54 105/59 L 12/17/21 12:09 99 Intake/Output Intake/Output: Intake & Output 12/15/21 12/16/21 12/17/21 12/18/21 23:59 23:59 23:59 23:59 Intake Total 1660 2070 1462 630 Output Total 0 2650 1000 500 Balance -390 -580 462 130 Meds/Results Medicatio
--- NOTE | 2021-12-18 12:06 | PM.PNNEP ---
Progress Note: A&P Assessment and Plan (1) MONICA (acute kidney injury): Code(s): N17.9 - Acute kidney failure, unspecified Status: Acute Assessment and Plan: resolved/resolving due to volume depletion/mild dehydration evaluation to date: unremarkable renal ultrasound urine electrolytes are pre-renal creatinine improved following IVFs diuretics on hold Entresto restarted follow repeat labs and UOP (2) CKD (chronic kidney disease): Code(s): N18.9 - Chronic kidney disease, unspecified Status: Chronic Assessment and Plan: secondary to his diabetes, cardiovascular disease (coronary artery disease, congestive heart failure, hyperlipidemia, and peripheral vascular disease) along with age-related change based on outpatient evaluation baseline creatinine runs ~ 1.8 - 2.4mg/dl fluctuates between CKD stage 3B and stage 4 (3) Anemia: Code(s): D64.9 - Anemia, unspecified Status: Acute Assessment and Plan: partly due to CKD however, concern was for acute blood loss history of melena, guaiac positive stools, as well as BRBPR noted on admission s/p EGD showing gastritis but no ulcers and colonoscopy showing internal hemorrhoids - no acute bleeding noted Gastroenterology following follow trend of H/H (4) Hypotension: Code(s): I95.9 - Hypotension, unspecified Status: Acute Assessment and Plan: appears to be doing a bit better at this time follow trend of hemodynamics (5) Diabetes: Code(s): E11.9 - Type 2 diabetes mellitus without complications Status: Chronic Assessment and Plan: follow accuchecks on SSI and Lantus Will continue to follow. Subjective Date/time seen: 12/18/21 12:06 No new issues or problems to report at this time; still has shortness of breath with activity but this is chronic issue that he has at baseline; no other events overnight or earlier this AM. Exam Narrative: General: WD/WN male in NAD Heart: normal S1 and S2; no rub Lungs: clear to auscultation Abdomen: soft, nontender, nondistended, positive bowel sounds Extremities: no cyanosis or clubbing; no edema Skin: warm and intact Objective Data Vital Signs Vital Signs: Vital Signs Temp Pulse Resp BP Pulse Ox 12/18/21 09:40 88 18 96 12/18/21 09:31 90 18 96 12/18/21 09:16 93 12/18/21 08:00 35.5 C L 93 19 155/83 H 96 12/18/21 06:00 36.1 C L 92 18 100/56 L 96 12/18/21 02:10 85 16 93 12/18/21 02:01 85 16 12/17/21 22:00 35.9 C L 99 20 110/62 100 12/17/21 21:55 97 18 95 12/17/21 21:44 97 12/17/21 21:15 92 20 12/17/21 21:00 97 20 12/17/21 20:10 70 12/17/21 14:36 80 22 H 12/17/21 14:28 35.8 C L 99 18 96/57 L 99 12/17/21 14:00 37.7 C H 121 H 26 H 78/46 L 85 L 12/17/21 13:57 93/52 L 12/17/21 13:54 105/59 L 12/17/21 12:09 99 Intake/Output Intake/Output: Intake & Output 12/15/21 12/16/21 12/17/21 12/18/21 23:59 23:59 23:59 23:59 Intake Total 1660 2070 1462 630 Output Total 2050 2650 1000 500 Balance -390 -580 462 130 Meds/Results Medications: Active Medications Generic Name Dose Route Start Last Admin Trade Name Freq PRN Reason Stop Dose Admin Acetaminophen 1,000 mg 12/09/21 13:38 12/13/21 17:34 Acetaminophen 500 Mg Tablet PO 1,000 mg Q6H PRN Administration mild to moderate pain Hydrocodone Bitart/Acetaminophen 1 tab 12/13/21 18:04 12/15/21 10:52 Hydrocodone/Acetaminophen (*Crx) 5-325 Mg Tablet PO 1 tab Q6H PRN Administration Pain Rated 7-10 Albuterol 2 puff 12/16/21 12:44 Albuterol Sulfate (*Sp) Aerosol 1 Puff INHALATION Q6HRT PRN Dyspnea Albuterol 2.5 mg 12/16/21 14:00 12/18/21 09:37 Albuterol Sulfate Neb 2.5 Mg/0.5 Ml Inh INHALATION 2.5 mg Q6HRT MILLIE Administration Aspirin 81 mg 12/17/21 11:35 12/18/21 09:14 Aspirin 81 Mg Chewa
[2021-12-18 12:39] LABS: Glucose Point of Care 217 mg/dl (65-105)
[2021-12-18] MEDS: INSULIN ASPART (*BKC) 100 UNITS/ML SUB-Q (12:49)
--- NOTE | 2021-12-18 13:43 | PM.DS ---
DS: Admitting Diagnosis Discharge Date 12/18/21 Admitting Diagnosis Chest pain and melena DS: Discharge Diagnosis Discharge Diagnosis (1) Hypotension: Code(s): I95.9 - Hypotension, unspecified Status: Acute Assessment and Plan: BP became soft related to the acute blood loss. IV fluids given. Some of his medications were held. Bleeding appears to have stopped. GI testing performed but no clear source of the blood loss. Hgb low and treated with iron. hgb climbed to 8.9. BP more stable and medications were re-introduced and advanced to home doses. (2) Anemia due to acute blood loss: Code(s): D62 - Acute posthemorrhagic anemia Status: Acute Assessment and Plan: Baseline Hgb 10-12 range last year so suspect mild chronic anemia with now acute anemia from acute blood loss from GI bleed. Hgb 11-12 on admission. He was noted to be iron deficiency noted. Suspect anemia may be contributing to his chest pain as demand ischemia given the low EF. Hgb dropped to 7.4 before stabilizing. Treated with IV iron and EPO. Hgb climbed to 8.9. (3) Melena: Code(s): K92.1 - Melena Status: Acute Assessment and Plan: Patient was having melena and noted to have Guaiac positive stools in the ED. He was having bright red blood per rectum with the bowel prep per patient. Mild abdominal pain in the left lower quadrant. Anticoagulation was stopped. On 12/11, EGD showing gastritis but no ulcers and Colonoscopy showing IH and colon polyps that were excised. Pathology benign. Thus no signs of bleeding found. Treated with Protonix for the gastritis. SBFT negative as well. Discussed with GI who recommended resuming anticoagulation on 12/18. GI felt capsule study appropriate and will arrange for this as outpatient. (4) Acute kidney injury superimposed on chronic kidney disease: Code(s): N17.9 - Acute kidney failure, unspecified; N18.9 - Chronic kidney disease, unspecified Status: Acute Assessment and Plan: Possibly due to worsened anemia and relative hypotension. Baseline creatinine about 2.3. Creatinine on admission was 3.1 and climbed to 3.7. Renal ultrasound normal. Medications held. IV fluids given for 2L. Intermittent SOB treated with intermittent IV diuretics with good results. Cr better and now back to 2.3. BUN elevated felt related to the GI bleed. Nephrology consulted and appreciate their input. Entresto and Coreg added back and tolerating. Bumex added back at discharge per Cardiology. (5) Chest pain: Qualifiers: Chest pain type: unspecified Qualified Code(s): R07.9 - Chest pain, unspecified Code(s): R07.9 - Chest pain, unspecified Status: Acute Assessment and Plan: Pain is somewhat atypical for angina given the random occurrence and the radiation to the right arm. However it did improve with nitroglycerin. He did have some right parasternal tenderness. Consider demand ischemia from his anemia. Also appers to have chronic angina as well. No further cardiac workup proposed at this time. Advancing medications as tolerated. Cardiology following and appreciate their input. He will remain off his Imdur for the time being. (6) Elevated troponin: Code(s): R77.8 - Other specified abnormalities of plasma proteins Status: Acute Assessment and Plan: Troponin climbed to 0.11. Most likely due to ischemic cardiomyopathy, anemia, HoTN and chronic kidney disease. Troponin trending downward. No acute coronary syndrome. (7) CHF (congestive heart failure): Qualifiers: Heart failure chronicity: acute on chronic Heart failure type: systolic Qualified Code(s): I50.23 - Acute on chronic systolic (congestive) heart failure Code(s): I50.9 - Heart failure, unspecified Status: Acute Assessment and Plan: Patient with ischemic cardiomyopathy. Echo December 2020 showed EF 30-35%. Echo performed here showing slight i
== END 2021-12-18 17:24 | disposition home or self-care (01) | DRG 377 ==
LOC: ANHED 16:49 → ANHIMU 17:47 → ANH2MED 12-09 14:11 → ANHIMU 12-12 14:50 → ANH3MEDSUR 12-18 14:39 → ANH2MED 12-19 09:03 → ANH3MEDSUR 12-19 09:03 → ANHIMU 12-19 09:03
PROVIDERS: Internal Medicine; Internal Medicine Gastroenterology; Internal Medicine Nephrology; Nurse Practitioner Adult Health; Physician Assistant; Student in an Organized Health Care Education/Training Program; Admitting Provider Hospitalist; Emergency Provider Emergency Medicine; PCP Emergency Medicine; Visit Provider Internal Medicine
PROC: 0DJ08ZZ Inspection of Upper Intestinal Tract, Via Natural or Artificial Opening Endoscopic (ICD-10-PCS; CPT 43235; principal; 2021-12-11 15:15)
DX: K92.2 Gastrointestinal hemorrhage, unspecified (principal); N17.0 Acute kidney failure with tubular necrosis; I50.23 Acute on chronic systolic (congestive) heart failure; D62 Acute posthemorrhagic anemia; I24.8 Other forms of acute ischemic heart disease; I48.19 Other persistent atrial fibrillation; E87.1 Hypo-osmolality and hyponatremia; I95.89 Other hypotension; I25.5 Ischemic cardiomyopathy; E11.22 Type 2 diabetes mellitus with diabetic chronic kidney disease; N18.9 Chronic kidney disease, unspecified; G47.33 Obstructive sleep apnea (adult) (pediatric); I73.9 Peripheral vascular disease, unspecified; R91.1 Solitary pulmonary nodule; R79.1 Abnormal coagulation profile; N40.0 Benign prostatic hyperplasia without lower urinary tract symptoms; I25.10 Atherosclerotic heart disease of native coronary artery without angina pectoris; J44.9 Chronic obstructive pulmonary disease, unspecified; K21.9 Gastro-esophageal reflux disease without esophagitis; R07.89 Other chest pain; E11.42 Type 2 diabetes mellitus with diabetic polyneuropathy; F41.8 Other specified anxiety disorders; K29.70 Gastritis, unspecified, without bleeding; K64.8 Other hemorrhoids; E86.0 Dehydration; K63.5 Polyp of colon; K44.9 Diaphragmatic hernia without obstruction or gangrene; T45.515A Adverse effect of anticoagulants, initial encounter; Z79.01 Long term (current) use of anticoagulants; Z95.810 Presence of automatic (implantable) cardiac defibrillator; Z79.4 Long term (current) use of insulin; Z95.1 Presence of aortocoronary bypass graft; Z95.820 Peripheral vascular angioplasty status with implants and grafts; Z87.891 Personal history of nicotine dependence; Z95.2 Presence of prosthetic heart valve; Z90.49 Acquired absence of other specified parts of digestive tract; Z98.42 Cataract extraction status, left eye; Z98.41 Cataract extraction status, right eye; G47.00 Insomnia, unspecified; E66.9 Obesity, unspecified; Z68.33 Body mass index [BMI] 33.0-33.9, adult; D63.1 Anemia in chronic kidney disease
CPT/HCPCS: 36415; 71045; 71046; 74250; 76775; 80048; 80053; 80069; 82533; 82570; 82607; 82728; 82746; 82948; 83540; 83550; 83690; 83735; 83880; 83930; 83935; 84100; 84443; 84484; 84540; 85014; 85018; 85025; 85027; 85610; 85730; 88305; 93005; 93306; 94618; 94640; 96361; 96374; 96375; 96376; 97110; 97116; 97161; 97165; 97530; 97535; 99285; A9270; C9113; G0378; J0834; J1756; J1815; J1940; J2405; J2704; J7030; J7040; J7120; Q5105; Q9957

== ENCOUNTER 2021-12-19 15:43 | Emergency (ER) | payer MEDICARE, OTHER, SELFPAY ==
[2021-12-19 16:00] VITALS: BP 0/0; PULSE 0; RESP 0; TEMP 32.2; O2SAT 0
--- NOTE | 2021-12-19 16:04 | ED.CPR ---
HPI - CPR General Chief Complaint: Cardiac Arrest/CPR Stated Complaint: cardiac arrest Time Seen by Provider: 12/19/21 16:02 Source: family, EMS, RN notes reviewed and old records reviewed Mode of arrival: EMS Limitations: clinical condition History of Present Illness HPI narrative: 76-year-old male presenting to the emergency department from home in full arrest. EMS was initially called for a ground-level fall. Patient denied any pain or injury. Patient was loaded into the ambulance for transfer and patient went into cardiac arrest and had a loss of pulse. Patient was treated with 3-4 rounds of epi en route but remained in PEA during transport. Patient arrived with an LMA and madhavi compression device in place. Related Data Home Medications Medication Instructions Recorded Confirmed atorvastatin 40 mg PO DAILY 07/29/19 12/08/21 carvedilol [Coreg] 12.5 mg PO Q12H 07/29/19 12/08/21 nitroglycerin [Nitrostat] 0.4 mg SUBLINGUAL Q5MIN PRN 07/29/19 12/08/21 ranolazine 1,000 mg PO Q12H 07/29/19 12/08/21 insulin lispro [Humalog U-100 See Rx Instructions .ROUTE .COMPLEX 12/04/19 12/08/21 Insulin] polyethylene glycol 3350 [Miralax] 17 g PO HS 12/04/19 12/08/21 tamsulosin 0.4 mg PO HS 12/04/19 12/08/21 Proventil HFA 2 puff Q4H PRN 12/12/21 12/12/21 Xarelto 2.5 mg PO Q12H 12/12/21 12/12/21 dapagliflozin [Farxiga] 10 mg PO DAILY 12/12/21 12/12/21 ferrous sulfate 325 mg PO DAILY 12/12/21 12/12/21 isosorbide mononitrate 60 mg PO DAILY 12/12/21 12/12/21 psyllium husk [Metamucil] 0.52 g PO DAILY 12/12/21 12/12/21 Allergies Allergy/AdvReac Type Severity Reaction Status Date / Time bee venom protein (honey bee) Allergy Severe Anaphylaxis Verified 12/19/21 15:56 Cephalosporins Allergy Unknown DIRECTOR OF COUNTERINTELLIGENCE Verified 12/19/21 15:56 HIVES Penicillins Allergy Unknown Unknown Verified 12/19/21 15:56 Bumble Bee Allergy Unknown Anaphylaxis Uncoded 12/19/21 15:56 [facility] Past Medical History Medical History (Updated 12/19/21 @ 16:09 by Geoff Hall MD) Adenomatous colon polyp MONICA (acute kidney injury) Bacteremia (~06/2019) Streptococcus bovis bacteremia June 2019. Transesophageal echocardiogram negative for vegetation July 2019. Benign prostatic hyperplasia Bilateral carotid artery disease Chronic kidney disease Chronic obstructive pulmonary disease PFTs in November of 2017 demonstrated mild obstructive ventilatory defect with severe small airway disease with bronchodilator response moderately decreased DLCO. Complete heart block Status post dual chamber pacemaker. Congestive heart failure Echo in 09/2018 demonstrated EF of 55% but difficult study prior echos had demonstrated mildly decreased left ventricular systolic function with hypokinetic segment of left ventricle including apical mid in peers septum apical septum and mid anterior septum, diastolic dysfunction noted on prior echoes. Coronary artery disease Status post stents and CABG. Patient of Dr. Arjun Yo. Depression with anxiety Diabetic peripheral neuropathy Frequent falls Gastritis Gastroesophageal reflux disease Hiatal hernia History of pacemaker Hyponatremia with decreased serum osmolality Obstructive sleep apnea on CPAP Polysomnogram June 2018 recommended CPAP with 19 cm of water. Paroxysmal atrial fibrillation Peripheral artery disease With multiple bilateral lower extremity stents June 2019. 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 Smoked 100 pack years. Pneumonia Severe pulmonary arterial systolic hypertension Noted on echocardiogram from June 2017 with RVSP of 76. Type 2 diabetes mellitus treated with insulin Hemoglobin A1c 8.1 in 05/2020. Surgical History Surgical History Biventricular cardiac pacemaker in situ Biotronik dual chamber pacemaker. History of aortic valve replacement with bioprosthetic valve (~2015) History of appendectomy Due to perforate
== END 2021-12-19 18:20 | disposition expired ==
PROVIDERS: Emergency Provider Emergency Medicine
DX: I46.9 Cardiac arrest, cause unspecified (principal); E11.22 Type 2 diabetes mellitus with diabetic chronic kidney disease; N18.9 Chronic kidney disease, unspecified; Z79.4 Long term (current) use of insulin; J44.9 Chronic obstructive pulmonary disease, unspecified; I50.9 Heart failure, unspecified; I25.10 Atherosclerotic heart disease of native coronary artery without angina pectoris; F32.9 Major depressive disorder, single episode, unspecified; F41.9 Anxiety disorder, unspecified; I48.91 Unspecified atrial fibrillation
CPT/HCPCS: 31500; 92950; 99285; J0171